=== PATIENT | male | born 1935 | race Caucasian/White ===

== ENCOUNTER → 2018-02-03 08:54 | Outpatient (CLI) | payer MEDICARE, SELFPAY ==
[2018-02-03 10:09] LABS: INR 2.6 (0.9-1.3)
== END ==
PROVIDERS: Family Provider Internal Medicine Interventional Cardiology; PCP Family Medicine; Visit Provider Family Medicine
DX: I48.91 Unspecified atrial fibrillation (principal)
CPT/HCPCS: 36415; 85610

== ENCOUNTER → 2018-02-24 08:41 | Outpatient (CLI) | payer MEDICARE, SELFPAY ==
[2018-02-24 09:57] LABS: Prothrombin Time 35.7 SECONDS (10.1-12.7)
== END ==
PROVIDERS: Family Provider Internal Medicine Interventional Cardiology; PCP Family Medicine; Visit Provider Family Medicine
DX: I48.91 Unspecified atrial fibrillation (principal)
CPT/HCPCS: 36415; 85610

== ENCOUNTER → 2018-05-18 10:17 | Outpatient (REF) | payer MEDICARE, SELFPAY ==
[2018-05-18 10:32] LABS: INR 2.6 (0.9-1.3); Prothrombin Time 30.1 SECONDS (10.1-12.7)
== END ==
LOC: LAB 10:17
PROVIDERS: Family Provider Internal Medicine Interventional Cardiology; PCP Family Medicine; Visit Provider Family Medicine
DX: Z79.01 Long term (current) use of anticoagulants (principal)
CPT/HCPCS: 85610

== ENCOUNTER → 2018-06-14 08:48 | Outpatient (REF) | payer MEDICARE, SELFPAY ==
[2018-06-14 09:02] LABS: INR 3.5 (0.9-1.3); Prothrombin Time 41.8 SECONDS (10.1-12.7)
== END ==
LOC: LAB 08:48
PROVIDERS: Family Provider Internal Medicine Interventional Cardiology; PCP Family Medicine; Visit Provider Family Medicine
DX: Z79.01 Long term (current) use of anticoagulants (principal)
CPT/HCPCS: 85610

== ENCOUNTER 2018-06-29 15:23 | Emergency (ER) | payer MEDICARE, SELFPAY ==
[2018-06-29 15:39] VITALS: BP 161/69; PULSE 64; RESP 16; TEMP 36.7; O2SAT 97
--- NOTE | 2018-06-29 17:31 | DI.CT.S_ITS ---
PROCEDURE: CT HEAD/BRAIN WO CON INDICATIONS: fall on coumadin TECHNIQUE: Noncontrast 4.5 mm thick angled axial sections acquired from the foramen magnum to the vertex, with coronal and sagittal reformats. For radiation dose reduction, the following was used: automated exposure control, adjustment of mA and/or kV according to patient size. COMPARISON: None. FINDINGS: Image quality: Study is slightly degraded due to patient motion.. CSF spaces: Basal cisterns are patent. No extra-axial fluid collections. The ventricles are symmetric in size and shape. Brain: No intracranial bleeds or masses. There is cerebral volume loss for age, with resultant ventricular and sulcal prominence. There are periventricular and deep white matter chronic small vessel ischemic changes. There is intracranial internal carotid artery atherosclerosis. Skull and face: Calvarium and visualized facial bones appear intact, without suspicious lesions. Sinuses: Visualized sinuses and mastoids are clear. IMPRESSION: No CT evidence of acute intracranial pathology. Age-appropriate atrophy and mild periventricular white matter microangiopathic changes. Dictated by: Jass Rai M.D. on 06/29/2018 at 17:58 Approved by: Jass Rai M.D. on 06/29/2018 at 17:59
--- NOTE | 2018-06-29 17:31 | DI.RAD.S_ITS ---
PROCEDURE: XR THORACIC SPINE 3V INDICATIONS: fall 3 days ago TECHNIQUE: 3 views of the thoracic spine were acquired. COMPARISON: None. FINDINGS: Bones: Mild to moderate kyphosis centered at T7-8 level is seen. No gross acute compression fracture or spondylolisthesis. Moderate degenerative disc disease throughout thoracic spine is noted. No suspicious bony lesions. 12 pairs of ribs are noted, and appear intact where visualized. Soft tissues: No paravertebral stripe thickening. Left chest wall cardiac device leads are seen in the region of right atrium and right ventricle. IMPRESSION: Degenerative disc disease throughout thoracic spine with mild to moderate kyphosis centered at T7-8 level. No gross acute compression fracture or spondylolisthesis. Dictated by: Jass Rai M.D. on 06/29/2018 at 18:22 Approved by: Jass Rai M.D. on 06/29/2018 at 18:23
--- NOTE | 2018-06-29 17:57 | ED_ITS ---
HPI - Back Pain/Injury <Laureen Hayes, [employer]OW[employer] PILOT-BC - Last Filed: 06/29/18 23:13> General Chief Complaint: Back Pain/Injury Stated Complaint: GLF several days ago at home, back pain Time Seen by Provider: 06/29/18 17:19 Source: patient and family Mode of arrival: ambulatory Limitations: no limitations History of Present Illness HPI Narrative: The patient is an 82-year-old male nonsmoker who presents with his for chief complaint thoracic back pain. He had a ground level fall while pushing back a chair several days ago and states he landed on his side and had resulting mid back pain. the patient and his do not agree on whether or not he hit his head or not. They agree that he did not lose consciousness. He denies any incontinence of bowel or bladder. He complains of pins and needles in his fingers but no other pins and needles or numbness. He states he has a history of degenerative back disease and takes oxycodone at home as needed for lower back pain. he has not taken anything for this pain other than [id number] medications. Related Data Home Medications Medication Instructions Recorded Confirmed losartan 50 mg PO BID #0 02/15/11 06/29/18 ibuprofen 400 mg PO PRN PRN #0 10/31/15 06/29/18 warfarin [Coumadin] 10 mg PO DAILY #0 10/31/15 06/29/18 multivitamin [Multiple Vitamins] 1 tab PO DAILY #0 08/19/16 06/29/18 Fiber Gummies 1 tab PO DAILY 06/29/18 06/29/18 atenolol 50 mg PO BID 06/29/18 06/29/18 atorvastatin [Lipitor] 20 mg PO BID 06/29/18 06/29/18 diltiazem HCl [Cartia XT] 180 mg PO DAILY 06/29/18 06/29/18 omega-3 fatty acids-fish oil [Fish 300 mg PO BID 06/29/18 06/29/18 Oil] sildenafil (antihypertensive) 20 - 100 mg PO PRN PRN 06/29/18 06/29/18 tamsulosin 0.4 mg PO DAILY 06/29/18 06/29/18 Previous Rx's Medication Instructions Recorded cyclobenzaprine 10 mg PO TID PRN #30 tab 06/29/18 diclofenac sodium [Voltaren] 2 gram TOP QID PRN #100 gram 06/29/18 hydrocodone-acetaminophen 1 tab PO Q4-6H PRN #10 tab 06/29/18 Allergies Allergy/AdvReac Type Severity Reaction Status Date / Time benzocaine [From CETACAINE] Allergy Mild ANAPHYLAXSI Verified 06/29/18 15:42 S butamben [From CETACAINE] Allergy Mild ANAPHYLAXSI Verified 06/29/18 15:42 S tetracaine [From CETACAINE] Allergy Mild ANAPHYLAXSI Verified 06/29/18 15:42 S clonidine [CLONIDINE] Allergy Unknown Verified 06/29/18 15:42 Beta-Adrenergic Agents AdvReac Unknown WEAK,TIRED, Verified 06/29/18 15:42 [BETA-ADRENERGIC AGENTS] HARD TO FUNCTION Review of Systems <LINDA Enriquez - Last Filed: 06/29/18 23:13> Review of Systems GENERAL: Denies chills, fatigue, malaise, fever, sweats. HEENT: Denies sinus pain, ear pain, sore throat, difficulty swallowing, dizziness. RESPIRATORY: Denies dyspnea, cough, wheezing, hemoptysis, sputum. CARDIOVASCULAR: Denies chest pain, palpitations, orthopnea, edema, GASTROINTESTINAL: Denies nausea, vomiting, abdominal pain, diarrhea, constipation, melena. : Denies dysuria, frequency, incontinence, hematuria, urinary retention. MUSCULOSKELETAL: See HPI SKIN: Denies rash, skin lesions, or other NEUROLOGIC: see HPI PSYCHIATRIC: No concerning psychosocial issues. 12 point review of systems is negative except for those stated above PFSH <LINDA Enriquez - Last Filed: 06/29/18 23:13> Medical History (Updated 06/29/18 @ 22:35 by LINDA Enriquez) Low back pain (Acute) Social History Smoking Status: Never smoker Social History Smoking Status: Never smoker Exam <LINDA Enriquez - Last Filed: 06/29/18 23:13> Narrative Exam Narrative: GENERAL: Elderly obese gentleman sitting on stretcher HEAD: Atraumatic. Normocephalic. No temporal or scalp tenderness. EYES: Pupils equal round and reactive. Extraocular motions intact. No scleral icterus. No injection or drainage. ENT: Nose without bleeding, purulent drainage or septal hematoma. Throat without erythema, tonsillar hypertrophy or exudate. Uvula midline. Airway patent. NECK: Trachea midline. No JVD or lymphadenopathy. Supple, nontender, no meningeal signs. CARDIOVASCULAR: Regular rate and rhythm RESPIRATORY: Clear to auscultation. Breath sounds equal bilaterally. No wheezes, rales, or rhonchi. No cough. No increased respiratory effort. GASTROINTESTINAL: Abdomen soft, non-tender, nondistended. No hepato- splenomegaly, or palpable masses. No guarding. EXTREMITIES: No clubbing, cyanosis, or edema. No joint tenderness, effusion, or edema noted. BACK: T-spine pain to palpation without deformity or crepitance. No flank tenderness. no pain to C-spine or L-spine palpation. pain to bilateral T-spine para spinal muscle NEURO: AOx3. Strength is equal upper and lower extremities bilaterally. No gross cranial nerve deficit. Stable gait. Clear speech. sensation is intact bilateral hands using sharp versus dull testing on all fingers several times and hands. SKIN: No rash or erythema. Initial Vital Signs Initial Vital Signs: Vital Signs Temperature 98.1 F 06/29/18 15:39 Pulse Rate 64 06/29/18 15:39 Respiratory Rate 16 06/29/18 15:39 Blood Pressure 161/69 H 06/29/18 15:39 Pulse Oximetry 97 06/29/18 15:39 <Noemi Dobbs DO - Last Filed: 06/30/18 03:41> Initial Vital Signs Initial Vital Signs: Vital Signs Temperature 98.1 F 06/29/18 15:39 Pulse Rate 64 06/29/18 15:39 Respiratory Rate 16 06/29/18 15:39 Blood Pressure 161/69 H 06/29/18 15:39 Pulse Oximetry 97 06/29/18 15:39 Course <OSMAR Enriquez-BC - Last Filed: 06/29/18 23:13> Orders Ordered: Discontinued Medications Hydrocodone Bitart/Acetaminophen ([place] 5/325) 1 tab PO NOW ONE Stop: 06/29/18 19:26 Last Admin: 06/29/18 19:35 Dose: 1 tab Cyclobenzaprine HCl (Flexeril) 10 mg PO NOW ONE Stop: 06/29/18 18:30 Last Admin: 06/29/18 18:39 Dose: 10 mg Ondansetron HCl (Zofran Odt) 4 mg SL NOW ONE Stop: 06/29/18 19:26 Last Admin: 06/29/18 19:31 Dose: 4 mg Vital Signs - 8 hr 06/29/18 20:33 Pulse Rate 60 Respiratory Rate 16 Blood Pressure 128/57 L Pulse Oximetry 98 <Noemi Dobbs DO - Last Filed: 06/30/18 03:41> Orders Ordered: Discontinued Medications Hydrocodone Bitart/Acetaminophen ([place] 5/325) 1 tab PO NOW ONE Stop: 06/29/18 19:26 Last Admin: 06/29/18 19:35 Dose: 1 tab Cyclobenzaprine HCl (Flexeril) 10 mg PO NOW ONE Stop: 06/29/18 18:30 Last Admin: 06/29/18 18:39 Dose: 10 mg Ondansetron HCl (Zofran Odt) 4 mg SL NOW ONE Stop: 06/29/18 19:26 Last Admin: 06/29/18 19:31 Dose: 4 mg Vital Signs - 8 hr 06/29/18 20:33 Pulse Rate 60 Respiratory Rate 16 Blood Pressure 128/57 L Pulse Oximetry 98 MDM - Back Pain/Injury <LINDA Enriquez - Last Filed: 06/29/18 23:13> Imaging Data T-spine x-ray: Radiologist's impression: [place] [address] XRay Report Signed Patient: Pan Crook [facility]#: [id number] : 6Acct:[id number] Age/Sex: 82 / MDate of Service: 06/29/18 Loc: ED Accession Number: [id number] Procedure: XR thoracic spine 3V Ordering Provider: Laureen Hayes PROCEDURE: XR THORACIC SPINE 3V INDICATIONS: fall 3 days ago TECHNIQUE: 3 views of the thoracic spine were acquired. COMPARISON: None. FINDINGS: Bones: Mild to moderate kyphosis centered at T7-8 level is seen. No gross acute compression fracture or spondylolisthesis. Moderate degenerative disc disease throughout thoracic spine is noted. No suspicious bony lesions. 12 pairs of ribs are noted, and appear intact where visualized. Soft tissues: No paravertebral stripe thickening. Left chest wall cardiac device leads are seen in the region of right atrium and right ventricle. IMPRESSION: Degenerative disc disease throughout thoracic spine with mild to moderate kyphosis centered at T7-8 level. No gross acute compression fracture or spondylolisthesis. Dictated by: Jass Rai M.D. on 06/29/2018 at 18:22 Approved by: Jass Rai M.D. on 06/29/2018 at 18:23 CT scan - head: Radiologist's impression: Pan Crook 82 M [address] [place] [address] CT Scan Report Signed Patient: Pan Crook [facility]#: [id number] : 1935cct:[id number] Age/Sex: 82 / MDate of Service: 06/29/18 Loc: ED Accession Number: [id number] Procedure: CT head/brain wo con Ordering Provider: Laureen Hayes PROCEDURE: CT HEAD/BRAIN WO CON INDICATIONS: fall on coumadin TECHNIQUE: Noncontrast 4.5 mm thick angled axial sections acquired from the foramen magnum to the vertex, with coronal and sagittal reformats. For radiation dose reduction, the following was used: automated exposure control, adjustment of mA and/or kV according to patient size. COMPARISON: None. FINDINGS: Image quality: Study is slightly degraded due to patient motion.. CSF spaces: Basal cisterns are patent. No extra-axial fluid collections. The ventricles are symmetric in size and shape. Brain: No intracranial bleeds or masses. There is cerebral volume loss for age, with resultant ventricular and sulcal prominence. There are periventricular and deep white matter chronic small vessel ischemic changes. There is intracranial internal carotid artery atherosclerosis. Skull and face: Calvarium and visualized facial bones appear intact, without suspicious lesions. Sinuses: Visualized sinuses and mastoids are clear. IMPRESSION: No CT evidence of acute intracranial pathology. Age-appropriate atrophy and mild periventricular white matter microangiopathic changes. Dictated by: Jass Rai M.D. on 06/29/2018 at 17:58 Approved by: Jass Rai M.D. on 06/29/2018 at 17:59 MDM Narrative Medical decision making narrative: Given the patient's fall on Coumadin, I obtained a head CT which was normal. Given this pain on palpation of the T- spine obtained x-rays which were normal and had no acute fracture or pathology. The patient's sensation is intact with sharp versus dull testing bilateral upper hands. I did given Flexeril for pain, which she immediately vomited up. He was better with Zofran and [place]. He did not want to workup his vomiting or do extra lab work. He overall had a benign exam other than his pain to palpation. he stated his pain was much relieved with [place]. Prescriptions and discussed return precautions of incontinence of bowel, incontinence of bladder, saddle anesthesia. Encouraged the patient follow up with primary care provider in the next few days. Patient and had no questions or concerns upon discharge. Discharge Plan Departure Patient Disposition: Home Clinical Impression: Fall from ground level Back pain Qualifiers: Back pain location: thoracic back pain Chronicity: acute Back pain laterality: bilateral Qualified Code(s): M54.6 - Pain in thoracic spine Discharge Date/Time: 06/29/18 20:33 Interventions: ED Discharge Assessment Last Done: 06/29/18 20:33 Instructions: DI for Back Spasm, DI for Thoracic Back Pain Activity Restrictions/Additional Instructions: Your x-rays and scans came back normal today. I have given you pain medication prescriptions. The aware that this can be sedating and constipating. Please follow up with her primary care provider. I suggest range of motion as able. Come back to the emergency department for any acute concerns as stress incontinence of bowel or bladder, or numbness where you would sit on a horse Prescriptions: New cyclobenzaprine 10 mg tablet 10 mg PO TID PRN (Reason: muscle spasm) Qty: 30 RF: 0 hydrocodone-acetaminophen 5-325 mg tablet 1 tab PO Q4-6H PRN (Reason: pain) Qty: 10 RF: 0 diclofenac sodium [Voltaren] 1 % gel 2 gram TOP QID PRN (Reason: pain) Qty: 100 RF: 0 No Action losartan 50 MG tablet 50 mg PO BID Qty: 0 RF: 0 ibuprofen 200 MG tablet 400 mg PO PRN PRN (Reason: pain) Qty: 0 RF: 0 warfarin [Coumadin] 5 MG tablet 10 mg PO DAILY Qty: 0 RF: 0 multivitamin [Multiple Vitamins] 1 EACH tablet 1 tab PO DAILY Qty: 0 RF: 0 atorvastatin [Lipitor] 10 mg Tablet 20 mg PO BID RF: 0 tamsulosin 0.4 mg Capsule 0.4 mg PO DAILY RF: 0 atenolol 50 mg Tablet 50 mg PO BID RF: 0 diltiazem HCl [Cartia XT] 180 mg Capsule,Extended Release 24hr 180 mg PO DAILY RF: 0 sildenafil (antihypertensive) 20 mg Tablet 20 - 100 mg PO PRN PRN (Reason: Sexual Activity) RF: 0 omega-3 fatty acids-fish oil [Fish Oil] 300-1,000 mg Capsule 300 mg PO BID RF: 0 Fiber Gummies 1 tab PO DAILY RF: 0 Referrals: Leonel Edmonds MD [Primary Care Provider] - <Noemi Dobbs DO - Last Filed: 06/30/18 03:41> Cosign ED Attending Cosnealature Attestation: I was immediately available in the department for consultation. Documentation has been reviewed. I agree with assessment and plan.
[2018-06-29 18:33] VITALS: BP 159/55; PULSE 75
--- NOTE | 2018-06-29 18:34 | PC.NURSE ---
pt reports mechanical fall 2 days ago, today with bilateral mid forearm to index and thumb numbness, with chills today.
[2018-06-29] MEDS: CYCLOBENZAPRINE 10 MG TABLET PO (18:39)
[2018-06-29] MEDS: ONDANSETRON 4 MG ODT SL (19:31)
[2018-06-29] MEDS: HYDROCODONE/ACET 5/325 TABLET 1 TAB PO (19:35)
[2018-06-29 20:33] VITALS: BP 128/57; PULSE 60; RESP 16; O2SAT 98
== END 2018-06-29 20:33 | disposition home or self-care (01) ==
PROVIDERS: Emergency Provider Nurse Practitioner Family; Family Provider Internal Medicine Interventional Cardiology; PCP Family Medicine
DX: M54.6 Pain in thoracic spine (principal); W18.30XA Fall on same level, unspecified, initial encounter; Z79.01 Long term (current) use of anticoagulants
CPT/HCPCS: 70450; 72072; 99283; 99284

== ENCOUNTER 2018-07-01 17:30 | Emergency (ER) | payer MEDICARE, SELFPAY ==
[2018-07-01 17:48] VITALS: BP 109/52; PULSE 59; RESP 18; TEMP 37.2; O2SAT 95; BMI 31.7
[2018-07-01 18:22] LABS: Bilirubin Urine UA NEGATIVE (NEGATIVE); Color Urine UA YELLOW; Glucose Urine UA NEGATIVE (Negative); Ketones Urine UA NEGATIVE (NEGATIVE); Leukocyte Esterase Urine UA 2+ (NEGATIVE); Nitrite Urine UA NEGATIVE (Negative); Occult Blood Urine UA 3+ (Negative); Protein Urine UA 2+ (Negative); Specific Gravity Urine UA >=1.030 (1.000-1.035); Urobilinogen Urine UA 0.2 E.U./dL (0.2)
[2018-07-01 18:52] LABS: Appearance Urine UA Turbid
--- NOTE | 2018-07-01 19:11 | ED_ITS ---
HPI - Back Pain/Injury General Chief Complaint: Back Pain/Injury Stated Complaint: bladder incont. x2 days from 06/29 appt Time Seen by Provider: 07/01/18 19:10 Source: patient Mode of arrival: ambulatory Limitations: no limitations History of Present Illness HPI Narrative: Patient is an 82-year-old male who was seen here in this emergency department several days ago after sustaining a fall. He had x-rays and CT scans and had no reported injuries found. He was discharged home. He returns today because he has had at least 1 day of urinary frequency, occasional incontinence, and burning when he urinates. He states that he felt like maybe he had some of these symptoms prior to his fall however they have worsened over the past couple days. No fevers or vomiting. No numbness or tingling into his legs. He has had a urinary tract infection in the past. He has had some prostate issues in the past. Related Data Home Medications Medication Instructions Recorded Confirmed losartan 50 mg PO BID #0 02/15/11 06/29/18 ibuprofen 400 mg PO PRN PRN #0 10/31/15 06/29/18 warfarin [Coumadin] 10 mg PO DAILY #0 10/31/15 06/29/18 multivitamin [Multiple Vitamins] 1 tab PO DAILY #0 08/19/16 06/29/18 Fiber Gummies 1 tab PO DAILY 06/29/18 06/29/18 atenolol 50 mg PO BID 06/29/18 06/29/18 atorvastatin [Lipitor] 20 mg PO BID 06/29/18 06/29/18 diltiazem HCl [Cartia XT] 180 mg PO DAILY 06/29/18 06/29/18 omega-3 fatty acids-fish oil [Fish 300 mg PO BID 06/29/18 06/29/18 Oil] sildenafil (antihypertensive) 20 - 100 mg PO PRN PRN 06/29/18 06/29/18 tamsulosin 0.4 mg PO DAILY 06/29/18 06/29/18 Previous Rx's Medication Instructions Recorded cyclobenzaprine 10 mg PO TID PRN #30 tab 06/29/18 diclofenac sodium [Voltaren] 2 gram TOP QID PRN #100 gram 06/29/18 hydrocodone-acetaminophen 1 tab PO Q4-6H PRN #10 tab 06/29/18 cephalexin [Keflex] 500 mg PO Q12H 5 Days #10 cap 07/01/18 Allergies Allergy/AdvReac Type Severity Reaction Status Date / Time benzocaine [From CETACAINE] Allergy Mild ANAPHYLAXSI Verified 07/01/18 17:48 S butamben [From CETACAINE] Allergy Mild ANAPHYLAXSI Verified 07/01/18 17:48 S tetracaine [From CETACAINE] Allergy Mild ANAPHYLAXSI Verified 07/01/18 17:48 S clonidine [CLONIDINE] Allergy Unknown Verified 07/01/18 17:48 Beta-Adrenergic Agents AdvReac Unknown WEAK,TIRED, Verified 06/29/18 15:42 [BETA-ADRENERGIC AGENTS] HARD TO FUNCTION Review of Systems Constitutional Denies fever(s) and Denies headache(s) ENT Ears, Nose, Mouth, and Throat: Denies headache(s) Cardiovascular Denies chest pain and Denies dyspnea Respiratory Denies dyspnea Gastrointestinal Gastrointestinal: Denies abdominal pain, Denies nausea and Denies vomiting Genitourinary Denies hematuria, Reports dysuria, Denies flank pain, Reports urinary frequency, Reports urinary incontinence and Reports urinary urgency Musculoskeletal Denies myalgias and Denies arthralgias Integumentary/Breasts Denies rash Neurologic Denies behavioral changes and Denies headache(s) Psychiatric Denies behavioral changes Hematologic/Lymphatic Comments: On Coumadin [facility] Medical History Hyperlipidemia (Acute) Hypertension (Acute) Low back pain (Acute) Social History Smoking Status: Never smoker Social History Smoking Status: Never smoker Exam Initial Vital Signs Initial Vital Signs: Vital Signs Temperature 99.0 F 07/01/18 17:48 Pulse Rate 59 L 07/01/18 17:48 Respiratory Rate 18 07/01/18 17:48 Blood Pressure 109/52 L 07/01/18 17:48 Pulse Oximetry 95 07/01/18 17:48 Const General: cooperative, comfortable, well developed, well groomed and No acute distress Orientation: alert, awake and oriented x3 HENMT Head: normal to inspection and normocephalic Resp Effort & Inspection: normal respiratory effort Cardio Rate: regular rate GI Inspection: non-distended Palpation: soft Back/Spine/Pelvis Back: No CVA tenderness Skin Lesions: no lesions Rashes: no rashes Neuro General: alert, awake and oriented x3 Cognition: normal cognition Speech: speech normal Gait: normal gait Motor: muscle tone normal throughout Extrem General: normal to inspection and capillary refill normal Psych Appearance: grossly normal and well kempt Course Orders Ordered: ED Orders 07/01/18 18:15 Urinalysis and Microscopic Stat Urine Culture Stat Discontinued Medications Cephalexin HCl (Keflex) 500 mg PO NOW ONE Stop: 07/01/18 20:04 Last Admin: 07/01/18 20:08 Dose: 500 mg Vital Signs - 8 hr 07/01/18 19:48 Pulse Rate 60 Respiratory Rate 15 Blood Pressure [Left Arm] 124/51 L Pulse Oximetry 96 MDM - Back Pain/Injury Lab Data Attestation: I reviewed the patient's lab results. Lab Results 07/01/18 Range/Units 18:15 Urine Color Yellow Urine Appearance Turbid Urine pH 5.0 (4.5-8.0) Ur Specific [place] >=1.030 H (1.000-1.035) Urine Protein 2+ H (Negative) Urine Glucose (UA) Negative (Negative) g/dL Urine Ketones Negative (NEGATIVE) Urine Occult Blood 3+ H (Negative) Urine Nitrate Negative (Negative) Urine Bilirubin Negative (NEGATIVE) Urine Urobilinogen 0.2 (0.2) E.U./dL Ur Leukocyte Esterase 2+ H (NEGATIVE) Urine RBC 10-30/hpf H (0-5/HPF) Urine WBC >100/hpf H (0-5/HPF) Ur Squamous Epith Cells 0-1 /hpf (0-5/HPF) Urine Bacteria Many (>30) H (None) Ur Culture Indicated? Specimen cultured [facility] Narrative Medical decision making narrative: Patient's urinalysis today is consistent with a urinary tract infection. It seems that his urinary symptoms occurred prior to his fall a couple days ago. I have low concern for cauda equina based on today's exam and laboratory findings. I did discuss this with the patient. I feel that the UTI is unrelated to his fall a couple days ago. He states that his back pain has been improving since then. Will send home with antibiotics. There is no signs of pyelonephritis. Patient was given strict return precautions. He expressed understanding and agreement with plan. Discharge Plan Departure Patient Disposition: Home Clinical Impression: Urinary tract infection Qualifiers: Urinary tract infection type: site unspecified Hematuria presence: without hematuria Qualified Code(s): N39.0 - Urinary tract infection, site not specified Discharge Date/Time: 07/01/18 20:19 Interventions: ED Discharge Assessment Last Done: 07/01/18 20:18 Instructions: DI for Urinary Tract Infection (UTI) Activity Restrictions/Additional Instructions: You were given your 1st dose of antibiotics here in the emergency department. Start taking them as directed tomorrow. Return to the emergency department for any new or worsening symptoms Prescriptions: New cephalexin [Keflex] 500 mg capsule 500 mg PO Q12H 5 Days Qty: 10 RF: 0 No Action losartan 50 MG tablet 50 mg PO BID Qty: 0 RF: 0 ibuprofen 200 MG tablet 400 mg PO PRN PRN (Reason: pain) Qty: 0 RF: 0 warfarin [Coumadin] 5 MG tablet 10 mg PO DAILY Qty: 0 RF: 0 multivitamin [Multiple Vitamins] 1 EACH tablet 1 tab PO DAILY Qty: 0 RF: 0 atorvastatin [Lipitor] 10 mg Tablet 20 mg PO BID RF: 0 tamsulosin 0.4 mg Capsule 0.4 mg PO DAILY RF: 0 atenolol 50 mg Tablet 50 mg PO BID RF: 0 diltiazem HCl [Cartia XT] 180 mg Capsule,Extended Release 24hr 180 mg PO DAILY RF: 0 sildenafil (antihypertensive) 20 mg Tablet 20 - 100 mg PO PRN PRN (Reason: Sexual Activity) RF: 0 omega-3 fatty acids-fish oil [Fish Oil] 300-1,000 mg Capsule 300 mg PO BID RF: 0 Fiber Gummies 1 tab PO DAILY RF: 0 cyclobenzaprine 10 mg tablet 10 mg PO TID PRN (Reason: muscle spasm) Qty: 30 RF: 0 hydrocodone-acetaminophen 5-325 mg tablet 1 tab PO Q4-6H PRN (Reason: pain) Qty: 10 RF: 0 diclofenac sodium [Voltaren] 1 % gel 2 gram TOP QID PRN (Reason: pain) Qty: 100 RF: 0 Referrals: Leonel Edmonds MD [Primary Care Provider] -
[2018-07-01 19:23] LABS: RBC Urine 10-30/HPF (0-5/HPF)
[2018-07-01 19:24] LABS: Bacteria Urine Many (>30); Culture Indicated Urine Specimen Cultured; Squamous Epithelial Cell Urine 0-1 /HPF (0-5/HPF); WBC Urine >100/HPF (0-5/HPF)
[2018-07-01 19:48] VITALS: BP 124/51; PULSE 60; RESP 15; O2SAT 96
[2018-07-01] MEDS: cephALEXin 250 MG CAPSULE 500 MG PO (20:08)
== END 2018-07-01 20:19 | disposition home or self-care (01) ==
PROVIDERS: Emergency Provider Emergency Medicine; Family Provider Internal Medicine Interventional Cardiology; PCP Family Medicine
DX: N39.0 Urinary tract infection, site not specified (principal); R32 Unspecified urinary incontinence; W18.30XD Fall on same level, unspecified, subsequent encounter; Z79.01 Long term (current) use of anticoagulants
CPT/HCPCS: 51798; 81001; 87077; 87086; 87186; 99283

== ENCOUNTER → 2018-07-12 11:32 | Outpatient (ROUT) | payer MEDICARE, SELFPAY ==
[2018-07-12 12:01] LABS: INR 2.6 (0.9-1.3); Prothrombin Time 30.1 SECONDS (10.1-12.7)
== END ==
PROVIDERS: Family Provider Internal Medicine Interventional Cardiology; PCP Family Medicine; Visit Provider Family Medicine
DX: Z79.01 Long term (current) use of anticoagulants (principal)
CPT/HCPCS: 85610

== ENCOUNTER → 2018-08-10 07:56 | Outpatient (CLI) | payer MEDICARE, SELFPAY ==
[2018-08-10 09:54] LABS: INR 3.6 (0.9-1.3); Prothrombin Time 41.9 SECONDS (10.1-12.7)
[2018-08-10 10:12] LABS: BUN Creatinine Ratio 17.1 (6-22); Blood Urea Nitrogen 24 mg/dL (9-20); Calcium 8.8 mg/dL (8.4-10.2); Carbon Dioxide 26 mmol/L (22-32); Chloride 107 mmol/L (98-107); Estimated Glomerular Filt Rate 48.5 mL/min (>60); Glucose 97 mg/dL (80-110); HEMOLYSIS < 15 (0-50); Potassium 5.2 mmol/L (3.4-5.1); Sodium 141 mmol/L (137-145)
== END ==
PROVIDERS: Family Provider Internal Medicine Interventional Cardiology; PCP Family Medicine; Visit Provider Family Medicine
DX: I48.91 Unspecified atrial fibrillation (principal); Z79.01 Long term (current) use of anticoagulants
CPT/HCPCS: 36415; 80048; 85610

== ENCOUNTER → 2018-08-11 13:05 | Outpatient (CLI) | payer MEDICARE, SELFPAY ==
--- NOTE | 2018-08-11 | DI.CT.S_ITS ---
PROCEDURE: CT ABDOMEN PELVIS WO/W CON INDICATIONS: RECURRENT UTIS/HEMATURIA TECHNIQUE: Optional 5 mm thick noncontrast images acquired from the diaphragm to the symphysis pubis. After the administration of intravenous contrast, 5 mm thick images acquired from the diaphragm to the symphysis pubis after a 10-minute delay. 2 mm thick coronal and sagittal reformats were then performed of the kidneys and ureters. For radiation dose reduction, the following was used: automated exposure control, adjustment of mA and/or kV according to patient size. COMPARISON: [facility], CT, ABDOMEN/PELVIS WITH CONTRAST, 01/08/2014, 8:48. FINDINGS: Image quality: Excellent. Lung bases: Lung bases are clear. Heart size is enlarged. There is calcification of the coronary vasculature. Transvenous cardiac leads are present. Urinary system: Both kidneys are normal in size, without hydronephrosis or nephrolithiasis on pre-contrast images. No perinephric fat stranding. There is no change in the 10 mm diameter cyst within the right interpolar kidney, and otherwise normal bilateral renal enhancement. Renal calyces appear normal in morphology when filled with contrast. Opacified portions of both ureters demonstrate normal caliber. Bladder wall thickness is normal. No calcified bladder stones. Other solid organs: Liver is normal in size and enhancement. Gallbladder is within normal limits. Biliary system is non dilated. Pancreas enhances normally. Spleen is normal in size and enhancement. A few scattered punctate splenic calcifications are present. No adrenal nodules. Peritoneum and bowel: Bowel loops demonstrate normal wall thickness and caliber. No free fluid or air. Diverticulosis of the descending and sigmoid colon. Appendix not seen. No evidence of appendicitis. Nodes and vessels: No retroperitoneal or mesenteric adenopathy by size criteria. Aorta and inferior vena cava are normal in size. Abdominal wall: No ventral hernias. Pelvis: No pathologic free pelvic fluid. No inguinal hernias or adenopathy. Bones: No suspicious bony lesions. No vertebral body compression fractures. IMPRESSION: 1. No evidence of urinary tract calcification, nor obstruction. 2. No evidence of renal neoplasm. 3. Remote splenic granulomatous disease. Dictated by: Felicitas Arciniega M.D. on 08/11/2018 at 13:23 Approved by: Felicitas Arciniega M.D. on 08/11/2018 at 13:27
== END ==
PROVIDERS: Family Provider Internal Medicine Interventional Cardiology; PCP Family Medicine; Referring Provider Specialist; Visit Provider Family Medicine
DX: R31.9 Hematuria, unspecified (principal); N28.1 Cyst of kidney, acquired; K57.30 Diverticulosis of large intestine without perforation or abscess without bleeding; Z87.440 Personal history of urinary (tract) infections
CPT/HCPCS: 74178; Q9967

== ENCOUNTER → 2018-09-05 11:30 | Outpatient (ROUT) | payer MEDICARE, SELFPAY ==
[2018-09-05 11:59] LABS: INR 3.8 (0.9-1.3); Prothrombin Time 44.6 SECONDS (10.1-12.7)
== END ==
PROVIDERS: Family Provider Internal Medicine Interventional Cardiology; PCP Family Medicine; Visit Provider Student in an Organized Health Care Education/Training Program
DX: I48.91 Unspecified atrial fibrillation (principal)
CPT/HCPCS: 85610

== ENCOUNTER → 2018-09-11 08:43 | Outpatient (CLI) | payer MEDICARE, SELFPAY ==
[2018-09-11 11:05] LABS: Prostate Specific Antigen 4.11 ng/mL (0.10-4.00)
== END ==
PROVIDERS: Visit Provider Specialist
DX: N40.1 Benign prostatic hyperplasia with lower urinary tract symptoms (principal)
CPT/HCPCS: 36415; 84153

== ENCOUNTER → 2018-09-14 10:25 | Outpatient (ROUT) | payer MEDICARE, SELFPAY ==
[2018-09-14 10:40] LABS: INR 1.2 (0.9-1.3); Prothrombin Time 13.3 SECONDS (10.1-12.7)
== END ==
PROVIDERS: Visit Provider Student in an Organized Health Care Education/Training Program
DX: Z79.01 Long term (current) use of anticoagulants (principal)
CPT/HCPCS: 85610

== ENCOUNTER → 2018-09-26 14:06 | Outpatient (CLI) | payer MEDICARE, SELFPAY ==
[2018-09-26 14:41] LABS: Appearance Urine UA CLOUDY; Bilirubin Urine UA NEGATIVE (NEGATIVE); Color Urine UA YELLOW; Glucose Urine UA NEGATIVE (Negative); Ketones Urine UA NEGATIVE (NEGATIVE); Leukocyte Esterase Urine UA 2+ (NEGATIVE); Nitrite Urine UA POSITIVE (Negative); Occult Blood Urine UA 3+ (Negative); Protein Urine UA 1+ (Negative); Urobilinogen Urine UA 0.2 E.U./dL (0.2); pH Urine UA 6.5 (4.5-8.0)
[2018-09-26 15:03] LABS: RBC Urine 10-30/HPF (0-5/HPF); Squamous Epithelial Cell Urine 0-1 /HPF (0-5/HPF); WBC Urine 30-100/HPF (0-5/HPF)
[2018-09-26 15:04] LABS: Bacteria Urine Many (>30); Culture Indicated Urine Specimen Cultured
== END ==
PROVIDERS: Family Provider Student in an Organized Health Care Education/Training Program; PCP Student in an Organized Health Care Education/Training Program; Visit Provider Specialist
DX: N39.0 Urinary tract infection, site not specified (principal)
CPT/HCPCS: 81001; 87077; 87086; 87186

== ENCOUNTER → 2018-09-28 09:10 | Outpatient (ROUT) | payer MEDICARE, SELFPAY ==
[2018-09-28 09:24] LABS: INR 2.2 (0.9-1.3); Prothrombin Time 25.1 SECONDS (10.1-12.7)
== END ==
PROVIDERS: Family Provider Student in an Organized Health Care Education/Training Program; PCP Student in an Organized Health Care Education/Training Program; Visit Provider Student in an Organized Health Care Education/Training Program
DX: Z79.01 Long term (current) use of anticoagulants (principal)
CPT/HCPCS: 85610

== ENCOUNTER → 2018-10-18 09:40 | Outpatient (ROUT) | payer MEDICARE, SELFPAY ==
[2018-10-18 10:02] LABS: INR 1.4 (0.9-1.3); Prothrombin Time 16.6 SECONDS (10.1-12.7)
== END ==
PROVIDERS: Family Provider Student in an Organized Health Care Education/Training Program; PCP Student in an Organized Health Care Education/Training Program; Visit Provider Student in an Organized Health Care Education/Training Program
DX: Z79.01 Long term (current) use of anticoagulants (principal)
CPT/HCPCS: 85610

== ENCOUNTER → 2019-01-17 08:57 | Outpatient (ROUT) | payer MEDICARE, SELFPAY ==
[2019-01-17 09:03] LABS: INR 1.6 (0.9-1.3); Prothrombin Time 18.9 SECONDS (10.1-12.7)
== END ==
PROVIDERS: Family Provider Student in an Organized Health Care Education/Training Program; PCP Student in an Organized Health Care Education/Training Program; Visit Provider Student in an Organized Health Care Education/Training Program
DX: Z79.01 Long term (current) use of anticoagulants (principal)
CPT/HCPCS: 85610

== ENCOUNTER → 2019-02-23 14:15 | Outpatient (ROUT) | payer MEDICARE, SELFPAY ==
[2019-02-23 14:42] LABS: INR 1.8 (0.9-1.3); Prothrombin Time 20.7 SECONDS (10.1-12.7)
== END ==
PROVIDERS: Family Provider Student in an Organized Health Care Education/Training Program; PCP Student in an Organized Health Care Education/Training Program; Visit Provider Student in an Organized Health Care Education/Training Program
DX: Z79.01 Long term (current) use of anticoagulants (principal)
CPT/HCPCS: 85610

== ENCOUNTER → 2019-03-21 11:19 | Outpatient (ROUT) | payer MEDICARE, SELFPAY ==
[2019-03-21 11:25] LABS: INR 3.3 (0.9-1.3); Prothrombin Time 39.5 SECONDS (10.1-12.7)
== END ==
PROVIDERS: Family Provider Student in an Organized Health Care Education/Training Program; PCP Student in an Organized Health Care Education/Training Program; Visit Provider Student in an Organized Health Care Education/Training Program
DX: Z79.01 Long term (current) use of anticoagulants (principal)
CPT/HCPCS: 85610

== ENCOUNTER → 2019-04-05 10:02 | Outpatient (ROUT) | payer MEDICARE, SELFPAY ==
[2019-04-05 10:17] LABS: INR 2.5 (0.9-1.3); Prothrombin Time 28.8 SECONDS (10.1-12.7)
== END ==
PROVIDERS: Family Provider Student in an Organized Health Care Education/Training Program; PCP Student in an Organized Health Care Education/Training Program; Visit Provider Student in an Organized Health Care Education/Training Program
DX: Z79.01 Long term (current) use of anticoagulants (principal)
CPT/HCPCS: 85610

== ENCOUNTER 2019-04-12 16:18 | Emergency (ER) | payer MEDICARE, SELFPAY ==
[2019-04-12 16:22] VITALS: BP 200/77; PULSE 60; RESP 18; TEMP 36.6; O2SAT 95; BMI 33.2
--- NOTE | 2019-04-12 16:37 | ED_ITS ---
HPI - Trauma General Chief Complaint: Trauma Stated Complaint: fall, difficulty breathing Time Seen by Provider: 04/12/19 16:27 Source: patient Mode of arrival: Ambulatory Limitations: no limitations History of Present Illness HPI narrative: 83-year-old male never smoker with history of AFib on Coumadin presents with a chief complaint of head injury and severe back pain after fall. He was walking up some stairs just prior to arrival when he fell backwards down the stairs and struck his head and injured his back. He now has such significant pain in his back that is hard for him to breathe. Though he struck his head he denies any ongoing head pain, loss of consciousness, vomiting or abnormal mental status. His pain is worse with motion and improves with rest. He states his INR was 1.5 a week ago. He denies any extremity injury. Patient activated as modified trauma MD complaint: fall Onset (ago): minute(s) Loss of Consciousness: no Location: head and back Context: fall Related Data Home Medications Medication Instructions Recorded Confirmed losartan 50 mg PO BID #0 02/15/11 06/29/18 ibuprofen 400 mg PO PRN PRN #0 10/31/15 06/29/18 warfarin [Coumadin] 10 mg PO DAILY #0 10/31/15 06/29/18 multivitamin [Multiple Vitamins] 1 tab PO DAILY #0 08/19/16 06/29/18 Fiber Gummies 1 tab PO DAILY 06/29/18 06/29/18 atenolol 50 mg PO BID 06/29/18 06/29/18 atorvastatin [Lipitor] 20 mg PO BID 06/29/18 06/29/18 diltiazem HCl [Cartia XT] 180 mg PO DAILY 06/29/18 06/29/18 omega-3 fatty acids-fish oil [Fish 300 mg PO BID 06/29/18 06/29/18 Oil] sildenafil (pulm.hypertension) 20 - 100 mg PO PRN PRN 06/29/18 06/29/18 tamsulosin 0.4 mg PO DAILY 06/29/18 06/29/18 Previous Rx's Medication Instructions Recorded cyclobenzaprine 10 mg PO TID PRN #30 tab 06/29/18 diclofenac sodium [Voltaren] 2 gram TOP QID PRN #100 gram 06/29/18 hydrocodone-acetaminophen 1 tab PO Q4-6H PRN #10 tab 06/29/18 lidocaine [Lidoderm] 1 patch TOP DAILY #15 each 04/12/19 Allergies Allergy/AdvReac Type Severity Reaction Status Date / Time benzocaine [From CETACAINE] Allergy Mild ANAPHYLAXSI Verified 04/12/19 16:22 S butamben [From CETACAINE] Allergy Mild ANAPHYLAXSI Verified 04/12/19 16:22 S tetracaine [From CETACAINE] Allergy Mild ANAPHYLAXSI Verified 04/12/19 16:22 S clonidine [CLONIDINE] Allergy Unknown Verified 04/12/19 16:22 Beta-Adrenergic Agents AdvReac Unknown WEAK,TIRED, Verified 04/12/19 16:22 [BETA-ADRENERGIC AGENTS] HARD TO FUNCTION Review of Systems Constitutional Constitutional: Denies chills, Denies fatigue, Denies fever(s), Denies frequent falls, Denies lethargy and Denies weakness Eyes Eyes: Denies change in vision, Denies eye discharge, Denies irritation and Denies loss of vision ENT Ears, Nose, Mouth, and Throat: Denies change in voice, Denies dizziness, Denies neck pain, Denies sore throat and Denies throat swelling Cardiovascular Cardiovascular: Denies chest pain, Denies irregular heart rhythm, Denies lightheadedness, Denies palpitations, Denies dyspnea, Denies dyspnea on exertion and Denies orthopnea Respiratory Respiratory: Denies cough, Denies dyspnea, Denies dyspnea on exertion and Denies wheezing Gastrointestinal Gastrointestinal: Denies abdominal pain, Denies change in bowel habits, Denies diarrhea, Denies nausea and Denies vomiting Genitourinary Genitourinary: Denies hematuria, Denies flank pain, Denies urinary incontinence and Denies urinary urgency Musculoskeletal Musculoskeletal: Reports back pain, Denies muscle weakness, Denies neck pain, Denies numbness and Denies tingling Integumentary/Breasts Skin/Breast: Denies pruritus, Denies erythema, Denies rash and Denies wounds Neurologic Neurologic: Denies behavioral changes, Denies confusion, Denies dizziness, Denies frequent falls, Denies loss of vision, Denies numbness, Denies tingling and Denies weakness Psychiatric Psychiatric: Denies anxiety, Denies behavioral changes, Denies confusion, Denies depression, Denies homicidal ideation and Denies suicidal ideation Endocrine Endocrine: Denies fatigue, Denies flushing and Denies palpitations Hematologic/Lymphatic Hematologic/Lymphatic: Denies easy bruising Allergic/Immunologic Allergic/Immunologic: Denies urticaria, Denies throat swelling and Denies wheezing Patient History Medical History Hyperlipidemia (Acute) Hypertension (Acute) Low back pain (Acute) Social History Smoking Status: Never smoker Smoking Status: Never smoker alcohol intake frequency: holidays/special occasions only Substance Use Type: does not use Exam Narrative Exam Narrative: GENERAL: [83] year old patient appears stated age. Well- nourished, well-developed patient, in mild distress. HEAD: Minor abrasion on occiput, minimally tender, no swelling no underlying depressed skull fracture EYES: Pupils equal round and reactive. Extraocular motions intact. No scleral icterus. No injection or drainage. ENT: Nose without bleeding, purulent drainage. Throat without erythema, tonsillar hypertrophy or exudate. Airway patent. NECK: Trachea midline. Non tender CARDIOVASCULAR: Regular rate and rhythm without murmurs, gallops, or rubs. RESPIRATORY: Clear to auscultation. Breath sounds equal bilaterally. No wheezes, rales, or rhonchi. GASTROINTESTINAL: Abdomen soft, non-tender, nondistended. EXTREMITIES: No edema or joint tenderness. BACK: Severe midline tenderness in his back at the lower thoracic and upper lumbar region, no step-offs or crepitance NEURO: AOx3. SKIN: No rash or erythema of visible areas Initial Vital Signs Initial Vital Signs: Vital Signs Temperature 97.9 F 04/12/19 16:22 Pulse Rate 60 04/12/19 16:22 Respiratory Rate 18 04/12/19 16:22 Blood Pressure 200/77 H 04/12/19 16:22 Pulse Oximetry 95 04/12/19 16:22 Course Orders Ordered: ED Orders 04/12/19 16:38 CT cervical spine wo con Stat CT chest abd pel w con Stat CT head/brain wo con Stat 04/12/19 17:03 Complete Blood Count AUTO DIFF Stat Comprehensive Metabolic Panel Stat Lipase Stat Partial Thromboplastin Time Stat Prothrombin Time INR Stat 04/12/19 17:33 Type and Screen Stat Discontinued Medications Hydrocodone Bitart/Acetaminophen ([place] 10/325) 1 tab PO NOW ONE Stop: 04/12/19 16:38 Last Admin: 04/12/19 18:30 Dose: 1 tab Documented by: ANAT Lidocaine (Lidoderm) 1 each TOP NOW ONE Stop: 04/12/19 18:07 Last Admin: 04/12/19 18:30 Dose: 1 each Documented by: ANAT Vital Signs Vital signs: Vital Signs - 8 hr 04/12/19 16:22 04/12/19 18:54 Temperature 97.9 F Pulse Rate 60 82 Respiratory Rate 18 24 Blood Pressure 200/77 H 211/91 H Pulse Oximetry 95 96 MDM - Trauma Lab Data Result diagrams: 04/12/19 17:03 04/12/19 17:03 Labs: Lab Results 04/12/19 04/12/19 04/12/19 Range/Units 17:03 17:03 17:03 WBC 7.1 (4.5-11.0) X10^3/uL RBC 4.30 L (4.5-5.9) X10^6/uL Hgb 12.9 L (13.5-17.5) g/dL Hct 38.6 L (41-53) % MCV 89.6 (80-100) fL MCH 30.1 (26-34) PG MCHC 33.6 (30-36) % RDW 14.3 (11.6-14.8) % Plt Count 212 (150-400) X10^3/uL Neut % (Auto) 71.7 (50-75) % Lymph % (Auto) 16.6 L (25-40) % [place] % (Auto) 8.3 (3-14) % Eos % (Auto) 3.2 (2-4) % Baso % (Auto) 0.2 (0-2) % Neut # (Auto) 5100 ([address]-2301) /uL Lymph # (Auto) 1200 (8991-0632) /uL [place] # (Auto) 600 (0-900) /uL Eos # (Auto) 200 (0-450) /uL Baso # (Auto) 0 (0-100) /uL PT 18.3 H D (10.1-12.7) SECONDS INR 1.6 H (0.9-1.3) APTT 35 (26.4-36.2) SECONDS Sodium 140 (137-145) mmol/L Potassium 5.2 H (3.4-5.1) mmol/L Chloride 106 (98-107) mmol/L Carbon Dioxide 25 (22-32) mmol/L BUN 30 H (9-20) mg/dL Creatinine 1.30 H (0.66-1.25) mg/dL Estimated GFR 52.7 L (>60) mL/min BUN/Creatinine Ratio 23.1 H (6-22) Glucose 105 (80-110) mg/dL Calcium 9.1 (8.4-10.2) mg/dL Total Bilirubin 0.3 (0.2-1.3) mg/dL AST 27 (17-59) IU/L ALT 24 (<50) IU/L Alkaline Phosphatase 74 (38-126) U/L Total Protein 7.5 (6.3-8.2) g/dL Albumin 4.2 (3.5-5.0) g/dL Globulin 3.3 (1.7-4.1) g/dL Albumin/Globulin Ratio 1.3 (1.0-2.8) Lipase 156 (23-300) U/L Blood Type Antibody Screen 04/12/19 Range/Units 17:33 WBC (4.5-11.0) X10^3/uL RBC (4.5-5.9) X10^6/uL Hgb (13.5-17.5) g/dL Hct (41-53) % MCV (80-100) fL MCH (26-34) PG MCHC (30-36) % RDW (11.6-14.8) % Plt Count (150-400) X10^3/uL Neut % (Auto) (50-75) % Lymph % (Auto) (25-40) % [place] % (Auto) (3-14) % Eos % (Auto) (2-4) % Baso % (Auto) (0-2) % Neut # (Auto) (8394-3274) /uL Lymph # (Auto) (7535-1068) /uL [place] # (Auto) (0-900) /uL Eos # (Auto) (0-450) /uL Baso # (Auto) (0-100) /uL PT (10.1-12.7) SECONDS INR (0.9-1.3) APTT (26.4-36.2) SECONDS Sodium (137-145) mmol/L Potassium (3.4-5.1) mmol/L Chloride (98-107) mmol/L Carbon Dioxide (22-32) mmol/L BUN (9-20) mg/dL Creatinine (0.66-1.25) mg/dL Estimated GFR (>60) mL/min BUN/Creatinine Ratio (6-22) Glucose (80-110) mg/dL Calcium (8.4-10.2) mg/dL Total Bilirubin (0.2-1.3) mg/dL AST (17-59) IU/L ALT (<50) IU/L Alkaline Phosphatase (38-126) U/L Total Protein (6.3-8.2) g/dL Albumin (3.5-5.0) g/dL Globulin (1.7-4.1) g/dL Albumin/Globulin Ratio (1.0-2.8) Lipase (23-300) U/L Blood Type A Positive Antibody Screen Negative Imaging Data CT scan - head: Radiologist's Impression: Pan Crook 83 M 1935 [place] [address] CT Scan Report Signed Patient: Pan Crook AMR#: [id number] : 1935cct:[id number] Age/Sex: 83 / MDate of Service: 04/12/19 Loc: ED Accession Number: [id number] Procedure: CT head/brain wo con Ordering Provider: Abraham Esparza D.O. PROCEDURE: CT HEAD/BRAIN WO CON INDICATIONS: Trauma TECHNIQUE: Noncontrast 4.5 mm thick angled axial sections acquired from the foramen magnum to the vertex, with coronal and sagittal reformats. For radiation dose reduction, the following was used: automated exposure control, adjustment of mA and/or kV according to patient size. COMPARISON: [facility], CT, CT CERVICAL SPINE WO CON, 04/12/2019, 16:52. [facility], CT, CT HEAD/BRAIN WO CON, 06/29/2018, 17:37. FINDINGS: Image quality: Excellent. CSF spaces: Basal cisterns are patent. No extra-axial fluid collections. The ventricles are symmetric in size and shape. Brain: No intracranial bleeds or masses. There is cerebral volume loss for age, with resultant ventricular and sulcal prominence. There are periventricular and deep white matter chronic small vessel ischemic changes. There is intracranial internal carotid artery atherosclerosis. Skull and face: Calvarium and visualized facial bones appear intact, without suspicious lesions. Sinuses: Visualized sinuses and mastoids are clear. IMPRESSION: No acute intracranial hemorrhage is seen. No acute intracranial process is seen. Dictated by: Joey Paula M.D. on 04/12/2019 at 16:28 Approved by: Joey Paula M.D. on 04/12/2019 at 16:29 CT - cervical spine: Radiologist's Impression: [facility] DATE TYPE STATUS AUTHOR Hx 04/12/19 16:38 Chai,Joey 04/12/19 16:38 Chai,Joey 04/12/19 16:38 Joey Paula 08/11/18 00:00 Felicitas Arciniega 06/29/18 17:31 Jass Rai 06/29/18 17:31 Jass Rai Pan Crook 83, M1935 [facility], Main ED R07 182.88cm 111.13kg BMI: 33.2kg/m? Trauma Search Chart No Data to Display ANAPHYLAXSIS ANAPHYLAXSIS ANAPHYLAXSIS WEAK,TIRED, HARD TO FUNCTION ONSET Today 16:22 Pan Crook 83 [address] [address] [address] Scan Report Signed Patient: Pan Crook AMR#: [id number] : 1935cct:[id number] Age/Sex: 83 / MDate of Service: 04/12/19 Loc: ED Accession Number: [id number] Procedure: CT cervical spine wo con Ordering Provider: Abraham Esparza D.O. PROCEDURE: CT CERVICAL SPINE WO CON INDICATIONS: fall with head injury, severe back pain, short of breath, coumadin TECHNIQUE: Noncontrast 3 mm thick sections acquired from the skull base to the T4 level. Sagittal and coronal reformats were then constructed. For radiation dose reduction, the following was used: automated exposure control, adjustment of mA and/or kV according to patient size. COMPARISON: [facility], CT, CT CHEST ABD PEL W CON, 04/12/2019, 16:52. [facility], CT, CT HEAD/BRAIN WO CON, 04/12/2019, 16:52. FINDINGS: Image quality: Excellent. Bones: No fractures or dislocations. Visualized superior ribs are intact. Multiple levels of relatively prominent cervical spine degenerative change are seen, including partial vertebral body fusion at C3-C4. Bridging anterior osteophytes are seen at C5-C6 and the C6-C7. Focal C1-C2 degenerative change can be seen anteriorly. Multiple sites of relatively prominent facet hypertrophy are seen. Soft tissues: Prevertebral soft tissues are normal in thickness. No paravertebral hematomas. No apical pneumothoraces. [place] calcification can be seen within the right thyroid, as on series 3 image 47. IMPRESSION: No acute fractures are seen. Relatively prominent cervical spine degenerative changes are seen. Right thyroid lobe calcification is seen, which is regarded to be benign. Dictated by: Joey Paula M.D. on 04/12/2019 at 16:30 Approved by: Joey Paula M.D. on 04/12/2019 at 16:32 CT scan - abdomen/pelvis: Radiologist's Impression: [place] [address] CT Scan Report Signed Patient: Pan Crook [facility]#: [id number] : 1936Acct:[id number] Age/Sex: 82 / MDate of Service: 08/11/18 Loc: CT Accession Number: [id number] Procedure: CT abdomen pelvis wo/w con Ordering Provider: Leonel Edmonds MD PROCEDURE: CT ABDOMEN PELVIS WO/W CON INDICATIONS: RECURRENT UTIS/HEMATURIA TECHNIQUE: Optional 5 mm thick noncontrast images acquired from the diaphragm to the symphysis pubis. After the administration of intravenous contrast, 5 mm thick images acquired from the diaphragm to the symphysis pubis after a 10-minute delay. 2 mm thick coronal and sagittal reformats were then performed of the kidneys and ureters. For radiation dose reduction, the following was used: automated exposure control, adjustment of mA and/or kV according to patient size. COMPARISON: [facility], CT, ABDOMEN/PELVIS WITH CONTRAST, 01/08/2014, 8:48. FINDINGS: Image quality: Excellent. Lung bases: Lung bases are clear. Heart size is enlarged. There is calcification of the coronary vasculature. Transvenous cardiac leads are present. Urinary system: Both kidneys are normal in size, without hydronephrosis or nephrolithiasis on pre-contrast images. No perinephric fat stranding. There is no change in the 10 mm diameter cyst within the right interpolar kidney, and other ballard normal bilateral renal enhancement. Renal calyces appear normal in morphology when filled with contrast. Opacified portions of both ureters demonstrate normal caliber. Bladder wall thickness is normal. No calcified bladder stones. Other solid organs: Liver is normal in size and enhancement. Gallbladder is within normal limits. Biliary system is non dilated. Pancreas enhances normally. Spleen is normal in size and enhancement. A few scattered punctate splenic calcifications are present. No adrenal nodules. Peritoneum and bowel: Bowel loops demonstrate normal wall thickness and caliber. No free fluid or air. Diverticulosis of the descending and sigmoid colon. Appendix not seen. No evidence of appendicitis. Nodes and vessels: No retroperitoneal or mesenteric adenopathy by size criteria. Aorta and inferior vena cava are normal in size. Abdominal wall: No ventral hernias. Pelvis: No pathologic free pelvic fluid. No inguinal hernias or adenopathy. Bones: No suspicious bony lesions. No vertebral body compression fractures. IMPRESSION: 1. No evidence of urinary tract calcification, nor obstruction. 2. No evidence of renal neoplasm. 3. Remote splenic granulomatous disease. Dictated by: Felicitas Arciniega M.D. on 08/11/2018 at 13:23 Approved by: Felicitas Arciniega M.D. on 08/11/2018 at 13:27 Discharge Plan Departure Patient Disposition: Home Clinical Impression: Contusion of back wall of thorax Qualifiers: Encounter type: initial encounter Laterality: unspecified laterality Qualified Code(s): S20.229A - Contusion of unspecified back wall of thorax, initial enco unter Discharge Date/Time: 04/12/19 18:56 Instructions: DI for Trauma Activity Restrictions/Additional Instructions: *You have been diagnosed with [acute midline thoracic contusion after fall ] *What to do: *Take medications as directed *Follow up with your primary care provider in 2-3 days, call for an appointment. Let them know you were seen in the Emergency Department and that we ask that you be seen in follow up *Return to ER if you should have any new, worsening or concerning symptoms Prescriptions: New lidocaine [Lidoderm] 5 % adhesive patch,medicated 1 patch TOP DAILY Qty: 15 RF: 0 No Action losartan 50 MG tablet 50 mg PO BID Qty: 0 RF: 0 ibuprofen 200 MG tablet 400 mg PO PRN PRN (Reason: pain) Qty: 0 RF: 0 warfarin [Coumadin] 5 MG tablet 10 mg PO DAILY Qty: 0 RF: 0 multivitamin [Multiple Vitamins] 1 EACH tablet 1 tab PO DAILY Qty: 0 RF: 0 atorvastatin [Lipitor] 10 mg Tablet 20 mg PO BID RF: 0 tamsulosin 0.4 mg Capsule 0.4 mg PO DAILY RF: 0 atenolol 50 mg Tablet 50 mg PO BID RF: 0 diltiazem HCl [Cartia XT] 180 mg Capsule,Extended Release 24hr 180 mg PO DAILY RF: 0 sildenafil (pulm.hypertension) 20 mg Tablet 20 - 100 mg PO PRN PRN (Reason: Sexual Activity) RF: 0 omega-3 fatty acids-fish oil [Fish Oil] 300-1,000 mg Capsule 300 mg PO BID RF: 0 Fiber Gummies 1 tab PO DAILY RF: 0 cyclobenzaprine 10 mg tablet 10 mg PO TID PRN (Reason: muscle spasm) Qty: 30 RF: 0 hydrocodone-acetaminophen 5-325 mg tablet 1 tab PO Q4-6H PRN (Reason: pain) Qty: 10 RF: 0 diclofenac sodium [Voltaren] 1 % gel 2 gram TOP QID PRN (Reason: pain) Qty: 100 RF: 0 Referrals: Annabella Warner MD [Primary Care Provider] -
--- NOTE | 2019-04-12 16:38 | DI.CT.S_ITS ---
PROCEDURE: CT CHEST ABD PEL W CON INDICATIONS: Trauma TECHNIQUE: After the administration of intravenous contrast, 5 mm thick sections acquired from the lung apices to the symphysis. 2.5 mm thick coronal and sagittal reformats were acquired. Additional 7 mm thick coronal maximum intensity projection (MIP) reformats acquired through the lungs. Optional 10-minute delayed imaging may be performed from the kidneys to the bladder. For radiation dose reduction, the following was used: automated exposure control, adjustment of mA and/or kV according to patient size. COMPARISON: None. FINDINGS: Image quality: Excellent. CHEST: Lungs: No pulmonary contusions or lacerations. No acute airspace opacities. No pneumothorax or hemothorax. Central and peripheral airways appear patent and normal in caliber. Mediastinum: No mediastinal hematomas. Heart size is normal. No pericardial effusion. Thoracic aorta and pulmonary arteries demonstrate normal size and enhancement. No mediastinal or hilar adenopathy. Esophagus is normal in caliber. There is a small hiatal hernia. Chest wall: No rib fractures. No subcutaneous emphysema. No axillary or supraclavicular adenopathy. Thyroid gland demonstrates chunky calcifications on the right side, as on series 2 image 9. A left-sided pacer device is seen. ABDOMEN: Solid organs: Liver is normal in size and enhancement, without lacerations. Gallbladder demonstrates a collapsed appearance. Biliary system is non-dilated. Pancreas enhances normally, without transection. Spleen is normal in size and enhancement, without lacerations. Calcified granulomas are seen. No adrenal hematomas. Both kidneys enhance normally, without hydronephrosis or lacerations. Peritoneum and bowel: No free fluid or air. Unenhanced bowel loops demonstrate normal wall thickness and caliber. Diverticulosis is seen, without findings of active diverticulitis. Nodes and vessels: No retroperitoneal or mesenteric adenopathy. Aorta and inferior vena cava are normal in size and enhancement. Miscellaneous: No ventral hernias. PELVIS: Genitourinary: Bladder wall thickness is normal. The prostate is prominent in size, measuring 4.9 cm transversely. Miscellaneous: No enlarged inguinal or pelvic lymph nodes are seen. There is a fat-containing left inguinal hernia seen. Bones: Pelvic ring and hip joints appear intact. No vertebral compression fractures. Age-appropriate bony degenerative changes are seen. IMPRESSION: No significant posttraumatic abnormality is seen. Incidental note is made of: [place] right thyroid lobe calcifications, which are regarded to be benign Pacer device Small hiatal hernia Prior granulomatous exposure. Diverticulosis is seen, without findings of active diverticulitis. Prominent prostate Mild fat containing left inguinal hernia Dictated by: Joey Paula M.D. on 04/12/2019 at 16:33 Approved by: Joey Paula M.D. on 04/12/2019 at 16:37
[2019-04-12 17:20] LABS: Add Manual Diff / Slide Review NO; Basophils Absolute Auto 0 /uL (0-100); Basophils Percent Auto 0.2 % (0-2); Eosinophils Absolute Auto 200 /uL (0-450); Eosinophils Percent Auto 3.2 % (2-4); Hematocrit 38.6 % (41-53); Hemoglobin 12.9 g/dL (13.5-17.5); Lymphocytes Absolute Auto 1200 /uL (1100-4500); Lymphocytes Percent Auto 16.6 % (25-40); Mean Corpuscular HGB Conc 33.6 % (30-36); Mean Corpuscular Hemoglobin 30.1 PG (26-34); Mean Corpuscular Volume 89.6 fL (80-100); Monocytes Absolute Auto 600 /uL (0-900); Monocytes Percent Auto 8.3 % (3-14); Neutrophils Absolute Auto 5100 /uL (1500-7000); Neutrophils Percent Auto 71.7 % (50-75); Platelet Count 212 X10^3/uL (150-400); Red Cell Distribution Width 14.3 % (11.6-14.8); White Blood Cell Count 7.1 X10^3/uL (4.5-11.0)
[2019-04-12 17:21] LABS: INR 1.6 (0.9-1.3); Prothrombin Time 18.3 SECONDS (10.1-12.7)
[2019-04-12 17:23] LABS: PTT Partial Thromboplastin Tim 35 SECONDS (26.4-36.2)
[2019-04-12 17:25] LABS: Alanine Aminotransferase 24 IU/L (<50); Albumin 4.2 g/dL (3.5-5.0); Albumin Globulin Ratio 1.3 (1.0-2.8); Alkaline Phosphatase 74 U/L (38-126); Aspartate Aminotransferase 27 IU/L (17-59); BUN Creatinine Ratio 23.1 (6-22); Bilirubin Total 0.3 mg/dL (0.2-1.3); Blood Urea Nitrogen 30 mg/dL (9-20); Calcium 9.1 mg/dL (8.4-10.2); Carbon Dioxide 25 mmol/L (22-32); Chloride 106 mmol/L (98-107); Estimated Glomerular Filt Rate 52.7 mL/min (>60); Globulin 3.3 g/dL (1.7-4.1); Glucose 105 mg/dL (80-110); HEMOLYSIS < 15 (0-50); Lipase 156 U/L (23-300); Potassium 5.2 mmol/L (3.4-5.1); Sodium 140 mmol/L (137-145); Total Protein 7.5 g/dL (6.3-8.2)
[2019-04-12] MEDS: HYDROCODONE/ACET 10/325 TABLET 1 TAB PO (18:30)
[2019-04-12] MEDS: LIDOCAINE PATCH 1 EACH ADH..PATCH TOP (18:30)
[2019-04-12 18:54] VITALS: BP 211/91; PULSE 82; RESP 24; O2SAT 96
== END 2019-04-12 18:56 | disposition home or self-care (01) ==
PROVIDERS: Emergency Provider Emergency Medicine; Family Provider Student in an Organized Health Care Education/Training Program; PCP Student in an Organized Health Care Education/Training Program
DX: S20.229A Contusion of unspecified back wall of thorax, initial encounter (principal); S09.90XA Unspecified injury of head, initial encounter; I48.91 Unspecified atrial fibrillation; Z79.01 Long term (current) use of anticoagulants; W10.9XXA Fall (on) (from) unspecified stairs and steps, initial encounter
CPT/HCPCS: 36415; 70450; 71260; 72125; 74177; 80053; 83690; 85025; 85610; 85730; 86850; 86900; 86901; 99284

== ENCOUNTER → 2019-05-02 09:56 | Outpatient (ROUT) | payer MEDICARE, SELFPAY ==
[2019-05-02 10:18] LABS: INR 2.1 (0.9-1.3); Prothrombin Time 24.5 SECONDS (10.1-12.7)
== END ==
PROVIDERS: Family Provider Student in an Organized Health Care Education/Training Program; PCP Student in an Organized Health Care Education/Training Program; Visit Provider Student in an Organized Health Care Education/Training Program
DX: Z79.01 Long term (current) use of anticoagulants (principal)
CPT/HCPCS: 85610

== ENCOUNTER → 2019-06-13 10:15 | Outpatient (ROUT) | payer MEDICARE, SELFPAY ==
[2019-06-13 10:30] LABS: INR 2.4 (0.9-1.3); Prothrombin Time 27.7 SECONDS (10.1-12.7)
== END ==
PROVIDERS: Family Provider Student in an Organized Health Care Education/Training Program; PCP Student in an Organized Health Care Education/Training Program; Visit Provider Student in an Organized Health Care Education/Training Program
DX: Z79.01 Long term (current) use of anticoagulants (principal)
CPT/HCPCS: 85610

== ENCOUNTER → 2019-07-31 08:49 | Outpatient (ROUT) | payer MEDICARE, SELFPAY ==
[2019-07-31 08:57] LABS: INR 2.2 (0.9-1.3); Prothrombin Time 24.6 SECONDS (10.1-12.7)
== END ==
PROVIDERS: Family Provider Student in an Organized Health Care Education/Training Program; PCP Student in an Organized Health Care Education/Training Program; Visit Provider Student in an Organized Health Care Education/Training Program
DX: Z79.01 Long term (current) use of anticoagulants (principal)
CPT/HCPCS: 85610

== ENCOUNTER → 2019-09-12 10:55 | Outpatient (ROUT) | payer MEDICARE, SELFPAY ==
[2019-09-12 11:14] LABS: INR 2.2 (0.9-1.3); Prothrombin Time 24.8 SECONDS (10.1-12.7)
== END ==
PROVIDERS: Family Provider Student in an Organized Health Care Education/Training Program; PCP Student in an Organized Health Care Education/Training Program; Visit Provider Student in an Organized Health Care Education/Training Program
DX: I48.91 Unspecified atrial fibrillation (principal); Z79.01 Long term (current) use of anticoagulants
CPT/HCPCS: 85610

== ENCOUNTER → 2019-10-15 12:27 | Outpatient (ROUT) | payer MEDICARE, SELFPAY ==
[2019-10-15 12:37] LABS: INR 2.7 (0.9-1.3)
== END ==
PROVIDERS: Family Provider Student in an Organized Health Care Education/Training Program; PCP Student in an Organized Health Care Education/Training Program; Visit Provider Student in an Organized Health Care Education/Training Program
DX: N40.0 Benign prostatic hyperplasia without lower urinary tract symptoms (principal); Z79.01 Long term (current) use of anticoagulants
CPT/HCPCS: 85610

== ENCOUNTER → 2019-11-13 08:34 | Outpatient (ROUT) | payer MEDICARE, SELFPAY ==
[2019-11-13 08:52] LABS: INR 2.7 (0.9-1.3); Prothrombin Time 31.4 SECONDS (10.1-12.7)
== END ==
PROVIDERS: Family Provider Student in an Organized Health Care Education/Training Program; PCP Student in an Organized Health Care Education/Training Program; Visit Provider Student in an Organized Health Care Education/Training Program
DX: Z79.01 Long term (current) use of anticoagulants (principal)
CPT/HCPCS: 85610

== ENCOUNTER → 2019-11-14 11:49 | Outpatient (CLI) | payer MEDICARE, SELFPAY ==
--- NOTE | 2019-11-14 12:37 | DI.CT.S_ITS ---
PROCEDURE: CT ABDOMEN PELVIS W CON INDICATIONS: Generalized hyperhidrosis TECHNIQUE: After the administration of oral and intravenous contrast, 5 mm thick sections acquired from the diaphragms to the symphysis. 5 mm thick coronal and sagittal reformats were performed. For radiation dose reduction, the following was used: automated exposure control, adjustment of mA and/or kV according to patient size. COMPARISON: [facility], CT, ABDOMEN/PELVIS WITH CONTRAST, 12/04/2015, 10:25. FINDINGS: Image quality: Excellent. ABDOMEN: Lung bases: Lung bases are clear. Heart size is mildly prominent. Pacemaker leads. Small hiatal hernia. Solid organs: Liver is normal in size and enhancement. No focal lesion. Gallbladder is within normal limits. Biliary system is non-dilated. Pancreas enhances normally. Spleen is normal in size and enhancement. Calcified splenic granuloma. No adrenal nodules. Kidneys are normal in size and enhancement, without hydronephrosis. Cortical hypodensity in the right kidney is too small to further characterize. Peritoneum and bowel: Stomach, small bowel, and colon loops are normal in caliber and wall thickness. The appendix is normal. A few colonic diverticuli. No free fluid or air. Nodes and vessels: No retroperitoneal or mesenteric adenopathy. Aorta and inferior vena cava are normal in caliber. Moderate atherosclerotic plaque. Miscellaneous: No ventral hernias. PELVIS: Genitourinary: Bladder wall thickness is normal. Miscellaneous: No inguinal hernias or adenopathy. Bones: No suspicious bony lesions. No vertebral body compression fractures. IMPRESSION: No mass or metastatic disease identified. Additional findings: Diverticulosis. Small hiatal hernia. Pacemaker leads. Dictated by: Vipul Musa M.D. on 11/14/2019 at 14:23 Approved by: Vipul Musa M.D. on 11/14/2019 at 14:37
== END ==
PROVIDERS: Family Provider Student in an Organized Health Care Education/Training Program; PCP Student in an Organized Health Care Education/Training Program; Referring Provider Student in an Organized Health Care Education/Training Program; Visit Provider Student in an Organized Health Care Education/Training Program
DX: R61 Generalized hyperhidrosis (principal); K62.89 Other specified diseases of anus and rectum; K44.9 Diaphragmatic hernia without obstruction or gangrene; K57.90 Diverticulosis of intestine, part unspecified, without perforation or abscess without bleeding; Z95.0 Presence of cardiac pacemaker
CPT/HCPCS: 74177; Q9967

== ENCOUNTER → 2019-12-19 10:50 | Outpatient (ROUT) | payer MEDICARE, SELFPAY ==
[2019-12-19 10:55] LABS: INR 2.1 (0.9-1.3); Prothrombin Time 23.7 SECONDS (10.1-12.7)
== END ==
PROVIDERS: Family Provider Student in an Organized Health Care Education/Training Program; PCP Student in an Organized Health Care Education/Training Program; Visit Provider Student in an Organized Health Care Education/Training Program
DX: Z79.01 Long term (current) use of anticoagulants (principal)
CPT/HCPCS: 85610

== ENCOUNTER → 2020-01-16 09:41 | Outpatient (ROUT) | payer MEDICARE, SELFPAY ==
[2020-01-16 09:55] LABS: Prothrombin Time 23.5 SECONDS (10.1-12.7)
== END ==
PROVIDERS: Family Provider Student in an Organized Health Care Education/Training Program; PCP Student in an Organized Health Care Education/Training Program; Visit Provider Student in an Organized Health Care Education/Training Program
DX: Z79.01 Long term (current) use of anticoagulants (principal)
CPT/HCPCS: 85610

== ENCOUNTER → 2020-02-19 10:41 | Outpatient (ROUT) | payer MEDICARE, SELFPAY ==
[2020-02-19 11:03] LABS: Prothrombin Time 22.4 SECONDS (10.1-12.7)
== END ==
PROVIDERS: Family Provider Student in an Organized Health Care Education/Training Program; PCP Student in an Organized Health Care Education/Training Program; Visit Provider Student in an Organized Health Care Education/Training Program
DX: Z79.01 Long term (current) use of anticoagulants (principal)
CPT/HCPCS: 85610

== ENCOUNTER → 2020-03-19 13:28 | Outpatient (ROUT) | payer MEDICARE, SELFPAY ==
[2020-03-19 14:08] LABS: INR 1.7 (0.9-1.3); Prothrombin Time 19.3 SECONDS (10.1-12.7)
== END ==
PROVIDERS: Family Provider Student in an Organized Health Care Education/Training Program; PCP Student in an Organized Health Care Education/Training Program; Visit Provider Obstetrics & Gynecology
DX: Z79.01 Long term (current) use of anticoagulants (principal)
CPT/HCPCS: 85610

== ENCOUNTER → 2020-04-16 10:20 | Outpatient (ROUT) | payer MEDICARE, SELFPAY ==
[2020-04-16 10:27] LABS: INR 1.4 (0.9-1.3); Prothrombin Time 16.3 SECONDS (10.1-12.7)
== END ==
PROVIDERS: Family Provider Student in an Organized Health Care Education/Training Program; PCP Student in an Organized Health Care Education/Training Program; Visit Provider Student in an Organized Health Care Education/Training Program
DX: Z79.01 Long term (current) use of anticoagulants (principal)
CPT/HCPCS: 85610

== ENCOUNTER → 2020-04-29 12:35 | Outpatient (CLI) | payer MEDICARE, SELFPAY ==
--- NOTE | 2020-04-29 12:38 | DI.RAD.S_ITS ---
PROCEDURE: XR CHEST 2V INDICATIONS: CHEST WALL PAIN TECHNIQUE: 2 views of the chest were acquired. COMPARISON: [facility], CR, XR CHEST 2 VIEWS, 05/19/2017, 6:50. [facility], CT, CT CHEST ABD PEL W CON, 04/12/2019, 16:52. FINDINGS: Surgical changes and devices: There is a cardiac pacemaker in appropriate position. Lungs and pleura: Mild left basilar infiltrate. No pleural effusions or pneumothorax. Mediastinum: Mediastinal contours are normal. Heart size is mildly increased. Bones and chest wall: No suspicious bony abnormalities. Soft tissues appear unremarkable. IMPRESSION: Mild left basilar infiltrate suspicious for pneumonia. Dictated by: Dea Springer M.D. on 04/29/2020 at 12:55 Approved by: Dea Springer M.D. on 04/29/2020 at 12:57
== END ==
PROVIDERS: Family Provider Student in an Organized Health Care Education/Training Program; PCP Student in an Organized Health Care Education/Training Program; Referring Provider Student in an Organized Health Care Education/Training Program; Visit Provider Student in an Organized Health Care Education/Training Program
DX: R07.89 Other chest pain (principal); R91.8 Other nonspecific abnormal finding of lung field; Z95.0 Presence of cardiac pacemaker
CPT/HCPCS: 71046

== ENCOUNTER → 2020-04-30 09:59 | Outpatient (ROUT) | payer MEDICARE, SELFPAY ==
[2020-04-30 10:08] LABS: INR 2.2 (0.9-1.3); Prothrombin Time 25.1 SECONDS (10.1-12.7)
== END ==
PROVIDERS: Family Provider Student in an Organized Health Care Education/Training Program; PCP Student in an Organized Health Care Education/Training Program; Visit Provider Student in an Organized Health Care Education/Training Program
DX: Z79.01 Long term (current) use of anticoagulants (principal)
CPT/HCPCS: 85610

== ENCOUNTER → 2020-05-05 07:45 | Outpatient (CLI) | payer MEDICARE, SELFPAY ==
[2020-05-05] MEDS: COVID-19 VACC, Ad26(JANSSEN)/PF 0.5 ML IM (07:50)
== END ==
PROVIDERS: Family Provider Student in an Organized Health Care Education/Training Program; PCP Student in an Organized Health Care Education/Training Program; Visit Provider Internal Medicine
DX: Z23 Encounter for immunization (principal)
CPT/HCPCS: 0031A; 91303

== ENCOUNTER 2020-05-06 11:31 | Emergency (ER) | payer MEDICARE, SELFPAY ==
[2020-05-06] VITALS (11 sets, daily range): BP systolic 145–184; BP diastolic 62–78; PULSE 59–60; RESP 14–40; TEMP 36.2; O2SAT 95–99; BMI 33.0
--- NOTE | 2020-05-06 11:48 | DI.RAD.S_ITS ---
PROCEDURE: XR CHEST 1V INDICATIONS: chest pain, treated for pne TECHNIQUE: One view of the chest was acquired. COMPARISON: [facility], CT, CT ABDOMEN PELVIS W CON, 11/14/2019, 12:51. [facility], CR, XR CHEST 2V, 04/29/2020, 12:45. FINDINGS: Surgical changes and devices: There is a cardiac pacemaker in appropriate position. Lungs and pleura: Left basilar opacity may be infiltrate or atelectasis. Compared with last exam, there is no significant change. No pleural effusions or pneumothorax. Mediastinum: Mediastinal contours appear normal. Heart size is mildly increased. Bones and chest wall: No suspicious bony lesions. Overlying soft tissues appear unremarkable. IMPRESSION: Persistent left basilar infiltrate or atelectasis. Dictated by: Dea Springer M.D. on 05/06/2020 at 12:41 Approved by: Dea Springer M.D. on 05/06/2020 at 12:42
[2020-05-06 11:58] LABS: INR 2.3 (0.9-1.3); Prothrombin Time 25.5 SECONDS (10.1-12.7)
[2020-05-06 12:01] LABS: PTT Partial Thromboplastin Tim 42 SECONDS (26.4-36.2)
[2020-05-06 12:03] LABS: Alanine Aminotransferase 26 IU/L (<50); Albumin 4.3 g/dL (3.5-5.0); Albumin Globulin Ratio 1.3 (1.0-2.8); Alkaline Phosphatase 56 U/L (38-126); Aspartate Aminotransferase 26 IU/L (17-59); BUN Creatinine Ratio 21.1 (6-22); Blood Urea Nitrogen 35 mg/dL (9-20); Carbon Dioxide 25 mmol/L (22-32); Chloride 105 mmol/L (98-107); Creatine Kinase 53 U/L (55-170); Estimated Glomerular Filt Rate 39.7 mL/min (>60); Globulin 3.3 g/dL (1.7-4.1); Glucose 84 mg/dL (80-110); HEMOLYSIS < 15 (0-50); Lipase 79 U/L (23-300); Magnesium 1.6 mg/dL (1.6-2.3); Potassium 4.8 mmol/L (3.4-5.1); Sodium 138 mmol/L (137-145); Total Protein 7.6 g/dL (6.3-8.2)
[2020-05-06 12:04] LABS: Add Manual Diff / Slide Review NO; Basophils Absolute Auto 0 /uL (0-100); Basophils Percent Auto 0.3 % (0-2); Eosinophils Absolute Auto 100 /uL (0-450); Eosinophils Percent Auto 1.6 % (2-4); Hemoglobin 12.3 g/dL (13.5-17.5); Lymphocytes Absolute Auto 1200 /uL (1100-4500); Lymphocytes Percent Auto 18.6 % (25-40); Mean Corpuscular HGB Conc 32.3 % (30-36); Mean Corpuscular Hemoglobin 29.7 PG (26-34); Monocytes Absolute Auto 600 /uL (0-900); Neutrophils Absolute Auto 4600 /uL (1500-7000); Neutrophils Percent Auto 70.5 % (50-75); Platelet Count 219 X10^3/uL (150-400); Red Blood Cell Count 4.13 X10^6/uL (4.5-5.9); Red Cell Distribution Width 14.1 % (11.6-14.8); White Blood Cell Count 6.5 X10^3/uL (4.5-11.0)
[2020-05-06 12:08] LABS: Bilirubin Total 0.4 mg/dL (0.2-1.3)
[2020-05-06 12:15] LABS: Troponin I < 0.012 ng/mL (0.01-0.034)
[2020-05-06 12:21] LABS: NT-proBNP (BNP-Adult 18+) 475 pg/mL (<450)
--- NOTE | 2020-05-06 12:30 | ED.CHESTPAIN ---
HPI - Chest Pain General Chief Complaint: Chest Pain Stated Complaint: pulse high 128 Time Seen by Provider: 05/06/20 12:14 Source: patient Mode of arrival: Ambulatory Limitations: no limitations History of Present Illness HPI narrative: The patient is an 84-year-old male with history of pacemaker hyperlipidemia hypertension presenting today with elevated heart rate. He actually got Pablo Pablo vaccine yesterday and noticed some palpitations. He noticed it again this morning lasting about 45 minutes. He denies any dizziness lightheadedness is or shortness of breath. His heart rate is now paced at 59 and is overall asymptomatic. He has been having some off and on chest discomfort from when he fell last Related Data Home Medications Medication Instructions Recorded Confirmed losartan 50 mg PO BID #0 02/15/11 10/25/19 ibuprofen 400 mg PO PRN PRN #0 10/31/15 06/29/18 warfarin [Coumadin] 10 mg PO DAILY #0 10/31/15 10/25/19 multivitamin [Multiple Vitamins] 1 tab PO DAILY #0 08/19/16 10/25/19 Fiber Gummies 1 tab PO DAILY 06/29/18 10/25/19 atorvastatin [Lipitor] 20 mg PO BID 06/29/18 10/25/19 tamsulosin 0.4 mg PO DAILY 06/29/18 10/25/19 diphenhydramine HCl 25 mg capsule 25 mg PO BEDTIME 10/25/19 10/25/19 finasteride 5 mg tablet 5 mg PO DAILY 10/25/19 10/25/19 hydrochlorothiazide 12.5 mg capsule 12.5 mg PO DAILY 10/25/19 10/25/19 magnesium 250 mg tablet 250 mg PO DAILY 10/25/19 10/25/19 metoprolol succinate 25 mg capsule 25 mg PO DAILY 10/25/19 10/25/19 sprinkle, ext. release 24 hr Previous Rx's Medication Instructions Recorded hydrocodone-acetaminophen 1 tab PO Q4-6H PRN #10 tab 06/29/18 sildenafil (pulm.hypertension) 20 20 - 100 mg PO PRN PRN #30 tab 09/12/19 mg tablet Allergies Allergy/AdvReac Type Severity Reaction Status Date / Time benzocaine [From CETACAINE] Allergy Mild ANAPHYLAXSI Verified 04/12/19 16:22 S butamben [From CETACAINE] Allergy Mild ANAPHYLAXSI Verified 04/12/19 16:22 S tetracaine [From CETACAINE] Allergy Mild ANAPHYLAXSI Verified 04/12/19 16:22 S clonidine [CLONIDINE] Allergy Unknown Verified 04/12/19 16:22 Beta-Adrenergic Agents AdvReac Unknown WEAK,TIRED, Verified 04/12/19 16:22 [BETA-ADRENERGIC AGENTS] HARD TO FUNCTION Review of Systems Review of Systems Narrative: GENERAL: Denies chills, fatigue, malaise, fever, sweats, travel HEENT: Denies sinus pain, ear pain, sore throat, difficulty swallowing, neck pain RESPIRATORY: Denies dyspnea, cough, wheezing, hemoptysis, sputum. CARDIOVASCULAR: See HPI GASTROINTESTINAL: Denies nausea, vomiting, abdominal pain, diarrhea, constipation, melena. : Denies dysuria, frequency, incontinence, hematuria, urinary retention, flank pain. MUSCULOSKELETAL: Denies weakness, joint pain, or bony pain SKIN: No rash, no erythema, no pruritus NEUROLOGIC: Denies weakness, dizziness, headache, numbness, change in speech, confusion PSYCHIATRIC: No concerning psychosocial issues. 12 point review of systems is negative except for those stated above and HPI Patient History Medical History BPH w urinary obs/LUTS History of elevated PSA Hyperlipidemia Hypertension Low back pain Social History Smoking Status: Never smoker Smoking Status: Never smoker alcohol intake frequency: holidays/special occasions only Substance Use Type: does not use Exam Initial Vital Signs Initial Vital Signs: Vital Signs Temperature 97.1 F L 05/06/20 11:35 Pulse Rate 60 05/06/20 11:35 Respiratory Rate 14 05/06/20 11:35 Blood Pressure 173/76 H 05/06/20 11:35 Pulse Oximetry 99 05/06/20 11:35 GENERAL: Alert well-appearing 84-year-old male no acute distress and in no acute distress. HEENT: Head atraumatic,EOMI, pupils reactive, face symmetric, moist mucous membranes CARDIOVASCULAR: Regular rate and rhythm without murmurs, rubs or gallops. RESPIRATORY: Breath sounds equal bilaterally, no wheezes rales or rhonchi. ABDOMEN: Soft, nontender. Normoactive bowel sounds all 4 quadrants. No guarding or rebound. EXTREMITIES: Normal range of motion, no clubbing or edema. Neurovascularly intact NEUROLOGICAL: Alert and oriented x4.Normal gait and speech. SKIN: Warm, dry, no laceration, no petechiae, no rashes or lesions. Course Orders Ordered: ED Orders 05/06/20 11:45 BNP [NT-proBNP (BNP-Adult 18+)] Stat Complete Blood Count AUTO DIFF Stat Comprehensive Metabolic Panel Stat Lipase Stat Magnesium Stat Partial Thromboplastin Time Stat Prothrombin Time INR Stat Troponin & CK Cardiac Panel Stat 05/06/20 11:48 XR chest 2V Stat EKG-12 Lead Stat 05/06/20 12:09 COVID19 -Nasal swab/Pre-Proc Stat Vital Signs Vital signs: Vital Signs - 8 hr 05/06/20 11:35 05/06/20 12:54 05/06/20 13:03 Temperature 97.1 F L Pulse Rate 60 59 L 60 Respiratory Rate 14 19 Blood Pressure 173/76 H Pulse Oximetry 99 97 96 05/06/20 13:15 05/06/20 13:16 05/06/20 13:30 Temperature Pulse Rate 59 L 60 59 L Respiratory Rate 16 40 H 19 Blood Pressure 184/78 H 161/62 H Pulse Oximetry 95 95 96 05/06/20 13:45 05/06/20 14:00 05/06/20 14:15 Temperature Pulse Rate 60 60 60 Respiratory Rate 20 17 17 Blood Pressure 167/72 H 157/65 H Pulse Oximetry 95 96 96 05/06/20 14:16 05/06/20 14:30 Temperature Pulse Rate 60 59 L Respiratory Rate 17 19 Blood Pressure 145/66 H 163/71 H Pulse Oximetry 96 97 MDM - Chest Pain Lab Data Attestation: I reviewed the patient's lab results. Result diagrams: 05/06/20 11:45 05/06/20 11:45 Labs: Lab Results 05/06/20 05/06/20 05/06/20 Range/Units 11:45 11:45 11:45 WBC 6.5 (4.5-11.0) X10^3/uL RBC 4.13 L (4.5-5.9) X10^6/uL Hgb 12.3 L (13.5-17.5) g/dL Hct 38.0 L (41-53) % MCV 92.0 (80-100) fL MCH 29.7 (26-34) PG MCHC 32.3 (30-36) % RDW 14.1 (11.6-14.8) % Plt Count 219 (150-400) X10^3/uL Neut % (Auto) 70.5 (50-75) % Lymph % (Auto) 18.6 L (25-40) % [place] % (Auto) 9.0 (3-14) % Eos % (Auto) 1.6 L (2-4) % Baso % (Auto) 0.3 (0-2) % Neut # (Auto) 4600 (4498-8248) /uL Lymph # (Auto) 1200 (1576-6881) /uL [place] # (Auto) 600 (0-900) /uL Eos # (Auto) 100 (0-450) /uL Baso # (Auto) 0 (0-100) /uL PT 25.5 H (10.1-12.7) SECONDS INR 2.3 H (0.9-1.3) APTT 42 H D (26.4-36.2) SECONDS Sodium 138 (137-145) mmol/L Potassium 4.8 (3.4-5.1) mmol/L Chloride 105 (98-107) mmol/L Carbon Dioxide 25 (22-32) mmol/L BUN 35 H (9-20) mg/dL Creatinine 1.66 H (0.66-1.25) mg/dL Estimated GFR 39.7 L (>60) mL/min BUN/Creatinine Ratio 21.1 (6-22) Glucose 84 (80-110) mg/dL Calcium 9.0 (8.4-10.2) mg/dL Magnesium 1.6 (1.6-2.3) mg/dL Total Bilirubin 0.4 (0.2-1.3) mg/dL AST 26 (17-59) IU/L ALT 26 (<50) IU/L Alkaline Phosphatase 56 (38-126) U/L Total Creatine Kinase 53 L (55-170) U/L CK-MB (CK-2) TNP CK-MB (CK-2) Rel Index TNP Troponin I < 0.012 (0.01-0.034) ng/mL NT-Pro-B Natriuret Pep (<450) pg/mL Total Protein 7.6 (6.3-8.2) g/dL Albumin 4.3 (3.5-5.0) g/dL Globulin 3.3 (1.7-4.1) g/dL Albumin/Globulin Ratio 1.3 (1.0-2.8) Lipase 79 (23-300) U/L SARS-CoV-2 (PCR) (Negative) 05/06/20 05/06/20 Range/Units 11:45 12:09 WBC (4.5-11.0) X10^3/uL RBC (4.5-5.9) X10^6/uL Hgb (13.5-17.5) g/dL Hct (41-53) % MCV (80-100) fL MCH (26-34) PG MCHC (30-36) % RDW (11.6-14.8) % Plt Count (150-400) X10^3/uL Neut % (Auto) (50-75) % Lymph % (Auto) (25-40) % [place] % (Auto) (3-14) % Eos % (Auto) (2-4) % Baso % (Auto) (0-2) % Neut # (Auto) (8686-4323) /uL Lymph # (Auto) (7883-1100) /uL [place] # (Auto) (0-900) /uL Eos # (Auto) (0-450) /uL Baso # (Auto) (0-100) /uL PT (10.1-12.7) SECONDS INR (0.9-1.3) APTT (26.4-36.2) SECONDS Sodium (137-145) mmol/L Potassium (3.4-5.1) mmol/L Chloride (98-107) mmol/L Carbon Dioxide (22-32) mmol/L BUN (9-20) mg/dL Creatinine (0.66-1.25) mg/dL Estimated GFR (>60) mL/min BUN/Creatinine Ratio (6-22) Glucose (80-110) mg/dL Calcium (8.4-10.2) mg/dL Magnesium (1.6-2.3) mg/dL Total Bilirubin (0.2-1.3) mg/dL AST (17-59) IU/L ALT (<50) IU/L Alkaline Phosphatase (38-126) U/L Total Creatine Kinase (55-170) U/L CK-MB (CK-2) CK-MB (CK-2) Rel Index Troponin I (0.01-0.034) ng/mL NT-Pro-B Natriuret Pep 475 H (<450) pg/mL Total Protein (6.3-8.2) g/dL Albumin (3.5-5.0) g/dL Globulin (1.7-4.1) g/dL Albumin/Globulin Ratio (1.0-2.8) Lipase (23-300) U/L SARS-CoV-2 (PCR) Negative (Negative) Imaging Data Chest x-ray: Radiologist's Impression: PROCEDURE: XR CHEST 1V INDICATIONS: chest pain, treated for pne TECHNIQUE: One view of the chest was acquired. COMPARISON: [facility], CT, CT ABDOMEN PELVIS W CON, 11/14/2019, 12:51. [facility], CR, XR CHEST 2V, 04/29/2020, 12:45. FINDINGS: Surgical changes and devices: There is a cardiac pacemaker in appropriate position. Lungs and pleura: Left basilar opacity may be infiltrate or atelectasis. Compared with last exam, there is no significant change. No pleural effusions or pneumothorax. Mediastinum: Mediastinal contours appear normal. Heart size is mildly increased. Bones and chest wall: No suspicious bony lesions. Overlying soft tissues appear unremarkable. IMPRESSION: Persistent left basilar infiltrate or atelectasis. Dictated by: Dea Springer M.D. on 05/06/2020 at 12:41 ECG Data Attestation: I personally reviewed and interpreted this ECG as follows: Prior ECG tracings: available for review Interpretation: Paced rhythm rate 60 previously no pacemaker present. MDM Narrative Medical decision making narrative: Pacemaker interrogated there are previous reports of atrial fibrillation and a new report of the pace maker mediated tachycardia although it does not say what date or when it was recorded. 1:[address] Haque cardiology contacted in regards to pacemaker report. At this time he recommended contacting his pacemaker rep adjustment may be indicated. I called and spoke with the rep who states he is unsure when that is. At this time is if his heart rate is in the 60s and case recommend monitoring it. No adjustments need to be made at this time. Patient is not had any syncopal episodes no further runs is or elevation in heart rate while in the emergency department. Discharge Plan Departure Patient Disposition: Home Clinical Impression: Heart palpitations, PMT (pacemaker-mediated tachycardia) Instructions: DI for Palpitations Activity Restrictions/Additional Instructions: *You have been diagnosed with there is a possible abnormality with your pacemaker. *What to do: It is recommended at this time that you monitor it. You may require a pacemaker adjustment. I recommend that he follow up with Dr. Dodge. Please call tomorrow to set up an appointment *Continue to take medications as directed *Follow up with your primary care provider in 2-3 days *Return to ER if you should have increasing palpitations dizziness lightheadedness or passing out or any new, worsening or concerning symptoms Prescriptions: No Action losartan 50 MG tablet 50 mg PO BID Qty: 0 RF: 0 ibuprofen 200 MG tablet 400 mg PO PRN PRN (Reason: pain) Qty: 0 RF: 0 warfarin [Coumadin] 5 MG tablet 10 mg PO DAILY Qty: 0 RF: 0 multivitamin [Multiple Vitamins] 1 EACH tablet 1 tab PO DAILY Qty: 0 RF: 0 sildenafil (pulm.hypertension) 20 mg tablet 20 - 100 mg PO PRN PRN (Reason: Sexual Activity) Qty: 30 RF: 1 atorvastatin [Lipitor] 10 mg Tablet 20 mg PO BID RF: 0 tamsulosin 0.4 mg Capsule 0.4 mg PO DAILY RF: 0 Fiber Gummies 1 tab PO DAILY RF: 0 hydrocodone-acetaminophen 5-325 mg tablet 1 tab PO Q4-6H PRN (Reason: pain) Qty: 10 RF: 0 diphenhydramine HCl [Benadryl] 25 mg capsule 25 mg PO BEDTIME RF: 0 finasteride 5 mg tablet 5 mg PO DAILY RF: 0 hydrochlorothiazide 12.5 mg capsule 12.5 mg PO DAILY RF: 0 magnesium 250 mg tablet 250 mg PO DAILY RF: 0 metoprolol succinate 25 mg capsule,sprinkle,ER 24hr 25 mg PO DAILY RF: 0 Referrals: Annabella Warner MD [Primary Care Provider] -
[2020-05-06 13:16] LABS: COVID19 -Nasal RAPID Negative (Negative)
== END 2020-05-06 14:35 | disposition home or self-care (01) ==
PROVIDERS: Emergency Provider Emergency Medicine; Family Provider Student in an Organized Health Care Education/Training Program; PCP Student in an Organized Health Care Education/Training Program
DX: R00.2 Palpitations (principal); R00.0 Tachycardia, unspecified; Z20.822 Contact with and (suspected) exposure to COVID-19; Z95.5 Presence of coronary angioplasty implant and graft
CPT/HCPCS: 36415; 71046; 80053; 82550; 83690; 83735; 83880; 84484; 85025; 85610; 85730; 87635; 93005; 93010; 99283; 99284; C9803

== ENCOUNTER → 2020-05-23 09:47 | Outpatient (ROUT) | payer MEDICARE, SELFPAY ==
[2020-05-23 09:59] LABS: D Dimer < 200 ng/mL (<230)
== END ==
PROVIDERS: Family Provider Student in an Organized Health Care Education/Training Program; PCP Student in an Organized Health Care Education/Training Program; Visit Provider Student in an Organized Health Care Education/Training Program
DX: R00.0 Tachycardia, unspecified (principal)
CPT/HCPCS: 85379

== ENCOUNTER → 2020-06-04 12:00 | Outpatient (ROUT) | payer MEDICARE, SELFPAY ==
[2020-06-04 12:11] LABS: INR 3.8 (0.9-1.3); Prothrombin Time 43.5 SECONDS (10.1-12.7)
== END ==
PROVIDERS: Family Provider Student in an Organized Health Care Education/Training Program; PCP Student in an Organized Health Care Education/Training Program; Visit Provider Student in an Organized Health Care Education/Training Program
DX: Z79.01 Long term (current) use of anticoagulants (principal)
CPT/HCPCS: 85610

== ENCOUNTER → 2020-06-18 09:51 | Outpatient (ROUT) | payer MEDICARE, SELFPAY ==
[2020-06-18 10:00] LABS: INR 2.4 (0.9-1.3); Prothrombin Time 27.4 SECONDS (10.1-12.7)
== END ==
PROVIDERS: Family Provider Student in an Organized Health Care Education/Training Program; PCP Student in an Organized Health Care Education/Training Program; Visit Provider Student in an Organized Health Care Education/Training Program
DX: Z79.01 Long term (current) use of anticoagulants (principal)
CPT/HCPCS: 85610

== ENCOUNTER → 2020-07-01 10:20 | Outpatient (ROUT) | payer MEDICARE, SELFPAY ==
[2020-07-01 10:46] LABS: INR 2.7 (0.9-1.3); Prothrombin Time 31.6 SECONDS (10.1-12.7)
== END ==
PROVIDERS: Family Provider Student in an Organized Health Care Education/Training Program; PCP Student in an Organized Health Care Education/Training Program; Visit Provider Student in an Organized Health Care Education/Training Program
DX: Z79.01 Long term (current) use of anticoagulants (principal)
CPT/HCPCS: 85610

== ENCOUNTER → 2020-07-30 12:24 | Outpatient (ROUT) | payer MEDICARE, SELFPAY ==
[2020-07-30 13:09] LABS: INR 1.9 (0.9-1.3); Prothrombin Time 21.6 SECONDS (10.1-12.7)
== END ==
PROVIDERS: Family Provider Student in an Organized Health Care Education/Training Program; PCP Student in an Organized Health Care Education/Training Program; Visit Provider Student in an Organized Health Care Education/Training Program
DX: Z79.01 Long term (current) use of anticoagulants (principal)
CPT/HCPCS: 85610

== ENCOUNTER → 2020-09-04 10:34 | Outpatient (ROUT) | payer MEDICARE, SELFPAY ==
[2020-09-04 11:00] LABS: Prothrombin Time 22.5 SECONDS (10.1-12.7)
== END ==
PROVIDERS: Family Provider Student in an Organized Health Care Education/Training Program; PCP Student in an Organized Health Care Education/Training Program; Visit Provider Student in an Organized Health Care Education/Training Program
DX: Z79.01 Long term (current) use of anticoagulants (principal)
CPT/HCPCS: 85610

== ENCOUNTER → 2020-10-07 12:04 | Outpatient (ROUT) | payer MEDICARE, SELFPAY ==
[2020-10-07 12:20] LABS: INR 2.1 (0.9-1.3); Prothrombin Time 24.2 SECONDS (10.1-12.7)
== END ==
PROVIDERS: Family Provider Student in an Organized Health Care Education/Training Program; PCP Student in an Organized Health Care Education/Training Program; Visit Provider Student in an Organized Health Care Education/Training Program
DX: I48.91 Unspecified atrial fibrillation (principal); Z79.01 Long term (current) use of anticoagulants
CPT/HCPCS: 85610

== ENCOUNTER → 2020-10-28 08:34 | Outpatient (ROUT) | payer MEDICARE, SELFPAY ==
[2020-10-28 08:56] LABS: INR 3.1 (0.9-1.3); Prothrombin Time 35.4 SECONDS (10.1-12.7)
== END ==
PROVIDERS: Family Provider Student in an Organized Health Care Education/Training Program; PCP Student in an Organized Health Care Education/Training Program; Visit Provider Student in an Organized Health Care Education/Training Program
DX: Z79.01 Long term (current) use of anticoagulants (principal)
CPT/HCPCS: 85610

== ENCOUNTER → 2020-11-19 12:14 | Outpatient (ROUT) | payer MEDICARE, SELFPAY ==
[2020-11-19 12:21] LABS: INR 1.9 (0.9-1.3); Prothrombin Time 22.3 SECONDS (10.1-12.7)
== END ==
PROVIDERS: Family Provider Student in an Organized Health Care Education/Training Program; PCP Student in an Organized Health Care Education/Training Program; Visit Provider Student in an Organized Health Care Education/Training Program
DX: Z79.01 Long term (current) use of anticoagulants (principal)
CPT/HCPCS: 85610

== ENCOUNTER → 2020-12-16 11:35 | Outpatient (ROUT) | payer MEDICARE, SELFPAY ==
[2020-12-16 11:53] LABS: INR 1.7 (0.9-1.3)
== END ==
PROVIDERS: Family Provider Student in an Organized Health Care Education/Training Program; PCP Student in an Organized Health Care Education/Training Program; Visit Provider Student in an Organized Health Care Education/Training Program
DX: Z79.01 Long term (current) use of anticoagulants (principal)
CPT/HCPCS: 85610

== ENCOUNTER → 2021-01-26 14:04 | Outpatient (ROUT) | payer MEDICARE, SELFPAY ==
[2021-01-26 14:18] LABS: INR 2.9 (0.9-1.3); Prothrombin Time 33.5 SECONDS (10.1-12.7)
== END ==
PROVIDERS: Family Provider Student in an Organized Health Care Education/Training Program; PCP Student in an Organized Health Care Education/Training Program; Visit Provider Student in an Organized Health Care Education/Training Program
DX: Z79.01 Long term (current) use of anticoagulants (principal)
CPT/HCPCS: 85610

== ENCOUNTER → 2021-02-24 12:36 | Outpatient (ROUT) | payer MEDICARE, SELFPAY ==
[2021-02-24 12:54] LABS: INR 2.7 (0.9-1.3); Prothrombin Time 31.6 SECONDS (10.1-12.7)
== END ==
PROVIDERS: Family Provider Student in an Organized Health Care Education/Training Program; PCP Student in an Organized Health Care Education/Training Program; Visit Provider Student in an Organized Health Care Education/Training Program
DX: Z79.01 Long term (current) use of anticoagulants (principal)
CPT/HCPCS: 85610

== ENCOUNTER → 2021-04-14 11:46 | Outpatient (ROUT) | payer MEDICARE, SELFPAY ==
[2021-04-14 11:56] LABS: INR 2.8 (0.9-1.3); Prothrombin Time 32.2 SECONDS (10.1-12.7)
== END ==
PROVIDERS: Family Provider Student in an Organized Health Care Education/Training Program; PCP Student in an Organized Health Care Education/Training Program; Visit Provider Student in an Organized Health Care Education/Training Program
DX: Z79.01 Long term (current) use of anticoagulants (principal)
CPT/HCPCS: 85610

== ENCOUNTER → 2021-05-14 12:06 | Outpatient (ROUT) | payer MEDICARE, SELFPAY ==
[2021-05-14 12:41] LABS: INR 2.4 (0.9-1.3); Prothrombin Time 26.8 SECONDS (10.1-12.7)
== END ==
PROVIDERS: Family Provider Student in an Organized Health Care Education/Training Program; PCP Student in an Organized Health Care Education/Training Program; Visit Provider Student in an Organized Health Care Education/Training Program
DX: Z79.01 Long term (current) use of anticoagulants (principal); I48.91 Unspecified atrial fibrillation
CPT/HCPCS: 85610

== ENCOUNTER → 2021-06-17 10:51 | Outpatient (ROUT) | payer MEDICARE, SELFPAY ==
[2021-06-17 11:21] LABS: INR 2.4 (0.9-1.3); Prothrombin Time 27.2 SECONDS (10.1-12.7)
== END ==
PROVIDERS: Family Provider Student in an Organized Health Care Education/Training Program; PCP Student in an Organized Health Care Education/Training Program; Visit Provider Student in an Organized Health Care Education/Training Program
DX: Z79.01 Long term (current) use of anticoagulants (principal)
CPT/HCPCS: 85610

== ENCOUNTER → 2021-07-14 08:55 | Outpatient (ROUT) | payer MEDICARE, SELFPAY ==
[2021-07-14 09:07] LABS: INR 2.2 (0.9-1.3); Prothrombin Time 25.9 SECONDS (10.1-12.7)
== END ==
PROVIDERS: Family Provider Student in an Organized Health Care Education/Training Program; PCP Student in an Organized Health Care Education/Training Program; Visit Provider Student in an Organized Health Care Education/Training Program
DX: Z79.01 Long term (current) use of anticoagulants (principal)
CPT/HCPCS: 85610

== ENCOUNTER → 2021-08-14 16:17 | Outpatient (CLI) | payer MEDICARE, SELFPAY ==
[2021-08-14 17:07] LABS: BUN Creatinine Ratio 18.3 (6-22); Blood Urea Nitrogen 31 mg/dL (9-20); Calcium 8.6 mg/dL (8.4-10.2); Carbon Dioxide 29 mmol/L (22-32); Chloride 99 mmol/L (98-107); Estimated Glomerular Filt Rate 39 mL/min (>60); Glucose 97 mg/dL (80-110); HEMOLYSIS < 15 (0-50); Sodium 136 mmol/L (137-145)
[2021-08-14 17:16] LABS: NT-proBNP (BNP-Adult 18+) 477 pg/mL (<450)
[2021-08-14 17:21] LABS: Potassium 5.7 mmol/L (3.4-5.1)
== END ==
PROVIDERS: Family Provider Student in an Organized Health Care Education/Training Program; PCP Family Medicine; Referring Provider Nurse Practitioner Family; Visit Provider Nurse Practitioner Family
DX: E11.9 Type 2 diabetes mellitus without complications (principal); R60.0 Localized edema
CPT/HCPCS: 36415; 80048; 83880

== ENCOUNTER 2021-08-15 09:56 | Emergency (ER) | payer MEDICARE, SELFPAY ==
[2021-08-15] VITALS (33 sets, daily range): BP systolic 178–240; BP diastolic 62–102; PULSE 59–64; RESP 18–42; TEMP 36.8; O2SAT 91–98; BMI 34.4
--- NOTE | 2021-08-15 10:02 | DI.RAD.S_ITS ---
PROCEDURE: XR CHEST 1V INDICATIONS: SOB TECHNIQUE: One view of the chest was acquired. COMPARISON: [facility], CR, XR CHEST 1V, 05/06/2020, 12:25. FINDINGS: Surgical changes and devices: None. Lungs and pleura: Lungs are clear. No pleural effusions or pneumothorax. Mediastinum: Mediastinal contours appear normal. Heart size is normal. Bones and chest wall: No suspicious bony lesions. Overlying soft tissues appear unremarkable. IMPRESSION: No acute cardiopulmonary process demonstrated radiographically. Dictated by: Peter Sanchez M.D. on 08/15/2021 at 10:28 Approved by: Peter Sanchez M.D. on 08/15/2021 at 10:28
--- NOTE | 2021-08-15 10:17 | ED.GENADULT ---
HPI - General Adult General Chief complaint: Shortness of Breath/Dyspnea Stated complaint: feet swell,dry mouth,dizzy,weakness Time Seen by Provider: 08/15/21 09:59 Source: patient Mode of arrival: Wheelchair History of Present Illness HPI narrative: 85-year-old male. Has a pacemaker in place for prior history of atrial fibrillation. Is also on anticoagulation. Denies any prior diagnosis of heart failure. Is here for evaluation of 2-3 days of worsening swelling in his lower extremities, lightheadedness and dizziness with standing, some dyspnea on exertion and his states slurring of his words for the past couple days. Patient denies headache. No chest pain. No palpitations. No abdominal pain. No nausea vomiting. Urinating without issues. No skin rashes. He has fallen in the past but nothing recently. He has been taking all of his medications as directed. Related Data Home Medications Medication Instructions Recorded Confirmed losartan 50 mg tablet 50 mg PO BID ##0 02/15/11 11/13/20 multivitamin (Multiple Vitamins 1 tab PO DAILY ##0 08/19/16 11/13/20 tablet) hydrochlorothiazide 12.5 mg capsule 12.5 mg PO DAILY 10/25/19 11/13/20 magnesium 250 mg tablet 250 mg PO DAILY 10/25/19 11/13/20 acetaminophen 500 mg capsule 500 mg PO Q6H PRN 11/13/20 11/13/20 diphenhydramine HCl 25 mg capsule 50 mg PO BEDTIME PRN 11/13/20 11/13/20 (Benadryl) docusate sodium 100 mg capsule 100 mg PO BID 11/13/20 11/13/20 ezetimibe 10 mg tablet 10 mg PO DAILY 11/13/20 11/13/20 metoprolol tartrate 25 mg tablet 25 mg PO BID 11/13/20 11/13/20 omega-3 fatty acids 1,000 mg 2,000 mg PO DAILY 11/13/20 11/13/20 capsule omeprazole 20 mg capsule,delayed 20 mg PO BID 11/13/20 11/13/20 release polyethylene glycol 3350 17 17 g PO DAILY 11/13/20 11/13/20 gram/dose oral powder warfarin 5 mg tablet (Coumadin) 5 mg PO DAILY #0 tabs 11/13/20 11/13/20 Previous Rx's Medication Instructions Recorded tamsulosin 0.4 mg capsule 0.4 mg PO BEDTIME #90 caps 09/19/20 finasteride 5 mg tablet 5 mg PO DAILY #90 tabs 12/05/20 Allergies Allergy/AdvReac Type Severity Reaction Status Date / Time benzocaine [From CETACAINE] Allergy Mild ANAPHYLAXSI Verified 11/13/20 08:20 S butamben [From CETACAINE] Allergy Mild ANAPHYLAXSI Verified 11/13/20 08:20 S tetracaine [From CETACAINE] Allergy Mild ANAPHYLAXSI Verified 11/13/20 08:20 S clonidine [CLONIDINE] Allergy Unknown Verified 11/13/20 08:20 Beta-Adrenergic Agents AdvReac Unknown WEAK,TIRED, Verified 11/13/20 08:20 [BETA-ADRENERGIC AGENTS] HARD TO FUNCTION Review of Systems Review of Systems ROS Unobtainable: All systems reviewed & are unremarkable except as noted in HPI and below Patient History Medical History BPH w urinary obs/LUTS History of elevated PSA Hyperlipidemia Hypertension Low back pain Social History Smoking Status: Never smoker Smoking Status: Never smoker alcohol intake frequency: holidays/special occasions only Substance Use Type: does not use Exam Initial Vital Signs Initial Vital Signs: Vital Signs Pulse Oximetry 97 08/15/21 10:03 Const General: cooperative and comfortable HENMT Head: normal to inspection and normocephalic Resp Effort & Inspection: normal respiratory effort, no respiratory distress, no retractions and tachypneic Auscultation: clear to auscultation bilaterally Cardio Rate: regular rate Rhythm: regular rhythm GI Inspection: normal to inspection Skin General: no rashes or lesions noted Neuro General: patient alert, patient awake and moves all extremities Extrem General: edema Psych Appearance: grossly normal and well kempt Course Orders Ordered: ED Orders 08/15/21 10:02 XR chest 1V Stat EKG-12 Lead Stat 08/15/21 10:15 Complete Blood Count AUTO DIFF Stat Comprehensive Metabolic Panel Stat Lipase Stat Magnesium Stat NT-proBNP (BNP-Adult 18+) Stat Partial Thromboplastin Time Stat Prothrombin Time INR Stat Troponin & CK Cardiac Panel Stat 08/15/21 11:15 Urinalysis and Microscopic Stat Discontinued Medications Furosemide (Furosemide 100 Mg/10 Ml Vial) 60 mg IV NOW ONE Stop: 08/15/21 11:27 Last Admin: 08/15/21 11:43 Dose: 60 mg Documented By: JADYN Nitroglycerin (Nitroglycerin Oint 1 Inch/Gm Oint...G.) 1 inch TOP NOW ONE Stop: 08/15/21 11:27 Last Admin: 08/15/21 11:35 Dose: 1 inch Documented By: JADYN Vital Signs Vital signs: Vital Signs - 8 hr 08/15/21 10:08 08/15/21 10:03 08/15/21 10:04 Temperature 98.3 F Pulse Rate 64 63 Respiratory Rate 18 Blood Pressure 240/102 H Pulse Oximetry 95 97 96 Oxygen Delivery Method Room Air Oxygen Flow Rate 08/15/21 10:04 08/15/21 10:13 08/15/21 10:13 Temperature Pulse Rate 60 Respiratory Rate 20 Blood Pressure 240/102 H 219/92 H Pulse Oximetry 94 Oxygen Delivery Method Oxygen Flow Rate 08/15/21 10:15 08/15/21 10:15 08/15/21 10:30 Temperature Pulse Rate 60 Respiratory Rate 28 H Blood Pressure 212/91 H 209/91 H Pulse Oximetry 93 Oxygen Delivery Method Oxygen Flow Rate 08/15/21 10:30 08/15/21 10:45 08/15/21 10:45 Temperature Pulse Rate 60 60 Respiratory Rate 22 Blood Pressure 211/88 H Pulse Oximetry 93 93 Oxygen Delivery Method Oxygen Flow Rate 08/15/21 11:00 08/15/21 11:00 08/15/21 11:03 Temperature Pulse Rate 59 L Respiratory Rate 28 H Blood Pressure 229/89 H 203/88 H Pulse Oximetry 92 Oxygen Delivery Method Oxygen Flow Rate 08/15/21 11:03 08/15/21 11:10 08/15/21 11:10 Temperature Pulse Rate 60 60 Respiratory Rate 30 H 31 H Blood Pressure 201/88 H Pulse Oximetry 93 94 Oxygen Delivery Method Oxygen Flow Rate 08/15/21 11:17 08/15/21 11:17 08/15/21 11:20 Temperature Pulse Rate 64 60 Respiratory Rate 42 H 28 H Blood Pressure 230/96 H Pulse Oximetry 91 95 Oxygen Delivery Method Nasal Cannula Oxygen Flow Rate 2 08/15/21 11:20 08/15/21 11:35 08/15/21 11:30 Temperature Pulse Rate 59 L 60 Respiratory Rate 21 Blood Pressure 209/88 H 212/88 H Pulse Oximetry 97 Oxygen Delivery Method Oxygen Flow Rate 08/15/21 11:31 08/15/21 11:31 08/15/21 11:41 Temperature Pulse Rate 60 59 L Respiratory Rate 20 22 Blood Pressure 221/90 H Pulse Oximetry 98 97 Oxygen Delivery Method Oxygen Flow Rate 08/15/21 11:41 08/15/21 11:50 08/15/21 11:50 Temperature Pulse Rate 59 L Respiratory Rate 19 Blood Pressure 212/88 H 203/85 H Pulse Oximetry 96 Oxygen Delivery Method Oxygen Flow Rate 08/15/21 12:00 08/15/21 12:01 08/15/21 12:01 Temperature Pulse Rate 60 60 Respiratory Rate 21 20 Blood Pressure 226/94 H Pulse Oximetry 97 97 Oxygen Delivery Method Oxygen Flow Rate 08/15/21 12:06 08/15/21 12:06 08/15/21 12:14 Temperature Pulse Rate 60 Respiratory Rate 21 Blood Pressure 222/94 H 221/92 H Pulse Oximetry 97 Oxygen Delivery Method Oxygen Flow Rate 08/15/21 12:14 08/15/21 12:21 08/15/21 12:21 Temperature Pulse Rate 59 L 60 Respiratory Rate Blood Pressure 195/82 H Pulse Oximetry 96 97 Oxygen Delivery Method Oxygen Flow Rate 08/15/21 12:30 08/15/21 12:30 08/15/21 12:40 Temperature Pulse Rate 60 61 Respiratory Rate 21 18 Blood Pressure 191/84 H Pulse Oximetry 97 97 Oxygen Delivery Method Oxygen Flow Rate 08/15/21 12:40 08/15/21 12:50 08/15/21 12:50 Temperature Pulse Rate 59 L Respiratory Rate 20 Blood Pressure 190/85 H 188/84 H Pulse Oximetry 96 Oxygen Delivery Method Oxygen Flow Rate 08/15/21 13:00 08/15/21 13:00 08/15/21 13:12 Temperature Pulse Rate 60 62 Respiratory Rate 19 20 Blood Pressure 189/81 H Pulse Oximetry 97 93 Oxygen Delivery Method Oxygen Flow Rate 08/15/21 13:12 08/15/21 13:20 08/15/21 13:20 Temperature Pulse Rate 60 Respiratory Rate 20 Blood Pressure 202/86 H 183/68 H Pulse Oximetry 93 Oxygen Delivery Method Oxygen Flow Rate 08/15/21 13:30 08/15/21 13:30 08/15/21 13:40 Temperature Pulse Rate 60 63 Respiratory Rate 21 19 Blood Pressure 190/86 H Pulse Oximetry 92 92 Oxygen Delivery Method Oxygen Flow Rate 08/15/21 13:40 08/15/21 13:51 08/15/21 13:51 Temperature Pulse Rate 63 Respiratory Rate 20 Blood Pressure 186/93 H 221/88 H Pulse Oximetry Oxygen Delivery Method Oxygen Flow Rate 08/15/21 13:53 08/15/21 13:53 08/15/21 14:00 Temperature Pulse Rate 61 Respiratory Rate 21 Blood Pressure 210/93 H 178/62 H Pulse Oximetry 95 Oxygen Delivery Method Oxygen Flow Rate 08/15/21 14:00 Temperature Pulse Rate 60 Respiratory Rate 20 Blood Pressure Pulse Oximetry 93 Oxygen Delivery Method Oxygen Flow Rate Medical Decision Making Medical Records Medical records reviewed: Yes I reviewed the patient's medical records. Lab Data Lab results reviewed: Yes I reviewed the patient's lab results. Result diagrams: 08/15/21 10:15 08/15/21 10:15 Labs: Lab Results 08/15/21 08/15/21 08/15/21 Range/Units 10:15 10:15 10:15 WBC 7.6 (4.5-11.0) X10^3/uL RBC 3.75 L (4.5-5.9) X10^6/uL Hgb 10.9 L (13.5-17.5) g/dL Hct 33.3 L (41-53) % MCV 88.9 (80-100) fL MCH 29.0 (26-34) PG MCHC 32.6 (30-36) % RDW 15.0 H (11.6-14.8) % Plt Count 211 (150-400) X10^3/uL Neut % (Auto) 79.2 H (50-75) % Lymph % (Auto) 9.3 L (25-40) % [place] % (Auto) 7.3 (3-14) % Eos % (Auto) 3.6 (2-4) % Baso % (Auto) 0.6 (0-2) % Neut # (Auto) 6000 (7898-5377) /uL Lymph # (Auto) 700 L (9360-1967) /uL [place] # (Auto) 600 (0-900) /uL Eos # (Auto) 300 (0-450) /uL Baso # (Auto) 0 (0-100) /uL PT 30.7 H (10.1-12.7) SECONDS INR 2.7 H (0.9-1.3) APTT 47 H (26.4-36.2) SECONDS Sodium 136 L (137-145) mmol/L Potassium 5.8 H (3.4-5.1) mmol/L Chloride 99 (98-107) mmol/L Carbon Dioxide 33 H (22-32) mmol/L BUN 30 H (9-20) mg/dL Creatinine 1.66 H (0.66-1.25) mg/dL Estimated GFR 40 L (>60) mL/min BUN/Creatinine Ratio 18.1 (6-22) Glucose 108 (80-110) mg/dL Calcium 8.6 (8.4-10.2) mg/dL Magnesium (1.6-2.3) mg/dL Total Bilirubin 0.5 (0.2-1.3) mg/dL AST 23 (17-59) IU/L ALT 28 (<50) IU/L Alkaline Phosphatase 50 (38-126) U/L Total Creatine Kinase (55-170) U/L CK-MB (CK-2) CK-MB (CK-2) Rel Index Troponin I (0.01-0.034) ng/mL NT-Pro-B Natriuret Pep (<450) pg/mL Total Protein 7.1 (6.3-8.2) g/dL Albumin 4.1 (3.5-5.0) g/dL Globulin 3.0 (1.7-4.1) g/dL Albumin/Globulin Ratio 1.4 (1.0-2.8) Lipase (23-300) U/L Urine Color Urine Appearance Urine pH (4.5-8.0) Ur Specific [place] (1.000-1.035) Urine Protein (Negative) Urine Glucose (UA) (Negative) g/dL Urine Ketones (NEGATIVE) Urine Occult Blood (Negative) Urine Nitrate (Negative) Urine Bilirubin (NEGATIVE) Urine Urobilinogen (0.2) E.U./dL Ur Leukocyte Esterase (NEGATIVE) Urine RBC (0-5/HPF) Urine WBC (0-5/HPF) Ur Squamous Epith Cells (0-5/HPF) Urine Bacteria (None) Ur Culture Indicated? 06/25/22 06/25/22 Range/Units 10:15 11:15 WBC (4.5-11.0) X10^3/uL RBC (4.5-5.9) X10^6/uL Hgb (13.5-17.5) g/dL Hct (41-53) % MCV (80-100) fL MCH (26-34) PG MCHC (30-36) % RDW (11.6-14.8) % Plt Count (150-400) X10^3/uL Neut % (Auto) (50-75) % Lymph % (Auto) (25-40) % [place] % (Auto) (3-14) % Eos % (Auto) (2-4) % Baso % (Auto) (0-2) % Neut # (Auto) (9683-8611) /uL Lymph # (Auto) (8359-7132) /uL [place] # (Auto) (0-900) /uL Eos # (Auto) (0-450) /uL Baso # (Auto) (0-100) /uL PT (10.1-12.7) SECONDS INR (0.9-1.3) APTT (26.4-36.2) SECONDS Sodium (137-145) mmol/L Potassium (3.4-5.1) mmol/L Chloride (98-107) mmol/L Carbon Dioxide (22-32) mmol/L BUN (9-20) mg/dL Creatinine (0.66-1.25) mg/dL Estimated GFR (>60) mL/min BUN/Creatinine Ratio (6-22) Glucose (80-110) mg/dL Calcium (8.4-10.2) mg/dL Magnesium 1.7 (1.6-2.3) mg/dL Total Bilirubin (0.2-1.3) mg/dL AST (17-59) IU/L ALT (<50) IU/L Alkaline Phosphatase (38-126) U/L Total Creatine Kinase 36 L (55-170) U/L CK-MB (CK-2) TNP CK-MB (CK-2) Rel Index TNP Troponin I 0.013 (0.01-0.034) ng/mL NT-Pro-B Natriuret Pep 447 (<450) pg/mL Total Protein (6.3-8.2) g/dL Albumin (3.5-5.0) g/dL Globulin (1.7-4.1) g/dL Albumin/Globulin Ratio (1.0-2.8) Lipase 61 (23-300) U/L Urine Color Yellow Urine Appearance Clear Urine pH 7.0 (4.5-8.0) Ur Specific [place] 1.010 (1.000-1.035) Urine Protein Negative (Negative) Urine Glucose (UA) Negative (Negative) g/dL Urine Ketones Negative (NEGATIVE) Urine Occult Blood Negative (Negative) Urine Nitrate Negative (Negative) Urine Bilirubin Negative (NEGATIVE) Urine Urobilinogen 0.2 (0.2) E.U./dL Ur Leukocyte Esterase Negative (NEGATIVE) Urine RBC None seen (0-5/HPF) Urine WBC None seen (0-5/HPF) Ur Squamous Epith Cells None seen (0-5/HPF) Urine Bacteria None seen (None) Ur Culture Indicated? Cult not indicated Imaging Data Chest x-ray: Radiologist's Impression: [place] [address] XRay Report Signed Patient: Pan Crook MR#: [id number] : 1935 Acct:[id number] Age/Sex: 85 / M Date of Service: 08/15/21 Loc: ED Accession Number: [id number] ?? Procedure: XR chest 1V Ordering Provider: Kendall Ferrell D.O. PROCEDURE:? XR CHEST 1V ? INDICATIONS:? SOB ? TECHNIQUE:? One view of the chest was acquired.? ? COMPARISON:? [facility], , XR CHEST 1V, 05/06/2020, 12:25. ? FINDINGS:? ? Surgical changes and devices:? None.? ? Lungs and pleura:? Lungs are clear.? No pleural effusions or pneumothorax.? ? Mediastinum:? Mediastinal contours appear normal.? Heart size is normal.? ? Bones and chest wall:? No suspicious bony lesions.? Overlying soft tissues appear unremarkable.? ? IMPRESSION:? No acute cardiopulmonary process demonstrated radiographically. ? ? Dictated by: Peter Sanchez M.D. on 08/15/2021 at 10:28 ? ? Approved by: Peetr Sanchez M.D. on 08/15/2021 at 10:28? ECG Data Attestation: I personally reviewed and interpreted this ECG as follows: Interpretation: Atrially paced Ventricular rate is 60 Normal axis Normal QRS No ST T wave changes MDM Narrative Medical decision making narrative: Patient was given Lasix and nitroglycerin. Afterwards he stated that he felt much better. His blood pressure did improve. Patient was not altered. His breathing was much improved. He was atrially paced at a rate is 60 on his EKG. Chest x-ray does not show fluid overload. His BNP was not elevated. He does have lower extremity edema which appears to be worsening from his baseline. He is already on Lasix. He also has been taking Benadryl on a regular basis. He states this is the only antihistamine that helps his sinus issues. He has tried other things such as Claritin and Zyrtec and Flonase and Nasonex. We discussed that potentially his Benadryl could be making him drowsy. Considered admission to the hospital however patient does have follow-up with his motion picture commentator an approximately 36 hours. Plan will be is to increase his Lasix. This will probably help his edema and breathing and also his blood pressure. He was given strict return precautions. He expressed understanding and agreement. Discharge Plan Departure Patient Disposition: Home Clinical Impression: Edema, HTN (hypertension) Instructions: Edema Activity Restrictions/Additional Instructions: I recommend that you increase your Lasix from 40 mg a day to 80 mg a day. Continue the rest of your medications as directed. Keep your appointment with your motion picture commentator on Tuesday that is already scheduled. Return to the emergency department for any new or worsening symptoms. Prescriptions: No Action losartan 50 MG tablet 50 mg PO BID Qty: 0 multivitamin [Multiple Vitamins] 1 EACH tablet 1 tab PO DAILY Qty: 0 tamsulosin 0.4 mg capsule 0.4 mg PO BEDTIME Qty: 90 3RF warfarin [Coumadin] 5 mg tablet 5 mg PO DAILY Qty: 0 Rx Instructions: OR DIRECTED BY PHYSICIAN. finasteride 5 mg tablet 5 mg PO DAILY Qty: 90 3RF acetaminophen 500 mg capsule 500 mg PO Q6H PRN ezetimibe 10 mg tablet 10 mg PO DAILY omega-3 fatty acids 1,000 mg capsule 2,000 mg PO DAILY omeprazole 20 mg capsule,delayed release(DR/EC) 20 mg PO BID polyethylene glycol 3350 17 gram/dose powder 17 g PO DAILY metoprolol tartrate 25 mg tablet 25 mg PO BID docusate sodium 100 mg capsule 100 mg PO BID hydrochlorothiazide 12.5 mg capsule 12.5 mg PO DAILY magnesium 250 mg tablet 250 mg PO DAILY diphenhydramine HCl [Benadryl] 25 mg capsule 50 mg PO BEDTIME PRN Referrals: Shaun Marshall MD [Primary Care Provider] - Visit Report Forms: Patient Portal/API
[2021-08-15 10:28] LABS: Add Manual Diff / Slide Review NO; Basophils Absolute Auto 0 /uL (0-100); Basophils Percent Auto 0.6 % (0-2); Eosinophils Absolute Auto 300 /uL (0-450); Eosinophils Percent Auto 3.6 % (2-4); Hematocrit 33.3 % (41-53); Hemoglobin 10.9 g/dL (13.5-17.5); Lymphocytes Absolute Auto 700 /uL (1100-4500); Lymphocytes Percent Auto 9.3 % (25-40); Mean Corpuscular HGB Conc 32.6 % (30-36); Mean Corpuscular Volume 88.9 fL (80-100); Monocytes Absolute Auto 600 /uL (0-900); Monocytes Percent Auto 7.3 % (3-14); Neutrophils Absolute Auto 6000 /uL (1500-7000); Neutrophils Percent Auto 79.2 % (50-75); Platelet Count 211 X10^3/uL (150-400); Red Blood Cell Count 3.75 X10^6/uL (4.5-5.9); White Blood Cell Count 7.6 X10^3/uL (4.5-11.0)
[2021-08-15 10:36] LABS: INR 2.7 (0.9-1.3); Prothrombin Time 30.7 SECONDS (10.1-12.7)
[2021-08-15 10:39] LABS: PTT Partial Thromboplastin Tim 47 SECONDS (26.4-36.2)
[2021-08-15 10:50] LABS: Creatine Kinase 36 U/L (55-170); Lipase 61 U/L (23-300); Magnesium 1.7 mg/dL (1.6-2.3)
[2021-08-15 10:52] LABS: Alanine Aminotransferase 28 IU/L (<50); Albumin 4.1 g/dL (3.5-5.0); Albumin Globulin Ratio 1.4 (1.0-2.8); Alkaline Phosphatase 50 U/L (38-126); Aspartate Aminotransferase 23 IU/L (17-59); BUN Creatinine Ratio 18.1 (6-22); Bilirubin Total 0.5 mg/dL (0.2-1.3); Blood Urea Nitrogen 30 mg/dL (9-20); Calcium 8.6 mg/dL (8.4-10.2); Carbon Dioxide 33 mmol/L (22-32); Chloride 99 mmol/L (98-107); Estimated Glomerular Filt Rate 40 mL/min (>60); Glucose 108 mg/dL (80-110); HEMOLYSIS 21 (0-50); Sodium 136 mmol/L (137-145); Total Protein 7.1 g/dL (6.3-8.2)
[2021-08-15 10:53] LABS: Potassium 5.8 mmol/L (3.4-5.1)
[2021-08-15 11:03] LABS: NT-proBNP (BNP-Adult 18+) 447 pg/mL (<450); Troponin I 0.013 ng/mL (0.01-0.034)
[2021-08-15 11:24] LABS: Appearance Urine UA CLEAR; Bilirubin Urine UA NEGATIVE (NEGATIVE); Color Urine UA YELLOW; Glucose Urine UA NEGATIVE (Negative); Ketones Urine UA NEGATIVE (NEGATIVE); Leukocyte Esterase Urine UA NEGATIVE (NEGATIVE); Nitrite Urine UA NEGATIVE (Negative); Occult Blood Urine UA NEGATIVE (Negative); Protein Urine UA NEGATIVE (Negative); Urobilinogen Urine UA 0.2 E.U./dL (0.2)
--- NOTE | 2021-08-15 11:24 | PC.NURSE ---
Patient used call light to ask to use the restroom. This aide responded and discussed with patient and he expressed desire to use the urinal in the room. I placed non slip socks on the patient and assisted to standing position. Upon completing his urination and laying back in the bed patient expressed being short of breath. I replaced the pulse ox on the patient which read 86 after stabilized. I placed the patient on a nasal cannula with 2L of oxygen. I informed nurse JADYN and provider notified.
[2021-08-15] MEDS: NITROGLYCERIN OINT 1 INCH/GM OINT...G. TOP (11:35)
[2021-08-15] MEDS: FUROSEMIDE 100 MG/10 ML VIAL 60 MG IV (11:43)
[2021-08-15 11:59] LABS: Bacteria Urine None Seen; Culture Indicated Urine Cult Not Indicated; RBC Urine None Seen (0-5/HPF); Squamous Epithelial Cell Urine None Seen (0-5/HPF); WBC Urine None Seen (0-5/HPF)
== END 2021-08-15 14:25 | disposition home or self-care (01) ==
PROVIDERS: Emergency Provider Emergency Medicine; Family Provider Student in an Organized Health Care Education/Training Program; PCP Family Medicine
DX: R60.9 Edema, unspecified (principal); I10 Essential (primary) hypertension; Z95.0 Presence of cardiac pacemaker
CPT/HCPCS: 36415; 71045; 80053; 81001; 82550; 83690; 83735; 83880; 84484; 85025; 85610; 85730; 93005; 96374; 99284; J1940

== ENCOUNTER → 2021-09-02 11:42 | Outpatient (ROUT) | payer MEDICARE, SELFPAY ==
[2021-09-02 12:02] LABS: INR 2.8 (0.9-1.3); Prothrombin Time 32.4 SECONDS (10.1-12.7)
== END ==
PROVIDERS: Family Provider Student in an Organized Health Care Education/Training Program; PCP Family Medicine; Visit Provider Family Medicine
DX: Z79.01 Long term (current) use of anticoagulants (principal)
CPT/HCPCS: 85610

== ENCOUNTER 2021-09-20 23:42 | Emergency (ER) | payer MEDICARE, SELFPAY ==
[2021-09-21] VITALS (23 sets, daily range): BP systolic 147–206; BP diastolic 66–100; PULSE 6–68; RESP 13–28; TEMP 35.7; O2SAT 91–99; BMI 33.9
--- NOTE | 2021-09-21 00:34 | DI.CT.S_ITS ---
PROCEDURE: CT ABDOMEN PELVIS WO CON INDICATIONS: abdominal pain TECHNIQUE: Noncontrast 5 mm thick sections acquired from the diaphragms to the symphysis. 5 mm coronal and sagittal reformats were then performed. For radiation dose reduction, the following was used: automated exposure control, adjustment of mA and/or kV according to patient size. COMPARISON: [facility], CT, CT ABDOMEN PELVIS W CON, 11/14/2019, 12:51. FINDINGS: Image quality: Excellent. Lung bases: There is mild dependent atelectasis and scarring. Heart: Heart is normal in size. There are pacemaker leads extending into the right atrium and right ventricle. A small hiatal hernia is present. ABDOMEN: Liver: Noncontrast evaluation of the liver demonstrates no discrete hepatic mass. A few punctate calcifications within the liver are consistent with sequelae of old granulomatous disease. Gallbladder: Within normal limits without calcified gallstones. Biliary ducts: No biliary ductal dilatation. Pancreas: Unremarkable. Spleen: Normal in size. There are small punctate calcifications within the spleen consistent with sequelae of old granulomatous disease. Adrenal Glands: No adrenal nodules. Kidneys and Ureters: No hydronephrosis. A small hypodense focus is redemonstrated within the right kidney and likely represents a cyst. Stomach and Bowel: Stomach, small bowel loops, and colon are normal in caliber and wall thickness. The appendix is normal in appearance. There is colonic diverticulosis without acute diverticulitis. Peritoneum: No abnormal intraperitoneal fluid. No free air. Ventral Wall: No hernia. Abdominal Nodes: No retroperitoneal or mesenteric adenopathy by size criteria. Vessels: Aorta and inferior vena cava are normal in size. PELVIS: Pelvic Organs: The prostate is mildly enlarged. Bladder: Unremarkable. Pelvic Nodes: No enlarged lymph nodes. Miscellaneous: No inguinal hernias are seen. Bones: Visualized osseous structures demonstrate no suspicious focal lesions. IMPRESSION: 1. No definite acute intra-abdominal abnormality. Specifically, no evidence of appendicitis. 2. Colonic diverticulosis without acute diverticulitis. Dictated by: Liu Sultana M.D. on 09/21/2021 at 1:17 Approved by: Liu Sultana M.D. on 09/21/2021 at 1:20
--- NOTE | 2021-09-21 00:35 | ED.ABDPAIN ---
HPI - Abdominal Pain General Chief Complaint: Abdominal Pain Stated Complaint: ABD PAIN, FEVER Time Seen by Provider: 09/21/21 00:08 Mode of arrival: Wheelchair History of Present Illness HPI narrative: Patient here with . Complains sudden onset of upper abdominal epigastric pain 3 hours ago. No vomiting or diarrhea. [place] very hot and flushed. No fever. No urinary complaints. No syncope. No numbness tingling or weakness. No chest pain. No dyspnea. No recent illness. No history of heart attack strokes or diabetes. Does have history of high blood pressure. More painful with movement. No recent abdominal pain complaints or pain related to eating. Pain does not radiate to the back. No history of aneurysm or dissection. Related Data Home Medications Medication Instructions Recorded Confirmed losartan 50 mg tablet 25 mg PO BID ##0 02/15/11 09/21/21 multivitamin (Multiple Vitamins 1 tab PO DAILY ##0 08/19/16 09/21/21 tablet) hydrochlorothiazide 12.5 mg capsule 12.5 mg PO DAILY 10/25/19 09/21/21 magnesium 250 mg tablet 250 mg PO DAILY 10/25/19 09/21/21 acetaminophen 500 mg capsule 500 mg PO Q6H PRN Pain, Moderate 11/13/20 09/21/21 diphenhydramine HCl 25 mg capsule 50 mg PO BEDTIME PRN Insomnia 11/13/20 09/21/21 (Benadryl) ezetimibe 10 mg tablet 10 mg PO DAILY 11/13/20 09/21/21 omega-3 fatty acids 1,000 mg 2,000 mg PO DAILY 11/13/20 09/21/21 capsule omeprazole 20 mg capsule,delayed 20 mg PO BID 11/13/20 09/21/21 release polyethylene glycol 3350 17 17 g PO DAILY PRN Constipation 11/13/20 09/21/21 gram/dose oral powder famotidine 20 mg tablet 20 mg PO BID 09/21/21 09/21/21 hydralazine 25 mg tablet 25 mg PO TID 09/21/21 09/21/21 hydrochlorothiazide 25 mg tablet 12.5 mg PO DAILY 09/21/21 09/21/21 metoprolol tartrate 25 mg tablet 25 mg PO DAILY 09/21/21 09/21/21 tamsulosin 0.4 mg capsule 0.4 mg PO BID 09/21/21 09/21/21 torsemide 20 mg tablet 40 mg PO DAILY 09/21/21 09/21/21 trazodone 50 mg tablet 50 mg PO QPM PRN Insomnia 09/21/21 09/21/21 warfarin 5 mg tablet 5 mg PO DAILY 09/21/21 09/21/21 Allergies Allergy/AdvReac Type Severity Reaction Status Date / Time benzocaine [From CETACAINE] Allergy Mild ANAPHYLAXSI Verified 09/21/21 00:54 S butamben [From CETACAINE] Allergy Mild ANAPHYLAXSI Verified 09/21/21 00:54 S tetracaine [From CETACAINE] Allergy Mild ANAPHYLAXSI Verified 09/21/21 00:54 S clonidine [CLONIDINE] Allergy Unknown Verified 09/21/21 00:54 Beta-Adrenergic Agents AdvReac Unknown WEAK,TIRED, Verified 09/21/21 00:54 [BETA-ADRENERGIC AGENTS] HARD TO FUNCTION Review of Systems Review of Systems Narrative: GENERAL: Denies chills, fatigue, malaise, fever, sweats. HEENT: Denies sinus pain, ear pain, sore throat RESPIRATORY: Denies dyspnea, cough CARDIOVASCULAR: Denies chest pain, palpitations GASTROINTESTINAL: Denies nausea, vomiting, positive for abdominal pain : Denies dysuria, frequency, hematuria MUSCULOSKELETAL: denies muscle or bony pain SKIN: Denies rash, skin lesions NEUROLOGIC: Denies weakness, numbness ROS Unobtainable: All systems reviewed & are unremarkable except as noted in HPI and below Patient History Medical History BPH w urinary obs/LUTS History of elevated PSA Hyperlipidemia Hypertension Low back pain Social History Smoking Status: Never smoker Smoking Status: Never smoker alcohol intake frequency: holidays/special occasions only Substance Use Type: does not use Exam Narrative Exam Narrative: GENERAL: in no distress, not toxic not dyspneic HEAD: Normocephalic. EYES: Pupils equal round No scleral icterus. ENT: Mucous membranes moist. NECK: Trachea midline. CARDIOVASCULAR: Regular rate and rhythm without murmurs RESPIRATORY: Clear to auscultation. Breath sounds equal bilaterally. No wheezes, rales, or rhonchi. GASTROINTESTINAL: Abdomen soft, reproducible upper half at abdominal tenderness. No peritoneal signs. No pain out of proportion to exam. Bowel sounds are present. EXTREMITIES: No gross deformities. BACK: No flank tenderness. NEURO: AOx4. SKIN: Warm and dry PSYCH: Not anxious, is cooperative Initial Vital Signs Initial Vital Signs: Vital Signs Temperature 96.3 F L 09/21/21 00:00 Pulse Rate 6 L 09/21/21 00:00 Respiratory Rate 18 09/21/21 00:00 Blood Pressure 206/86 H 09/21/21 00:00 Pulse Oximetry 92 09/21/21 00:00 Oxygen Delivery Method 09/21/21 00:00 Course Course Course Narrative: No new issues during course of stay Orders Ordered: ED Orders 09/21/21 00:08 EKG-12 Lead Stat 09/21/21 00:10 COVID19 -Nasal RAPID/Pre-Proc Stat 09/21/21 00:20 Complete Blood Count AUTO DIFF Stat Comprehensive Metabolic Panel Stat Lipase Stat Troponin & CK Cardiac Panel Stat 09/21/21 00:34 CT abdomen pelvis wo con Stat 09/21/21 02:15 Urinalysis and Microscopic Stat 09/21/21 04:50 CMP [Comprehensive Metabolic Panel] Stat PT [Prothrombin Time INR] Stat PTT [Partial Thromboplastin Time] Stat Troponin & CK Cardiac Panel Stat Discontinued Medications Hydromorphone HCl (Hydromorphone 1 Mg Inj) 1 mg IV NOW ONE Stop: 09/21/21 00:35 Last Admin: 09/21/21 00:38 Dose: 1 mg Documented By: ELIZA Hydromorphone HCl (Hydromorphone 1 Mg Inj) 1 mg IV NOW ONE Stop: 09/21/21 02:26 Last Admin: 09/21/21 02:42 Dose: 1 mg Documented By: ELIZA Sodium Chloride (Normal Saline 0.9%) 1,000 mls @ 1,000 mls/hr IV BOLUS ONE Stop: 09/21/21 01:33 Last Infusion: 09/21/21 02:13 Dose: 0 mls/hr Documented By: Admin: 09/21/21 00:38 Dose: 1,000 mls/hr Documented By: ELIZA Sodium Chloride (Normal Saline 0.9%) 1,000 mls @ 1,000 mls/hr IV BOLUS ONE Stop: 09/21/21 03:42 Last Infusion: 09/21/21 04:16 Dose: 0 mls/hr Documented By: Admin: 09/21/21 02:47 Dose: 1,000 mls/hr Documented By: ELIZA Ondansetron HCl (Ondansetron 4 Mg/2 Ml Inj) 4 mg IV NOW ONE Stop: 09/21/21 00:35 Last Admin: 09/21/21 00:38 Dose: 4 mg Documented By: ELIZA Pantoprazole Sodium (Pantoprazole 40 Mg Vial) 40 mg IV NOW ONE Stop: 09/21/21 01:28 Last Admin: 09/21/21 02:13 Dose: 40 mg Documented By: ELIZA Reevaluation(s) Reevaluation #1: Blood pressure 147/66. Patient states feeling much better now after IV fluids and pain control. Reviewed repeat laboratory studies with patient and . Patient states his pain is significantly better and desires discharge home. Reviewed with them to go over medications particularly proton pump inhibitor if he can take Protonix, he was on Prilosec for years at least 10 years and it helped him up to a year ago when they had to take it away because it was causing leg swelling. He does understand needs to follow up with General surgery or GI for endoscopy of the stomach or possible colonoscopy. I will give him referral to Dr. Yañez, General surgery here. Time: 06:12 Vital Signs Vital signs: Vital Signs - 8 hr 09/21/21 00:00 09/21/21 00:26 09/21/21 00:30 Temperature 96.3 F L Pulse Rate 6 L 60 60 Respiratory Rate 18 13 24 Blood Pressure 206/86 H Pulse Oximetry 92 99 98 Oxygen Delivery Method Room Air 09/21/21 00:32 09/21/21 00:32 09/21/21 01:07 Temperature Pulse Rate 60 Respiratory Rate 28 H Blood Pressure 166/72 H 159/68 H Pulse Oximetry 98 Oxygen Delivery Method 09/21/21 01:07 09/21/21 01:30 09/21/21 01:31 Temperature Pulse Rate 60 60 Respiratory Rate 19 18 Blood Pressure 166/72 H Pulse Oximetry 98 96 Oxygen Delivery Method 09/21/21 01:31 09/21/21 02:00 09/21/21 02:01 Temperature Pulse Rate 60 62 Respiratory Rate 21 23 Blood Pressure 161/72 H Pulse Oximetry 96 96 Oxygen Delivery Method 09/21/21 02:01 09/21/21 02:30 09/21/21 02:30 Temperature Pulse Rate 61 60 Respiratory Rate 20 15 Blood Pressure 162/70 H Pulse Oximetry 95 97 Oxygen Delivery Method 09/21/21 03:00 09/21/21 03:01 09/21/21 03:30 Temperature Pulse Rate 67 Respiratory Rate 21 Blood Pressure 162/71 H 168/100 H Pulse Oximetry 97 Oxygen Delivery Method 09/21/21 03:30 09/21/21 04:00 09/21/21 04:01 Temperature Pulse Rate 61 64 Respiratory Rate 20 18 Blood Pressure 170/74 H Pulse Oximetry 98 96 Oxygen Delivery Method 09/21/21 04:01 09/21/21 04:30 09/21/21 04:31 Temperature Pulse Rate 67 67 Respiratory Rate 15 17 Blood Pressure 173/71 H Pulse Oximetry 97 95 Oxygen Delivery Method 09/21/21 04:31 09/21/21 05:00 09/21/21 05:01 Temperature Pulse Rate 64 67 68 Respiratory Rate 15 23 21 Blood Pressure Pulse Oximetry 96 96 99 Oxygen Delivery Method 09/21/21 05:30 09/21/21 05:31 09/21/21 05:31 Temperature Pulse Rate 63 66 Respiratory Rate 20 22 Blood Pressure 172/74 H Pulse Oximetry 92 91 Oxygen Delivery Method 09/21/21 06:00 09/21/21 06:01 09/21/21 06:01 Temperature Pulse Rate 62 62 Respiratory Rate 15 15 Blood Pressure 147/66 H Pulse Oximetry 96 97 Oxygen Delivery Method MDM - Abdominal Pain Differential Diagnosis Differential diagnosis: Likely abdominal pain, acute appendicitis, constipation, diverticulitis, gastroenteritis, pancreatitis and small bowel obstruction Lab Data Result diagrams: 09/21/21 00:20 09/21/21 04:50 Labs: Lab Results 09/21/21 09/21/21 09/21/21 Range/Units 00:10 00:20 00:20 WBC 8.9 (4.5-11.0) X10^3/uL RBC 3.53 L (4.5-5.9) X10^6/uL Hgb 10.5 L (13.5-17.5) g/dL Hct 30.8 L (41-53) % MCV 87.3 (80-100) fL MCH 29.9 (26-34) PG MCHC 34.2 (30-36) % RDW 14.7 (11.6-14.8) % Plt Count 253 (150-400) X10^3/uL Neut % (Auto) 76.8 H (50-75) % Lymph % (Auto) 12.8 L (25-40) % [place] % (Auto) 6.8 (3-14) % Eos % (Auto) 3.4 (2-4) % Baso % (Auto) 0.2 (0-2) % Neut # (Auto) 6900 (9192-3747) /uL Lymph # (Auto) 1100 (6106-9642) /uL [place] # (Auto) 600 (0-900) /uL Eos # (Auto) 300 (0-450) /uL Baso # (Auto) 0 (0-100) /uL PT (10.1-12.7) SECONDS INR (0.9-1.3) APTT (26.4-36.2) SECONDS Sodium 134 L (137-145) mmol/L Potassium 4.2 (3.4-5.1) mmol/L Chloride 95 L (98-107) mmol/L Carbon Dioxide 32 (22-32) mmol/L BUN 52 H (9-20) mg/dL Creatinine 2.71 H (0.66-1.25) mg/dL Estimated GFR 22 L (>60) mL/min BUN/Creatinine Ratio 19.2 (6-22) Glucose 167 H (80-110) mg/dL Calcium 8.3 L (8.4-10.2) mg/dL Total Bilirubin 0.2 (0.2-1.3) mg/dL AST 22 (17-59) IU/L ALT 18 (<50) IU/L Alkaline Phosphatase 64 (38-126) U/L Total Creatine Kinase (55-170) U/L CK-MB (CK-2) CK-MB (CK-2) Rel Index Troponin I (0.01-0.034) ng/mL Total Protein 7.2 (6.3-8.2) g/dL Albumin 4.3 (3.5-5.0) g/dL Globulin 2.9 (1.7-4.1) g/dL Albumin/Globulin Ratio 1.5 (1.0-2.8) Lipase 253 (23-300) U/L Urine Color Urine Appearance Urine pH (4.5-8.0) Ur Specific [place] (1.000-1.035) Urine Protein (Negative) Urine Glucose (UA) (Negative) g/dL Urine Ketones (NEGATIVE) Urine Occult Blood (Negative) Urine Nitrate (Negative) Urine Bilirubin (NEGATIVE) Urine Urobilinogen (0.2) E.U./dL Ur Leukocyte Esterase (NEGATIVE) Urine RBC (0-5/HPF) Urine WBC (0-5/HPF) Urine Bacteria (None) Ur Culture Indicated? SARS-CoV-2 (PCR) Negative (Negative) 09/21/21 09/21/21 09/21/21 Range/Units 00:20 02:15 04:50 WBC (4.5-11.0) X10^3/uL RBC (4.5-5.9) X10^6/uL Hgb (13.5-17.5) g/dL Hct (41-53) % MCV (80-100) fL MCH (26-34) PG MCHC (30-36) % RDW (11.6-14.8) % Plt Count (150-400) X10^3/uL Neut % (Auto) (50-75) % Lymph % (Auto) (25-40) % [place] % (Auto) (3-14) % Eos % (Auto) (2-4) % Baso % (Auto) (0-2) % Neut # (Auto) (6931-5550) /uL Lymph # (Auto) (0358-3116) /uL [place] # (Auto) (0-900) /uL Eos # (Auto) (0-450) /uL Baso # (Auto) (0-100) /uL PT 25.2 H (10.1-12.7) SECONDS INR 2.2 H (0.9-1.3) APTT 45 H (26.4-36.2) SECONDS Sodium (137-145) mmol/L Potassium (3.4-5.1) mmol/L Chloride (98-107) mmol/L Carbon Dioxide (22-32) mmol/L BUN (9-20) mg/dL Creatinine (0.66-1.25) mg/dL Estimated GFR (>60) mL/min BUN/Creatinine Ratio (6-22) Glucose (80-110) mg/dL Calcium (8.4-10.2) mg/dL Total Bilirubin (0.2-1.3) mg/dL AST (17-59) IU/L ALT (<50) IU/L Alkaline Phosphatase (38-126) U/L Total Creatine Kinase 63 (55-170) U/L CK-MB (CK-2) TNP CK-MB (CK-2) Rel Index TNP Troponin I 0.013 (0.01-0.034) ng/mL Total Protein (6.3-8.2) g/dL Albumin (3.5-5.0) g/dL Globulin (1.7-4.1) g/dL Albumin/Globulin Ratio (1.0-2.8) Lipase (23-300) U/L Urine Color Yellow Urine Appearance Clear Urine pH 6.5 (4.5-8.0) Ur Specific [place] 1.015 (1.000-1.035) Urine Protein Negative (Negative) Urine Glucose (UA) Negative (Negative) g/dL Urine Ketones Negative (NEGATIVE) Urine Occult Blood Negative (Negative) Urine Nitrate Negative (Negative) Urine Bilirubin Negative (NEGATIVE) Urine Urobilinogen 0.2 (0.2) E.U./dL Ur Leukocyte Esterase Negative (NEGATIVE) Urine RBC None seen (0-5/HPF) Urine WBC None seen (0-5/HPF) Urine Bacteria None seen (None) Ur Culture Indicated? Cult not indicated SARS-CoV-2 (PCR) (Negative) 09/21/21 09/21/21 Range/Units 04:50 04:50 WBC (4.5-11.0) X10^3/uL RBC (4.5-5.9) X10^6/uL Hgb (13.5-17.5) g/dL Hct (41-53) % MCV (80-100) fL MCH (26-34) PG MCHC (30-36) % RDW (11.6-14.8) % Plt Count (150-400) X10^3/uL Neut % (Auto) (50-75) % Lymph % (Auto) (25-40) % [place] % (Auto) (3-14) % Eos % (Auto) (2-4) % Baso % (Auto) (0-2) % Neut # (Auto) (6455-3737) /uL Lymph # (Auto) (1947-8682) /uL [place] # (Auto) (0-900) /uL Eos # (Auto) (0-450) /uL Baso # (Auto) (0-100) /uL PT (10.1-12.7) SECONDS INR (0.9-1.3) APTT (26.4-36.2) SECONDS Sodium 135 L (137-145) mmol/L Potassium 4.7 (3.4-5.1) mmol/L Chloride 99 (98-107) mmol/L Carbon Dioxide 27 (22-32) mmol/L BUN 46 H (9-20) mg/dL Creatinine 2.33 H (0.66-1.25) mg/dL Estimated GFR 27 L (>60) mL/min BUN/Creatinine Ratio 19.7 (6-22) Glucose 138 H (80-110) mg/dL Calcium 8.0 L (8.4-10.2) mg/dL Total Bilirubin 0.2 (0.2-1.3) mg/dL AST 23 (17-59) IU/L ALT 18 (<50) IU/L Alkaline Phosphatase 62 (38-126) U/L Total Creatine Kinase 63 (55-170) U/L CK-MB (CK-2) TNP CK-MB (CK-2) Rel Index TNP Troponin I 0.012 (0.01-0.034) ng/mL Total Protein 7.2 (6.3-8.2) g/dL Albumin 4.3 (3.5-5.0) g/dL Globulin 2.9 (1.7-4.1) g/dL Albumin/Globulin Ratio 1.5 (1.0-2.8) Lipase (23-300) U/L Urine Color Urine Appearance Urine pH (4.5-8.0) Ur Specific [place] (1.000-1.035) Urine Protein (Negative) Urine Glucose (UA) (Negative) g/dL Urine Ketones (NEGATIVE) Urine Occult Blood (Negative) Urine Nitrate (Negative) Urine Bilirubin (NEGATIVE) Urine Urobilinogen (0.2) E.U./dL Ur Leukocyte Esterase (NEGATIVE) Urine RBC (0-5/HPF) Urine WBC (0-5/HPF) Urine Bacteria (None) Ur Culture Indicated? SARS-CoV-2 (PCR) (Negative) Imaging Data CT scan - abdomen/pelvis: Radiologist's Impression: [address] [address] [address] Scan Report Signed Patient: Pan Crook MR#: [id number] : 1935 Acct:[id number] Age/Sex: 85 / M Date of Service: 09/21/21 Loc: ED Accession Number: [id number] ?? Procedure: CT abdomen pelvis wo con Ordering Provider: Brandan Junior MD PROCEDURE:? CT ABDOMEN PELVIS WO CON ? INDICATIONS:? abdominal pain ? TECHNIQUE:? Noncontrast 5 mm thick sections acquired from the diaphragms to the symphysis.? 5 mm coronal and sagittal reformats were then performed.? For radiation dose reduction, the following was used:? automated exposure control, adjustment of mA and/or kV according to patient size.? ? COMPARISON:? [facility], CT, CT ABDOMEN PELVIS W CON, 11/14/2019, 12:51. ? FINDINGS:? Image quality:? Excellent.? ? Lung bases:? There is mild dependent atelectasis and scarring.? ? Heart:? Heart is normal in size.? There are pacemaker leads extending into the right atrium and right ventricle.? A small hiatal hernia is present. ? ? ABDOMEN: Liver:? Noncontrast evaluation of the liver demonstrates no discrete hepatic mass.? A few punctate calcifications within the liver are consistent with sequelae of old granulomatous disease. Gallbladder:? Within normal limits without calcified gallstones.? ? Biliary ducts:? No biliary ductal dilatation.? ? Pancreas:? Unremarkable.? ? Spleen:? Normal in size.? There are small punctate calcifications within the spleen consistent with sequelae of old granulomatous disease.? ? Adrenal Glands:? No adrenal nodules.? ? Kidneys and Ureters:? No hydronephrosis.? A small hypodense focus is redemonstrated within the right kidney and likely represents a cyst.? ? ? Stomach and Bowel:? Stomach, small bowel loops, and colon are normal in caliber and wall thickness.? The appendix is normal in appearance.? There is colonic diverticulosis without acute diverticulitis.? Peritoneum:? No abnormal intraperitoneal fluid.? No free air.? ? Ventral Wall: ? No hernia.? Abdominal Nodes:? No retroperitoneal or mesenteric adenopathy by size criteria.? Vessels:? Aorta and inferior vena cava are normal in size.? ? PELVIS: Pelvic Organs:? The prostate is mildly enlarged.? ? Bladder:? Unremarkable.? ? Pelvic Nodes: No enlarged lymph nodes.? Miscellaneous: No inguinal hernias are seen. ? ? ? Bones:? Visualized osseous structures demonstrate no suspicious focal lesions. ? IMPRESSION:? ? 1. No definite acute intra-abdominal abnormality.? Specifically, no evidence of appendicitis. ? 2. Colonic diverticulosis without acute diverticulitis. ? ? Dictated by: Liu Sultana M.D. on 09/21/2021 at 1:17 ? ? Approved by: Liu Sultana M.D. on 09/21/2021 at 1:20 ? ECG Data Interpretation: Atrial paced rhythm prolonged AV MDM Narrative Medical decision making narrative: Appropriate for discharge home. Pain controlled at time of discharge. Laboratory studies and imaging are reassuring. At this time did have reproducible epigastric abdominal tenderness, likely not cardiac source of his discomfort. Patient will need endoscopy of the stomach, suspicion for gastritis causing patient's discomfort. Unfortunately cannot take GI cocktail due to lidocaine and allergy. Return precautions reviewed with patient and . Discharge Plan Departure Patient Disposition: Home Clinical Impression: Abdominal pain Instructions: DI for Abdominal Pain-Adult Activity Restrictions/Additional Instructions: No driving or operating machinery today. Keep well hydrated. You need to see your family doctor for review of medications and to see if he can take Protonix for your stomach. It is related to Prilosec. You need to see family doctor for re-evaluation of your kidney function with blood work. Call today to make appointment. Return if worse if any questions or concerns. No fried fatty greasy foods or spicy foods. Call provided surgical office with Dr. Yañez to make appointment for endoscopy of her stomach and colonoscopy. Prescriptions: No Action losartan 50 MG tablet 25 mg PO BID Qty: 0 multivitamin [Multiple Vitamins] 1 EACH tablet 1 tab PO DAILY Qty: 0 tamsulosin 0.4 mg capsule 0.4 mg PO BID torsemide 20 mg tablet 40 mg PO DAILY Label Comments: Take 1 tablet by mouth once a day trazodone 50 mg tablet 50 mg PO QPM PRN (Reason: Insomnia) Label Comments: Take 1 tablet by mouth at bedtime hydralazine 25 mg tablet 25 mg PO TID Label Comments: Take 1 tablet by mouth three times a day famotidine 20 mg Tablet 20 mg PO BID hydrochlorothiazide 25 mg tablet 12.5 mg PO DAILY Label Comments: Take 1 tablet by mouth once a day metoprolol tartrate 25 mg tablet 25 mg PO DAILY Label Comments: Take 1 tablet by mouth once a day warfarin 5 mg tablet 5 mg PO DAILY Label Comments: Take 1 tablet by mouth once a day acetaminophen 500 mg capsule 500 mg PO Q6H PRN (Reason: Pain, Moderate) ezetimibe 10 mg tablet 10 mg PO DAILY omega-3 fatty acids 1,000 mg capsule 2,000 mg PO DAILY omeprazole 20 mg capsule,delayed release(DR/EC) 20 mg PO BID polyethylene glycol 3350 17 gram/dose powder 17 g PO DAILY PRN (Reason: Constipation) hydrochlorothiazide 12.5 mg capsule 12.5 mg PO DAILY magnesium 250 mg tablet 250 mg PO DAILY diphenhydramine HCl [Benadryl] 25 mg capsule 50 mg PO BEDTIME PRN (Reason: Insomnia) Referrals: Sanket Yañez MD [Physician] - Shaun Marshall MD [Primary Care Provider] - Visit Report Forms: Patient Portal/API
[2021-09-21 00:38] LABS: Add Manual Diff / Slide Review NO; Basophils Absolute Auto 0 /uL (0-100); Basophils Percent Auto 0.2 % (0-2); Eosinophils Absolute Auto 300 /uL (0-450); Eosinophils Percent Auto 3.4 % (2-4); Hematocrit 30.8 % (41-53); Hemoglobin 10.5 g/dL (13.5-17.5); Lymphocytes Absolute Auto 1100 /uL (1100-4500); Lymphocytes Percent Auto 12.8 % (25-40); Mean Corpuscular HGB Conc 34.2 % (30-36); Mean Corpuscular Hemoglobin 29.9 PG (26-34); Mean Corpuscular Volume 87.3 fL (80-100); Monocytes Absolute Auto 600 /uL (0-900); Monocytes Percent Auto 6.8 % (3-14); Neutrophils Absolute Auto 6900 /uL (1500-7000); Neutrophils Percent Auto 76.8 % (50-75); Platelet Count 253 X10^3/uL (150-400); Red Blood Cell Count 3.53 X10^6/uL (4.5-5.9); Red Cell Distribution Width 14.7 % (11.6-14.8); White Blood Cell Count 8.9 X10^3/uL (4.5-11.0)
[2021-09-21] MEDS: ONDANSETRON 4 MG/2 ML INJ IV (00:38)
[2021-09-21] MEDS: SODIUM CHLORIDE 0.9% 1,000 ML 1000 ML IV ×2 (00:38→02:47)
[2021-09-21] MEDS: HYDROMORPHONE 1 MG INJ IV ×2 (00:38→02:42)
[2021-09-21 00:46] LABS: Alanine Aminotransferase 18 IU/L (<50); Albumin 4.3 g/dL (3.5-5.0); Albumin Globulin Ratio 1.5 (1.0-2.8); Alkaline Phosphatase 64 U/L (38-126); Aspartate Aminotransferase 22 IU/L (17-59); BUN Creatinine Ratio 19.2 (6-22); Bilirubin Total 0.2 mg/dL (0.2-1.3); Blood Urea Nitrogen 52 mg/dL (9-20); Calcium 8.3 mg/dL (8.4-10.2); Carbon Dioxide 32 mmol/L (22-32); Chloride 95 mmol/L (98-107); Creatine Kinase 63 U/L (55-170); Estimated Glomerular Filt Rate 22 mL/min (>60); Globulin 2.9 g/dL (1.7-4.1); Glucose 167 mg/dL (80-110); HEMOLYSIS 16 (0-50); Lipase 253 U/L (23-300); Potassium 4.2 mmol/L (3.4-5.1); Sodium 134 mmol/L (137-145); Total Protein 7.2 g/dL (6.3-8.2)
[2021-09-21 00:58] LABS: Troponin I 0.013 ng/mL (0.01-0.034)
[2021-09-21 01:00] LABS: COVID19 -Nasal RAPID Negative (Negative)
[2021-09-21] MEDS: PANTOPRAZOLE 40 MG VIAL IV (02:13)
[2021-09-21 02:33] LABS: Appearance Urine UA Clear; Color Urine UA Yellow; Protein Urine UA NEGATIVE (Negative); Specific Gravity Urine UA 1.015 (1.000-1.035); pH Urine UA 6.5 (4.5-8.0)
[2021-09-21 02:34] LABS: Bilirubin Urine UA NEGATIVE (NEGATIVE); Glucose Urine UA NEGATIVE (Negative); Ketones Urine UA NEGATIVE (NEGATIVE); Leukocyte Esterase Urine UA NEGATIVE (NEGATIVE); Nitrite Urine UA NEGATIVE (Negative); Occult Blood Urine UA NEGATIVE (Negative); Urobilinogen Urine UA 0.2 E.U./dL (0.2)
[2021-09-21 02:38] LABS: Bacteria Urine None Seen; Culture Indicated Urine Cult Not Indicated; RBC Urine None Seen (0-5/HPF); WBC Urine None Seen (0-5/HPF)
[2021-09-21 05:12] LABS: INR 2.2 (0.9-1.3); Prothrombin Time 25.2 SECONDS (10.1-12.7)
[2021-09-21 05:15] LABS: PTT Partial Thromboplastin Tim 45 SECONDS (26.4-36.2)
[2021-09-21 05:17] LABS: Alanine Aminotransferase 18 IU/L (<50); Albumin 4.3 g/dL (3.5-5.0); Albumin Globulin Ratio 1.5 (1.0-2.8); Alkaline Phosphatase 62 U/L (38-126); Aspartate Aminotransferase 23 IU/L (17-59); BUN Creatinine Ratio 19.7 (6-22); Bilirubin Total 0.2 mg/dL (0.2-1.3); Blood Urea Nitrogen 46 mg/dL (9-20); Carbon Dioxide 27 mmol/L (22-32); Chloride 99 mmol/L (98-107); Estimated Glomerular Filt Rate 27 mL/min (>60); Globulin 2.9 g/dL (1.7-4.1); Glucose 138 mg/dL (80-110); HEMOLYSIS < 15 (0-50); Potassium 4.7 mmol/L (3.4-5.1); Sodium 135 mmol/L (137-145); Total Protein 7.2 g/dL (6.3-8.2)
[2021-09-21 05:28] LABS: Creatine Kinase 63 U/L (55-170)
[2021-09-21 05:41] LABS: Troponin I 0.012 ng/mL (0.01-0.034)
== END 2021-09-21 06:20 | disposition home or self-care (01) ==
PROVIDERS: Emergency Provider Emergency Medicine; Family Provider Student in an Organized Health Care Education/Training Program; PCP Family Medicine
DX: R10.13 Epigastric pain (principal); Z20.822 Contact with and (suspected) exposure to COVID-19
CPT/HCPCS: 36415; 74176; 80053; 81001; 82550; 83690; 84484; 85025; 85610; 85730; 87635; 93005; 96361; 96374; 96375; 96376; 99284; C9803; C9113; J1170; J2405

== ENCOUNTER → 2021-09-30 11:15 | Outpatient (ROUT) | payer MEDICARE, SELFPAY ==
[2021-09-30 11:51] LABS: INR 2.5 (0.9-1.3); Prothrombin Time 28.4 SECONDS (10.1-12.7)
== END ==
PROVIDERS: Family Provider Student in an Organized Health Care Education/Training Program; PCP Family Medicine; Visit Provider Internal Medicine
DX: Z79.01 Long term (current) use of anticoagulants (principal)
CPT/HCPCS: 85610

== ENCOUNTER → 2021-10-28 11:43 | Outpatient (ROUT) | payer MEDICARE, SELFPAY ==
[2021-10-28 12:16] LABS: INR 2.8 (0.9-1.3); Prothrombin Time 32.4 SECONDS (10.1-12.7)
== END ==
PROVIDERS: Family Provider Student in an Organized Health Care Education/Training Program; PCP Family Medicine; Visit Provider Family Medicine
DX: I48.91 Unspecified atrial fibrillation (principal); Z79.01 Long term (current) use of anticoagulants
CPT/HCPCS: 85610

== ENCOUNTER → 2021-11-25 11:37 | Outpatient (ROUT) | payer MEDICARE, SELFPAY ==
[2021-11-25 11:49] LABS: INR 2.3 (0.9-1.3); Prothrombin Time 26.2 SECONDS (10.1-12.7)
== END ==
PROVIDERS: Family Provider Student in an Organized Health Care Education/Training Program; PCP Family Medicine; Visit Provider Family Medicine
DX: Z79.01 Long term (current) use of anticoagulants (principal)
CPT/HCPCS: 85610

== ENCOUNTER → 2021-12-09 11:47 | Outpatient (ROUT) | payer MEDICARE, SELFPAY ==
[2021-12-09 12:33] LABS: INR 2.1 (0.9-1.3); Prothrombin Time 24.2 SECONDS (10.1-12.7)
== END ==
PROVIDERS: Family Provider Student in an Organized Health Care Education/Training Program; PCP Family Medicine; Visit Provider Family Medicine
DX: Z79.01 Long term (current) use of anticoagulants (principal)
CPT/HCPCS: 85610

== ENCOUNTER → 2022-01-19 13:02 | Outpatient (ROUT) | payer MEDICARE, SELFPAY ==
[2022-01-19 13:21] LABS: Prothrombin Time 35.4 SECONDS (10.1-12.7)
== END ==
PROVIDERS: Family Provider Student in an Organized Health Care Education/Training Program; PCP Family Medicine; Visit Provider Family Medicine
DX: I48.91 Unspecified atrial fibrillation (principal); Z79.01 Long term (current) use of anticoagulants
CPT/HCPCS: 85610

== ENCOUNTER → 2022-02-04 15:14 | Outpatient (CLI) | payer MEDICARE, SELFPAY ==
[2022-02-04 16:18] LABS: Add Manual Diff / Slide Review NO; Basophils Absolute Auto 0 /uL (0-100); Basophils Percent Auto 0.3 % (0-2); Eosinophils Absolute Auto 200 /uL (0-450); Eosinophils Percent Auto 2.8 % (2-4); Hematocrit 32.9 % (41-53); Hemoglobin 10.7 g/dL (13.5-17.5); Lymphocytes Absolute Auto 1100 /uL (1100-4500); Lymphocytes Percent Auto 18.5 % (25-40); Mean Corpuscular HGB Conc 32.6 % (30-36); Mean Corpuscular Hemoglobin 27.4 PG (26-34); Monocytes Absolute Auto 400 /uL (0-900); Monocytes Percent Auto 6.8 % (3-14); Neutrophils Absolute Auto 4100 /uL (1500-7000); Neutrophils Percent Auto 71.6 % (50-75); Platelet Count 252 X10^3/uL (150-400); Red Blood Cell Count 3.92 X10^6/uL (4.5-5.9); Red Cell Distribution Width 15.2 % (11.6-14.8); White Blood Cell Count 5.8 X10^3/uL (4.5-11.0)
[2022-02-04 16:43] LABS: Erythrocyte Sedimentation Rate 36 MM/HR (0-15)
[2022-02-04 16:44] LABS: BUN Creatinine Ratio 15.9 (6-22); Blood Urea Nitrogen 33 mg/dL (9-20); C-Reactive Protein Quant 0.7 mg/dL (<1.0); Calcium 8.3 mg/dL (8.4-10.2); Carbon Dioxide 27 mmol/L (22-32); Chloride 100 mmol/L (98-107); Estimated Glomerular Filt Rate 31 mL/min (>60); Glucose 113 mg/dL (80-110); HEMOLYSIS < 15 (0-50); Potassium 4.7 mmol/L (3.4-5.1); Sodium 139 mmol/L (137-145); Uric Acid 9.1 mg/dL (3.5-8.5)
== END ==
PROVIDERS: Family Provider Student in an Organized Health Care Education/Training Program; PCP Family Medicine; Referring Provider Family Medicine; Visit Provider Family Medicine
DX: R60.9 Edema, unspecified (principal); M79.676 Pain in unspecified toe(s); M79.673 Pain in unspecified foot; R06.02 Shortness of breath
CPT/HCPCS: 36415; 80048; 84550; 85025; 85651; 86140

== ENCOUNTER → 2022-02-08 14:40 | Outpatient (ROUT) | payer MEDICARE, SELFPAY ==
[2022-02-08 14:53] LABS: INR 2.4 (0.9-1.3); Prothrombin Time 27.6 SECONDS (10.1-12.7)
== END ==
PROVIDERS: Family Provider Student in an Organized Health Care Education/Training Program; PCP Family Medicine; Visit Provider Family Medicine
DX: Z79.01 Long term (current) use of anticoagulants (principal)
CPT/HCPCS: 85610

== ENCOUNTER → 2022-02-17 11:53 | Outpatient (ROUT) | payer MEDICARE, SELFPAY ==
[2022-02-17 12:17] LABS: INR 2.2 (0.9-1.3); Prothrombin Time 25.4 SECONDS (10.1-12.7)
== END ==
PROVIDERS: Family Provider Student in an Organized Health Care Education/Training Program; PCP Family Medicine; Visit Provider Family Medicine
DX: Z79.01 Long term (current) use of anticoagulants (principal)
CPT/HCPCS: 85610

== ENCOUNTER → 2022-03-15 17:13 | Outpatient (ROUT) | payer MEDICARE, SELFPAY ==
[2022-03-15 17:33] LABS: INR 2.1 (0.9-1.3); Prothrombin Time 24.6 SECONDS (10.1-12.7)
== END ==
PROVIDERS: Family Provider Student in an Organized Health Care Education/Training Program; PCP Family Medicine; Visit Provider Family Medicine
DX: I48.91 Unspecified atrial fibrillation (principal); Z79.01 Long term (current) use of anticoagulants
CPT/HCPCS: 85610

== ENCOUNTER → 2022-04-13 12:00 | Outpatient (ROUT) | payer MEDICARE, SELFPAY ==
[2022-04-13 12:14] LABS: INR 2.2 (0.9-1.3)
== END ==
PROVIDERS: Family Provider Student in an Organized Health Care Education/Training Program; PCP Family Medicine; Visit Provider Family Medicine
DX: Z79.01 Long term (current) use of anticoagulants (principal)
CPT/HCPCS: 85610

== ENCOUNTER → 2022-05-12 09:56 | Outpatient (ROUT) | payer MEDICARE, SELFPAY ==
[2022-05-12 10:03] LABS: INR 2.4 (0.9-1.3); Prothrombin Time 27.6 SECONDS (10.1-12.7)
== END ==
PROVIDERS: Family Provider Student in an Organized Health Care Education/Training Program; PCP Family Medicine; Visit Provider Family Medicine
DX: Z79.01 Long term (current) use of anticoagulants (principal)
CPT/HCPCS: 85610

== ENCOUNTER → 2022-05-18 10:26 | Outpatient (ROUT) | payer MEDICARE, SELFPAY ==
[2022-05-18 10:41] LABS: INR 1.8 (0.9-1.3); Prothrombin Time 20.5 SECONDS (10.1-12.7)
== END ==
PROVIDERS: Family Provider Student in an Organized Health Care Education/Training Program; PCP Family Medicine; Visit Provider Family Medicine
DX: R00.1 Bradycardia, unspecified (principal)
CPT/HCPCS: 85610

== ENCOUNTER → 2022-05-27 12:32 | Outpatient (ROUT) | payer MEDICARE, SELFPAY ==
[2022-05-27 12:40] LABS: Prothrombin Time 22.7 SECONDS (10.1-12.7)
== END ==
PROVIDERS: Family Provider Student in an Organized Health Care Education/Training Program; PCP Family Medicine; Visit Provider Family Medicine
DX: Z79.01 Long term (current) use of anticoagulants (principal)
CPT/HCPCS: 85610

== ENCOUNTER → 2022-06-10 12:52 | Outpatient (ROUT) | payer MEDICARE, SELFPAY ==
[2022-06-10 12:59] LABS: INR 2.3 (0.9-1.3); Prothrombin Time 26.2 SECONDS (10.1-12.7)
== END ==
PROVIDERS: Family Provider Student in an Organized Health Care Education/Training Program; PCP Family Medicine; Visit Provider Family Medicine
DX: Z79.01 Long term (current) use of anticoagulants (principal)
CPT/HCPCS: 85610

== ENCOUNTER → 2022-07-01 11:35 | Outpatient (ROUT) | payer MEDICARE, SELFPAY ==
[2022-07-01 11:50] LABS: INR 2.6 (0.9-1.3); Prothrombin Time 29.8 SECONDS (10.1-12.7)
== END ==
PROVIDERS: Family Provider Student in an Organized Health Care Education/Training Program; PCP Family Medicine; Visit Provider Family Medicine
DX: Z79.01 Long term (current) use of anticoagulants (principal)
CPT/HCPCS: 85610

== ENCOUNTER 2022-07-04 15:35 | Inpatient (IN) | payer MEDICARE, SELFPAY ==
[2022-07-04] VITALS (39 sets, daily range): BP systolic 137–213; BP diastolic 81–94; PULSE 103–130; RESP 26–37; TEMP 37.4–37.9; O2SAT 87–96; BMI 32.5; BMI 33.2
--- NOTE | 2022-07-04 15:55 | DI.RAD.S_ITS ---
PROCEDURE: XR CHEST 1V INDICATIONS: Short of breath TECHNIQUE: One view of the chest was acquired. COMPARISON: [facility], CR, XR CHEST 2V, 04/29/2020, 12:45. [facility], CR, XR CHEST 1V, 05/06/2020, 12:25. [facility], CR, XR CHEST 1V, 08/15/2021, 10:12. FINDINGS: Surgical changes and devices: A pacer device is seen. The leads are seen in stable positions. Lungs and pleura: No significant pulmonary abnormality is seen. No pneumothorax or large pleural effusion can be seen. Mediastinum: Mediastinal contours appear normal. Heart size is moderately enlarged. Atherosclerotic calcification of the aortic arch is noted. Bones and chest wall: No suspicious bony lesions. Age-appropriate bony degenerative changes are seen. Overlying soft tissues appear unremarkable. IMPRESSION: Cardiomegaly. Clear lungs. Postoperative and degenerative changes are seen. Dictated by: Joey Paula M.D. on 07/04/2022 at 15:38 Approved by: Joey Paula M.D. on 07/04/2022 at 15:40
--- NOTE | 2022-07-04 16:14 | ED_ITS ---
HPI - General Adult General Chief complaint: Shortness of Breath/Dyspnea Stated complaint: FLU, Vomiting, weak, diarrhea Time Seen by Provider: 07/04/22 15:40 Source: patient Mode of arrival: Wheelchair Limitations: no limitations History of Present Illness HPI narrative: Patient is an 86-year-old male who for the past 4 days has had nausea and vomiting, diarrhea, generally not feeling very well, productive cough. No chest pain. He did take some Imodium and Pepto-Bismol prior to arrival so his nausea is somewhat improved. He does have lower extremity swelling but this is not new. No abdominal pain. No recent travel. His is here in the emergency department with somewhat similar symptoms although not as severe. Denies any fevers. He does have history of atrial fibrillation but he states it was many years ago. 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 Is on anticoagulation. Related Data Home Medications Medication Instructions Recorded Confirmed losartan 50 mg tablet 25 mg PO BID ##0 02/15/11 09/21/21 multivitamin (Multiple Vitamins 1 tab PO DAILY ##0 08/19/16 09/21/21 tablet) hydrochlorothiazide 12.5 mg capsule 12.5 mg PO DAILY 10/25/19 09/21/21 magnesium 250 mg tablet 250 mg PO DAILY 10/25/19 09/21/21 acetaminophen 500 mg capsule 500 mg PO Q6H PRN Pain, Moderate 11/13/20 09/21/21 diphenhydramine HCl 25 mg capsule 50 mg PO BEDTIME PRN Insomnia 11/13/20 09/21/21 (Benadryl) ezetimibe 10 mg tablet 10 mg PO DAILY 11/13/20 09/21/21 omega-3 fatty acids 1,000 mg 2,000 mg PO DAILY 11/13/20 09/21/21 capsule omeprazole 20 mg capsule,delayed 20 mg PO BID 11/13/20 09/21/21 release polyethylene glycol 3350 17 17 g PO DAILY PRN Constipation 11/13/20 09/21/21 gram/dose oral powder famotidine 20 mg tablet 20 mg PO BID 09/21/21 09/21/21 hydralazine 25 mg tablet 25 mg PO TID 09/21/21 09/21/21 hydrochlorothiazide 25 mg tablet 12.5 mg PO DAILY 09/21/21 09/21/21 metoprolol tartrate 25 mg tablet 25 mg PO DAILY 09/21/21 09/21/21 tamsulosin 0.4 mg capsule 0.4 mg PO BID 09/21/21 09/21/21 torsemide 20 mg tablet 40 mg PO DAILY 09/21/21 09/21/21 trazodone 50 mg tablet 50 mg PO QPM PRN Insomnia 09/21/21 09/21/21 warfarin 5 mg tablet 5 mg PO DAILY 09/21/21 09/21/21 Allergies Allergy/AdvReac Type Severity Reaction Status Date / Time benzocaine [From CETACAINE] Allergy Mild ANAPHYLAXSI Verified 09/21/21 00:54 S butamben [From CETACAINE] Allergy Mild ANAPHYLAXSI Verified 09/21/21 00:54 S tetracaine [From CETACAINE] Allergy Mild ANAPHYLAXSI Verified 09/21/21 00:54 S clonidine [CLONIDINE] Allergy Unknown Verified 09/21/21 00:54 Beta-Adrenergic Agents AdvReac Unknown WEAK,TIRED, Verified 09/21/21 00:54 [BETA-ADRENERGIC AGENTS] HARD TO FUNCTION Review of Systems Review of Systems ROS Unobtainable: All systems reviewed & are unremarkable except as noted in HPI and below Constitutional Constitutional: Reports system reviewed and no additional complaints, except as documented Patient History Medical History BPH w urinary obs/LUTS History of elevated PSA Hyperlipidemia Hypertension Low back pain Social History Smoking Status: Never smoker Smoking Status: Never smoker alcohol intake frequency: holidays/special occasions only Substance Use Type: does not use Exam Initial Vital Signs Initial Vital Signs: Vital Signs Temperature 99.4 F 07/04/22 15:47 Pulse Rate 125 H 07/04/22 15:47 Respiratory Rate 28 H 07/04/22 15:47 Blood Pressure 193/82 H 07/04/22 15:47 Pulse Oximetry 87 L 07/04/22 15:47 Oxygen Delivery Method Room Air 07/04/22 15:47 Const General: cooperative and No ill appearing HENMT Head: normal to inspection and normocephalic Resp Effort & Inspection: normal respiratory effort, no respiratory distress and tachypneic Auscultation: clear to auscultation bilaterally Cardio Rate: tachycardic Rhythm: abnormal rhythm Skin General: no rashes or lesions noted Neuro General: patient alert, patient awake, patient oriented x3 and moves all extremities Extrem General: edema Course Orders Ordered: ED Orders 07/04/22 15:55 XR chest 1V Stat 07/04/22 16:00 Complete Blood Count AUTO DIFF Stat Comprehensive Metabolic Panel Stat Lactate (Lactic Acid) Stat Lipase Stat Magnesium Stat NT-proBNP (BNP-Adult 18+) Stat PTT Partial Thromboplastin Ruddy Stat Procalcitonin Stat Prothrombin Time INR Stat Troponin & CK Cardiac Panel Stat 07/04/22 16:05 EKG-12 Lead Stat 07/04/22 16:08 Respiratory Panel (Film Array) Stat 07/04/22 16:15 Blood Culture Stat Remdesivir 200 mg/ Sodium (Chloride) 250 mls @ 250 mls/hr IV NOW ONE Stop: 07/04/22 18:43 Discontinued Medications Sodium Chloride (Normal Saline 0.9%) 1,000 mls @ 1,000 mls/hr IV BOLUS ONE Stop: 07/04/22 16:53 Last Infusion: 07/04/22 17:17 Dose: 0 mls/hr Documented By: Admin: 07/04/22 16:15 Dose: 1,000 mls/hr Documented By: SB Ceftriaxone Sodium 1,000 mg/ (Sodium Chloride) 100 mls @ 200 mls/hr IV NOW ONE Stop: 07/04/22 16:34 Last Infusion: 07/04/22 17:17 Dose: 0 mls/hr Documented By: Admin: 07/04/22 16:40 Dose: 200 mls/hr Documented By: KB Vital Signs Vital signs: Vital Signs - 8 hr 07/04/22 15:47 07/04/22 15:52 07/04/22 15:53 Temperature 99.4 F Pulse Rate 125 H 104 H Respiratory Rate 28 H 37 H Blood Pressure 193/82 H Pulse Oximetry 87 L 93 96 Oxygen Delivery Method Room Air Nasal Cannula Nasal Cannula Oxygen Flow Rate 2 4 07/04/22 16:00 07/04/22 16:14 07/04/22 16:14 Temperature Pulse Rate 103 H 107 H Respiratory Rate 35 H 35 H Blood Pressure 206/93 H Pulse Oximetry 94 93 Oxygen Delivery Method Nasal Cannula Nasal Cannula Oxygen Flow Rate 4 2 07/04/22 16:15 07/04/22 16:20 07/04/22 16:25 Temperature Pulse Rate 105 H 106 H 103 H Respiratory Rate 35 H 32 H 33 H Blood Pressure Pulse Oximetry 92 94 95 Oxygen Delivery Method Nasal Cannula Nasal Cannula Nasal Cannula Oxygen Flow Rate 2 2 2 07/04/22 16:30 07/04/22 16:31 07/04/22 16:31 Temperature Pulse Rate 108 H 110 H Respiratory Rate 37 H Blood Pressure 210/94 H Pulse Oximetry 96 95 Oxygen Delivery Method Nasal Cannula Nasal Cannula Oxygen Flow Rate 2 2 07/04/22 16:35 07/04/22 16:40 07/04/22 16:40 Temperature Pulse Rate 106 H 108 H Respiratory Rate 34 H 34 H Blood Pressure 210/88 H Pulse Oximetry 94 95 Oxygen Delivery Method Nasal Cannula Nasal Cannula Oxygen Flow Rate 2 2 07/04/22 16:45 07/04/22 16:50 07/04/22 16:50 Temperature Pulse Rate 107 H 111 H Respiratory Rate 33 H 28 H Blood Pressure 200/85 H Pulse Oximetry 94 95 Oxygen Delivery Method Nasal Cannula Nasal Cannula Oxygen Flow Rate 2 2 07/04/22 16:55 07/04/22 17:00 07/04/22 17:01 Temperature Pulse Rate 109 H 109 H Respiratory Rate 32 H 33 H Blood Pressure 196/88 H Pulse Oximetry 94 94 Oxygen Delivery Method Nasal Cannula Nasal Cannula Oxygen Flow Rate 2 2 07/04/22 17:01 07/04/22 17:05 07/04/22 17:10 Temperature Pulse Rate 114 H 111 H Respiratory Rate 34 H 32 H Blood Pressure 190/84 H Pulse Oximetry 94 94 Oxygen Delivery Method Nasal Cannula Nasal Cannula Oxygen Flow Rate 2 2 07/04/22 17:10 07/04/22 17:15 07/04/22 17:20 Temperature Pulse Rate 110 H 114 H Respiratory Rate 33 H 36 H Blood Pressure 196/84 H Pulse Oximetry 94 95 Oxygen Delivery Method Nasal Cannula Nasal Cannula Oxygen Flow Rate 2 2 07/04/22 17:20 Temperature Pulse Rate 113 H Respiratory Rate 33 H Blood Pressure Pulse Oximetry 94 Oxygen Delivery Method Nasal Cannula Oxygen Flow Rate 2 Medical Decision Making Lab Data 07/04/22 16:00 07/04/22 16:00 Labs: Lab Results 07/04/22 07/04/22 07/04/22 Range/Units 16:00 16:00 16:00 WBC 15.9 H (4.5-11.0) X10^3/uL RBC 4.39 L (4.5-5.9) X10^6/uL Hgb 12.2 L (13.5-17.5) g/dL Hct 36.8 L (41-53) % MCV 83.8 (80-100) fL MCH 27.7 (26-34) PG MCHC 33.1 (30-36) % RDW 16.1 H (11.6-14.8) % Plt Count 193 (150-400) X10^3/uL Neut % (Auto) 94.2 H (50-75) % Lymph % (Auto) 2.9 L (25-40) % [place] % (Auto) 2.8 L (3-14) % Eos % (Auto) 0.0 L (2-4) % Baso % (Auto) 0.1 (0-2) % Neut # (Auto) 91247 H (1674-4689) /uL Lymph # (Auto) 500 L (0880-6218) /uL [place] # (Auto) 400 (0-900) /uL Eos # (Auto) 0 (0-450) /uL Baso # (Auto) 0 (0-100) /uL PT 28.2 H (10.1-12.7) SECONDS INR 2.4 H (0.9-1.3) APTT 43 H (26-36) SECONDS Sodium 133 L (137-145) mmol/L Potassium 4.4 (3.4-5.1) mmol/L Chloride 97 L (98-107) mmol/L Carbon Dioxide 25 (22-32) mmol/L BUN 34 H (9-20) mg/dL Creatinine 2.15 H (0.66-1.25) mg/dL Estimated GFR 29 L (>60) mL/min BUN/Creatinine Ratio 15.8 (6-22) Glucose 118 H (80-110) mg/dL Lactate (0.7-2.1) mmol/L Calcium 8.9 (8.4-10.2) mg/dL Magnesium 1.6 (1.6-2.3) mg/dL Total Bilirubin 0.4 (0.2-1.3) mg/dL AST 47 (17-59) IU/L ALT 44 (<50) IU/L Alkaline Phosphatase 67 (38-126) U/L Total Creatine Kinase 288 H (55-170) U/L CK-MB (CK-2) 3.25 H (<2.37) ng/mL CK-MB (CK-2) Rel Index 1.1 L (1.5-5.0) % Troponin I 0.037 H (0.01-0.034) ng/mL NT-Pro-B Natriuret Pep 2790 H (<450) pg/mL Total Protein 7.4 (6.3-8.2) g/dL Albumin 4.2 (3.5-5.0) g/dL Globulin 3.2 (1.7-4.1) g/dL Albumin/Globulin Ratio 1.3 (1.0-2.8) Lipase 45 (23-300) U/L Procalcitonin 28.0 H (<0.5) ng/mL Chlamy pneumoniae PCR (Not Detect) Adenovirus (PCR) (Not Detect) B. pertussis DNA (PCR) (Not Detecte) B.parapertussis DNA PCR (Not Detecte) Coronavirus OC43 (PCR) (Not Detect) Coronavirus HKU1 (PCR) (Not Detect) Coronavirus 229E (PCR) (Not Detect) SARS-CoV-2 (PCR) (Not Detecte) Coronavirus NL63 (PCR) (Not Detect) Human Metapneumovir PCR (Not Detect) Influenza Type A (PCR) (Not Detect) Influenza Type B (PCR) (Not Detect) M. pneumoniae (PCR) (Not Detect) Parainfluenza 1 (PCR) (Not Detect) Parainfluenza 2 (PCR) (Not Detect) Parainfluenza 3 (PCR) (Not Detect) Parainfluenza 4 (PCR) (Not Detect) RSV (PCR) (Not Detect) Entero/Rhino (PCR) (Not Detect) 07/04/22 07/04/22 Range/Units 16:00 16:08 WBC (4.5-11.0) X10^3/uL RBC (4.5-5.9) X10^6/uL Hgb (13.5-17.5) g/dL Hct (41-53) % MCV (80-100) fL MCH (26-34) PG MCHC (30-36) % RDW (11.6-14.8) % Plt Count (150-400) X10^3/uL Neut % (Auto) (50-75) % Lymph % (Auto) (25-40) % [place] % (Auto) (3-14) % Eos % (Auto) (2-4) % Baso % (Auto) (0-2) % Neut # (Auto) (4228-8752) /uL Lymph # (Auto) (4412-2605) /uL [place] # (Auto) (0-900) /uL Eos # (Auto) (0-450) /uL Baso # (Auto) (0-100) /uL PT (10.1-12.7) SECONDS INR (0.9-1.3) APTT (26-36) SECONDS Sodium (137-145) mmol/L Potassium (3.4-5.1) mmol/L Chloride (98-107) mmol/L Carbon Dioxide (22-32) mmol/L BUN (9-20) mg/dL Creatinine (0.66-1.25) mg/dL Estimated GFR (>60) mL/min BUN/Creatinine Ratio (6-22) Glucose (80-110) mg/dL Lactate 2.0 (0.7-2.1) mmol/L Calcium (8.4-10.2) mg/dL Magnesium (1.6-2.3) mg/dL Total Bilirubin (0.2-1.3) mg/dL AST (17-59) IU/L ALT (<50) IU/L Alkaline Phosphatase (38-126) U/L Total Creatine Kinase (55-170) U/L CK-MB (CK-2) (<2.37) ng/mL CK-MB (CK-2) Rel Index (1.5-5.0) % Troponin I (0.01-0.034) ng/mL NT-Pro-B Natriuret Pep (<450) pg/mL Total Protein (6.3-8.2) g/dL Albumin (3.5-5.0) g/dL Globulin (1.7-4.1) g/dL Albumin/Globulin Ratio (1.0-2.8) Lipase (23-300) U/L Procalcitonin (<0.5) ng/mL Chlamy pneumoniae PCR Not detected (Not Detect) Adenovirus (PCR) Not detected (Not Detect) B. pertussis DNA (PCR) Not detected (Not Detecte) B.parapertussis DNA PCR Not detected (Not Detecte) Coronavirus OC43 (PCR) Not detected (Not Detect) Coronavirus HKU1 (PCR) Not detected (Not Detect) Coronavirus 229E (PCR) Not detected (Not Detect) SARS-CoV-2 (PCR) Detected H (Not Detecte) Coronavirus NL63 (PCR) Not detected (Not Detect) Human Metapneumovir PCR Not detected (Not Detect) Influenza Type A (PCR) Not detected (Not Detect) Influenza Type B (PCR) Not detected (Not Detect) M. pneumoniae (PCR) Not detected (Not Detect) Parainfluenza 1 (PCR) Not detected (Not Detect) Parainfluenza 2 (PCR) Not detected (Not Detect) Parainfluenza 3 (PCR) Not detected (Not Detect) Parainfluenza 4 (PCR) Not detected (Not Detect) RSV (PCR) Not detected (Not Detect) Entero/Rhino (PCR) Not detected (Not Detect) Imaging Data Chest x-ray: Radiologist's Impression: PROCEDURE:? XR CHEST 1V ? INDICATIONS:? Short of breath ? TECHNIQUE:? One view of the chest was acquired.? ? COMPARISON:? [facility], , XR CHEST 2V, 04/29/2020, 12:45.? [facility], , XR CHEST 1V, 05/06/2020, 12:25.? [facility], , XR CHEST 1V, 08/15/2021, 10:12. ? FINDINGS:? ? Surgical changes and devices:? A pacer device is seen.? The leads are seen in stable positions.? ? Lungs and pleura:? No significant pulmonary abnormality is seen.? No pneumothorax or large pleural effusion can be seen. ? Mediastinum:? Mediastinal contours appear normal.? Heart size is moderately enlarged. Atherosclerotic calcification of the aortic arch is noted.? ? ? Bones and chest wall:? No suspicious bony lesions.? Age-appropriate bony degenerative changes are seen.? Overlying soft tissues appear unremarkable. ? ? ? IMPRESSION:? Cardiomegaly.? ? Clear lungs. ? Postoperative and degenerative changes are seen.? ? ECG Data Attestation: I personally reviewed and interpreted this ECG as follows: Interpretation: Atrial fibrillation Ventricular rate 101 Normal axis Normal QRS Normal QTC Nonspecific ST T wave changes MDM Narrative Medical decision making narrative: Chest x-ray is unremarkable. He is in AFib on his EKG but I suspect that this is secondary to his COVID infection. Blood cultures were obtained. Initially patient was given Rocephin given his vital signs and also his leukocytosis however now that all of his labs are back I suspect that his abnormalities related to the COVID-19. Patient not hypotensive. Normal lactate. Does have an elevated procalcitonin. His troponin is slightly elevated but I suspect that this is COVID-19. He has no chest pain. Has no ischemic changes on his EKG. BNP is also slightly elevated. Patient hypoxic walking from lobby into exam room. He feels better on oxygen. Given his presentation patient does require admission to the hospital for further evaluation and treatment. He was given remdesivir. Discussed the case with Dr. Benitez who was on-call for the patient' s primary doctor who will admit for further evaluation and treatment. Discussed the need for admission with the patient. He expressed understanding as well. Discharge Plan Departure Patient Disposition: Admitted As Inpatient Clinical Impression: COVID-19, Hypoxia, Atrial fibrillation
[2022-07-04] MEDS: SODIUM CHLORIDE 0.9% 1,000 ML 1000 ML IV (16:15)
[2022-07-04 16:19] LABS: Add Manual Diff / Slide Review NO; Basophils Absolute Auto 0 /uL (0-100); Basophils Percent Auto 0.1 % (0-2); Eosinophils Absolute Auto 0 /uL (0-450); Hematocrit 36.8 % (41-53); Hemoglobin 12.2 g/dL (13.5-17.5); Lymphocytes Absolute Auto 500 /uL (1100-4500); Lymphocytes Percent Auto 2.9 % (25-40); Mean Corpuscular HGB Conc 33.1 % (30-36); Mean Corpuscular Hemoglobin 27.7 PG (26-34); Mean Corpuscular Volume 83.8 fL (80-100); Monocytes Absolute Auto 400 /uL (0-900); Monocytes Percent Auto 2.8 % (3-14); Neutrophils Absolute Auto 15000 /uL (1500-7000); Neutrophils Percent Auto 94.2 % (50-75); Platelet Count 193 X10^3/uL (150-400); Red Blood Cell Count 4.39 X10^6/uL (4.5-5.9); Red Cell Distribution Width 16.1 % (11.6-14.8); White Blood Cell Count 15.9 X10^3/uL (4.5-11.0)
[2022-07-04 16:27] LABS: INR 2.4 (0.9-1.3); Prothrombin Time 28.2 SECONDS (10.1-12.7)
[2022-07-04 16:30] LABS: PTT Partial Thromboplastin Tim 43 SECONDS (26-36)
[2022-07-04 16:35] LABS: Alanine Aminotransferase 44 IU/L (<50); Albumin 4.2 g/dL (3.5-5.0); Albumin Globulin Ratio 1.3 (1.0-2.8); Alkaline Phosphatase 67 U/L (38-126); Aspartate Aminotransferase 47 IU/L (17-59); BUN Creatinine Ratio 15.8 (6-22); Bilirubin Total 0.4 mg/dL (0.2-1.3); Blood Urea Nitrogen 34 mg/dL (9-20); Calcium 8.9 mg/dL (8.4-10.2); Carbon Dioxide 25 mmol/L (22-32); Chloride 97 mmol/L (98-107); Creatine Kinase 288 U/L (55-170); Estimated Glomerular Filt Rate 29 mL/min (>60); Globulin 3.2 g/dL (1.7-4.1); Glucose 118 mg/dL (80-110); HEMOLYSIS < 15 (0-50); Lipase 45 U/L (23-300); Magnesium 1.6 mg/dL (1.6-2.3); Potassium 4.4 mmol/L (3.4-5.1); Sodium 133 mmol/L (137-145); Total Protein 7.4 g/dL (6.3-8.2)
[2022-07-04] MEDS: cefTRIAXone 1,000 MG in SODIUM CHLORIDE 0.9% 100 ML 200 MG IV (16:40)
[2022-07-04 16:46] LABS: NT-proBNP (BNP-Adult 18+) 2790 pg/mL (<450); Troponin I 0.037 ng/mL (0.01-0.034)
[2022-07-04 16:49] LABS: CKMB % Relative Index 1.1 % (1.5-5.0); Creatine Kinase MB 3.25 ng/mL (<2.37)
[2022-07-04 17:12] LABS: Adenovirus Not Detected (Not Detect); Coronavirus 229E Not Detected (Not Detect); Coronavirus HKU1 Not Detected (Not Detect); Coronavirus NL 63 Not Detected (Not Detect); Coronavirus OC43 Not Detected (Not Detect)
[2022-07-04 17:13] LABS: B. parapertussis Not Detected (Not Detecte); Bordetella pertussis Not Detected (Not Detecte); Chlamydophila pneumoniae Not Detected (Not Detect); Human Metapneumovirus Not Detected (Not Detect); Human Rhinovirus/Enterovirus Not Detected (Not Detect); Influenza A Not Detected (Not Detect); Influenza B Not Detected (Not Detect); Mycoplasma pneumoniae Not Detected (Not Detect); Parainfluenza Virus 1 Not Detected (Not Detect); Parainfluenza Virus 2 Not Detected (Not Detect); Parainfluenza Virus 3 Not Detected (Not Detect); Parainfluenza Virus 4 Not Detected (Not Detect); Respiratory Syncytial Virus Not Detected (Not Detect)
[2022-07-04 17:14] LABS: SARS- CoV-2 Detected (Not Detecte)
[2022-07-04 18:20] LABS: Amorphous Sediment Urine 1+; Bacteria Urine Few (2-10); Mucus Urine 1+ (Negative); RBC Urine 0-1/HPF (0-5/HPF); Squamous Epithelial Cell Urine 0-1 /HPF (0-5/HPF); WBC Urine 0-1/HPF (0-5/HPF)
[2022-07-04 18:21] LABS: Culture Indicated Urine Cult Not Indicated
[2022-07-04] MEDS: REMDESIVIR 200 MG in SODIUM CHLORIDE 0.9% 210 ML 250 MG IV (18:23)
--- NOTE | 2022-07-04 19:01 | PM.HP.1 ---
History of Present Illness History of Present Illness Date Patient Seen: 07/04/22 Time Patient Seen: 19:01 Date of Onset of Symptoms: 07/01/22 Chief complaint: FLU, Vomiting, weak, diarrhea Narrative: Patient is an 86-year-old male patient of Dr. Frausto is who I am seeing in [facility] who presents with significant shortness of breath. Patient apparently started feeling bad on . Along with his . Has had some muscle pain but primarily has been short of breath. Patient has had decreased p.o. intake only being able to take fluids. Has had some nausea and vomiting. Some diarrhea. No blood. Otherwise as this not been feeling well. apparently has got similar illness. Feels like it came from his daughters. Otherwise no change. Patient has a history of atrial fibrillation has been anticoagulation for some time. But has been not in a fib for some time. Does have a pacer. He is not had any chest pain. More GI stuff. Otherwise feeling well. [facility] Medical History BPH w urinary obs/LUTS History of elevated PSA Hyperlipidemia Hypertension Low back pain Social History Smoking Status: Never smoker Meds Home Medications and Allergies Home Medications Medication Instructions Recorded Confirmed Type losartan 50 mg tablet 25 mg PO BID ##0 02/15/11 09/21/21 History multivitamin (Multiple Vitamins 1 tab PO DAILY ##0 08/19/16 09/21/21 History tablet) hydrochlorothiazide 12.5 mg capsule 12.5 mg PO DAILY 10/25/19 09/21/21 History magnesium 250 mg tablet 250 mg PO DAILY 10/25/19 09/21/21 History acetaminophen 500 mg capsule 500 mg PO Q6H PRN Pain, Moderate 11/13/20 09/21/21 History diphenhydramine HCl 25 mg capsule 50 mg PO BEDTIME PRN Insomnia 11/13/20 09/21/21 History (Benadryl) ezetimibe 10 mg tablet 10 mg PO DAILY 11/13/20 09/21/21 History omega-3 fatty acids 1,000 mg 2,000 mg PO DAILY 11/13/20 09/21/21 History capsule omeprazole 20 mg capsule,delayed 20 mg PO BID 11/13/20 09/21/21 History release polyethylene glycol 3350 17 17 g PO DAILY PRN Constipation 11/13/20 09/21/21 History gram/dose oral powder famotidine 20 mg tablet 20 mg PO BID 09/21/21 09/21/21 History hydralazine 25 mg tablet 25 mg PO TID 09/21/21 09/21/21 History hydrochlorothiazide 25 mg tablet 12.5 mg PO DAILY 09/21/21 09/21/21 History metoprolol tartrate 25 mg tablet 25 mg PO DAILY 09/21/21 09/21/21 History tamsulosin 0.4 mg capsule 0.4 mg PO BID 09/21/21 09/21/21 History torsemide 20 mg tablet 40 mg PO DAILY 09/21/21 09/21/21 History trazodone 50 mg tablet 50 mg PO QPM PRN Insomnia 09/21/21 09/21/21 History warfarin 5 mg tablet 5 mg PO DAILY 09/21/21 09/21/21 History Allergies Allergy/AdvReac Type Severity Reaction Status Date / Time benzocaine [From CETACAINE] Allergy Mild ANAPHYLAXSI Verified 09/21/21 00:54 S butamben [From CETACAINE] Allergy Mild ANAPHYLAXSI Verified 09/21/21 00:54 S tetracaine [From CETACAINE] Allergy Mild ANAPHYLAXSI Verified 09/21/21 00:54 S clonidine [CLONIDINE] Allergy Unknown Verified 09/21/21 00:54 Beta-Adrenergic Agents AdvReac Unknown WEAK,TIRED, Verified 09/21/21 00:54 [BETA-ADRENERGIC AGENTS] HARD TO FUNCTION Review of Systems Review of Systems Narrative: Review of systems otherwise negative as above Exam Vital Signs (past 8 hours): - 07/04/22 15:47 07/04/22 15:52 07/04/22 15:53 Temperature 99.4 F Pulse Rate 125 H 104 H Respiratory Rate 28 H 37 H Blood Pressure 193/82 H Pulse Oximetry 87 L 93 96 Oxygen Delivery Method Room Air Nasal Cannula Nasal Cannula Oxygen Flow Rate 2 4 07/04/22 16:00 07/04/22 16:14 07/04/22 16:14 Temperature Pulse Rate 103 H 107 H Respiratory Rate 35 H 35 H Blood Pressure 206/93 H Pulse Oximetry 94 93 Oxygen Delivery Method Nasal Cannula Nasal Cannula Oxygen Flow Rate 4 2 07/04/22 16:15 07/04/22 16:20 07/04/22 16:25 Temperature Pulse Rate 105 H 106 H 103 H Respiratory Rate 35 H 32 H 33 H Blood Pressure Pulse Oximetry 92 94 95 Oxygen Delivery Method Nasal Cannula Nasal Cannula Nasal Cannula Oxygen Flow Rate 2 2 2 07/04/22 16:30 07/04/22 16:31 07/04/22 16:31 Temperature Pulse Rate 108 H 110 H Respiratory Rate 37 H Blood Pressure 210/94 H Pulse Oximetry 96 95 Oxygen Delivery Method Nasal Cannula Nasal Cannula Oxygen Flow Rate 2 2 07/04/22 16:35 07/04/22 16:40 07/04/22 16:40 Temperature Pulse Rate 106 H 108 H Respiratory Rate 34 H 34 H Blood Pressure 210/88 H Pulse Oximetry 94 95 Oxygen Delivery Method Nasal Cannula Nasal Cannula Oxygen Flow Rate 2 2 07/04/22 16:45 07/04/22 16:50 07/04/22 16:50 Temperature Pulse Rate 107 H 111 H Respiratory Rate 33 H 28 H Blood Pressure 200/85 H Pulse Oximetry 94 95 Oxygen Delivery Method Nasal Cannula Nasal Cannula Oxygen Flow Rate 2 2 07/04/22 16:55 07/04/22 17:00 07/04/22 17:01 Temperature Pulse Rate 109 H 109 H Respiratory Rate 32 H 33 H Blood Pressure 196/88 H Pulse Oximetry 94 94 Oxygen Delivery Method Nasal Cannula Nasal Cannula Oxygen Flow Rate 2 2 07/04/22 17:01 07/04/22 17:05 07/04/22 17:10 Temperature Pulse Rate 114 H 111 H Respiratory Rate 34 H 32 H Blood Pressure 190/84 H Pulse Oximetry 94 94 Oxygen Delivery Method Nasal Cannula Nasal Cannula Oxygen Flow Rate 2 2 07/04/22 17:10 07/04/22 17:15 07/04/22 17:20 Temperature Pulse Rate 110 H 114 H Respiratory Rate 33 H 36 H Blood Pressure 196/84 H Pulse Oximetry 94 95 Oxygen Delivery Method Nasal Cannula Nasal Cannula Oxygen Flow Rate 2 2 07/04/22 17:20 07/04/22 17:25 07/04/22 17:30 Temperature Pulse Rate 113 H 111 H Respiratory Rate 33 H 33 H Blood Pressure 204/89 H Pulse Oximetry 94 95 Oxygen Delivery Method Nasal Cannula Nasal Cannula Oxygen Flow Rate 2 2 07/04/22 17:30 07/04/22 17:35 07/04/22 17:40 Temperature Pulse Rate 114 H 113 H 130 H Respiratory Rate 33 H 35 H Blood Pressure Pulse Oximetry 95 95 Oxygen Delivery Method Nasal Cannula Nasal Cannula Oxygen Flow Rate 2 2 07/04/22 17:45 07/04/22 17:50 07/04/22 17:55 Temperature Pulse Rate 122 H 125 H Respiratory Rate Blood Pressure 213/87 H Pulse Oximetry Oxygen Delivery Method Oxygen Flow Rate 07/04/22 17:55 07/04/22 18:00 07/04/22 18:00 Temperature Pulse Rate 121 H 116 H Respiratory Rate 37 H 32 H Blood Pressure 193/83 H Pulse Oximetry 93 93 Oxygen Delivery Method Nasal Cannula Nasal Cannula Oxygen Flow Rate 2 2 07/04/22 18:05 07/04/22 18:10 07/04/22 18:10 Temperature Pulse Rate 112 H 116 H Respiratory Rate 33 H 32 H Blood Pressure 187/81 H Pulse Oximetry 93 93 Oxygen Delivery Method Nasal Cannula Nasal Cannula Oxygen Flow Rate 2 2 07/04/22 18:15 07/04/22 18:20 07/04/22 18:20 Temperature Pulse Rate 116 H 113 H Respiratory Rate 31 H 31 H Blood Pressure 192/84 H Pulse Oximetry 92 92 Oxygen Delivery Method Nasal Cannula Nasal Cannula Oxygen Flow Rate 2 2 07/04/22 18:25 07/04/22 18:30 07/04/22 18:30 Temperature Pulse Rate 115 H 115 H Respiratory Rate 36 H 33 H Blood Pressure 206/87 H Pulse Oximetry 92 91 Oxygen Delivery Method Nasal Cannula Nasal Cannula Oxygen Flow Rate 2 2 Oxygen Delivery Method Nasal Cannula Oxygen Flow Rate 2 Narrative Exam Narrative: Alert elderly male in mild respiratory distress HEENT exam mucous membranes moist neck supple without adenopathy JVD or bruits lungs with diffuse crackles. Heart is irregular and slightly increased rate abdomen soft positive bowel sounds nontender extremities without edema. Neurologic exam is nonfocal Objective Labs 07/04/22 16:00 07/04/22 16:00 Labs: Laboratory Results - last 24 hr 07/04/22 07/04/22 07/04/22 16:00 16:00 16:00 WBC 15.9 H RBC 4.39 L Hgb 12.2 L Hct 36.8 L MCV 83.8 MCH 27.7 MCHC 33.1 RDW 16.1 H Plt Count 193 Neut % (Auto) 94.2 H Lymph % (Auto) 2.9 L [place] % (Auto) 2.8 L Eos % (Auto) 0.0 L Baso % (Auto) 0.1 Neut # (Auto) 64719 H Lymph # (Auto) 500 L [place] # (Auto) 400 Eos # (Auto) 0 Baso # (Auto) 0 PT 28.2 H INR 2.4 H APTT 43 H Sodium 133 L Potassium 4.4 Chloride 97 L Carbon Dioxide 25 BUN 34 H Creatinine 2.15 H Estimated GFR 29 L BUN/Creatinine Ratio 15.8 Glucose 118 H Lactate Calcium 8.9 Magnesium 1.6 Total Bilirubin 0.4 AST 47 ALT 44 Alkaline Phosphatase 67 Total Creatine Kinase 288 H CK-MB (CK-2) 3.25 H CK-MB (CK-2) Rel Index 1.1 L Troponin I 0.037 H NT-Pro-B Natriuret Pep 2790 H Total Protein 7.4 Albumin 4.2 Globulin 3.2 Albumin/Globulin Ratio 1.3 Lipase 45 Procalcitonin 28.0 H Urine RBC Urine WBC Ur Squamous Epith Cells Amorphous Sediment Urine Bacteria Urine Mucus Ur Culture Indicated? Chlamy pneumoniae PCR Adenovirus (PCR) B. pertussis DNA (PCR) B.parapertussis DNA PCR Coronavirus OC43 (PCR) Coronavirus HKU1 (PCR) Coronavirus 229E (PCR) SARS-CoV-2 (PCR) Coronavirus NL63 (PCR) Human Metapneumovir PCR Influenza Type A (PCR) Influenza Type B (PCR) M. pneumoniae (PCR) Parainfluenza 1 (PCR) Parainfluenza 2 (PCR) Parainfluenza 3 (PCR) Parainfluenza 4 (PCR) RSV (PCR) Entero/Rhino (PCR) 07/04/22 07/04/22 07/04/22 16:00 16:08 17:57 WBC RBC Hgb Hct MCV MCH MCHC RDW Plt Count Neut % (Auto) Lymph % (Auto) [place] % (Auto) Eos % (Auto) Baso % (Auto) Neut # (Auto) Lymph # (Auto) [place] # (Auto) Eos # (Auto) Baso # (Auto) PT INR APTT Sodium Potassium Chloride Carbon Dioxide BUN Creatinine Estimated GFR BUN/Creatinine Ratio Glucose Lactate 2.0 Calcium Magnesium Total Bilirubin AST ALT Alkaline Phosphatase Total Creatine Kinase CK-MB (CK-2) CK-MB (CK-2) Rel Index Troponin I NT-Pro-B Natriuret Pep Total Protein Albumin Globulin Albumin/Globulin Ratio Lipase Procalcitonin Urine RBC 0-1/hpf Urine WBC 0-1/hpf Ur Squamous Epith Cells 0-1 /hpf Amorphous Sediment 1+ Urine Bacteria Few (2-10) H Urine Mucus 1+ H Ur Culture Indicated? Cult not indicated Chlamy pneumoniae PCR Not detected Adenovirus (PCR) Not detected B. pertussis DNA (PCR) Not detected B.parapertussis DNA PCR Not detected Coronavirus OC43 (PCR) Not detected Coronavirus HKU1 (PCR) Not detected Coronavirus 229E (PCR) Not detected SARS-CoV-2 (PCR) Detected H Coronavirus NL63 (PCR) Not detected Human Metapneumovir PCR Not detected Influenza Type A (PCR) Not detected Influenza Type B (PCR) Not detected M. pneumoniae (PCR) Not detected Parainfluenza 1 (PCR) Not detected Parainfluenza 2 (PCR) Not detected Parainfluenza 3 (PCR) Not detected Parainfluenza 4 (PCR) Not detected RSV (PCR) Not detected Entero/Rhino (PCR) Not detected Assessment & Plan Assessment & Plan narrative: Acute respiratory failure. Probably combination of congestive heart failure secondary to rapid atrial fibrillation and COVID pneumonia. Probably most likely started with COVID pneumonia. No other changes. PET this point will continue with oxygen. Hopefully we will need much more and follow from there. Severe COVID pneumonia. Will start dexamethasone and remdesivir. I do not think we have to do anything further. Will support and follow from there. We did discuss intubation he is not really thinking he is interested. Certainly do not think we will need to do that at this time. But will need to follow. Pretty significantly ill at this time. Hopefully things do not get worse Atrial fibrillation with RVR. Will continue his usual atenolol. He seems to be better now that he is oxygenating better. Will see how things go. Will consider echo but I do not think we need to do it right this time. 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 But probably will need in the near future. Will see how he does with further treatment. INR is on target. Will recheck in a.m. to make sure stable. Hypertension. Mildly elevated now. Will continue usual meds and hopefully it will settle. Elevated white count. Chest x-ray shows no evidence of any real abnormality but given the fact that there is a possibility of infection will cover with Rocephin. Possible pneumonia. Given his illness I think it would be best to cover. Nausea and vomiting will give anti nausea in case he needs it. Just stay on full liquids for now BPH. Stable continue his usual meds Reflux continue usual meds. Code status full. Disposition. Patient will be here for some days. Suspect it will take most of the week to settle down. He understands. We discussed all of this. 50 minutes spent with patient emergency room doctor orders reviewing information and dictation
--- NOTE | 2022-07-04 19:20 | PC.NURSE ---
Admission note: pt arrived via stretcher from the ED. Iv infusing, blood pressure elevated, HR elevated, tachypneic, afebrile. Bed alarm active, pt oriented to call light and room. O2 attached on the wall 2 L NC. Care ongoing.
[2022-07-04 20:09] LABS: Creatine Kinase 317 U/L (55-170)
[2022-07-04 20:22] LABS: Troponin I 0.037 ng/mL (0.01-0.034)
[2022-07-04 20:25] LABS: Creatine Kinase MB 3.06 ng/mL (<2.37)
[2022-07-04] MEDS: ACETAMINOPHEN 325 MG TABLET 650 MG PO (20:27)
[2022-07-04] MEDS: FAMOTIDINE 20 MG TABLET PO (20:28)
[2022-07-04] MEDS: HYDRALAZINE 25 MG TABLET PO (20:28)
[2022-07-04] MEDS: TAMSULOSIN 0.4 MG CAPSULE PO (20:29)
[2022-07-04] MEDS: TRAZODONE 50 MG TABLET PO (20:29)
[2022-07-04] MEDS: diphenhydrAMINE 25 MG TABLET 50 MG PO (20:29)
[2022-07-04] MEDS: ONDANSETRON 4 MG/2 ML INJ IV (20:30)
[2022-07-04] MEDS: SODIUM CHLORIDE 0.9% FLUSH 10 ML IV (21:00)
[2022-07-05] VITALS (22 sets, daily range): BP systolic 112–155; BP diastolic 55–82; PULSE 86–131; RESP 17–27; TEMP 36.4–37.2; O2SAT 91–96; BMI 33.2
[2022-07-05 04:50] LABS: Add Manual Diff / Slide Review NO; Basophils Absolute Auto 0 /uL (0-100); Basophils Percent Auto 0.2 % (0-2); Eosinophils Absolute Auto 0 /uL (0-450); Lymphocytes Absolute Auto 800 /uL (1100-4500); Lymphocytes Percent Auto 5.7 % (25-40); Mean Corpuscular HGB Conc 32.5 % (30-36); Mean Corpuscular Hemoglobin 27.5 PG (26-34); Mean Corpuscular Volume 84.7 fL (80-100); Monocytes Absolute Auto 400 /uL (0-900); Monocytes Percent Auto 3.1 % (3-14); Neutrophils Absolute Auto 12400 /uL (1500-7000); Platelet Count 151 X10^3/uL (150-400); Red Blood Cell Count 4.37 X10^6/uL (4.5-5.9); Red Cell Distribution Width 16.7 % (11.6-14.8); White Blood Cell Count 13.7 X10^3/uL (4.5-11.0)
[2022-07-05 04:55] LABS: INR 2.2 (0.9-1.3); Prothrombin Time 25.2 SECONDS (10.1-12.7)
[2022-07-05 05:01] LABS: Alanine Aminotransferase 41 IU/L (<50); Albumin 4.1 g/dL (3.5-5.0); Albumin Globulin Ratio 1.3 (1.0-2.8); Alkaline Phosphatase 62 U/L (38-126); Aspartate Aminotransferase 42 IU/L (17-59); BUN Creatinine Ratio 16.6 (6-22); Bilirubin Total 0.3 mg/dL (0.2-1.3); Blood Urea Nitrogen 32 mg/dL (9-20); Calcium 8.6 mg/dL (8.4-10.2); Carbon Dioxide 25 mmol/L (22-32); Chloride 98 mmol/L (98-107); Estimated Glomerular Filt Rate 33 mL/min (>60); Globulin 3.2 g/dL (1.7-4.1); Glucose 87 mg/dL (80-110); HEMOLYSIS < 15 (0-50); Potassium 4.8 mmol/L (3.4-5.1); Sodium 134 mmol/L (137-145); Total Protein 7.3 g/dL (6.3-8.2)
[2022-07-05] MEDS: ACETAMINOPHEN 325 MG TABLET 650 MG PO ×3 (05:09→21:26)
[2022-07-05 05:10] LABS: NT-proBNP (BNP-Adult 18+) 2030 pg/mL (<450)
[2022-07-05] MEDS: SODIUM CHLORIDE 0.9% FLUSH 10 ML IV ×3 (05:10→21:25)
[2022-07-05] MEDS: FUROSEMIDE 40 MG/4 ML VIAL IV ×2 (05:10→12:06)
[2022-07-05 05:57] LABS: MRSA (Nasal) PCR Not Detected (Not Detect)
--- NOTE | 2022-07-05 06:39 | PC.NURSE ---
Personal Care Attendant Note-Patient is oriented x3, fatigued, able to answer questions but unclear to all medications he takes. HR A-fib RVR 115-130s, does increase to 150s while using urinal in bed. RR 30s, SpO2 >90% with 3L NC while awake, Oximask required while asleep to keep sats >90% d/t heavy mouth breathing, does down to 82% on RA when asleep. T-max 100.2 at 1999, Tylenol given as scheduled, IV Lasix given.
[2022-07-05 08:25] LABS: Acinetobacter calcoa-baumannii Not Detected (Not Detect); Bacteroides fragilis Not Detected (Not Detect); Candida albicans Not Detected (Not Detect); Enterobacter cloacae complex Not Detected (Not Detect); Enterobacterales Not Detected (Not Detect); Enterococcus faecalis Not Detected (Not Detect); Enterococcus faecium Not Detected (Not Detect); Haemophilus influenzae Not Detected (Not Detect); Klebsiella aerogenes Not Detected (Not Detect); Listeria monocytogenes Not Detected (Not Detect); Neisseria meningitidis Not Detected (Not Detect); Proteus species Not Detected (Not Detect); Pseudomonas aeruginosa Not Detected (Not Detect); Salmonella species Not Detected (Not Detect); Serratia marcescens Not Detected (Not Detect); Staphylococcus epidermidis Not Detected (Not Detect); Staphylococcus lugdunensis Not Detected (Not Detect); Staphylococcus species Not Detected (Not Detect); Stenotrophomonas maltophilia Not Detected (Not Detect); Streptococcus agalactiae (Gr B Not Detected (Not Detect); Streptococcus pneumonia Not Detected (Not Detect); Streptococcus pyogenes (Gr A) Not Detected (Not Detect); Streptococcus species DETECTED (Not Detect)
[2022-07-05 08:26] LABS: Candida auris Not Detected (Not Detect); Candida glabrata Not Detected (Not Detect); Candida krusei Not Detected (Not Detect); Candida parapsilosis Not Detected (Not Detect); Candida tropicalis Not Detected (Not Detect); Cryptococcus neoformans/gatti Not Detected (Not Detect)
[2022-07-05] MEDS: FAMOTIDINE 20 MG TABLET PO (08:31)
[2022-07-05] MEDS: LOSARTAN 50 MG TABLET 25 MG PO ×2 (08:31→21:26)
[2022-07-05] MEDS: METOPROLOL IR 25 MG TABLET PO (08:31)
[2022-07-05] MEDS: hydroCHLOROthiazide 25 MG TABLET 12.5 MG PO (08:32)
[2022-07-05] MEDS: TAMSULOSIN 0.4 MG CAPSULE PO ×2 (08:32→21:26)
[2022-07-05] MEDS: DEXAMETHASONE 10 MG/ML VIAL 6 MG IV (08:33)
[2022-07-05] MEDS: EZETIMIBE 10 MG TABLET PO (08:34)
--- NOTE | 2022-07-05 11:10 | CM.DANOTE ---
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 ELECTROMEDICAL EQUIPMENT REPAIRER spoke with nurse and nurse reports patient is sleeping at this time. ELECTROMEDICAL EQUIPMENT REPAIRER completed brief assessment from chart information. ELECTROMEDICAL EQUIPMENT REPAIRER was unable to determine baseline mobility. Due to current state and age, home health might be a good option. Will need to determine once able to communicate with patient. Insurance: 1) Medicare 2)[employer] PCP: Desi Frausto Plan: CM team will continue to monitor closely. CM team will attempt to assess for discharge needs when able to communicate with patient. ZE Garcia Discharge Planning/Care Management CM Discharge Assessment Start: 07/05/22 11:01 Freq: Status: Active Protocol: Document 07/05/22 11:02 (Rec: 07/05/22 11:10 [id number]) Discharge Planning Assessment Assigned Drop Count Associate ZE Garcia DPOA/Assigned Designee Name Ananya Crook () Contact Information Advance Directives? Yes: POLST Advance Directives on File Yes History Provided By Medical Record Prior Living Arrangements Mobile home Household Members spouse Comment Unable to speak with patient due to patient being on oxygen , COVID pos, and sleeping. Independent with ADL's Yes Whiteboard Updated in Patient Room with No name and ext. # of Drop Count Associate Comment Unable to speak with patient at this time due to COVID pos, on oxygen, and patient sleeping. Review Status In Process Next Review Type Continued Stay Review
[2022-07-05] MEDS: cefTRIAXone 2,000 MG in SODIUM CHLORIDE 0.9% 100 ML 200 MG IV (13:09)
--- NOTE | 2022-07-05 13:41 | PM.PN.1 ---
Subjective Subjective Date Patient Seen: 07/05/22 Time Patient Seen: 13:41 Interval history: Reviewed chart workup in the ER as well as documentation workup by Dr. Benitez. Patient states that he is feeling much better today. He does feel weak. Today was the 1st day he was able to eat at all. He states he is urinating well but has not had a bowel movement but he attributes that to not eating. Feels his breathing is better. He denies any abdominal pain. Denies any blood in his stool or diarrhea. Denies any chest pain, PND orthopnea 12 point review of systems is negative other than above Exam Vital Signs (past 8 hours): - 07/05/22 08:31 07/05/22 08:00 07/05/22 08:00 Temperature 98.9 F Pulse Rate 120 H 120 H Respiratory Rate 25 H Blood Pressure 155/67 H 155/67 H Pulse Oximetry 96 Oxygen Delivery Method Nasal Cannula Oxygen Flow Rate 4 07/05/22 11:00 07/05/22 11:05 07/05/22 11:10 Temperature Pulse Rate 93 H 96 H 96 H Respiratory Rate 25 H 24 26 H Blood Pressure Pulse Oximetry 96 96 96 Oxygen Delivery Method Oxygen Flow Rate 07/05/22 11:15 07/05/22 11:20 07/05/22 11:25 Temperature Pulse Rate 97 H 96 H 93 H Respiratory Rate 25 H 25 H 23 Blood Pressure Pulse Oximetry 96 95 96 Oxygen Delivery Method Oxygen Flow Rate 07/05/22 11:30 07/05/22 11:35 07/05/22 11:40 Temperature Pulse Rate 97 H 93 H 93 H Respiratory Rate 24 25 H 24 Blood Pressure Pulse Oximetry 96 96 96 Oxygen Delivery Method Oxygen Flow Rate 07/05/22 11:45 07/05/22 11:50 07/05/22 11:55 Temperature Pulse Rate 95 H 95 H 92 H Respiratory Rate 26 H 23 26 H Blood Pressure Pulse Oximetry 96 95 95 Oxygen Delivery Method Oxygen Flow Rate 07/05/22 12:00 07/05/22 12:00 Temperature 97.6 F Pulse Rate 96 H 86 Respiratory Rate 27 H 24 Blood Pressure 115/82 Pulse Oximetry 95 95 Oxygen Delivery Method Oxygen Flow Rate 3 Oxygen Delivery Method Nasal Cannula Oxygen Flow Rate 3 Narrative Exam Narrative: Patient is alert and oriented no apparent distress. He appears his stated age. He is pale in lying in the hospital bed HEENT shows mucous membranes are moist and pink Neck is supple without adenopathy or thyromegaly and no bruits Chest: Shows diminished breath sounds by basilar with fine expiratory wheezes diffusely but no rhonchi Cor: Irregular regular rhythm with a well-controlled rate in the 90s Abdomen: Positive bowel sounds, soft, nontender, nondistended, obese Extremities: 1+ pitting edema bilateral lower extremities Neurologic exam is nonfocal Objective Labs 07/05/22 04:15 07/05/22 04:15 Labs: Laboratory Results - last 24 hr 07/04/22 07/04/22 07/04/22 16:00 16:00 16:00 WBC 15.9 H RBC 4.39 L Hgb 12.2 L Hct 36.8 L MCV 83.8 MCH 27.7 MCHC 33.1 RDW 16.1 H Plt Count 193 Neut % (Auto) 94.2 H Lymph % (Auto) 2.9 L [place] % (Auto) 2.8 L Eos % (Auto) 0.0 L Baso % (Auto) 0.1 Neut # (Auto) 58035 H Lymph # (Auto) 500 L [place] # (Auto) 400 Eos # (Auto) 0 Baso # (Auto) 0 PT 28.2 H INR 2.4 H APTT 43 H Sodium 133 L Potassium 4.4 Chloride 97 L Carbon Dioxide 25 BUN 34 H Creatinine 2.15 H Estimated GFR 29 L BUN/Creatinine Ratio 15.8 Glucose 118 H Lactate Calcium 8.9 Magnesium 1.6 Total Bilirubin 0.4 AST 47 ALT 44 Alkaline Phosphatase 67 Total Creatine Kinase 288 H CK-MB (CK-2) 3.25 H CK-MB (CK-2) Rel Index 1.1 L Troponin I 0.037 H NT-Pro-B Natriuret Pep 2790 H Total Protein 7.4 Albumin 4.2 Globulin 3.2 Albumin/Globulin Ratio 1.3 Lipase 45 Procalcitonin 28.0 H Urine RBC Urine WBC Ur Squamous Epith Cells Amorphous Sediment Urine Bacteria Urine Mucus Ur Culture Indicated? Nasal Screen MRSA (PCR) A.calcoaceticus-baumannii cmplx PCR Chlamy pneumoniae PCR Adenovirus (PCR) Bacteroides fragilis B. pertussis DNA (PCR) B.parapertussis DNA PCR Katherine albicans (PCR) Katherine auris (PCR) C. glabrata (PCR) C. krusei (PCR) C. parapsilosis (PCR) C. tropicalis (PCR) Coronavirus OC43 (PCR) Coronavirus HKU1 (PCR) Coronavirus 229E (PCR) SARS-CoV-2 (PCR) Coronavirus NL63 (PCR) C. neoform/gattii (PCR) Enterobacterales (PCR) E. cloacae complex PCR Enterococc faecalis PCR Enterococc faecium PCR E. coli (PCR) H. influenzae (PCR) Human Metapneumovir PCR Influenza Type A (PCR) Influenza Type B (PCR) Klebsiella aerogenes (PCR) Klebsiella oxytoca PCR Klebsiella pneumoniae List. monocytogenes PCR M. pneumoniae (PCR) N. meningitidis (PCR) Parainfluenza 1 (PCR) Parainfluenza 2 (PCR) Parainfluenza 3 (PCR) Parainfluenza 4 (PCR) Proteus species (PCR) RSV (PCR) Entero/Rhino (PCR) Salmonella spp. (PCR) Serratia marcescens PCR Staphylococcus sp PCR Staph aureus (PCR) Staph epidermidis (PCR) Staph lugdunensis PCR S. maltophilia (PCR) Streptococcus sp PCR Group A Strep (PCR) Strep agalactiae (PCR) Strep pneumoniae (PCR) P. aeruginosa (PCR) 07/04/22 07/04/22 07/04/22 16:00 16:00 16:08 WBC RBC Hgb Hct MCV MCH MCHC RDW Plt Count Neut % (Auto) Lymph % (Auto) [place] % (Auto) Eos % (Auto) Baso % (Auto) Neut # (Auto) Lymph # (Auto) [place] # (Auto) Eos # (Auto) Baso # (Auto) PT INR APTT Sodium Potassium Chloride Carbon Dioxide BUN Creatinine Estimated GFR BUN/Creatinine Ratio Glucose Lactate 2.0 Calcium Magnesium Total Bilirubin AST ALT Alkaline Phosphatase Total Creatine Kinase CK-MB (CK-2) CK-MB (CK-2) Rel Index Troponin I NT-Pro-B Natriuret Pep Total Protein Albumin Globulin Albumin/Globulin Ratio Lipase Procalcitonin Urine RBC Urine WBC Ur Squamous Epith Cells Amorphous Sediment Urine Bacteria Urine Mucus Ur Culture Indicated? Nasal Screen MRSA (PCR) A.calcoaceticus-baumannii cmplx PCR Not detected Chlamy pneumoniae PCR Not detected Adenovirus (PCR) Not detected Bacteroides fragilis Not detected B. pertussis DNA (PCR) Not detected B.parapertussis DNA PCR Not detected Katherine albicans (PCR) Not detected Katherine auris (PCR) Not detected C. glabrata (PCR) Not detected C. krusei (PCR) Not detected C. parapsilosis (PCR) Not detected C. tropicalis (PCR) Not detected Coronavirus OC43 (PCR) Not detected Coronavirus HKU1 (PCR) Not detected Coronavirus 229E (PCR) Not detected SARS-CoV-2 (PCR) Detected H Coronavirus NL63 (PCR) Not detected C. neoform/gattii (PCR) Not detected Enterobacterales (PCR) Not detected E. cloacae complex PCR Not detected Enterococc faecalis PCR Not detected Enterococc faecium PCR Not detected E. coli (PCR) Not detected H. influenzae (PCR) Not detected Human Metapneumovir PCR Not detected Influenza Type A (PCR) Not detected Influenza Type B (PCR) Not detected Klebsiella aerogenes (PCR) Not detected Klebsiella oxytoca PCR Not detected Klebsiella pneumoniae Not detected List. monocytogenes PCR Not detected M. pneumoniae (PCR) Not detected N. meningitidis (PCR) Not detected Parainfluenza 1 (PCR) Not detected Parainfluenza 2 (PCR) Not detected Parainfluenza 3 (PCR) Not detected Parainfluenza 4 (PCR) Not detected Proteus species (PCR) Not detected RSV (PCR) Not detected Entero/Rhino (PCR) Not detected Salmonella spp. (PCR) Not detected Serratia marcescens PCR Not detected Staphylococcus sp PCR Not detected Staph aureus (PCR) Not detected Staph epidermidis (PCR) Not detected Staph lugdunensis PCR Not detected S. maltophilia (PCR) Not detected Streptococcus sp PCR Detected H Group A Strep (PCR) Not detected Strep agalactiae (PCR) Not detected Strep pneumoniae (PCR) Not detected P. aeruginosa (PCR) Not detected 07/04/22 07/04/22 07/05/22 17:57 19:45 04:15 WBC 13.7 H RBC 4.37 L Hgb 12.0 L Hct 37.0 L MCV 84.7 MCH 27.5 MCHC 32.5 RDW 16.7 H Plt Count 151 Neut % (Auto) 91.0 H Lymph % (Auto) 5.7 L [place] % (Auto) 3.1 Eos % (Auto) 0.0 L Baso % (Auto) 0.2 Neut # (Auto) 08008 H Lymph # (Auto) 800 L [place] # (Auto) 400 Eos # (Auto) 0 Baso # (Auto) 0 PT INR APTT Sodium Potassium Chloride Carbon Dioxide BUN Creatinine Estimated GFR BUN/Creatinine Ratio Glucose Lactate Calcium Magnesium Total Bilirubin AST ALT Alkaline Phosphatase Total Creatine Kinase 317 H CK-MB (CK-2) 3.06 H CK-MB (CK-2) Rel Index 1.0 L Troponin I 0.037 H NT-Pro-B Natriuret Pep Total Protein Albumin Globulin Albumin/Globulin Ratio Lipase Procalcitonin Urine RBC 0-1/hpf Urine WBC 0-1/hpf Ur Squamous Epith Cells 0-1 /hpf Amorphous Sediment 1+ Urine Bacteria Few (2-10) H Urine Mucus 1+ H Ur Culture Indicated? Cult not indicated Nasal Screen MRSA (PCR) A.calcoaceticus-baumannii cmplx PCR Chlamy pneumoniae PCR Adenovirus (PCR) Bacteroides fragilis B. pertussis DNA (PCR) B.parapertussis DNA PCR Katherine albicans (PCR) Katherine auris (PCR) C. glabrata (PCR) C. krusei (PCR) C. parapsilosis (PCR) C. tropicalis (PCR) Coronavirus OC43 (PCR) Coronavirus HKU1 (PCR) Coronavirus 229E (PCR) SARS-CoV-2 (PCR) Coronavirus NL63 (PCR) C. neoform/gattii (PCR) Enterobacterales (PCR) E. cloacae complex PCR Enterococc faecalis PCR Enterococc faecium PCR E. coli (PCR) H. influenzae (PCR) Human Metapneumovir PCR Influenza Type A (PCR) Influenza Type B (PCR) Klebsiella aerogenes (PCR) Klebsiella oxytoca PCR Klebsiella pneumoniae List. monocytogenes PCR M. pneumoniae (PCR) N. meningitidis (PCR) Parainfluenza 1 (PCR) Parainfluenza 2 (PCR) Parainfluenza 3 (PCR) Parainfluenza 4 (PCR) Proteus species (PCR) RSV (PCR) Entero/Rhino (PCR) Salmonella spp. (PCR) Serratia marcescens PCR Staphylococcus sp PCR Staph aureus (PCR) Staph epidermidis (PCR) Staph lugdunensis PCR S. maltophilia (PCR) Streptococcus sp PCR Group A Strep (PCR) Strep agalactiae (PCR) Strep pneumoniae (PCR) P. aeruginosa (PCR) 07/05/22 07/05/22 07/05/22 04:15 04:15 04:15 WBC RBC Hgb Hct MCV MCH MCHC RDW Plt Count Neut % (Auto) Lymph % (Auto) [place] % (Auto) Eos % (Auto) Baso % (Auto) Neut # (Auto) Lymph # (Auto) [place] # (Auto) Eos # (Auto) Baso # (Auto) PT 25.2 H INR 2.2 H APTT Sodium 134 L Potassium 4.8 Chloride 98 Carbon Dioxide 25 BUN 32 H Creatinine 1.93 H Estimated GFR 33 L BUN/Creatinine Ratio 16.6 Glucose 87 Lactate Calcium 8.6 Magnesium Total Bilirubin 0.3 AST 42 ALT 41 Alkaline Phosphatase 62 Total Creatine Kinase CK-MB (CK-2) CK-MB (CK-2) Rel Index Troponin I NT-Pro-B Natriuret Pep 2030 H Total Protein 7.3 Albumin 4.1 Globulin 3.2 Albumin/Globulin Ratio 1.3 Lipase Procalcitonin Urine RBC Urine WBC Ur Squamous Epith Cells Amorphous Sediment Urine Bacteria Urine Mucus Ur Culture Indicated? Nasal Screen MRSA (PCR) Not detected A.calcoaceticus-baumannii cmplx PCR Chlamy pneumoniae PCR Adenovirus (PCR) Bacteroides fragilis B. pertussis DNA (PCR) B.parapertussis DNA PCR Katherine albicans (PCR) Katherine auris (PCR) C. glabrata (PCR) C. krusei (PCR) C. parapsilosis (PCR) C. tropicalis (PCR) Coronavirus OC43 (PCR) Coronavirus HKU1 (PCR) Coronavirus 229E (PCR) SARS-CoV-2 (PCR) Coronavirus NL63 (PCR) C. neoform/gattii (PCR) Enterobacterales (PCR) E. cloacae complex PCR Enterococc faecalis PCR Enterococc faecium PCR E. coli (PCR) H. influenzae (PCR) Human Metapneumovir PCR Influenza Type A (PCR) Influenza Type B (PCR) Klebsiella aerogenes (PCR) Klebsiella oxytoca PCR Klebsiella pneumoniae List. monocytogenes PCR M. pneumoniae (PCR) N. meningitidis (PCR) Parainfluenza 1 (PCR) Parainfluenza 2 (PCR) Parainfluenza 3 (PCR) Parainfluenza 4 (PCR) Proteus species (PCR) RSV (PCR) Entero/Rhino (PCR) Salmonella spp. (PCR) Serratia marcescens PCR Staphylococcus sp PCR Staph aureus (PCR) Staph epidermidis (PCR) Staph lugdunensis PCR S. maltophilia (PCR) Streptococcus sp PCR Group A Strep (PCR) Strep agalactiae (PCR) Strep pneumoniae (PCR) P. aeruginosa (PCR) PFSH Medical History BPH w urinary obs/LUTS History of elevated PSA Hyperlipidemia Hypertension Low back pain Social History household members: spouse Smoking Status: Never smoker Assessment & Plan Assessment & Plan narrative: Assessment & Plan narrative: 1. Acute respiratory failure.? Probably combination of congestive heart failure secondary to rapid atrial fibrillation and COVID pneumonia.? He is feeling better subjectively and clinically seems to be improving. He is still requiring 3 L of nasal cannula oxygen Plan: Will continue with IV Lasix but decrease it to 40 mg once daily IV. We will reassess kidney function and overall status tomorrow. Will continue with respiratory therapy and supplemental oxygen. Will continue with remdesivir and steroids. This is day 2. Unsure if patient has a bacterial component that is contributing. He has group B strep growing out of his blood in 2 different cultures and we will treat this with Rocephin 2 g IV Q 24 hours. 2. Severe COVID pneumonia.? Will start dexamethasone and remdesivir.? Will support and follow from there.? We did discuss intubation he is not really thinking he is interested.? Patient seems to be improving. Will continue with the same and respiratory therapy and supplemental oxygen 3. Atrial fibrillation with RVR.? Rate is much better with metoprolol and treating his underlying problem of COVID-19 pneumonia and possible bacteremia. We will go ahead and continue metoprolol and continue to monitor and we will get an echo. 4. Leukocytosis.? Chest x-ray shows no evidence of any real abnormality but given the fact that there is a possibility of infection will cover with Rocephin.? Possible pneumonia.? Unsure if this is due to bacteremia. Will continue with ceftriaxone and continue to monitor 5. Nausea and vomiting improved. Plan will go ahead and advance diet 6. Troponemia likely secondary to AFib with RVR. Patient is doing much better. Will recheck in the morning and will check an echo as well. He is not had any cardiac symptoms. The echo will help verify this as well and we will continue with the metoprolol to treat his rate. 7. BPH.? Stable continue his usual meds 8. Reflux continue usual meds. 9. Patient patient was very hypertensive in the ER. He is doing much better now. Will continue losartan and Lasix once daily and metoprolol. Will stop hydrochlorothiazide due to kidney function and will continue to monitor. 10. Stage 3 chronic kidney disease with acute exacerbation improved Plan: Will stop hydrochlorothiazide. Will give Lasix judiciously. Will reassess tomorrow. 11. Insomnia Plan: Will continue trazodone Code status full. Disposition.? Will require at least 2-3 more days of hospitalization. Hopes would be that we can get him back home but depending on how he does overall may need skilled care facility. We will consult physical therapy. 55 minutes was spent with patient in reviewing his chart discussing with physicians, nursing, social security assessor and formulating a plan and documentation Quality VTE Deep Vein Thrombosis/Pulmonary Embolism Present on Admission: No
--- NOTE | 2022-07-05 13:51 | DI.ECHO.S_ITS ---
[facility]---------+ [facility] +---------+ : : [address] : : : : [id number] : : : : Phone: [phone] Echocardiogram Report + + :Name: BIENVENIDO CAMPOS Study Date: 07/06/2022 Height: 72 in : :[facility] ReadingLocation: Weight: 244 lb : : Gender: Male BSA: 2.3 m2 : :: 1935 Age: 86 yrs BP: 153/91 mmHg: :Reason For Study: CHF, AFIB : :Ordering Physician: LORENA, : :DORIE Performed By: Amena Hills : :Referring: DORIE CARRILLO : + + Interpretation Summary Afib with RVR; heart rate is 107-129 bpm during exam. Normal LV size and wall thickness. There is subtle basal anteroseptal hypokinesis. Otherwise normal wall motion. EF is 60-65%. Mild LA enlargement; otherwise normal chamber sizes. Aortic sclerosis without stenosis; mild-moderate MAC; otherwise no significant valvular abnormalities. No prior study available for comparison. Procedure: A two-dimensional transthoracic echocardiogram with color flow and Doppler was performed. The study quality was technically adequate. There is no prior echocardiogram noted for this patient. The patient was in atrial fibrillation with heart rates between 107-129 bpm during the exam. Left Ventricle: Proximal septal thickening is noted. The ejection fraction is estimated to be 55-60%. Diastolic function could not be accurately assessed due to atrial fibrillation. Right Ventricle: The right ventricle is normal in size, thickness and function. Right ventricular systolic function is at the lower limits of normal. Atria: The left atrium is mildly dilated. There is a catheter/pacemaker lead seen in the right atrium. Right atrial size is normal. There is no Doppler evidence for an interatrial shunt. Mitral Valve: There is mild to moderate mitral annular calcification. The mitral valve leaflets appear mildly thickened, but open well. There is trace mitral regurgitation. Aortic Valve: The aortic valve opens well. The aortic valve is mildly calcified. There is no aortic valve stenosis. There is mild aortic regurgitation. Tricuspid Valve: The tricuspid valve is normal in structure and function. There is mild tricuspid regurgitation. Pulmonic Valve: The pulmonic valve is not well seen, but is grossly normal. There is trace pulmonic regurgitation. Great Vessels: The aortic root is normal size. The dimensions of the ascending aorta are normal. The IVC is dilated (diameter is greater than 2.1 cm) yet it collapses greater than 50% with a sniff. This suggests a right atrial pressure of 8 mm Hg. Pericardium/ Pleura There is no pericardial effusion. There is no pleural effusion. MMode/2D Measurements & Calculations LVIDd: 4.8 cm LVOT diam: 2.1 cm LVIDs: 3.2 cm Ao root diam: 3.9 cm FS: 31.9 % asc Aorta Diam: 3.3 cm IVSd: 1.0 cm LVPWd: 1.1 cm LV faulkner. diameter/BSA (cm/m^2): 2.0 LV sys. diameter/BSA (cm/m^2): 1.4 LA A2 area: 32.7 cm2 RA long axis: 6.5 cm LA A4 area: 24.2 cm2 RA area: 24.0 cm2 LA length (vol): 7.1 cm RA vol: 75.6 ml LA vol: 94.1 ml RA : 32.6 ml/m2 LA vol index: 40.6 ml/m2 IVC diam: 2.4 cm RVD1 (basal): 4.2 cm TAPSE: 1.5 cm Doppler Measurements & Calculations Ao V2 max: 108.5 cm/sec LVOT Max Alvaro: 103.9 cm/sec Ao V2 mean: 81.4 cm/sec LV V1 max P.3 mmHg Ao max P.7 mmHg LV V1 VTI: 18.4 cm Ao mean P.9 mmHg TRAVIS(I,D): 3.6 cm2 Ao V2 VTI: 18.1 cm TRAVIS(V,D): 3.4 cm2 sev ratio: 1.0 TRAVIS indexed to BSA (cm^2/m^2): 1.6 MV E max alvaro: 99.8 cm/sec PA V2 max: 97.2 cm/sec MV A max alvaro: 2.0 cm/sec PA V2 mean: 64.5 cm/sec MV E/A: 50.8 PA mean P.9 mmHg Med Peak E' Alvaro: 8.7 cm/sec PA pr(Accel): 46.5 mmHg E/E' med: 11.5 Lat Peak E' Alvaro: 10.3 cm/sec E/E' lat: 9.7 E/e' average: 10.6 MV dec time: 0.14 sec SV(LVOT): 65.2 ml Electronically signed by: Zonia Zarate M.D. on Reading Physician:07/06/2022 11:16 AM
[2022-07-05 14:14] LABS: INR 2.1 (0.9-1.3); Prothrombin Time 23.9 SECONDS (10.1-12.7)
--- NOTE | 2022-07-05 16:30 | PT.IIE ---
Current Diagnoses COVID-19 (07/04/22) Medical History (Last Reviewed 07/04/22 @ 19:03 by Alonso Benitez MD) BPH w urinary obs/LUTS History of elevated PSA Hyperlipidemia Hypertension Low back pain Physical Therapy Inpatient Evaluation/Re-Eval M1 PT/OT-IP Prior Functional Status Start: 07/05/22 16:19 Freq: NEEDED Status: Active Protocol: Document 07/05/22 16:19 ES (Rec: 07/05/22 16:30 ES [id number]) Medical Review Prior Functional Status Medical History Reviewed Yes Diet/Fluid Consistency Regular Communication WFL Mobility and Gait Indep with SPC Activities of Daily Living and IADL's Indep Social History Household Members spouse Living Arrangements Mobile home Number of Floors (Floors) One Floor Number of Stairs To Enter/Railing? Ramp with 4 intermittent steps , with B rails (in place of 11 stairs) Home Environment High Toilet,Walk in Shower, Built-In Shower Seat Home Equipment Lift Recliner,Grab Bars In Shower Employment Status Retired Additional Social History Comment Patient sleeps in a lift recliner. Has daughters who live nearby who work during the day, otherwise are available to assist. M2 PT-IP Current Condition Start: 07/05/22 16:19 Freq: NEEDED Status: Active Protocol: Document 07/05/22 16:19 ES (Rec: 07/05/22 16:30 ES [id number]) Physical Therapy Current Condition Current Condition Evaluation Date 07/05/22 Treatment Diagnosis Acute respiratory failure, COVID pneumonia Onset Date 07/04/22 M3 PT-IP Subjective Start: 07/05/22 16:19 Freq: NEEDED Status: Active Protocol: Document 07/05/22 16:19 ES (Rec: 07/05/22 16:30 ES [id number]) Subjective Physical Therapy Visit Type Type Initial Evaluation Visit Start Time 15:47 Visit Stop Time 16:17 Total Visit Minutes 30 Physical Therapy Visit Comments Patient Comments Patient reported feeling okay in bed, not having any shortness of breath. Agreeable to work with PT. M4 PT-IP Mobility and Gait Start: 07/05/22 16:19 Freq: NEEDED Status: Active Protocol: Document 07/05/22 16:19 ES (Rec: 07/05/22 16:30 ES [id number]) PT-Bed Mobility Assessment Supine to Sit Supine to Sit Standby Assistance,Head of Bed Elevated Scooting Scooting to Edge of Bed Standby Assistance PT-Transfer Assessment Sit to and From Stand Sit to and from Stand Standby Assistance Equipment Transfer Assistive Device Front Wheeled Walker Orthotic/Prosthetic Devices or Brace: No Transfers Transfer Destination Chair Transfer Technique Ambulation Transfer Ability Level of Assist Standby Assistance Comments Mobility Comments Instructed to place hand on bed/chair vs FWW during transfers for increased safety . Gait Assessment Gait Gait Assistance Required: Standby Assistance Distance (Feet) 12 Assistive Devices Assistive Device Front Wheeled Walker Gait Deviations General Gait Pattern Within Normal Limits Comments Gait Comments Ambulated in room from bed to chair with min use of FWW. No c/o dizziness/lightheadedness/ shortness of breath. PT-Balance Assessment Sitting Balance and Reactions Static Sitting Balance Ability Normal Dynamic Sitting Balance Ability Normal Standing Balance and Reactions Static Standing Balance Ability Good Dynamic Standing Balance Ability Good Device Used FWW M5 PT-IP Objective Assessments Start: 07/05/22 16:19 Freq: NEEDED Status: Active Protocol: Document 07/05/22 16:19 ES (Rec: 07/05/22 16:30 ES [id number]) Orientation Orientation/Cognition Level of Alertness Alert Orientation Name,Age,Birthday,Month,Date, Year,Day of Week,Place, Situation Language Function Ability No Deficits Noted Safety Awareness Understands Safety Issues Memory Description No Deficits Noted Gross Range of Motion Upper Extremity ROM Assessment Within Functional Limits Lower Extremity ROM Assessment Within Functional Limits Strength Upper Extremity Strength Assessment Within Functional Limits Lower Extremity Strength Assessment Within Functional Limits Coordination Assessment Gross Coordination Gross Coordination WNL Sensation Assessment Sensation Gross Sensation WNL M6 PT-IP Treatment Start: 07/05/22 16:19 Freq: NEEDED Status: Active Protocol: Document 07/05/22 16:19 ES (Rec: 07/05/22 16:30 ES [id number]) Physical Therapy Treatment Education Education Provided Safety Other Treatments Other Treatment Performed Education on importance of OOB activity during hospitalization. Instructed to call staff to assist with mobility to help manage lines. M7 PT-IP Assessment and Plan Start: 07/05/22 16:19 Freq: NEEDED Status: Active Protocol: Document 07/05/22 16:19 ES (Rec: 07/05/22 16:30 ES [id number]) PT Summary Assessment and Plan Potential Rehabilitation Potential Excellent Status of Condition at Evaluation Stable Summary Impairments Gait,Activity Tolerance Assessment Summary Patient tolerated eval on 2.5 L O2 via NC without c/o shortness of breath, and had no dizziness/lightheadedness throughout visit. At one point patient's NC had moved off his nose and he was maintaining SPO2 in upper 90's with sitting. He demonstrated good strength and balance with min use of FWW during gait in room. Patient will benefit from skilled PT to increase activity and assess safety with SPC in order to return to [facility]. Anticipate he will be able to d/c home when medically stable. Goals Transfer Goal Independent,Cane Gait Goal Independent,Cane Gait Distance 100 Other Goals Patient will be able to ascend /descend 4 stairs with rail and SPC indep. Days to Meet Goals 7 Frequency of Treatment Frequency Of Treatment Once a Day Treatment Plan Physical Therapy Treatment Plan Transfer Training,Gait Training,Therapeutic Exercise, Discharge Planning Recommendations To Nursing Amount of Assist Needed Standby Assistance Discharge Recommendations PT Discharge Recommendations Home Transportation Needs at Discharge Private Vehicle
[2022-07-05] MEDS: REMDESIVIR 100 MG in SODIUM CHLORIDE 0.9% 230 ML 250 MG IV (17:23)
[2022-07-05] MEDS: WARFARIN 5 MG TABLET PO (17:23)
[2022-07-05] MEDS: diphenhydrAMINE 25 MG TABLET 50 MG PO (21:25)
[2022-07-05] MEDS: DOCUSATE 100 MG CAPSULE PO (21:26)
[2022-07-06] VITALS: PULSE 100; RESP 19; O2SAT 93
[2022-07-06] MEDS: TRAZODONE 50 MG TABLET PO (00:58)
[2022-07-06] MEDS: ONDANSETRON 4 MG/2 ML INJ IV (00:58)
[2022-07-06] MEDS: SODIUM CHLORIDE 0.9% FLUSH 10 ML IV ×3 (00:58→21:03)
[2022-07-06 01:13] VITALS: BP 129/61; PULSE 99; RESP 16; O2SAT 95
[2022-07-06 04:00] VITALS: BP 153/91; PULSE 113; RESP 23; TEMP 36.4; O2SAT 94
[2022-07-06 04:36] LABS: Add Manual Diff / Slide Review NO; Basophils Absolute Auto 0 /uL (0-100); Basophils Percent Auto 0.1 % (0-2); Eosinophils Absolute Auto 0 /uL (0-450); Hematocrit 33.1 % (41-53); Hemoglobin 11.1 g/dL (13.5-17.5); Lymphocytes Absolute Auto 600 /uL (1100-4500); Lymphocytes Percent Auto 6.4 % (25-40); Mean Corpuscular HGB Conc 33.4 % (30-36); Mean Corpuscular Volume 83.8 fL (80-100); Monocytes Absolute Auto 500 /uL (0-900); Monocytes Percent Auto 5.6 % (3-14); Neutrophils Absolute Auto 7800 /uL (1500-7000); Neutrophils Percent Auto 87.9 % (50-75); Platelet Count 172 X10^3/uL (150-400); Red Blood Cell Count 3.95 X10^6/uL (4.5-5.9); Red Cell Distribution Width 16.2 % (11.6-14.8); White Blood Cell Count 8.9 X10^3/uL (4.5-11.0)
[2022-07-06 04:48] LABS: INR 1.9 (0.9-1.3); Prothrombin Time 21.9 SECONDS (10.1-12.7)
[2022-07-06 04:51] LABS: Creatine Kinase 205 U/L (55-170)
[2022-07-06 04:55] LABS: Alanine Aminotransferase 35 IU/L (<50); Albumin 3.5 g/dL (3.5-5.0); Albumin Globulin Ratio 1.3 (1.0-2.8); Alkaline Phosphatase 56 U/L (38-126); Aspartate Aminotransferase 33 IU/L (17-59); BUN Creatinine Ratio 21.4 (6-22); Bilirubin Total 0.3 mg/dL (0.2-1.3); Blood Urea Nitrogen 46 mg/dL (9-20); Calcium 8.4 mg/dL (8.4-10.2); Carbon Dioxide 27 mmol/L (22-32); Chloride 97 mmol/L (98-107); Estimated Glomerular Filt Rate 29 mL/min (>60); Globulin 2.6 g/dL (1.7-4.1); Glucose 121 mg/dL (80-110); HEMOLYSIS < 15 (0-50); Potassium 4.5 mmol/L (3.4-5.1); Sodium 135 mmol/L (137-145); Total Protein 6.1 g/dL (6.3-8.2)
[2022-07-06 05:01] LABS: NT-proBNP (BNP-Adult 18+) 2300 pg/mL (<450)
[2022-07-06 05:04] LABS: Troponin I 0.016 ng/mL (0.01-0.034)
[2022-07-06 05:06] LABS: CKMB % Relative Index 1.1 % (1.5-5.0); Creatine Kinase MB 2.34 ng/mL (<2.37)
[2022-07-06 08:00] VITALS: BP 158/72; PULSE 110; RESP 22; O2SAT 96
[2022-07-06] MEDS: ACETAMINOPHEN 325 MG TABLET 650 MG PO ×2 (08:15→16:08)
[2022-07-06] MEDS: FUROSEMIDE 40 MG/4 ML VIAL IV (09:45)
[2022-07-06] MEDS: DEXAMETHASONE 10 MG/ML VIAL 6 MG IV (09:45)
[2022-07-06] MEDS: TAMSULOSIN 0.4 MG CAPSULE PO ×2 (09:46→21:02)
[2022-07-06] MEDS: DOCUSATE 100 MG CAPSULE PO (09:46)
[2022-07-06] MEDS: EZETIMIBE 10 MG TABLET PO (09:46)
[2022-07-06] MEDS: FAMOTIDINE 20 MG TABLET PO (09:46)
[2022-07-06] MEDS: METOPROLOL IR 25 MG TABLET PO (09:46)
[2022-07-06] MEDS: LOSARTAN 50 MG TABLET 25 MG PO ×2 (09:46→21:02)
[2022-07-06] MEDS: MAGNESIUM OXIDE 400 MG TABLET 200 MG PO (09:46)
[2022-07-06 12:00] VITALS: BP 146/73; PULSE 101; RESP 22; TEMP 36.4; O2SAT 96
[2022-07-06] MEDS: cefTRIAXone 2,000 MG in SODIUM CHLORIDE 0.9% 100 ML 200 MG IV (14:21)
--- NOTE | 2022-07-06 14:28 | CM.DPC ---
DCP Cont: Checked in with patient via phone in his room. His spouse is at bedside, she was just discharged from this hospital. Asked patient how he was doing, stated, not that great, but want to go home. Asked him if he was interested home health, stated, no, I have daughters that live nearby. P: DCP to continue to follow. Plan is likely home when deemed medically stable. Brenda Olvera RN/Orthotic Fitter
--- NOTE | 2022-07-06 15:28 | PT-IP ANOTE ---
Pt refusing to work with PT this afternoon. States he has had PT in the past and it never helped him. Therapist explained that it is not the same thing as OP therapy but still declined to mobilize.
--- NOTE | 2022-07-06 17:16 | P.PN_ITS ---
Subjective Subjective Date Patient Seen: 07/06/22 Time Patient Seen: 17:17 Interval history: Patient is feeling much better today. They are attempting to wean his oxygen. Was able to eat yesterday and did have a bowel movement this morning but it was loose. He is asking for Imodium. He denies any abdominal pain or nausea or vomiting. He feels his breathing is improving. His lower extremity swelling is improving He denies any chest pain. Twelve point review of systems is otherwise negative No events overnight. Exam Vital Signs (past 8 hours): - 07/06/22 12:00 Temperature 97.5 F L Pulse Rate 101 H Respiratory Rate 22 Blood Pressure 146/73 H Pulse Oximetry 96 Oxygen Delivery Method Room Air Oxygen Flow Rate 0 Const Other: Patient is afebrile and vital signs are stable Well-developed well-nourished male in no apparent distress HEENT: Mucous membranes moist and pink. Pupils equal round reactive to light Neck: Supple without adenopathy Chest: Improved air exchange and decreased wheezing though still expiratory wheeze Cor: Regular rate and rhythm with well-controlled rate Abdomen: Positive bowel sounds, soft, nontender, nondistended Extremities show 1+ pitting edema, improved from yesterday. Pulses intact. Neurologic exam nonfocal Objective Labs 07/06/22 04:15 07/06/22 04:15 Labs: Laboratory Results - last 24 hr 07/06/22 07/06/22 07/06/22 04:15 04:15 04:15 WBC 8.9 RBC 3.95 L Hgb 11.1 L Hct 33.1 L MCV 83.8 MCH 28.0 MCHC 33.4 RDW 16.2 H Plt Count 172 Neut % (Auto) 87.9 H Lymph % (Auto) 6.4 L [place] % (Auto) 5.6 Eos % (Auto) 0.0 L Baso % (Auto) 0.1 Neut # (Auto) 7800 H Lymph # (Auto) 600 L [place] # (Auto) 500 Eos # (Auto) 0 Baso # (Auto) 0 PT 21.9 H INR 1.9 H Sodium 135 L Potassium 4.5 Chloride 97 L Carbon Dioxide 27 BUN 46 H Creatinine 2.15 H Estimated GFR 29 L BUN/Creatinine Ratio 21.4 Glucose 121 H Calcium 8.4 Total Bilirubin 0.3 AST 33 ALT 35 Alkaline Phosphatase 56 Total Creatine Kinase CK-MB (CK-2) CK-MB (CK-2) Rel Index Troponin I NT-Pro-B Natriuret Pep 2300 H Total Protein 6.1 L Albumin 3.5 Globulin 2.6 Albumin/Globulin Ratio 1.3 07/06/22 04:15 WBC RBC Hgb Hct MCV MCH MCHC RDW Plt Count Neut % (Auto) Lymph % (Auto) [place] % (Auto) Eos % (Auto) Baso % (Auto) Neut # (Auto) Lymph # (Auto) [place] # (Auto) Eos # (Auto) Baso # (Auto) PT INR Sodium Potassium Chloride Carbon Dioxide BUN Creatinine Estimated GFR BUN/Creatinine Ratio Glucose Calcium Total Bilirubin AST ALT Alkaline Phosphatase Total Creatine Kinase 205 H CK-MB (CK-2) 2.34 CK-MB (CK-2) Rel Index 1.1 L Troponin I 0.016 NT-Pro-B Natriuret Pep Total Protein Albumin Globulin Albumin/Globulin Ratio PFSH Medical History BPH w urinary obs/LUTS History of elevated PSA Hyperlipidemia Hypertension Low back pain Social History household members: spouse Smoking Status: Never smoker Assessment & Plan Assessment & Plan narrative: 1. Acute respiratory failure.? Probably combination of congestive heart failure secondary to rapid atrial fibrillation and COVID pneumonia.? He is feeling better subjectively and clinically seems to be improving.? We will continue to wean off oxygen. Plan: Will will stop IV Lasix due to worsening renal insufficiency Will continue with respiratory therapy and supplemental oxygen.? Will continue with remdesivir and steroids.? This is day 3. Unsure if patient has a bacterial component that is contributing.? He has group B strep growing out of his blood in 2 different cultures and we will treat this with Rocephin 2 g IV Q 24 hours. 2. Severe COVID pneumonia.? Will start dexamethasone and remdesivir.? Will support and follow from there.? We did discuss intubation he is not really thinking he is interested.? Patient seems to be improving.? Will continue with the same and respiratory therapy and wean off supplemental oxygen as able 3. Atrial fibrillation with RVR.? Rate is much better with metoprolol and treating his underlying problem of COVID -19 pneumonia and possible bacteremia.? We will go ahead and continue metoprolol. Echo overall was reassuring there was mild apical hypokinesis. Patient may need treadmill as outpatient. 4. Leukocytosis.? Resolved today. Chest x-ray shows no evidence of any real abnormality but given the fact that there is a possibility of infection will cover with Rocephin.? Possible pneumonia.? Unsure if this is due to bacteremia.? Will continue with ceftriaxone and continue to monitor 5. Nausea and vomiting improved.? Tolerating diet without difficulty 6. Troponemia likely secondary to AFib with RVR.? Patient is doing much better.? Echo overall reassuring He is not had any cardiac symptoms.? we will continue with the metoprolol to treat his rate. No evidence today on a.m. labs. Do not need to repeat further. Will discuss echo with Cardiology 7. BPH.? Stable continue his usual meds 8. Reflux continue usual meds. 9. Patient patient was very hypertensive in the ER.? He is doing much better now.? Will continue losartan and Lasix once daily and metoprolol.? Will stop hydrochlorothiazide due to kidney function and will continue to monitor. 10. Stage 3 chronic kidney disease with acute exacerbation worsened today likely due to IV Lasix Plan:? Will stop IV Lasix. Will continue off hydrochlorothiazide.? Will reassess tomorrow. 11. Bacteremia Plan: Will await sensitivities to determine length of antibiotic treatment whether we need to do IV which will pose a challenge due to his COVID-19 illness. Hopefully will be able to do oral Levaquin or Zyvox but we need to await the sensitivities and we did repeat a culture today now that he is afebrile and leukocytosis has resolved 12. Loose stools Plan: Will continue to monitor and treat with Imodium Code status full. Disposition.? Will require at least 2-3 more days of hospitalization.? Hopes would be that we can get him back home but depending on how he does overall may need skilled care facility.? We will consult physical therapy. 55 minutes was spent with patient in reviewing his chart discussing with physicians, nursing, social and human services assistant and formulating a plan and documentation Quality Quality VTE Deep Vein Thrombosis/Pulmonary Embolism Present on Admission: No
[2022-07-06] MEDS: LOPERAMIDE 2 MG CAPSULE PO ×2 (18:08→21:15)
[2022-07-06] MEDS: REMDESIVIR 100 MG in SODIUM CHLORIDE 0.9% 230 ML 250 MG IV (18:27)
[2022-07-06] MEDS: WARFARIN 5 MG TABLET PO (18:27)
[2022-07-06 20:00] VITALS: BP 162/78; PULSE 98; RESP 24; TEMP 36.4; O2SAT 94
[2022-07-06 20:12] LABS: Magnesium 1.9 mg/dL (1.6-2.3)
[2022-07-06] MEDS: TRAZODONE 50 MG TABLET 200 MG PO (21:02)
[2022-07-06] MEDS: diphenhydrAMINE 25 MG TABLET 50 MG PO (21:02)
[2022-07-07] VITALS (52 sets, daily range): BP systolic 154–165; BP diastolic 77–84; PULSE 96–114; RESP 16–30; TEMP 36.1–36.7; O2SAT 93–96
[2022-07-07 04:53] LABS: Add Manual Diff / Slide Review NO; Basophils Absolute Auto 0 /uL (0-100); Basophils Percent Auto 0.1 % (0-2); Eosinophils Absolute Auto 0 /uL (0-450); Hematocrit 33.9 % (41-53); Hemoglobin 11.2 g/dL (13.5-17.5); Lymphocytes Absolute Auto 600 /uL (1100-4500); Lymphocytes Percent Auto 7.9 % (25-40); Mean Corpuscular HGB Conc 33.1 % (30-36); Mean Corpuscular Hemoglobin 27.6 PG (26-34); Mean Corpuscular Volume 83.5 fL (80-100); Monocytes Absolute Auto 400 /uL (0-900); Monocytes Percent Auto 5.2 % (3-14); Neutrophils Absolute Auto 7000 /uL (1500-7000); Neutrophils Percent Auto 86.8 % (50-75); Platelet Count 207 X10^3/uL (150-400); Red Blood Cell Count 4.06 X10^6/uL (4.5-5.9); Red Cell Distribution Width 16.4 % (11.6-14.8)
[2022-07-07 05:01] LABS: BUN Creatinine Ratio 27.3 (6-22); Blood Urea Nitrogen 51 mg/dL (9-20); Calcium 8.6 mg/dL (8.4-10.2); Carbon Dioxide 30 mmol/L (22-32); Chloride 99 mmol/L (98-107); Estimated Glomerular Filt Rate 35 mL/min (>60); Glucose 127 mg/dL (80-110); HEMOLYSIS < 15 (0-50); Potassium 4.5 mmol/L (3.4-5.1); Sodium 137 mmol/L (137-145)
[2022-07-07] MEDS: LOPERAMIDE 2 MG CAPSULE PO ×2 (05:13→14:49)
[2022-07-07] MEDS: ACETAMINOPHEN 325 MG TABLET 650 MG PO (05:13)
[2022-07-07] MEDS: EZETIMIBE 10 MG TABLET PO (08:44)
[2022-07-07] MEDS: FUROSEMIDE 40 MG/4 ML VIAL IV (08:44)
[2022-07-07] MEDS: LOSARTAN 50 MG TABLET 25 MG PO (08:45)
[2022-07-07] MEDS: FAMOTIDINE 20 MG TABLET PO (08:45)
[2022-07-07] MEDS: TAMSULOSIN 0.4 MG CAPSULE PO (08:45)
[2022-07-07] MEDS: MAGNESIUM OXIDE 400 MG TABLET 200 MG PO (08:45)
[2022-07-07] MEDS: METOPROLOL IR 25 MG TABLET PO (08:45)
[2022-07-07] MEDS: DEXAMETHASONE 10 MG/ML VIAL 6 MG IV (08:46)
[2022-07-07] MEDS: SODIUM CHLORIDE 0.9% FLUSH 10 ML IV (08:47)
--- NOTE | 2022-07-07 11:33 | PT-IP ANOTE ---
Patient has been refusing to work with PT. Visited with patient this morning, who stated he has been up and walking around the room without AD without assistance and without difficulty. Nursing concurred. He is currently tolerating room air and has no concerns about going home. Will d/c PT orders; patient is safe to d/c home when medically appropriate. Please reconsult if status changes.
--- NOTE | 2022-07-07 12:37 | CM.DPC ---
DCP Cont: Patient has been ambulatory in his room. On room air, patient's spouse discharged yesterday. Patient declined any type of home health services. Stated that he has supportive family that live nearby. P: DCP to continue to follow. Plan is home when stable, have not yet seen any provider notes for today. Jaylyn Olvera RN/Loop Drier Operator
[2022-07-07] MEDS: cefTRIAXone 2,000 MG in SODIUM CHLORIDE 0.9% 100 ML 200 MG IV (13:15)
--- NOTE | 2022-07-07 14:08 | P.DS_ITS ---
History of Present Illness History of Present Illness Date Patient Seen: 07/07/22 Time Patient Seen: 14:08 Chief complaint: FLU, Vomiting, weak, diarrhea Discharge Providers Provider Date of admission: 07/04/22 17:53 Discharge Date: 07/07/22 Primary care physician: Desi Frausto MD Consults: 07/05/22 13:51 Consult to Physical Therapy Evaluate & Treat Comment: Physician Instructions: Evaluate and Treat Discharge provider: Desi Frausto MD Summary Hospital Course Discharge Diagnosis: COVID-19 pneumonia, improved. Patient received 3 and half days of remdesivir and dexamethasone Bacteremia with sepsis represented by leukocytosis and acute respiratory failure, improved Hypertension improving Atrial fibrillation with rapid ventricular rate improved with metoprolol Leukocytosis, resolved Chronic kidney disease with acute exacerbation improved and progressing towards baseline but not the area Troponinemia with overall reassuring echo and resolution. Suspect related to kidney disease. Patient never had any cardiac symptoms Hospital Course: Patient admitted to the hospital with COVID-19 illness. Also found to have bacteremia with Gram-positive cocci. Patient was placed on remdesivir and dexamethasone for treatment of COVID-19 illness and was started on ceftriaxone. He was given IV Lasix for suspected pulmonary edema and this caused worsening kidney disease. This was discontinued kidney disease improved. Patient improved and was weaned off oxygen. Patient was continued on IV ceftriaxone due to the bacteremia. His leukocytosis resolved. He was discharged home on p.o. Levaquin starting tomorrow. See discussion below. Follow-up with me next week. Status at Discharge Cognitive/behavioral status at discharge: oriented Functional status at discharge: independent ambulation Overall status at discharge: patient is back to baseline Exam Vital Signs (past 8 hours): - 07/07/22 08:00 07/07/22 08:00 07/07/22 12:00 Temperature 97.3 F L 98.0 F Pulse Rate 103 H 96 H Respiratory Rate 16 17 Blood Pressure 162/84 H 165/77 H Pulse Oximetry 96 95 Oxygen Delivery Method Room Air Oxygen Flow Rate 0 0 Oxygen Delivery Method Room Air Oxygen Flow Rate 0 Narrative Exam Narrative: Afebrile vital signs are stable except for blood pressure 160s over 70s to 80s HEENT is unremarkable Neck: Supple Chest: Clear to auscultation without wheezes rhonchi or crackles Cor: Regular rate and rhythm at heart rate in the 90s to 100 Abdomen: Positive bowel sounds, soft, nontender Extremities: Edema has dissipated Objective Labs 07/07/22 04:20 07/07/22 04:20 Labs: Laboratory Results - last 24 hr 07/06/22 07/07/22 07/07/22 04:15 04:20 04:20 WBC 8.0 RBC 4.06 L Hgb 11.2 L Hct 33.9 L MCV 83.5 MCH 27.6 MCHC 33.1 RDW 16.4 H Plt Count 207 Neut % (Auto) 86.8 H Lymph % (Auto) 7.9 L [place] % (Auto) 5.2 Eos % (Auto) 0.0 L Baso % (Auto) 0.1 Neut # (Auto) 7000 Lymph # (Auto) 600 L [place] # (Auto) 400 Eos # (Auto) 0 Baso # (Auto) 0 Sodium 137 Potassium 4.5 Chloride 99 Carbon Dioxide 30 BUN 51 H Creatinine 1.87 H Estimated GFR 35 L BUN/Creatinine Ratio 27.3 H Glucose 127 H Calcium 8.6 Magnesium 1.9 PFSH Medical History BPH w urinary obs/LUTS History of elevated PSA Hyperlipidemia Hypertension Low back pain Social History household members: spouse Smoking Status: Never smoker Discharge Assessment & Plan Assessment and Plan Assessment: COVID-19 pneumonia, improved. Patient received 3 and half days of remdesivir and dexamethasone Bacteremia with sepsis represented by leukocytosis and acute respiratory failure, improved Hypertension improving Atrial fibrillation with rapid ventricular rate improved with metoprolol Leukocytosis, resolved Chronic kidney disease with acute exacerbation improved and progressing towards baseline but not the area Troponinemia with overall reassuring echo and resolution. Suspect related to kidney disease. Patient never had any cardiac symptoms Plan of Treatment: Will discharge to home today Pending patient's blood culture from yesterday that this is clear. Lengthy discussion regarding with patient the streptococcal infantarius and general recommendations of 2 weeks of IV antibiotics but given the complexity because of his COVID-19 illness and difficulty with arranging IV treatment and patient declining skilled care facility we will treat with Levaquin due to pansensitive bacteria and bioavailability of Levaquin. Due to kidney disease we will do Levaquin 750 mg p.o. every 48 hours for 2 weeks. I discussed with lachelle ent at length that he could have recurrence of his symptoms, fever, sepsis and discussed signs symptoms of concern in his questions were answered. He will be discharged home on losartan and metoprolol and we will hold the hydrochlorothiazide due to kidney disease and advanced age. He will monitor his blood pressure and he will see me back next week. He will continue on his same other outpatient medications. Prescription for Levaquin will be sent to [facility] here in and [place] He will continue on same anticoagulation and we will have to follow his protime due to antibiotics Discharge Plan Discharge Plan Patient Disposition: Home Discharge orders & Medications Prescriptions: Continued losartan 50 MG tablet 25 mg PO BID Qty: 0 multivitamin [Multiple Vitamins] 1 EACH tablet 1 tab PO DAILY Qty: 0 tamsulosin 0.4 mg capsule 0.4 mg PO BID torsemide 20 mg tablet 40 mg PO DAILY Patient Comments: Take 1 tablet by mouth once a day trazodone 50 mg tablet 50 mg PO QPM PRN (Reason: Insomnia) Patient Comments: Take 1 tablet by mouth at bedtime famotidine 20 mg Tablet 20 mg PO BID metoprolol tartrate 25 mg tablet 25 mg PO DAILY Patient Comments: Take 1 tablet by mouth once a day warfarin 5 mg tablet 5 mg PO DAILY Patient Comments: Take 1 tablet by mouth once a day acetaminophen 500 mg capsule 500 mg PO Q6H PRN (Reason: Pain, Moderate) ezetimibe 10 mg tablet 10 mg PO DAILY omega-3 fatty acids 1,000 mg capsule 2,000 mg PO DAILY omeprazole 20 mg capsule,delayed release(DR/EC) 20 mg PO BID polyethylene glycol 3350 17 gram/dose powder 17 g PO DAILY PRN (Reason: Constipation) magnesium 250 mg tablet 250 mg PO DAILY Discontinued hydralazine 25 mg tablet 25 mg PO TID Patient Comments: Take 1 tablet by mouth three times a day hydrochlorothiazide 25 mg tablet 25 mg PO DAILY Patient Comments: Take 1 tablet by mouth once a day hydrochlorothiazide 12.5 mg capsule 12.5 mg PO DAILY diphenhydramine HCl [Benadryl] 25 mg capsule 50 mg PO BEDTIME PRN (Reason: Insomnia) Follow up/Referrals: Desi Frausto MD [Primary Care Provider] - Diet/Activity/Treatments Diet: Low-sodium Visit Report/Discharge Packet Stand Alone Forms: Patient Portal/API, Stroke Signs & Symptoms Discharge Data Primary Care Provider: Desi Frausto VTE Deep Vein Thrombosis/Pulmonary Embolism Present on Admission: No
== END 2022-07-07 16:40 | disposition home or self-care (01) | DRG 871 ==
LOC: ED 17:45 → AC 17:54 → ICU 18:54
PROVIDERS: Admitting Provider Family Medicine; Emergency Provider Emergency Medicine; Family Provider Student in an Organized Health Care Education/Training Program; PCP Family Medicine; Referring Provider Emergency Medicine; Visit Provider Family Medicine
DX: A41.9 Sepsis, unspecified organism (principal); J12.82 Pneumonia due to coronavirus disease 2019; U07.1 COVID-19; J96.01 Acute respiratory failure with hypoxia; R65.20 Severe sepsis without septic shock; I48.91 Unspecified atrial fibrillation; R11.2 Nausea with vomiting, unspecified; N40.0 Benign prostatic hyperplasia without lower urinary tract symptoms; K21.9 Gastro-esophageal reflux disease without esophagitis; G47.00 Insomnia, unspecified; R19.7 Diarrhea, unspecified; I12.9 Hypertensive chronic kidney disease with stage 1 through stage 4 chronic kidney disease, or unspecified chronic kidney disease; N18.30 Chronic kidney disease, stage 3 unspecified
CPT/HCPCS: 36415; 71045; 80048; 80053; 81003; 81015; 82550; 82553; 83605; 83690; 83735; 83880; 84145; 84484; 85025; 85610; 85730; 87040; 87086; 87154; 87186; 87633; 87797; 93005; 93306; 96365; 97161; 99285; A9270; J0696; J1100; J1940; J2405

== ENCOUNTER → 2022-07-14 15:51 | Outpatient (ROUT) | payer MEDICARE, SELFPAY ==
[2022-07-05 04:28] VITALS: BMI 33.2
[2022-07-14 16:12] LABS: INR 2.2 (0.9-1.3)
== END ==
PROVIDERS: Family Provider Student in an Organized Health Care Education/Training Program; PCP Family Medicine; Visit Provider Family Medicine
DX: Z79.01 Long term (current) use of anticoagulants (principal)
CPT/HCPCS: 85610

== ENCOUNTER → 2022-08-13 10:57 | Outpatient (ROUT) | payer MEDICARE, SELFPAY ==
[2022-07-05 04:28] VITALS: BMI 33.2
[2022-08-13 11:08] LABS: INR 2.3 (0.9-1.3); Prothrombin Time 26.1 SECONDS (10.1-12.7)
== END ==
PROVIDERS: Family Provider Student in an Organized Health Care Education/Training Program; PCP Family Medicine; Visit Provider Family Medicine
DX: I48.91 Unspecified atrial fibrillation (principal)
CPT/HCPCS: 85610

== ENCOUNTER → 2022-09-23 11:59 | Outpatient (ROUT) | payer MEDICARE, SELFPAY ==
[2022-07-05 04:28] VITALS: BMI 33.2
[2022-09-23 12:23] LABS: INR 2.7 (0.9-1.3); Prothrombin Time 31.3 SECONDS (10.1-12.7)
== END ==
PROVIDERS: Family Provider Student in an Organized Health Care Education/Training Program; PCP Family Medicine; Visit Provider Family Medicine
DX: Z79.01 Long term (current) use of anticoagulants (principal); I48.91 Unspecified atrial fibrillation
CPT/HCPCS: 85610

== ENCOUNTER → 2022-10-20 11:27 | Outpatient (ROUT) | payer MEDICARE, SELFPAY ==
[2022-07-05 04:28] VITALS: BMI 33.2
[2022-10-20 11:44] LABS: INR 2.8 (0.9-1.3)
== END ==
PROVIDERS: Family Provider Student in an Organized Health Care Education/Training Program; PCP Family Medicine; Visit Provider Family Medicine
DX: I48.91 Unspecified atrial fibrillation (principal)
CPT/HCPCS: 85610

== ENCOUNTER → 2022-12-14 12:02 | Outpatient (ROUT) | payer MEDICARE, SELFPAY ==
[2022-07-05 04:28] VITALS: BMI 33.2
[2022-12-14 12:20] LABS: INR 3.3 (0.9-1.3); Prothrombin Time 38.3 SECONDS (10.1-12.7)
== END ==
PROVIDERS: Family Provider Student in an Organized Health Care Education/Training Program; PCP Family Medicine; Visit Provider Family Medicine
DX: I48.91 Unspecified atrial fibrillation (principal)
CPT/HCPCS: 85610

== ENCOUNTER → 2022-12-21 11:45 | Outpatient (ROUT) | payer MEDICARE, SELFPAY ==
[2022-07-05 04:28] VITALS: BMI 33.2
[2022-12-21 13:11] LABS: INR 1.9 (0.9-1.3); Prothrombin Time 22.3 SECONDS (10.1-12.7)
== END ==
PROVIDERS: Family Provider Student in an Organized Health Care Education/Training Program; PCP Family Medicine; Visit Provider Family Medicine
DX: I48.91 Unspecified atrial fibrillation (principal)
CPT/HCPCS: 85610

== ENCOUNTER → 2023-01-03 09:40 | Outpatient (ROUT) | payer MEDICARE, SELFPAY ==
[2022-07-05 04:28] VITALS: BMI 33.2
[2023-01-03 10:00] LABS: Prothrombin Time 23.1 SECONDS (10.1-12.7)
== END ==
PROVIDERS: Family Provider Student in an Organized Health Care Education/Training Program; PCP Family Medicine; Visit Provider Family Medicine
DX: I48.91 Unspecified atrial fibrillation (principal)
CPT/HCPCS: 85610

== ENCOUNTER → 2023-01-18 11:56 | Outpatient (ROUT) | payer MEDICARE, SELFPAY ==
[2022-07-05 04:28] VITALS: BMI 33.2
[2023-01-18 12:27] LABS: INR 2.4 (0.9-1.3); Prothrombin Time 27.6 SECONDS (9.4-12.5)
== END ==
PROVIDERS: Family Provider Student in an Organized Health Care Education/Training Program; PCP Family Medicine; Visit Provider Family Medicine
DX: I48.91 Unspecified atrial fibrillation (principal)
CPT/HCPCS: 85610

== ENCOUNTER → 2023-01-28 12:20 | Outpatient (ROUT) | payer MEDICARE, SELFPAY ==
[2022-07-05 04:28] VITALS: BMI 33.2
[2023-01-28 12:37] LABS: INR 3.9 (0.9-1.3); Prothrombin Time 45.8 SECONDS (9.4-12.5)
== END ==
PROVIDERS: Family Provider Student in an Organized Health Care Education/Training Program; PCP Family Medicine; Visit Provider Family Medicine
DX: I48.91 Unspecified atrial fibrillation (principal)
CPT/HCPCS: 85610

== ENCOUNTER → 2023-02-04 11:26 | Outpatient (ROUT) | payer MEDICARE, SELFPAY ==
[2022-07-05 04:28] VITALS: BMI 33.2
[2023-02-04 11:48] LABS: Prothrombin Time 34.8 SECONDS (9.4-12.5)
== END ==
PROVIDERS: Family Provider Student in an Organized Health Care Education/Training Program; PCP Family Medicine; Visit Provider Family Medicine
DX: I48.91 Unspecified atrial fibrillation (principal)
CPT/HCPCS: 85610

== ENCOUNTER → 2023-02-11 12:07 | Outpatient (ROUT) | payer MEDICARE, SELFPAY ==
[2022-07-05 04:28] VITALS: BMI 33.2
[2023-02-11 12:22] LABS: INR 1.7 (0.9-1.3); Prothrombin Time 19.2 SECONDS (9.4-12.5)
== END ==
PROVIDERS: Family Provider Student in an Organized Health Care Education/Training Program; PCP Family Medicine; Visit Provider Family Medicine
DX: I48.91 Unspecified atrial fibrillation (principal)
CPT/HCPCS: 85610

== ENCOUNTER → 2023-02-22 11:37 | Outpatient (ROUT) | payer MEDICARE, SELFPAY ==
[2022-07-05 04:28] VITALS: BMI 33.2
[2023-02-22 11:49] LABS: INR 3.4 (0.9-1.3); Prothrombin Time 39.9 SECONDS (9.4-12.5)
== END ==
PROVIDERS: Family Provider Student in an Organized Health Care Education/Training Program; PCP Family Medicine; Visit Provider Family Medicine
DX: I48.91 Unspecified atrial fibrillation (principal)
CPT/HCPCS: 85610

== ENCOUNTER → 2023-03-01 11:33 | Outpatient (ROUT) | payer MEDICARE, SELFPAY ==
[2022-07-05 04:28] VITALS: BMI 33.2
[2023-03-01 11:56] LABS: INR 2.4 (0.9-1.3); Prothrombin Time 27.5 SECONDS (9.4-12.5)
== END ==
PROVIDERS: Family Provider Student in an Organized Health Care Education/Training Program; PCP Family Medicine; Visit Provider Family Medicine
DX: I48.91 Unspecified atrial fibrillation (principal)
CPT/HCPCS: 85610

== ENCOUNTER → 2023-03-15 11:06 | Outpatient (ROUT) | payer MEDICARE, SELFPAY ==
[2022-07-05 04:28] VITALS: BMI 33.2
[2023-03-15 11:20] LABS: INR 2.1 (0.9-1.3); Prothrombin Time 24.5 SECONDS (9.4-12.5)
== END ==
PROVIDERS: Family Provider Student in an Organized Health Care Education/Training Program; PCP Family Medicine; Visit Provider Family Medicine
DX: I48.91 Unspecified atrial fibrillation (principal)
CPT/HCPCS: 85610

== ENCOUNTER → 2023-03-22 11:00 | Outpatient (ROUT) | payer MEDICARE, SELFPAY ==
[2022-07-05 04:28] VITALS: BMI 33.2
[2023-03-22 11:22] LABS: INR 2.8 (0.9-1.3); Prothrombin Time 32.7 SECONDS (9.4-12.5)
== END ==
PROVIDERS: Family Provider Student in an Organized Health Care Education/Training Program; PCP Family Medicine; Visit Provider Family Medicine
DX: I48.91 Unspecified atrial fibrillation (principal)
CPT/HCPCS: 85610

== ENCOUNTER → 2023-03-28 12:34 | Outpatient (CLI) | payer MEDICARE, SELFPAY ==
[2022-07-05 04:28] VITALS: BMI 33.2
--- NOTE | 2023-03-28 12:37 | DI.RAD.S_ITS ---
PROCEDURE: XR KNEE LT 1TO2V INDICATIONS: KNEE PAIN TECHNIQUE: 2 views of the knee were acquired. COMPARISON: None. FINDINGS: Bones: No fractures or dislocations. No suspicious bony lesions. Severe medial femorotibial joint space narrowing, subchondral sclerosis and marginal osteophytosis. Mild joint space narrowing and osteophytosis in the lateral femorotibial and patellofemoral compartments. Soft tissues: No joint effusion. No suspicious soft tissue calcifications. IMPRESSION: No acute bony abnormality or significant effusion. Tricompartmental osteoarthrosis, severe in the medial compartment. If symptoms persist with conservative management, consider cross-sectional imaging such as CT or MRI. Approved by: Erika Dahl M.D. on 03/28/2023 at 16:39
--- NOTE | 2023-03-28 12:37 | DI.RAD.S_ITS ---
PROCEDURE: XR KNEE RT 1TO2V INDICATIONS: KNEE PAIN TECHNIQUE: 2 views of the knee were acquired. COMPARISON: None. FINDINGS: Bones: No fractures or dislocations. No suspicious bony lesions. Soft tissues: No joint effusion. No suspicious soft tissue calcifications. IMPRESSION: No acute bony abnormality or significant effusion. If symptoms persist with conservative management, consider cross-sectional imaging such as CT or MRI. Approved by: Erika Dahl M.D. on 03/28/2023 at 16:37
== END ==
LOC: RAD 12:35
PROVIDERS: Family Provider Student in an Organized Health Care Education/Training Program; PCP Family Medicine; Referring Provider Family Medicine; Visit Provider Family Medicine
DX: M17.0 Bilateral primary osteoarthritis of knee (principal); I48.91 Unspecified atrial fibrillation
CPT/HCPCS: 73560; 85610

== ENCOUNTER → 2023-03-28 12:35 | Outpatient (ROUT) | payer MEDICARE, SELFPAY ==
[2022-07-05 04:28] VITALS: BMI 33.2
[2023-03-28 12:50] LABS: INR 3.2 (0.9-1.3); Prothrombin Time 36.8 SECONDS (9.4-12.5)
== END ==
PROVIDERS: Family Provider Student in an Organized Health Care Education/Training Program; PCP Family Medicine; Visit Provider Family Medicine
DX: I48.91 Unspecified atrial fibrillation (principal)
CPT/HCPCS: 85610

== ENCOUNTER → 2023-04-04 12:24 | Outpatient (ROUT) | payer MEDICARE, SELFPAY ==
[2022-07-05 04:28] VITALS: BMI 33.2
[2023-04-04 12:31] LABS: INR 2.8 (0.9-1.3); Prothrombin Time 32.1 SECONDS (9.4-12.5)
== END ==
PROVIDERS: Family Provider Student in an Organized Health Care Education/Training Program; PCP Family Medicine; Visit Provider Family Medicine
DX: I48.91 Unspecified atrial fibrillation (principal)
CPT/HCPCS: 85610

== ENCOUNTER → 2023-04-26 11:54 | Outpatient (ROUT) | payer MEDICARE, SELFPAY ==
[2022-07-05 04:28] VITALS: BMI 33.2
[2023-04-26 12:09] LABS: Prothrombin Time 46.4 SECONDS (9.4-12.5)
== END ==
PROVIDERS: Family Provider Student in an Organized Health Care Education/Training Program; PCP Family Medicine; Visit Provider Family Medicine
DX: I48.91 Unspecified atrial fibrillation (principal)
CPT/HCPCS: 85610

== ENCOUNTER → 2023-05-05 10:00 | Outpatient (CLI) | payer MEDICARE, SELFPAY ==
[2022-07-05 04:28] VITALS: BMI 33.2
--- NOTE | 2023-05-05 | DI.CT.S_ITS ---
PROCEDURE: CT ANGIO ABD AORTA RUNOFF INDICATIONS: Vascular Claudication TECHNIQUE: After the administration of intravenous contrast, 2.5 mm sections acquired from T12 to the feet, with optional delayed image acquisition from the knees to the feet. 3-dimensional maximum intensity projection (MIP) coronal and sagittal reformats, and/or 3-dimensional volume rendering reformatting was then performed. For radiation dose reduction, the following was used: automated exposure control. COMPARISON: [facility], CT, CT ABDOMEN PELVIS WO CON, 09/21/2021, 1:03. [facility], US, US ARTERIAL LOWER EXTREMITY DOPPLER BILATERAL, 02/17/2023, 13:44. FINDINGS: Image Quality: Motion artifact limits evaluation of the mid abdomen. Abdominal aorta: The infrarenal abdominal aorta demonstrates normal course and caliber. Scattered atheromatous calcifications are present throughout. No aortic dissection or aneurysmal dilatation. Splanchnic vessels: The mesenteric arteries in the renal arteries are widely patent. Right lower extremity: The origin of the right common iliac artery is widely patent. An ulcerated plaque is present just distal to the origin of the right common iliac artery (series 4/image 117). However, the vessel remains widely patent. 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 The external right iliac artery is widely patent. The right common femoral artery and profunda are widely patent. Multiple focal stenoses are present throughout the right SFA secondary to atheromatous plaque ranging from mild to severe in degree. The most severe stenosis is present at the inferior aspect of the right SFA (series 4/image 359). The popliteal artery is patent. The anterior and posterior tibial arteries are patent to the level of the foot. The peroneal artery is likely occluded at mid calf. Left lower extremity: Scattered atheromatous calcifications are present throughout the left common iliac artery without focal hemodynamically significant stenosis. An ulcerated plaque is present at the bifurcation of the left common iliac artery (series 5/image 179 and series 4/image 141). 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 The external iliac is widely patent. Mild stenosis is present at the left common femoral artery. The profunda is patent. Multiple mild stenoses are present throughout the left SFA. The distal popliteal artery is occluded. The tibioperoneal trunk is occluded. There is reconstitution of the anterior tibial, peroneal, and posterior tibial arteries via collaterals. The anterior and posterior tibial arteries are patent to the level of the foot.. Lower Chest: No significant findings. ABDOMEN: Liver: No solid mass. Gallbladder: The gallbladder is not well characterized and appears somewhat contracted. Biliary ducts: No biliary dilation. Pancreas: No ductal dilation. Spleen: Size is within normal limits. Adrenal Glands: No adrenal nodules. Kidneys and Ureters: No hydronephrosis. No solid mass. No complex renal cystic lesion which requires follow up. Stomach and Bowel: Normal colonic caliber, without significant wall thickening. There are scattered sigmoid diverticula. No evidence for diverticulitis. The appendix is thin walled and gas filled. Peritoneum: No abnormal intraperitoneal fluid. No free air. Ventral Wall: No hernia. Abdominal Nodes: No retroperitoneal or mesenteric adenopathy by size criteria. Vessels: Aorta and inferior vena cava are normal in size. PELVIS: Pelvic Organs: Unremarkable. Bladder: Unremarkable. Pelvic Nodes: No enlarged lymph nodes. Miscellaneous: No inguinal hernias are seen. Bones: No aggressive osseous abnormality. There are multilevel intraosseous hemangiomas noted. IMPRESSION: 1. Multifocal stenoses throughout the right SFA. These are likely amenable to transluminal percutaneous angioplasty. In the setting of claudication, therapeutic intervention may relieve the patient's symptoms. 2. 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 This may be amenable to percutaneous revascularization. 3. 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 4. Contracted gallbladder which is incompletely characterized on this limited view. If further characterization is warranted, right upper quadrant ultrasound could be used. 5. Diverticulosis. No acute diverticulitis. Normal appendix. Please note, if therapeutic intervention is warranted, please consider consultation to interventional radiology at [facility] (ambulatory consult interventional radiology) to discuss therapeutic options. Dictated by: Inna Burgess M.D. on 05/05/2023 at 13:10 Approved by: Inna Burgess M.D. on 05/05/2023 at 13:24
== END ==
PROVIDERS: Family Provider Student in an Organized Health Care Education/Training Program; PCP Family Medicine; Referring Provider Orthopaedic Surgery Foot and Ankle Surgery; Visit Provider Orthopaedic Surgery Foot and Ankle Surgery
DX: I70.211 Atherosclerosis of native arteries of extremities with intermittent claudication, right leg (principal); I70.202 Unspecified atherosclerosis of native arteries of extremities, left leg; I72.3 Aneurysm of iliac artery; K82.0 Obstruction of gallbladder; K57.30 Diverticulosis of large intestine without perforation or abscess without bleeding
CPT/HCPCS: 75635; Q9967

== ENCOUNTER → 2023-06-29 12:39 | Outpatient (ROUT) | payer MEDICARE, SELFPAY ==
[2022-07-05 04:28] VITALS: BMI 33.2
[2023-06-29 12:56] LABS: INR 2.6 (0.9-1.3); Prothrombin Time 30.6 SECONDS (9.4-12.5)
== END ==
PROVIDERS: PCP Family Medicine; Visit Provider Family Medicine
DX: Z51.81 Encounter for therapeutic drug level monitoring (principal); I48.91 Unspecified atrial fibrillation; Z79.01 Long term (current) use of anticoagulants
CPT/HCPCS: 85610

== ENCOUNTER 2024-04-13 08:36 | Emergency (ER) | payer MEDICARE, SELFPAY ==
[2022-07-05 04:28] VITALS: BMI 33.2
[2024-04-13] VITALS (9 sets, daily range): BP systolic 134–196; BP diastolic 72–88; PULSE 84–96; RESP 22; TEMP 37; O2SAT 86–97; BMI 32.5
--- NOTE | 2024-04-13 08:47 | DI.RAD.S_ITS ---
PROCEDURE: XR CHEST 1V INDICATIONS: Shortness of breath TECHNIQUE: One view of the chest was acquired. COMPARISON: [facility], , CHEST 1 VIEW, 10/31/2015, 3:17. [facility], , XR CHEST 1V, 07/04/2022, 16:20. FINDINGS: Surgical changes and devices: Left chest pacemaker with leads appearing intact. Lungs and pleura: Mild left linear basilar atelectasis. There appears to be a stable 0.6 mm right perihilar pulmonary nodule, unchanged since 2016. No pleural effusions or pneumothorax. Mediastinum: Mediastinal contours appear normal. Heart size is enlarged. Bones and chest wall: No suspicious bony lesions. Overlying soft tissues appear unremarkable. IMPRESSION: No acute cardiopulmonary abnormality is seen. Dictated by: Liu Gallagher M.D. on 04/13/2024 at 9:46 Approved by: Liu Gallagher M.D. on 04/13/2024 at 9:48
--- NOTE | 2024-04-13 08:50 | EKG_ITS ---
[address] [address] Test Date: 2024-04-13 Pat Name: Pan Crook Department: Room: Gender: Male Zyglo Inspector: CONNOR : 1935 Requested By: Order Number: [id number] Reading MD: Eros Zacarias MD Measurements Intervals [place] Rate: 89 P: 59 CT: 256 QRS: 38 QRSD: 80 T: 33 QT: 338 QTc: 411 Interpretive Statements Sinus rhythm with 1st degree AV block with premature supraventricular complexes Electronically Signed On 04-13-2024 9:32:03 PST by Eros Zacarias MD
--- NOTE | 2024-04-13 09:04 | ED.SOB ---
HPI - SOB/Dyspnea General Chief Complaint: Shortness of Breath/Dyspnea Stated Complaint: diff breathing Time Seen by Provider: 04/13/24 08:48 Source: patient Mode of arrival: Family Vehicle Limitations: no limitations History of Present Illness HPI Narrative: Patient is an 88-year-old male with a history of elevated PSA level, hypertension, hyperlipidemia, long-standing low back pain, atrial fibrillation with a pacemaker, and on anticoagulation (Eliquis), who presents with shortness of breath primarily at night for the past few days. The patient reports not being able to lay flat and sleeps in a reclining chair. He denies a history of heart failure or fluid retention but mentions a long-standing issue with mucus production, which has increased over the past six months. He also reports episodes of waking up at night with shallow breathing and a sensation of not having any thoughts. He denies chest pain, palpitations, fever, or chills. The patient takes hydrocortisone nightly for back and leg pain. Medications: Eliquis, hydrocortisone. Past Medical History: Elevated PSA level, hypertension, hyperlipidemia, long-standing low back pain, atrial fibrillation with a pacemaker,. Related Data Home Medications Medication Instructions Recorded Confirmed losartan 50 mg tablet 25 mg PO BID ##0 02/15/11 09/21/21 multivitamin (Multiple Vitamins 1 tab PO DAILY ##0 08/19/16 07/05/22 tablet) magnesium 250 mg tablet 250 mg PO DAILY 10/25/19 07/05/22 acetaminophen 500 mg capsule 500 mg PO Q6H PRN Pain, Moderate 11/13/20 07/05/22 ezetimibe 10 mg tablet 10 mg PO DAILY 11/13/20 07/05/22 omega-3 fatty acids 1,000 mg 2,000 mg PO DAILY 11/13/20 07/05/22 capsule omeprazole 20 mg capsule,delayed 20 mg PO BID 11/13/20 07/05/22 release polyethylene glycol 3350 17 17 g PO DAILY PRN Constipation 11/13/20 09/21/21 gram/dose oral powder famotidine 20 mg tablet 20 mg PO BID 09/21/21 09/21/21 metoprolol tartrate 25 mg tablet 25 mg PO DAILY 09/21/21 09/21/21 tamsulosin 0.4 mg capsule 0.4 mg PO BID 09/21/21 07/05/22 torsemide 20 mg tablet 40 mg PO DAILY 09/21/21 09/21/21 trazodone 50 mg tablet 50 mg PO QPM PRN Insomnia 09/21/21 07/05/22 warfarin 5 mg tablet 5 mg PO DAILY 09/21/21 07/05/22 Allergies Allergy/AdvReac Type Severity Reaction Status Date / Time benzocaine [From CETACAINE] Allergy Mild ANAPHYLAXSI Verified 09/21/21 00:54 S butamben [From CETACAINE] Allergy Mild ANAPHYLAXSI Verified 09/21/21 00:54 S tetracaine [From CETACAINE] Allergy Mild ANAPHYLAXSI Verified 09/21/21 00:54 S clonidine [CLONIDINE] Allergy Unknown Verified 09/21/21 00:54 Beta-Adrenergic Agents AdvReac Unknown WEAK,TIRED, Verified 09/21/21 00:54 [BETA-ADRENERGIC AGENTS] HARD TO FUNCTION Review of Systems Review of Systems Narrative: Constitutional: No fever or chills. Respiratory: Shortness of breath primarily at night, increased mucus production. Cardiovascular: No chest pain or palpitations. Gastrointestinal: No nausea, vomiting, or diarrhea. Genitourinary: No dysuria or hematuria. Musculoskeletal: Long-standing low back pain. Neurological: Episodes of waking up at night with shallow breathing and a sensation of not having any thoughts. Psychiatric: No anxiety or depression. Endocrine: No polyuria or polydipsia. Hematologic/Lymphatic: No easy bruising or bleeding. Allergic/Immunologic: No known allergies. Patient History Medical History BPH w urinary obs/LUTS History of elevated PSA Hyperlipidemia Hypertension Low back pain Social History household members: spouse Smoking Status: Never smoker Smoking Status: Never smoker alcohol intake frequency: holidays/special occasions only Exam Narrative Exam Narrative: General: Well appearing, well nourished, in no distress. Skin: Good turgor, no rash, unusual bruising or prominent lesions. Head: Normocephalic, atraumatic. HEENT: Conjunctiva clear, EOM intact, PERRL, mucous membranes moist. Neck: Supple, normal ROM. Heart: Regular rate and rhythm, no murmur or gallop or rubs. Lungs: Clear to auscultation bilaterally. No rales, rhonchi, or wheezes. Abdomen: Soft and nontender. Bowel sounds normal. No mass or hernia. Back: Spine normal without deformity or tenderness, no CVA tenderness. Extremities: No deformities, edema. Peripheral pulses intact. Neurologic: CN 2-12 normal. Normal sensation and motor exam. Psychiatric: Oriented X3. Normal mood and affect. Initial Vital Signs Initial Vital Signs: Vital Signs Temperature 98.6 F 04/13/24 08:48 Pulse Rate 96 H 04/13/24 08:48 Respiratory Rate 22 04/13/24 08:48 Blood Pressure 196/88 H 04/13/24 08:48 Pulse Oximetry 86 L 04/13/24 08:48 Oxygen Delivery Method Room Air 04/13/24 08:48 Course Orders Ordered: ED Orders 04/13/24 08:47 XR chest 1V Stat EKG-12 Lead Stat Measure peak expiratory flow ONCE RT Consult Eval and Treat NOW 04/13/24 09:00 Covid-19 + FLU A/B + RSV - PCR Stat 04/13/24 09:39 Complete Blood Count AUTO DIFF Stat Comprehensive Metabolic Panel Stat Lactate (Lactic Acid) Stat NT-proBNP (BNP-Adult 18+) Stat Prothrombin Time INR Stat Troponin I Stat Vital Signs Vital signs: Vital Signs - 8 hr 04/13/24 08:48 04/13/24 08:54 04/13/24 09:00 Temperature 98.6 F Pulse Rate 96 H 95 H 88 Respiratory Rate 22 Blood Pressure 196/88 H Pulse Oximetry 86 L 95 95 Oxygen Delivery Method Room Air 04/13/24 09:01 04/13/24 09:01 04/13/24 09:30 Temperature Pulse Rate 90 Respiratory Rate Blood Pressure 172/80 H 134/76 Pulse Oximetry 94 Oxygen Delivery Method 04/13/24 09:30 04/13/24 10:00 04/13/24 10:00 Temperature Pulse Rate 89 84 Respiratory Rate Blood Pressure 144/72 H Pulse Oximetry 97 95 Oxygen Delivery Method 04/13/24 10:30 04/13/24 10:30 Temperature Pulse Rate 85 Respiratory Rate Blood Pressure 160/73 H Pulse Oximetry 96 Oxygen Delivery Method MDM - SOB/Dyspnea Lab Data 04/13/24 09:39 04/13/24 09:39 Labs: Lab Results 04/13/24 04/13/24 Range/Units 09:00 09:39 WBC 6.7 (4.5-11.0) X10^3/uL RBC 4.03 L (4.5-5.9) X10^6/uL Hgb 11.3 L (13.5-17.5) g/dL Hct 34.4 L (41-53) % MCV 85.5 (80-100) fL MCH 28.1 (26-34) PG MCHC 32.9 (30-36) % RDW 14.7 (11.6-14.8) % Plt Count 213 (150-400) X10^3/uL Neut % (Auto) 74.9 (50-75) % Lymph % (Auto) 13.7 L (25-40) % [place] % (Auto) 7.5 (3-14) % Eos % (Auto) 3.1 (2-4) % Baso % (Auto) 0.8 (0-2) % Neut # (Auto) 5000 (5736-3443) /uL Lymph # (Auto) 900 L (4253-0792) /uL [place] # (Auto) 500 (0-900) /uL Eos # (Auto) 200 (0-450) /uL Baso # (Auto) 100 (0-100) /uL PT 13.5 H (9.4-12.5) SECONDS INR 1.2 (0.9-1.3) Sodium 137 (137-145) mmol/L Potassium 4.4 (3.4-5.1) mmol/L Chloride 103 (98-107) mmol/L Carbon Dioxide 26 (22-32) mmol/L BUN 25 H (9-20) mg/dL Creatinine 1.78 H (0.66-1.25) mg/dL Estimated GFR 36 L (>60) mL/min BUN/Creatinine Ratio 14.0 (6-22) Glucose 110 (80-110) mg/dL Lactate 0.9 (0.7-2.1) mmol/L Calcium 9.0 (8.4-10.2) mg/dL Total Bilirubin 0.6 (0.2-1.3) mg/dL AST 28 (17-59) IU/L ALT 21 (<50) IU/L Alkaline Phosphatase 53 (38-126) U/L Troponin I < 0.012 (0.01-0.034) ng/mL NT-Pro-B Natriuret Pep 949 H (<450) pg/mL Total Protein 6.8 (6.3-8.2) g/dL Albumin 4.1 (3.5-5.0) g/dL Globulin 2.7 (1.7-4.1) g/dL Albumin/Globulin Ratio 1.5 (1.0-2.8) SARS-CoV-2 (PCR) Negative (Negative) Influenza A (RT-PCR) Flu a negative (NEGATIVE) Influenza B (RT-PCR) Flu b negative (NEGATIVE) RSV (PCR) Negative (Negative) On review of patient's lab data he has negative influenza, COVID or RSV. -patient's BNP mildly raised at 9:49 a.m. however this appears to be not significantly elevated from previous values and clinically he does not have significant edema in his lower extremities -patient's creatinine is 1.78 however this appears to be in line with his previous values does not appear to have a significant RAY or significant change from previous -patient's electrolytes otherwise did not have any acute abnormalities that will require hospital intervention -patient has no elevated leukocytosis, lactate is negative both reassuring Imaging Data Chest x-ray: Attestation: I personally reviewed and interpreted this imaging study as follows: My Impression: Non independent evaluation of patient's chest x-ray I see mild haziness of the right side, no discrete consolidation Radiologist's Impression: Radiologist impression is for no acute intrathoracic abnormality, no consolidation, chronic right-sided changes ECG Data Attestation: I personally reviewed and interpreted this ECG as follows: Interpretation: On independent review of patient's EKG we have a rate of 89, unclear atrial flutter versus sinus with variable AV block, no significant ST elevation or depression, no signs of STEMI, no previous for comparison MDM Narrative Medical decision making narrative: INITIAL EVALUATION AND PLAN: - Obtain EKG. - Measure troponin level. - Assess cardiac BNP level. - Perform chest X-ray. - Evaluate for potential infection or pneumonia. - Consider further evaluation by a production technician for increased mucus production. Differential diagnosis includes but is not limited to COVID, influenza, pneumonia interstitial lung disease, COPD exacerbation CHF exacerbation On evaluation of patient's labs as discussed above overall reassuring, reassuring imaging with no signs of infectious process, doubt CHF exacerbation with none significantly elevated BNP, heart rate within normal limits, already being treated for paroxysmal AFib/flutter no need for acute intervention at this time appears to have adequate rate control. COVID and influenza panel negative -very low suspicion for pneumothorax given chronicity of patient's symptoms no signs of DVT on exam, no significant tachycardia, no significant hypoxia -we discussed return precautions to the emergency department and I encouraged the patient to follow up with PCP/to get a production technician appointment in the future for ongoing management of his chronic mucus production Discharge Plan Departure Patient Disposition: Home Clinical Impression: Breath shortness Activity Restrictions/Additional Instructions: You were seen in the emergency department today for shortness of breath fortunately you had reassuring chest x-ray, EKG and lab work. If you have worsening shortness of breath, fevers, chills, chest pain please return to the ED for re-evaluation. Please call your primary care physician in order to obtain a follow-up appointment and seek potential pulmonology consultation in the future Prescriptions: No Action losartan 50 MG tablet 25 mg PO BID Qty: 0 multivitamin [Multiple Vitamins] 1 EACH tablet 1 tab PO DAILY Qty: 0 tamsulosin 0.4 mg capsule 0.4 mg PO BID torsemide 20 mg tablet 40 mg PO DAILY Patient Comments: Take 1 tablet by mouth once a day trazodone 50 mg tablet 50 mg PO QPM PRN (Reason: Insomnia) Patient Comments: Take 1 tablet by mouth at bedtime famotidine 20 mg Tablet 20 mg PO BID metoprolol tartrate 25 mg tablet 25 mg PO DAILY Patient Comments: Take 1 tablet by mouth once a day warfarin 5 mg tablet 5 mg PO DAILY Patient Comments: Take 1 tablet by mouth once a day acetaminophen 500 mg capsule 500 mg PO Q6H PRN (Reason: Pain, Moderate) ezetimibe 10 mg tablet 10 mg PO DAILY omega-3 fatty acids 1,000 mg capsule 2,000 mg PO DAILY omeprazole 20 mg capsule,delayed release(DR/EC) 20 mg PO BID polyethylene glycol 3350 17 gram/dose powder 17 g PO DAILY PRN (Reason: Constipation) magnesium 250 mg tablet 250 mg PO DAILY Referrals: Desi Frausto MD [Primary Care Provider] - Stand Alone Forms: Patient Portal/API/Survey
[2024-04-13 09:48] LABS: Add Manual Diff / Slide Review NO; Basophils Absolute Auto 100 /uL (0-100); Basophils Percent Auto 0.8 % (0-2); Eosinophils Absolute Auto 200 /uL (0-450); Eosinophils Percent Auto 3.1 % (2-4); Hematocrit 34.4 % (41-53); Hemoglobin 11.3 g/dL (13.5-17.5); Lymphocytes Absolute Auto 900 /uL (1100-4500); Lymphocytes Percent Auto 13.7 % (25-40); Mean Corpuscular HGB Conc 32.9 % (30-36); Mean Corpuscular Hemoglobin 28.1 PG (26-34); Mean Corpuscular Volume 85.5 fL (80-100); Monocytes Absolute Auto 500 /uL (0-900); Monocytes Percent Auto 7.5 % (3-14); Neutrophils Absolute Auto 5000 /uL (1500-7000); Neutrophils Percent Auto 74.9 % (50-75); Platelet Count 213 X10^3/uL (150-400); Red Blood Cell Count 4.03 X10^6/uL (4.5-5.9); Red Cell Distribution Width 14.7 % (11.6-14.8); White Blood Cell Count 6.7 X10^3/uL (4.5-11.0)
[2024-04-13 09:58] LABS: Influenza A - CEPHEID Flu A NEGATIVE (NEGATIVE); Influenza B - CEPHEID Flu B NEGATIVE (NEGATIVE); Respiratory Syncytial Virus Negative (Negative)
[2024-04-13 09:59] LABS: COVID-19 CEPHEID 4-PLEX PCR Negative (Negative)
[2024-04-13 09:59] LABS: Alanine Aminotransferase 21 IU/L (<50); Albumin 4.1 g/dL (3.5-5.0); Albumin Globulin Ratio 1.5 (1.0-2.8); Alkaline Phosphatase 53 U/L (38-126); Aspartate Aminotransferase 28 IU/L (17-59); Bilirubin Total 0.6 mg/dL (0.2-1.3); Blood Urea Nitrogen 25 mg/dL (9-20); Carbon Dioxide 26 mmol/L (22-32); Chloride 103 mmol/L (98-107); Estimated Glomerular Filt Rate 36 mL/min (>60); Globulin 2.7 g/dL (1.7-4.1); Glucose 110 mg/dL (80-110); HEMOLYSIS < 15 (0-50); INR 1.2 (0.9-1.3); Potassium 4.4 mmol/L (3.4-5.1); Prothrombin Time 13.5 SECONDS (9.4-12.5); Sodium 137 mmol/L (137-145); Total Protein 6.8 g/dL (6.3-8.2)
[2024-04-13 10:00] LABS: Lactate (Lactic Acid) 0.9 mmol/L (0.7-2.1)
[2024-04-13 10:11] LABS: NT-proBNP (BNP-Adult 18+) 949 pg/mL (<450); Troponin I < 0.012 ng/mL (0.01-0.034)
== END 2024-04-13 11:39 | disposition home or self-care (01) ==
PROVIDERS: Emergency Provider Emergency Medicine; PCP Family Medicine
DX: R06.02 Shortness of breath (principal); I10 Essential (primary) hypertension; E78.5 Hyperlipidemia, unspecified; M54.50 Low back pain, unspecified; I48.91 Unspecified atrial fibrillation; Z79.01 Long term (current) use of anticoagulants; Z95.0 Presence of cardiac pacemaker; I44.0 Atrioventricular block, first degree
CPT/HCPCS: 0241U; 36415; 71045; 80053; 83605; 83880; 84484; 85025; 85610; 93005; 93010; 99283; 99284

== ENCOUNTER 2024-05-04 04:38 | Emergency (ER) | payer MEDICARE, SELFPAY ==
[2022-07-05 04:28] VITALS: BMI 33.2
[2024-05-04 04:48] VITALS: BP 140/70; PULSE 66; RESP 18; O2SAT 94; BMI 32.4
--- NOTE | 2024-05-04 04:56 | ED_ITS ---
HPI - Back Pain/Injury General Chief Complaint: Back Pain/Injury Stated Complaint: Possible obstruction in intestine Time Seen by Provider: 05/04/24 04:56 Source: patient History of Present Illness HPI Narrative: 88-year-old male past medical history of hypertension, a fib on Eliquis with pacemaker, chronic low back pain, hyperlipidemia, presents to the emergency department for evaluation of persistent low back pain consistent with history of denies any numbness weakness tingling to lower extremities is able to stand bear weight ambulate unassisted here in the emergency department. Patient also complaining of a abdominal pain/constipation. States that he is worried he might have a small bowel obstruction. States he does not have a history of this as well as has not had any history of abdominal surgery. He states that he did take Motrin for his back pain prior to arrival as well as [place] without much relief therefore decided come into the ED for further evaluation treatment. To note patient does state that he takes hydrocodone nightly for his back pain. Related Data Home Medications Medication Instructions Recorded Confirmed losartan 50 mg tablet 25 mg PO BID ##0 02/15/11 09/21/21 multivitamin (Multiple Vitamins 1 tab PO DAILY ##0 08/19/16 07/05/22 tablet) magnesium 250 mg tablet 250 mg PO DAILY 10/25/19 07/05/22 acetaminophen 500 mg capsule 500 mg PO Q6H PRN Pain, Moderate 11/13/20 07/05/22 ezetimibe 10 mg tablet 10 mg PO DAILY 11/13/20 07/05/22 omega-3 fatty acids 1,000 mg 2,000 mg PO DAILY 11/13/20 07/05/22 capsule omeprazole 20 mg capsule,delayed 20 mg PO BID 11/13/20 07/05/22 release polyethylene glycol 3350 17 17 g PO DAILY PRN Constipation 11/13/20 09/21/21 gram/dose oral powder famotidine 20 mg tablet 20 mg PO BID 09/21/21 09/21/21 metoprolol tartrate 25 mg tablet 25 mg PO DAILY 09/21/21 09/21/21 tamsulosin 0.4 mg capsule 0.4 mg PO BID 09/21/21 07/05/22 torsemide 20 mg tablet 40 mg PO DAILY 09/21/21 09/21/21 trazodone 50 mg tablet 50 mg PO QPM PRN Insomnia 09/21/21 07/05/22 warfarin 5 mg tablet 5 mg PO DAILY 09/21/21 07/05/22 Previous Rx's Medication Instructions Recorded methylprednisolone 4 mg tablets in See Rx Instructions PO .COMPLEX 05/04/24 a dose pack (Medrol (Rusty)) #21 ea Allergies Allergy/AdvReac Type Severity Reaction Status Date / Time benzocaine [From CETACAINE] Allergy Mild ANAPHYLAXSI Verified 09/21/21 00:54 S butamben [From CETACAINE] Allergy Mild ANAPHYLAXSI Verified 09/21/21 00:54 S tetracaine [From CETACAINE] Allergy Mild ANAPHYLAXSI Verified 09/21/21 00:54 S clonidine [CLONIDINE] Allergy Unknown Verified 09/21/21 00:54 Beta-Adrenergic Agents AdvReac Unknown WEAK,TIRED, Verified 09/21/21 00:54 [BETA-ADRENERGIC AGENTS] HARD TO FUNCTION Review of Systems Review of Systems Narrative: General: Denies fever, chills, weight loss HEENT: Denies headache, eye drainage, eye irritation, head trauma, sore throat, voice change Cardiovascular: Denies any chest pain, palpitations, tachycardia Respiratory: Denies any shortness of breath, cough, wheeze, stridor GI/: Positive abdominal pain, constipation, denies nausea, vomiting, diarrhea, bright red blood per rectum, melanotic stools, urinary frequency, urinary retention, dysuria, hematuria MSK: Positive low back pain Skin: Denies any rashes, lesions, discoloration Neuro: Denies any headache, lightheadedness, dizziness, fainting, weakness Psych: Denies SI/HI Patient History Medical History BPH w urinary obs/LUTS History of elevated PSA Hyperlipidemia Hypertension Low back pain Social History household members: spouse Smoking Status: Never smoker Smoking Status: Never smoker alcohol intake frequency: holidays/special occasions only Exam Narrative Exam Narrative: General: Cooperative, comfortable, well-developed, not in acute distress HEENT: Normocephalic, atraumatic, PERRLA, normal sclera, eyelids normal, Neck: Active full range of motion, atraumatic Chest: Normal to inspection, negative crepitus, no overlying erythema ecchymosis Respiratory: Normal respiratory effort, not in acute respiratory distress, clear to auscultation bilaterally negative cough, wheeze, tachypnea, rhonchi, rales Cardiology: Regular rate rhythm negative gallop, murmur, rubs GI/: Normal to inspection, soft, nonrigid, no tenderness to palpation, exam deferred MSK: Full range of active range of motion of all 4 extremities, atraumatic, there is no tenderness to palpation of the midline thoracic lumbar spine patient is able to stand bear weight ambulate unassisted here in the emergency department Skin: No rashes lesions noted Neuro: Alert awake oriented x3, moves all 4 extremities spontaneously, cranial nerves intact, able to answer all questions appropriately follows commands appropriately Psych: Cooperative, negative suicidal or homicidal ideations Initial Vital Signs Initial Vital Signs: Vital Signs Pulse Rate 66 05/04/24 04:48 Respiratory Rate 18 05/04/24 04:48 Blood Pressure 140/70 05/04/24 04:48 Pulse Oximetry 94 05/04/24 04:48 Oxygen Delivery Method Room Air 05/04/24 04:48 Course Orders Ordered: ED Orders 05/04/24 05:00 CT abdomen pelvis w con Stat 05/04/24 05:01 CBC Auto Diff [Complete Blood Count AUTO DIFF] Stat CMP [Comprehensive Metabolic Panel] Stat Lactate (Lactic Acid) Stat Lipase Stat MAG [Magnesium] Stat Sodium Chloride (Normal Saline 0.9%) 1,000 mls @ 1,000 mls/hr IV BOLUS ONE Stop: 05/04/24 06:24 Discontinued Medications Diazepam (Diazepam 10 Mg/2 Ml Syringe) 2 mg IV NOW ONE Stop: 05/04/24 04:59 Last Admin: 05/04/24 05:04 Dose: 2 mg Documented By: BEN Magnesium Sulfate (Magnesium Sulfate) 2 gm in 50 mls @ 150 mls/hr IV NOW ONE Stop: 05/04/24 05:45 Ondansetron HCl (Ondansetron 4 Mg/2 Ml Inj) 4 mg IV NOW ONE Stop: 05/04/24 04:59 Last Admin: 05/04/24 05:05 Dose: 4 mg Documented By: BEN Prednisone (Prednisone 20 Mg Tablet) 20 mg PO NOW ONE Stop: 05/04/24 04:59 Last Admin: 05/04/24 05:04 Dose: 20 mg Documented By: BEN Vital Signs Vital signs: Vital Signs - 8 hr 05/04/24 04:48 Pulse Rate 66 Respiratory Rate 18 Blood Pressure 140/70 Pulse Oximetry 94 Oxygen Delivery Method Room Air MDM - Back Pain/Injury Differential Diagnosis Differential diagnosis: Likely lumbar radiculopathy, sciatica, thoracic back pain and other (Electrolyte abnormality, small-bowel obstruction) Lab Data 05/04/24 05:01 05/04/24 05:01 Labs: Lab Results 05/04/24 Range/Units 05:01 WBC 7.9 (4.5-11.0) X10^3/uL RBC 4.53 (4.5-5.9) X10^6/uL Hgb 12.6 L (13.5-17.5) g/dL Hct 38.9 L (41-53) % MCV 86.0 (80-100) fL MCH 27.9 (26-34) PG MCHC 32.4 (30-36) % RDW 14.9 H (11.6-14.8) % Plt Count 214 (150-400) X10^3/uL Neut % (Auto) 67.6 (50-75) % Lymph % (Auto) 20.1 L (25-40) % [place] % (Auto) 9.5 (3-14) % Eos % (Auto) 2.2 (2-4) % Baso % (Auto) 0.6 (0-2) % Neut # (Auto) 5300 (1674-4953) /uL Lymph # (Auto) 1600 (6156-0420) /uL [place] # (Auto) 800 (0-900) /uL Eos # (Auto) 200 (0-450) /uL Baso # (Auto) 100 (0-100) /uL Sodium 137 (137-145) mmol/L Potassium 3.8 (3.4-5.1) mmol/L Chloride 93 L (98-107) mmol/L Carbon Dioxide 29 (22-32) mmol/L BUN 46 H (9-20) mg/dL Creatinine 2.76 H (0.66-1.25) mg/dL Estimated GFR 21 L (>60) mL/min BUN/Creatinine Ratio 16.7 (6-22) Glucose 124 H (80-110) mg/dL Lactate 1.4 (0.7-2.1) mmol/L Calcium 9.2 (8.4-10.2) mg/dL Magnesium 1.1 L (1.6-2.3) mg/dL Total Bilirubin 0.5 (0.2-1.3) mg/dL AST 31 (17-59) IU/L ALT 23 (<50) IU/L Alkaline Phosphatase 57 (38-126) U/L Total Protein 7.7 (6.3-8.2) g/dL Albumin 4.7 (3.5-5.0) g/dL Globulin 3.0 (1.7-4.1) g/dL Albumin/Globulin Ratio 1.6 (1.0-2.8) Lipase 179 (23-300) U/L Imaging Data CT scan - abdomen/pelvis: Radiologist's Impression: Preliminary read showing no evidence of colitis diverticulitis bowel obstruction obstructive uropathy or acute appendicitis, no suspicious lytic sclerotic osseous lesions in the thoracolumbar spine MDM Narrative Medical decision making narrative: 88-year-old male with a past medical history of AFib on Eliquis with pacemaker, hypertension, hyperlipidemia, chronic low back pain who takes hydrocodone nightly for this comes into the ED for evaluation of low back pain exacerbation as well as abdominal pain constipation. He states that he had small bowel movement yesterday now feels constipated, has also stating that he is having worsening exacerbation of his chronic low back pain, states that he took his normal medication without much relief therefore decided come into the ED for further evaluation treatment. On exam he is neurovascularly intact he has no red flags for cauda equina is able to stand bear weight ambulate at his baseline here in the emergency department. No numbness weakness tingling to lower extremities. No saddle paresthesias. Patient had CT scan of the abdomen. Patient lab work WBC 7.9 hemoglobin 12.6 creatinine 2.76 which is near patient's baseline, magnesium was decreased at 1.1, this was repleted with 2 g IV Mag patient received 2 mg IV Valium p.o. prednisone with significant improvement of her symptoms. CT without any acute findings, patient will be sent home with steroids and instructed to follow up with primary care in an outpatient setting for continued evaluation treatment of his chronic low back pain. Discharge Plan Departure Patient Disposition: Home Clinical Impression: Acute exacerbation of chronic low back pain, Hypomagnesemia Activity Restrictions/Additional Instructions: Please follow up with your primary care doctor Please read the discharge instructions sheet carefully and bring all papers to all doctor follow-up visits, as it may contain information that your doctor may want to see. Disease processes change and evolve, if your symptoms worsen or if you develop any new symptoms that are concerning to you please return for evaluation. Your evaluation today does not show any evidence of any life- threatening/serious illnesses requiring admission to the hospital or surgery. Please follow-up with your doctor for re-evaluation in approximately 1 day. Seek immediate medical attention for any worrisome symptoms. *If you do not have a primary care provider please contact the [facility] Resource line at [phone]. They will ask some questions about your medical history and help get you set up with a doctor in the community. Prescriptions: New methylprednisolone [Medrol (Rusty)] 4 mg tablets,dose pack See Rx Instructions .ROUTE .COMPLEX Qty: 21 0RF Rx Instructions: orally per package directions No Action losartan 50 MG tablet 25 mg PO BID Qty: 0 multivitamin [Multiple Vitamins] 1 EACH tablet 1 tab PO DAILY Qty: 0 tamsulosin 0.4 mg capsule 0.4 mg PO BID torsemide 20 mg tablet 40 mg PO DAILY Patient Comments: Take 1 tablet by mouth once a day trazodone 50 mg tablet 50 mg PO QPM PRN (Reason: Insomnia) Patient Comments: Take 1 tablet by mouth at bedtime famotidine 20 mg Tablet 20 mg PO BID metoprolol tartrate 25 mg tablet 25 mg PO DAILY Patient Comments: Take 1 tablet by mouth once a day warfarin 5 mg tablet 5 mg PO DAILY Patient Comments: Take 1 tablet by mouth once a day acetaminophen 500 mg capsule 500 mg PO Q6H PRN (Reason: Pain, Moderate) ezetimibe 10 mg tablet 10 mg PO DAILY omega-3 fatty acids 1,000 mg capsule 2,000 mg PO DAILY omeprazole 20 mg capsule,delayed release(DR/EC) 20 mg PO BID polyethylene glycol 3350 17 gram/dose powder 17 g PO DAILY PRN (Reason: Constipation) magnesium 250 mg tablet 250 mg PO DAILY Referrals: Desi Frausto MD [Primary Care Provider] - Stand Alone Forms: Patient Portal/API/Survey
[2024-05-04 04:59] VITALS: PULSE 84; O2SAT 94
[2024-05-04 05:00] VITALS: BP 143/67; PULSE 90; O2SAT 93
--- NOTE | 2024-05-04 05:00 | DI.CT.S_ITS ---
PROCEDURE: CT ABDOMEN PELVIS W CON INDICATIONS: Abdominal pain, constipation, with lumbar pain TECHNIQUE: After the administration of intravenous contrast, axial sections acquired from the lung bases to the pubic symphysis. Coronal and sagittal reformats were performed. For radiation dose reduction, the following was used: automated exposure control, adjustment of mA and/or kV according to patient size. COMPARISON: [facility], CT, CT ABDOMEN PELVIS W CON, 11/14/2019, 12:51. FINDINGS: Image quality: Diagnostic. Lower Chest: No significant findings. ABDOMEN: Liver: No solid mass. Gallbladder: Contracted . Biliary ducts: No biliary dilation. Pancreas: No ductal dilation. Spleen: Size is within normal limits. Adrenal Glands: No adrenal nodules. Kidneys and Ureters: No hydronephrosis. No solid mass. No complex renal cystic lesion which requires follow up. Stomach and Bowel: Normal colonic caliber, without significant wall thickening. Colonic diverticulosis without evidence of diverticulitis. Normal appendix. Peritoneum: No abnormal intraperitoneal fluid. No free air. Ventral Wall: No significant ventral hernia. Prior umbilical hernia repair. Abdominal Nodes: No retroperitoneal or mesenteric adenopathy by size criteria. Vessels: Aorta and inferior vena cava are normal in size. PELVIS: Pelvic Organs: Unremarkable. Bladder: No bladder wall thickening, accounting for underdistention. Pelvic Nodes: No enlarged lymph nodes. Miscellaneous: No inguinal hernias are seen. Bones: No aggressive osseous abnormality. IMPRESSION: No acute abnormality. Agree with preliminary report. Dictated by: Eladio Marie M.D. on 05/04/2024 at 8:44 Approved by: Eladio Marie M.D. on 05/04/2024 at 8:49
[2024-05-04] MEDS: diazePAM 10 MG/2 ML SYRINGE 2 MG IV (05:04)
[2024-05-04] MEDS: predniSONE 20 MG TABLET PO (05:04)
[2024-05-04] MEDS: ONDANSETRON 4 MG/2 ML INJ IV (05:05)
[2024-05-04 05:13] LABS: Add Manual Diff / Slide Review NO; Basophils Absolute Auto 100 /uL (0-100); Basophils Percent Auto 0.6 % (0-2); Eosinophils Absolute Auto 200 /uL (0-450); Eosinophils Percent Auto 2.2 % (2-4); Hematocrit 38.9 % (41-53); Hemoglobin 12.6 g/dL (13.5-17.5); Lymphocytes Absolute Auto 1600 /uL (1100-4500); Lymphocytes Percent Auto 20.1 % (25-40); Mean Corpuscular HGB Conc 32.4 % (30-36); Mean Corpuscular Hemoglobin 27.9 PG (26-34); Monocytes Absolute Auto 800 /uL (0-900); Monocytes Percent Auto 9.5 % (3-14); Neutrophils Absolute Auto 5300 /uL (1500-7000); Neutrophils Percent Auto 67.6 % (50-75); Platelet Count 214 X10^3/uL (150-400); Red Blood Cell Count 4.53 X10^6/uL (4.5-5.9); Red Cell Distribution Width 14.9 % (11.6-14.8); White Blood Cell Count 7.9 X10^3/uL (4.5-11.0)
[2024-05-04 05:21] LABS: Alanine Aminotransferase 23 IU/L (<50); Albumin 4.7 g/dL (3.5-5.0); Albumin Globulin Ratio 1.6 (1.0-2.8); Alkaline Phosphatase 57 U/L (38-126); Aspartate Aminotransferase 31 IU/L (17-59); BUN Creatinine Ratio 16.7 (6-22); Bilirubin Total 0.5 mg/dL (0.2-1.3); Blood Urea Nitrogen 46 mg/dL (9-20); Calcium 9.2 mg/dL (8.4-10.2); Carbon Dioxide 29 mmol/L (22-32); Chloride 93 mmol/L (98-107); Estimated Glomerular Filt Rate 21 mL/min (>60); Glucose 124 mg/dL (80-110); HEMOLYSIS 18 (0-50); Lactate (Lactic Acid) 1.4 mmol/L (0.7-2.1); Lipase 179 U/L (23-300); Magnesium 1.1 mg/dL (1.6-2.3); Potassium 3.8 mmol/L (3.4-5.1); Sodium 137 mmol/L (137-145); Total Protein 7.7 g/dL (6.3-8.2)
[2024-05-04 05:41] VITALS: PULSE 94; O2SAT 91
[2024-05-04] MEDS: SODIUM CHLORIDE 0.9% 1,000 ML 1000 ML IV (05:48)
[2024-05-04] MEDS: MAGNESIUM SULFATE 2 GM/50 ML PIGGYBACK IV (05:48)
[2024-05-04 05:53] VITALS: BP 108/55; PULSE 89; RESP 16; O2SAT 94
[2024-05-04 06:00] VITALS: BP 112/57; PULSE 92; O2SAT 91
== END 2024-05-04 06:36 | disposition home or self-care (01) ==
PROVIDERS: Emergency Provider Student in an Organized Health Care Education/Training Program; PCP Family Medicine
DX: M54.50 Low back pain, unspecified (principal); E83.42 Hypomagnesemia; R10.9 Unspecified abdominal pain; K59.00 Constipation, unspecified; Z79.01 Long term (current) use of anticoagulants
CPT/HCPCS: 36415; 74177; 80053; 83605; 83690; 83735; 85025; 96365; 96375; 99284; J2405; J3360; J3475; Q9967

== ENCOUNTER 2024-05-15 15:07 | Emergency (ER) | payer MEDICARE, SELFPAY ==
[2022-07-05 04:28] VITALS: BMI 33.2
[2024-05-15] VITALS (18 sets, daily range): BP systolic 126–158; BP diastolic 58–83; PULSE 87–103; RESP 8–26; TEMP 36.3; O2SAT 91–100; BMI 31.7
--- NOTE | 2024-05-15 15:17 | DI.RAD.S_ITS ---
PROCEDURE: XR CHEST 1V INDICATIONS: suspected sepsis TECHNIQUE: One view of the chest was acquired. COMPARISON: [facility], CR, XR CHEST 1V, 04/13/2024, 8:45. [facility], CR, XR CHEST 1V, 07/04/2022, 16:20. FINDINGS: Surgical changes and devices: Left chest wall generator with cardiac leads. Lungs and pleura: Lungs are clear. No pleural effusions or pneumothorax. Mediastinum: Mediastinal contours appear normal. Heart size is normal. Bones and chest wall: No suspicious bony lesions. Overlying soft tissues appear unremarkable. IMPRESSION: No acute cardiopulmonary abnormality is seen. Dictated by: Eladio Marie M.D. on 05/15/2024 at 15:57 Approved by: Eladio Marie M.D. on 05/15/2024 at 15:57
--- NOTE | 2024-05-15 15:17 | EKG_ITS ---
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
[2024-05-15] MEDS: SODIUM CHLORIDE 0.9% 1,000 ML 1000 ML IV (15:46)
--- NOTE | 2024-05-15 15:47 | ED.CHESTPAIN ---
HPI - Chest Pain General Chief Complaint: Weakness Stated Complaint: Dr. Frausto sent in, low BP 80/60 Time Seen by Provider: 05/15/24 15:45 History of Present Illness HPI narrative: 80-year-old gentleman history of atrial fibrillation, acute on chronic back pain, was sent over here from PCP office for concerns with kidney pathology with back pain wanting labs and a CT scan to rule out any acute pathology per the PCP. Pt reports low BP systolic 80s at the office and feeling lightheaded and weak but has since resolved. Other than what is stated 14 pt ROS is negative. Related Data Home Medications Medication Instructions Recorded Confirmed losartan 50 mg tablet 25 mg PO BID ##0 02/15/11 09/21/21 multivitamin (Multiple Vitamins 1 tab PO DAILY ##0 08/19/16 07/05/22 tablet) magnesium 250 mg tablet 250 mg PO DAILY 10/25/19 07/05/22 acetaminophen 500 mg capsule 500 mg PO Q6H PRN Pain, Moderate 11/13/20 07/05/22 ezetimibe 10 mg tablet 10 mg PO DAILY 11/13/20 07/05/22 omega-3 fatty acids 1,000 mg 2,000 mg PO DAILY 11/13/20 07/05/22 capsule omeprazole 20 mg capsule,delayed 20 mg PO BID 11/13/20 07/05/22 release polyethylene glycol 3350 17 17 g PO DAILY PRN Constipation 11/13/20 09/21/21 gram/dose oral powder famotidine 20 mg tablet 20 mg PO BID 09/21/21 09/21/21 metoprolol tartrate 25 mg tablet 25 mg PO DAILY 09/21/21 09/21/21 tamsulosin 0.4 mg capsule 0.4 mg PO BID 09/21/21 07/05/22 torsemide 20 mg tablet 40 mg PO DAILY 09/21/21 09/21/21 trazodone 50 mg tablet 50 mg PO QPM PRN Insomnia 09/21/21 07/05/22 warfarin 5 mg tablet 5 mg PO DAILY 09/21/21 07/05/22 Previous Rx's Medication Instructions Recorded methylprednisolone 4 mg tablets in See Rx Instructions PO .COMPLEX 05/04/24 a dose pack (Medrol (Rusty)) #21 ea Allergies Allergy/AdvReac Type Severity Reaction Status Date / Time benzocaine [From CETACAINE] Allergy Mild ANAPHYLAXSI Verified 09/21/21 00:54 S butamben [From CETACAINE] Allergy Mild ANAPHYLAXSI Verified 09/21/21 00:54 S tetracaine [From CETACAINE] Allergy Mild ANAPHYLAXSI Verified 09/21/21 00:54 S clonidine [CLONIDINE] Allergy Unknown Verified 09/21/21 00:54 Beta-Adrenergic Agents AdvReac Unknown WEAK,TIRED, Verified 09/21/21 00:54 [BETA-ADRENERGIC AGENTS] HARD TO FUNCTION Review of Systems Review of Systems ROS Unobtainable: All systems reviewed & are unremarkable except as noted in HPI and below Patient History Medical History History of elevated PSA BPH w urinary obs/LUTS Hypertension Hyperlipidemia Low back pain Social History household members: spouse Smoking Status: Never smoker Smoking Status: Never smoker alcohol intake frequency: holidays/special occasions only Exam Narrative Exam Narrative: GENERAL: [] year old patient appears stated age. Well-developed patient, in mild distress. HEAD: Atraumatic. Normocephalic. EYES: Pupils equal round and reactive. Extraocular motions intact. No scleral icterus. No injection or drainage. ENT: Nose without bleeding, purulent drainage. Throat without erythema, tonsillar hypertrophy or exudate. Airway patent. NECK: Trachea midline. Non tender CARDIOVASCULAR: Irregularly irregualr, without murmurs, gallops, or rubs. RESPIRATORY: Clear to auscultation. Breath sounds equal bilaterally. No wheezes, rales, or rhonchi. GASTROINTESTINAL: Abdomen soft, non-tender, nondistended. EXTREMITIES: No edema or joint tenderness. BACK: Nontender without deformity or crepitance. No flank tenderness. NEURO: AOx3. SKIN: No rash or erythema of visible areas Initial Vital Signs Initial Vital Signs: Vital Signs Temperature 97.4 F L 05/15/24 15:12 Pulse Rate 88 05/15/24 15:12 Respiratory Rate 20 05/15/24 15:12 Blood Pressure 137/83 05/15/24 15:12 Pulse Oximetry 99 05/15/24 15:12 Oxygen Delivery Method Room Air 05/15/24 15:12 Course Orders Ordered: ED Orders 05/15/24 15:17 XR chest 1V Stat EKG-12 Lead Stat RT Consult Eval and Treat NOW 05/15/24 15:40 Complete Blood Count AUTO DIFF Stat Comprehensive Metabolic Panel Stat Lactate (Lactic Acid) Stat Lipase Stat PTT Partial Thromboplastin Ruddy Stat Procalcitonin Stat Prothrombin Time INR Stat 05/15/24 16:30 Blood Culture Stat 05/15/24 17:24 CT abdomen pelvis wo con Stat Ondansetron HCl (Ondansetron 4 Mg/2 Ml Inj) 4 mg IV NOW PRN PRN Reason: Nausea And Vomiting Ondansetron HCl (Ondansetron 4 Mg Odt) 4 mg SL NOW PRN PRN Reason: Nausea And Vomiting Discontinued Medications Sodium Chloride (Normal Saline 0.9%) 1,000 mls @ 1,000 mls/hr IV BOLUS ONE Stop: 05/15/24 16:16 Last Infusion: 05/15/24 17:00 Dose: Infused Documented By: Admin: 05/15/24 15:46 Dose: 1,000 mls/hr Documented By: ALEJANDRO Potassium Chloride (Potassium Chloride 20 Meq Tab) 40 meq PO NOW ONE Stop: 05/15/24 18:07 Last Admin: 05/15/24 18:18 Dose: 40 meq Documented By: ALEJANDRO Vital Signs Vital signs: Vital Signs - 8 hr 05/15/24 15:12 05/15/24 15:22 05/15/24 15:23 Temperature 97.4 F L Pulse Rate 88 94 H Respiratory Rate 20 22 Blood Pressure 137/83 136/76 Pulse Oximetry 99 95 Oxygen Delivery Method Room Air 05/15/24 15:30 05/15/24 15:46 05/15/24 15:46 Temperature Pulse Rate 92 H 92 H Respiratory Rate 10 L 16 Blood Pressure 137/75 Pulse Oximetry 97 Oxygen Delivery Method 05/15/24 16:00 05/15/24 16:13 05/15/24 16:13 Temperature Pulse Rate 93 H 92 H Respiratory Rate 8 L 26 H Blood Pressure 144/69 H Pulse Oximetry 94 97 Oxygen Delivery Method 05/15/24 16:30 05/15/24 16:30 05/15/24 17:07 Temperature Pulse Rate 87 103 H Respiratory Rate 16 Blood Pressure 149/69 H Pulse Oximetry 96 91 Oxygen Delivery Method 05/15/24 17:28 05/15/24 17:28 05/15/24 17:30 Temperature Pulse Rate 90 92 H Respiratory Rate 18 13 Blood Pressure 138/58 L Pulse Oximetry 97 99 Oxygen Delivery Method Room Air 05/15/24 17:30 05/15/24 18:00 05/15/24 18:00 Temperature Pulse Rate 91 H Respiratory Rate 13 Blood Pressure 138/60 136/63 Pulse Oximetry 100 Oxygen Delivery Method Room Air MDM - Chest Pain Lab Data 05/15/24 15:40 05/15/24 15:40 Labs: Lab Results 05/15/24 Range/Units 15:40 WBC 9.8 (4.5-11.0) X10^3/uL RBC 4.59 (4.5-5.9) X10^6/uL Hgb 12.8 L (13.5-17.5) g/dL Hct 39.0 L (41-53) % MCV 84.9 (80-100) fL MCH 27.8 (26-34) PG MCHC 32.7 (30-36) % RDW 14.5 (11.6-14.8) % Plt Count 319 (150-400) X10^3/uL Neut % (Auto) 81.5 H (50-75) % Lymph % (Auto) 10.0 L (25-40) % Robertson % (Auto) 6.0 (3-14) % Eos % (Auto) 1.9 L (2-4) % Baso % (Auto) 0.6 (0-2) % Neut # (Auto) 8000 H (3114-1477) /uL Lymph # (Auto) 1000 L (6428-1047) /uL Robertson # (Auto) 600 (0-900) /uL Eos # (Auto) 200 (0-450) /uL Baso # (Auto) 100 (0-100) /uL PT 12.7 H (9.4-12.5) SECONDS INR 1.1 (0.9-1.3) APTT 38 H (25.1-36.5) SECONDS Sodium 134 L (137-145) mmol/L Potassium 3.3 L (3.4-5.1) mmol/L Chloride 86 L (98-107) mmol/L Carbon Dioxide 30 (22-32) mmol/L BUN 105 H (9-20) mg/dL Creatinine 3.19 H (0.66-1.25) mg/dL Estimated GFR 18 L (>60) mL/min BUN/Creatinine Ratio 32.9 H (6-22) Glucose 146 H (80-110) mg/dL Lactate 1.7 (0.7-2.1) mmol/L Calcium 9.5 (8.4-10.2) mg/dL Total Bilirubin 0.6 (0.2-1.3) mg/dL AST 34 (17-59) IU/L ALT 42 (<50) IU/L Alkaline Phosphatase 65 (38-126) U/L Total Protein 8.1 (6.3-8.2) g/dL Albumin 4.8 (3.5-5.0) g/dL Globulin 3.3 (1.7-4.1) g/dL Albumin/Globulin Ratio 1.5 (1.0-2.8) Lipase 385 H (23-300) U/L Procalcitonin 0.211 (<0.5) ng/mL Urine Dip Bedside Urine Glucose Negative Bedside Urine Bilirubin - Negative Bedside Urine Ketone - Negative Urine Specific Verner 1.015 Bedside Urine Occult Blood - Negative Bedside Urine pH 5.5 Bedside Urine Protein - Negative Bedside Urine Urobilinogen +/- 1mg Bedside Urine Nitrite - Negative Bedside Urine Leukocytes - Negative Esterase Imaging Data Chest x-ray: Radiologist's Impression: [address] [address] XRay Report Signed Patient: Pan Crook MR#: [id number] : 1935 Acct:[id number] Age/Sex: 88 / M Date of Service: 05/15/24 Loc: ED Accession Number: [id number] Procedure: XR chest 1V Ordering Provider: Eros Aguirre D.O. PROCEDURE: XR CHEST 1V INDICATIONS: suspected sepsis TECHNIQUE: One view of the chest was acquired. COMPARISON: [facility], CR, XR CHEST 1V, 04/13/2024, 8:45. [facility], CR, XR CHEST 1V, 07/04/2022, 16:20. FINDINGS: Surgical changes and devices: Left chest wall generator with cardiac leads. Lungs and pleura: Lungs are clear. No pleural effusions or pneumothorax. Mediastinum: Mediastinal contours appear normal. Heart size is normal. Bones and chest wall: No suspicious bony lesions. Overlying soft tissues appear unremarkable. IMPRESSION: No acute cardiopulmonary abnormality is seen. Dictated by: Eladio Marie M.D. on 05/15/2024 at 15:57 Approved by: Eladio Marie M.D. on 05/15/2024 at 15:57 ECG Data Attestation: I personally reviewed and interpreted this ECG as follows: Interpretation: Atrial Fibrillation HR [address]-t wave changes Unchanged from 04/13/24 Normal axis MDM Narrative Medical decision making narrative: Pt s/o to at shift change pending final disposition Discharge Plan Departure Prescriptions: No Action losartan 50 MG tablet 25 mg PO BID Qty: 0 multivitamin [Multiple Vitamins] 1 EACH tablet 1 tab PO DAILY Qty: 0 tamsulosin 0.4 mg capsule 0.4 mg PO BID torsemide 20 mg tablet 40 mg PO DAILY Patient Comments: Take 1 tablet by mouth once a day trazodone 50 mg tablet 50 mg PO QPM PRN (Reason: Insomnia) Patient Comments: Take 1 tablet by mouth at bedtime famotidine 20 mg Tablet 20 mg PO BID metoprolol tartrate 25 mg tablet 25 mg PO DAILY Patient Comments: Take 1 tablet by mouth once a day warfarin 5 mg tablet 5 mg PO DAILY Patient Comments: Take 1 tablet by mouth once a day methylprednisolone [Medrol (Rusty)] 4 mg tablets,dose pack See Rx Instructions .ROUTE .COMPLEX Qty: 21 0RF Rx Instructions: orally per package directions acetaminophen 500 mg capsule 500 mg PO Q6H PRN (Reason: Pain, Moderate) ezetimibe 10 mg tablet 10 mg PO DAILY omega-3 fatty acids 1,000 mg capsule 2,000 mg PO DAILY omeprazole 20 mg capsule,delayed release(DR/EC) 20 mg PO BID polyethylene glycol 3350 17 gram/dose powder 17 g PO DAILY PRN (Reason: Constipation) magnesium 250 mg tablet 250 mg PO DAILY Referrals: Desi Frausto MD [Primary Care Provider] -
[2024-05-15 15:51] LABS: Add Manual Diff / Slide Review NO; Basophils Absolute Auto 100 /uL (0-100); Basophils Percent Auto 0.6 % (0-2); Eosinophils Absolute Auto 200 /uL (0-450); Eosinophils Percent Auto 1.9 % (2-4); Hemoglobin 12.8 g/dL (13.5-17.5); Lymphocytes Absolute Auto 1000 /uL (1100-4500); Mean Corpuscular HGB Conc 32.7 % (30-36); Mean Corpuscular Hemoglobin 27.8 PG (26-34); Mean Corpuscular Volume 84.9 fL (80-100); Monocytes Absolute Auto 600 /uL (0-900); Neutrophils Absolute Auto 8000 /uL (1500-7000); Neutrophils Percent Auto 81.5 % (50-75); Platelet Count 319 X10^3/uL (150-400); Red Blood Cell Count 4.59 X10^6/uL (4.5-5.9); Red Cell Distribution Width 14.5 % (11.6-14.8); White Blood Cell Count 9.8 X10^3/uL (4.5-11.0)
[2024-05-15 15:56] LABS: INR 1.1 (0.9-1.3); Prothrombin Time 12.7 SECONDS (9.4-12.5)
[2024-05-15 15:58] LABS: PTT Partial Thromboplastin Tim 38 SECONDS (25.1-36.5)
[2024-05-15 16:00] LABS: Alanine Aminotransferase 42 IU/L (<50); Albumin 4.8 g/dL (3.5-5.0); Albumin Globulin Ratio 1.5 (1.0-2.8); Alkaline Phosphatase 65 U/L (38-126); Aspartate Aminotransferase 34 IU/L (17-59); BUN Creatinine Ratio 32.9 (6-22); Bilirubin Total 0.6 mg/dL (0.2-1.3); Blood Urea Nitrogen 105 mg/dL (9-20); Calcium 9.5 mg/dL (8.4-10.2); Carbon Dioxide 30 mmol/L (22-32); Chloride 86 mmol/L (98-107); Estimated Glomerular Filt Rate 18 mL/min (>60); Globulin 3.3 g/dL (1.7-4.1); Glucose 146 mg/dL (80-110); HEMOLYSIS < 15 (0-50); Lipase 385 U/L (23-300); Potassium 3.3 mmol/L (3.4-5.1); Sodium 134 mmol/L (137-145); Total Protein 8.1 g/dL (6.3-8.2)
[2024-05-15 16:01] LABS: Lactate (Lactic Acid) 1.7 mmol/L (0.7-2.1)
[2024-05-15 16:17] LABS: Procalcitonin 0.211 ng/mL (<0.5)
--- NOTE | 2024-05-15 17:24 | DI.CT.S_ITS ---
PROCEDURE: CT ABDOMEN PELVIS WO CON INDICATIONS: abd/back pain TECHNIQUE: Axial sections were acquired from the lung bases to the pubic symphysis. Coronal and sagittal reformats were performed. For radiation dose reduction, the following was used: automated exposure control, adjustment of mA and/or kV according to patient size. COMPARISON: [facility], CT, CT ABDOMEN PELVIS WO CON, 09/21/2021, 1:03., CT abdomen pelvis with contrast 05/04/2024 FINDINGS: Image quality: Diagnostic. Lower Chest: No significant findings. URINARY: Right Kidney: No stones or hydronephrosis. Right Ureter: No hydroureter. Left Kidney: No stones or hydronephrosis. Left Ureter: No hydroureter. Bladder: Normal wall thickness. No stones. ABDOMEN: Liver: No contour-deforming solid mass. Gallbladder: No radiopaque gallstones or wall thickening. Biliary ducts: No biliary dilation. Pancreas: No ductal dilation. Spleen: Size is within normal limits. Adrenal Glands: No adrenal nodules. Stomach and Bowel: Normal colonic caliber, without significant wall thickening. Normal caliber appendix. Sigmoid diverticulosis without acute inflammation. Peritoneum: No abnormal intraperitoneal fluid. No free air. Ventral Wall: No hernia. Abdominal Nodes: No enlarged retroperitoneal or mesenteric lymph nodes. Vessels: Aorta and inferior vena cava are normal in size. PELVIS: Pelvic Organs: Unremarkable. Pelvic Nodes: Unremarkable. Miscellaneous: No inguinal hernias are seen. Bones: Unremarkable. IMPRESSION: No obstructing stones or hydronephrosis. No acute abdominopelvic process. Normal appendix. Sigmoid diverticulosis without CT evidence of acute diverticulitis. Approved by: Erika Dahl M.D.,Ph.D. on 05/15/2024 at 17:44
[2024-05-15] MEDS: POTASSIUM CHLORIDE 20 MEQ TAB 40 MEQ PO (18:18)
== END 2024-05-15 19:30 | disposition home or self-care (01) ==
PROVIDERS: Family Medicine; Emergency Provider Emergency Medicine; PCP Family Medicine
DX: M54.9 Dorsalgia, unspecified (principal); G89.29 Other chronic pain; I48.91 Unspecified atrial fibrillation; R42 Dizziness and giddiness; R53.1 Weakness; Z79.01 Long term (current) use of anticoagulants
CPT/HCPCS: 36415; 71045; 74176; 80053; 81003; 83605; 83690; 84145; 85025; 85610; 85730; 87040; 93005; 93010; 96360; 99284

== ENCOUNTER 2024-05-23 13:00 | Inpatient (IN) | payer MEDICARE, SELFPAY ==
[2022-07-05 04:28] VITALS: BMI 33.2
[2024-05-23] VITALS (13 sets, daily range): BP systolic 114–133; BP diastolic 56–79; PULSE 80–100; RESP 14–18; TEMP 36.4–36.9; O2SAT 91–99; BMI 30.1
--- NOTE | 2024-05-23 13:43 | ED_ITS ---
HPI - Back Pain/Injury <Sophia Lind PA-C - Last Filed: 05/23/24 19:43> General Chief Complaint: Back Pain/Injury Stated Complaint: pain, lower back pain Time Seen by Provider: 05/23/24 13:43 Source: family History of Present Illness HPI Narrative: Mr. Crook is a very pleasant 88-year-old male with a past medical history of CKD, AFib on Eliquis with a pacemaker, chronic back pain on Rome, hyperlipidemia, hypertension, sigmoid diverticulosis, who presents to the emergency department with his for acute on chronic exacerbation of low back pain and rectal pain today. Patient has been suffering with an acute exacerbation of chronic low back pain for about the last month, he was in the emergency department on 04/17 for shortness of breath, 05/04 for back pain, 05/15 for weakness. States that today he continued having his low back pain but when he attempted to have a bowel movement he had 10/10 severe rectal pain that almost caused him to pass out. Called his PCP Dr. Frausto who advised he come to the ED rather than outpt visit. States that now at rest he still continues to have rectal pain that somewhat radiates up the back. His pain is in the midline low back region and does not radiate. He denies any numbness tingling or weakness of the legs. States that he still has control of his bowels and bladder, he does have some constipation but denies difficulty urinating or dysuria. No loss of bowel or bladder function. He does ambulate independently but with an unsteady gait at baseline. Denies any fevers, chills, chest pain, shortness of breath, nausea, vomiting, hematuria, melena, hematochezia. He took a dose of Rome and an additional dose of Tylenol prior to arrival. Reports using a rectal suppository, red and white pill, the did allow him to have somewhat of a soft bowel movement. Related Data Home Medications Medication Instructions Recorded Confirmed multivitamin (Multiple Vitamins 1 tab PO DAILY ##0 08/19/16 05/23/24 tablet) magnesium 250 mg tablet 500 mg PO DAILY 10/25/19 05/23/24 omega-3 fatty acids 1,000 mg 2,000 mg PO DAILY 11/13/20 05/23/24 capsule omeprazole 20 mg capsule,delayed 20 mg PO BID 11/13/20 05/23/24 release tamsulosin 0.4 mg capsule 0.4 mg PO DAILY 09/21/21 05/23/24 trazodone 50 mg tablet 100 mg PO QPM PRN Insomnia 09/21/21 05/23/24 acetaminophen 325 mg tablet 650 mg PO Q8HR 05/23/24 05/23/24 apixaban 2.5 mg tablet (Eliquis) 2.5 mg PO BID 05/23/24 05/23/24 chlorthalidone 25 mg tablet 25 mg PO DAILY 05/23/24 05/23/24 cholecalciferol (vitamin D3) 25 25 mcg PO DAILY 05/23/24 05/23/24 mcg (1,000 unit) capsule ciprofloxacin HCl 500 mg tablet 500 mg PO BID 05/23/24 05/23/24 diphenhydramine HCl 25 mg capsule 50 mg PO BEDTIME PRN Allergy 05/23/24 05/23/24 (Allergy (diphenhydramine)) Symptoms ezetimibe 10 mg-simvastatin 10 mg 1 tab PO DAILY 05/23/24 05/23/24 tablet (Vytorin) fexofenadine 180 mg tablet 180 mg PO DAILY 05/23/24 05/23/24 hydrocodone 5 mg-acetaminophen 325 1 tab PO Q4H PRN Pain (Scale Score 05/23/24 05/23/24 mg tablet 1-3) ipratropium bromide 42 mcg (0.06 2 spray intranasal TID PRN 05/23/24 05/23/24 %) nasal spray rhinorhea metoprolol succinate 25 mg 25 mg PO DAILY 05/23/24 05/23/24 tablet,extended release 24 hr trazodone 100 mg tablet 200 mg PO DAILY PRN Sleep 05/23/24 05/23/24 triamcinolone acetonide 0.1 % 1 applic topical BID PRN affected 05/23/24 05/23/24 topical cream area, avoid face Allergies Allergy/AdvReac Type Severity Reaction Status Date / Time benzocaine [From CETACAINE] Allergy Mild ANAPHYLAXSI Verified 09/21/21 00:54 S butamben [From CETACAINE] Allergy Mild ANAPHYLAXSI Verified 09/21/21 00:54 S tetracaine [From CETACAINE] Allergy Mild ANAPHYLAXSI Verified 09/21/21 00:54 S clonidine [CLONIDINE] Allergy Unknown Verified 09/21/21 00:54 Beta-Adrenergic Agents AdvReac Unknown WEAK,TIRED, Verified 09/21/21 00:54 [BETA-ADRENERGIC AGENTS] HARD TO FUNCTION Review of Systems <Sophia Lind PA-C - Last Filed: 05/23/24 19:43> Review of Systems ROS Unobtainable: All systems reviewed & are unremarkable except as noted in HPI and below Patient History <Sophia Lind PA-C - Last Filed: 05/23/24 19:43> Medical History History of elevated PSA BPH w urinary obs/LUTS Hypertension Hyperlipidemia Low back pain Social History household members: spouse Smoking Status: Never smoker alcohol intake: former alcohol intake frequency: holidays/special occasions only Exam <Sophia Lind PA-C - Last Filed: 05/23/24 19:43> Narrative Exam Narrative: GENERAL: 88 year old patient appears stated age. Elderly patient, in no acute distress. HEAD: Atraumatic. Normocephalic. ENT: Nose without bleeding, purulent drainage. Airway patent. NECK: Trachea midline. Cervical ROM intact. CARDIOVASCULAR: Regular rate and rhythm. Strong radial pulse BL. RESPIRATORY: ?Nonlabored respirations. ?Speaking in clear, full sentences. ?Clear to auscultation. GASTROINTESTINAL: Abdomen soft, non-tender, nondistended. Protuberant. BS present. Rectal exam reveals no obvious hemorrhoid or fissure, no external abscess or bleeding, light brown stool on glove, positive Hemoccult. EXTREMITIES: No edema or joint tenderness. BACK: Nontender, but subjective pain in midline lumbar region. NEURO: Alert and oriented, answers questions appropriately. ?Clear speech. ?Moves all 4 extremities appropriately. Sensation intact to light touch on bilateral lower extremities. Plantar and dorsiflexion strength intact. SKIN: Mild erythema in gluteal cleft, otherwise no rashes or wounds visible. Initial Vital Signs Initial Vital Signs: Vital Signs Temperature 98.1 F 05/23/24 13:19 Pulse Rate 85 05/23/24 13:19 Respiratory Rate 18 05/23/24 13:19 Blood Pressure 114/57 L 05/23/24 13:19 Pulse Oximetry 98 05/23/24 13:19 Oxygen Delivery Method Room Air 05/23/24 13:19 <Noemi Dobbs DO - Last Filed: 05/24/24 07:35> Initial Vital Signs Initial Vital Signs: Vital Signs Temperature 98.1 F 05/23/24 13:19 Pulse Rate 85 05/23/24 13:19 Respiratory Rate 18 05/23/24 13:19 Blood Pressure 114/57 L 05/23/24 13:19 Pulse Oximetry 98 05/23/24 13:19 Oxygen Delivery Method Room Air 05/23/24 13:19 Course <Sophia Lind PA-C - Last Filed: 05/23/24 19:43> Orders Ordered: Acetaminophen (Acetaminophen 325 Mg Tablet) 650 mg PO Q6H [facility] Last Admin: 05/24/24 05:22 Dose: 650 mg Documented By: Apixaban (Apixaban 5 Mg Tablet) 2.5 mg PO BID [facility] Last Admin: 05/23/24 22:38 Dose: 2.5 mg Documented By: Atorvastatin Calcium (Atorvastatin 20 Mg Tablet) 10 mg PO BEDTIME [facility] Chlorthalidone (Chlorthalidone 25 Mg Tablet) 25 mg PO DAILY [facility] Diphenhydramine HCl (Diphenhydramine 25 Mg Tablet) 50 mg PO BEDTIME PRN PRN Reason: Allergy Symptoms Docusate Sodium (Docusate 100 Mg Capsule) 100 mg PO BID [facility] Last Admin: 05/23/24 22:38 Dose: 100 mg Documented By: Ezetimibe (Ezetimibe 10 Mg Tablet) 10 mg PO DAILY [facility] Sodium Chloride (Normal Saline 0.9%) 1,000 mls @ 100 mls/hr IV CONT [facility] Last Admin: 05/23/24 22:37 Dose: 100 mls/hr Documented By: Ipratropium [place] (Ipratropium 0.06% Nasal 15 Ml) 2 spray NASAL TID PRN PRN Reason: rhinorhea Loratadine (Loratadine 10 Mg Tablet) 10 mg PO DAILY [facility] Metoprolol Succinate (Metoprolol Er 25 Mg Tablet) 25 mg PO DAILY [facility] Morphine Sulfate (Morphine 2 Mg/Ml Inj) 2 mg IV Q2HR PRN PRN Reason: Pain, Moderate (4-6) Last Admin: 05/24/24 05:22 Dose: 2 mg Documented By: Admin: 05/24/24 01:00 Dose: 2 mg Documented By: Admin: 05/23/24 16:43 Dose: 2 mg Documented By: JADYN Naloxone HCl (Naloxone 0.4 Mg/Ml Vial) 0.2 mg IV Q2MIN PRN PRN Reason: Opiate Reversal Pantoprazole Sodium (Pantoprazole Dr 20 Mg Tablet) 20 mg PO BID [facility] Tamsulosin HCl (Tamsulosin 0.4 Mg Capsule) 0.4 mg PO DAILY [facility] Trazodone HCl (Trazodone 50 Mg Tablet) 100 mg PO QPM PRN PRN Reason: Insomnia Last Admin: 05/23/24 22:38 Dose: 100 mg Documented By: Discontinued Medications Acetaminophen (Acetaminophen 325 Mg Tablet) 650 mg PO Q6H [facility] Last Admin: 05/23/24 22:37 Dose: 650 mg Documented By: Sodium Chloride (Normal Saline 0.9%) 1,000 mls @ 1,000 mls/hr IV BOLUS ONE Stop: 05/23/24 16:24 Last Infusion: 05/23/24 17:23 Dose: Infused Documented By: Admin: 05/23/24 15:34 Dose: 1,000 mls/hr Documented By: JADYN Piperacillin Sod/Tazobactam (Sod 3.375 gm/ Sodium Chloride) 100 mls @ 200 mls/hr IV NOW ONE Stop: 05/23/24 15:40 Last Infusion: 05/23/24 17:24 Dose: Infused Documented By: Admin: 05/23/24 16:14 Dose: 200 mls/hr Documented By: JADYN Acetaminophen (Ofirmev) 1,000 mg in 100 mls @ 400 mls/hr IV NOW ONE Stop: 05/23/24 17:17 Last Infusion: 05/23/24 17:50 Dose: Infused Documented By: Admin: 05/23/24 17:26 Dose: 400 mls/hr Documented By: CARLA Lidocaine HCl (Lidocaine 2% (Glydo) 6 Ml Gel) 6 ml TOP NOW ONE Stop: 05/23/24 18:40 Last Admin: 05/23/24 18:47 Dose: 6 ml Documented By: JADYN Morphine Sulfate (Morphine 4 Mg/Ml Inj) 4 mg IV NOW ONE Stop: 05/23/24 14:04 Last Admin: 05/23/24 15:22 Dose: 4 mg Documented By: JADYN Morphine Sulfate (Morphine 4 Mg/Ml Inj) 4 mg IV NOW ONE Stop: 05/23/24 16:26 Last Admin: 05/23/24 17:55 Dose: 4 mg Documented By: CARLA Morphine Sulfate (Morphine 4 Mg/Ml Inj) 4 mg IV NOW ONE Stop: 05/23/24 17:04 Last Admin: 05/23/24 17:06 Dose: 4 mg Documented By: JADYN Ondansetron HCl (Ondansetron 4 Mg/2 Ml Inj) 4 mg IV NOW ONE Stop: 05/23/24 14:04 Last Admin: 05/23/24 15:22 Dose: 4 mg Documented By: JADYN Potassium Chloride (Potassium Chloride 20 Meq Tab) 40 meq PO NOW ONE Stop: 05/23/24 16:12 Last Admin: 05/23/24 17:23 Dose: 40 meq Documented By: CARLA Tamsulosin HCl (Tamsulosin 0.4 Mg Capsule) 0.4 mg PO BEDTIME [facility] Last Admin: 05/23/24 22:45 Dose: Not Given Documented By: MD Consultations Consultation #1: Discussed case with the patient's PCP, Dr. Frausto. She states that patient was sent to the ED for hopeful admission for intractable back pain, physical therapy. Reports that she started him on ciprofloxacin on Tuesday for suspected UTI. Labs 2 days ago: His PSA was 8.8. His lipase was 55. His creatinine was 3.3. His GFR has been ranging from 18-25 however his baseline is typically in the 30s. His BUN was 91. His WBC count was 10.5. Time: 14:24 Consultation #2: Touched base with PCP Dr. Frausto. She would like repeat lactic and BMP after 1 L of IV fluids. Also would like postvoid residual/bladder scan and catheter if he is retaining. Her shift is ending soon so he will need to be admitted to Dr. Oshea if he is able to state [facility]. His molding engineer is Dr. Savannah Calvin at [facility]. Time: 16:58 Consultation #3: Consulted [facility] molding engineer artifacts conservator Dr. Torres cell phone [phone]. She states that because patient has improvement in his creatinine after 1 L of fluids, patient can be admitted to [facility] if hospitalist is comfortable, does not need emergent dialysis. Stated that we could check a urine sodium, urine creatinine, urine urea, patient's Flomax could be increased to 0.8, if his postvoid residual is 300 then he can have a straight catheter or even a Thrasher catheter placed. Time: 18:33 Vital Signs Vital signs: Vital Signs - 8 hr 05/23/24 13:19 05/23/24 16:00 05/23/24 16:15 Temperature 98.1 F 98.1 F Pulse Rate 85 100 H 85 Respiratory Rate 18 18 18 Blood Pressure 114/57 L 131/57 L Pulse Oximetry 98 97 97 Oxygen Delivery Method Room Air Room Air Room Air Oxygen Flow Rate 05/23/24 16:18 05/23/24 16:33 05/23/24 17:00 Temperature 98.1 F 98.5 F Pulse Rate 80 82 Respiratory Rate 18 18 Blood Pressure 120/56 L 121/56 L Pulse Oximetry 97 98 Oxygen Delivery Method Room Air Room Air Oxygen Flow Rate 05/23/24 17:30 05/23/24 18:00 05/23/24 18:30 Temperature Pulse Rate 88 82 83 Respiratory Rate 18 18 15 Blood Pressure 120/58 L 123/57 L 122/59 L Pulse Oximetry 97 97 91 Oxygen Delivery Method Room Air Room Air Oxygen Flow Rate 05/23/24 18:40 05/23/24 19:00 Temperature 98.5 F 97.9 F Pulse Rate 80 87 Respiratory Rate 16 18 Blood Pressure 128/60 Pulse Oximetry 99 97 Oxygen Delivery Method Nasal Cannula Nasal Cannula Oxygen Flow Rate 2 2 <Noemi Dobbs, DO - Last Filed: 05/24/24 07:35> Orders Ordered: Acetaminophen (Acetaminophen 325 Mg Tablet) 650 mg PO Q6H [facility] Last Admin: 05/24/24 05:22 Dose: 650 mg Documented By: Apixaban (Apixaban 5 Mg Tablet) 2.5 mg PO BID [facility] Last Admin: 05/23/24 22:38 Dose: 2.5 mg Documented By: Atorvastatin Calcium (Atorvastatin 20 Mg Tablet) 10 mg PO BEDTIME [facility] Chlorthalidone (Chlorthalidone 25 Mg Tablet) 25 mg PO DAILY [facility] Diphenhydramine HCl (Diphenhydramine 25 Mg Tablet) 50 mg PO BEDTIME PRN PRN Reason: Allergy Symptoms Docusate Sodium (Docusate 100 Mg Capsule) 100 mg PO BID [facility] Last Admin: 05/23/24 22:38 Dose: 100 mg Documented By: Ezetimibe (Ezetimibe 10 Mg Tablet) 10 mg PO DAILY [facility] Sodium Chloride (Normal Saline 0.9%) 1,000 mls @ 100 mls/hr IV CONT [facility] Last Admin: 05/23/24 22:37 Dose: 100 mls/hr Documented By: Ipratropium [place] (Ipratropium 0.06% Nasal 15 Ml) 2 spray NASAL TID PRN PRN Reason: rhinorhea Loratadine (Loratadine 10 Mg Tablet) 10 mg PO DAILY [facility] Metoprolol Succinate (Metoprolol Er 25 Mg Tablet) 25 mg PO DAILY [facility] Morphine Sulfate (Morphine 2 Mg/Ml Inj) 2 mg IV Q2HR PRN PRN Reason: Pain, Moderate (4-6) Last Admin: 05/24/24 05:22 Dose: 2 mg Documented By: Admin: 05/24/24 01:00 Dose: 2 mg Documented By: Admin: 05/23/24 16:43 Dose: 2 mg Documented By: JADYN Naloxone HCl (Naloxone 0.4 Mg/Ml Vial) 0.2 mg IV Q2MIN PRN PRN Reason: Opiate Reversal Pantoprazole Sodium (Pantoprazole Dr 20 Mg Tablet) 20 mg PO BID [facility] Tamsulosin HCl (Tamsulosin 0.4 Mg Capsule) 0.4 mg PO DAILY [facility] Trazodone HCl (Trazodone 50 Mg Tablet) 100 mg PO QPM PRN PRN Reason: Insomnia Last Admin: 05/23/24 22:38 Dose: 100 mg Documented By: Discontinued Medications Acetaminophen (Acetaminophen 325 Mg Tablet) 650 mg PO Q6H [facility] Last Admin: 05/23/24 22:37 Dose: 650 mg Documented By: Sodium Chloride (Normal Saline 0.9%) 1,000 mls @ 1,000 mls/hr IV BOLUS ONE Stop: 05/23/24 16:24 Last Infusion: 05/23/24 17:23 Dose: Infused Documented By: Admin: 05/23/24 15:34 Dose: 1,000 mls/hr Documented By: JADYN Piperacillin Sod/Tazobactam (Sod 3.375 gm/ Sodium Chloride) 100 mls @ 200 mls/hr IV NOW ONE Stop: 05/23/24 15:40 Last Infusion: 05/23/24 17:24 Dose: Infused Documented By: Admin: 05/23/24 16:14 Dose: 200 mls/hr Documented By: JADYN Acetaminophen (Ofirmev) 1,000 mg in 100 mls @ 400 mls/hr IV NOW ONE Stop: 05/23/24 17:17 Last Infusion: 05/23/24 17:50 Dose: Infused Documented By: Admin: 05/23/24 17:26 Dose: 400 mls/hr Documented By: CARLA Lidocaine HCl (Lidocaine 2% (Glydo) 6 Ml Gel) 6 ml TOP NOW ONE Stop: 05/23/24 18:40 Last Admin: 05/23/24 18:47 Dose: 6 ml Documented By: JADYN Morphine Sulfate (Morphine 4 Mg/Ml Inj) 4 mg IV NOW ONE Stop: 05/23/24 14:04 Last Admin: 05/23/24 15:22 Dose: 4 mg Documented By: JADYN Morphine Sulfate (Morphine 4 Mg/Ml Inj) 4 mg IV NOW ONE Stop: 05/23/24 16:26 Last Admin: 05/23/24 17:55 Dose: 4 mg Documented By: CARLA Morphine Sulfate (Morphine 4 Mg/Ml Inj) 4 mg IV NOW ONE Stop: 05/23/24 17:04 Last Admin: 05/23/24 17:06 Dose: 4 mg Documented By: JADYN Ondansetron HCl (Ondansetron 4 Mg/2 Ml Inj) 4 mg IV NOW ONE Stop: 05/23/24 14:04 Last Admin: 05/23/24 15:22 Dose: 4 mg Documented By: JADYN Potassium Chloride (Potassium Chloride 20 Meq Tab) 40 meq PO NOW ONE Stop: 05/23/24 16:12 Last Admin: 05/23/24 17:23 Dose: 40 meq Documented By: CARLA Tamsulosin HCl (Tamsulosin 0.4 Mg Capsule) 0.4 mg PO BEDTIME [facility] Last Admin: 05/23/24 22:45 Dose: Not Given Documented By: Vital Signs Vital signs: Vital Signs - 8 hr 05/23/24 13:19 05/23/24 16:00 05/23/24 16:15 Temperature 98.1 F 98.1 F Pulse Rate 85 100 H 85 Respiratory Rate 18 18 18 Blood Pressure 114/57 L 131/57 L Pulse Oximetry 98 97 97 Oxygen Delivery Method Room Air Room Air Room Air Oxygen Flow Rate 05/23/24 16:18 05/23/24 16:33 05/23/24 17:00 Temperature 98.1 F 98.5 F Pulse Rate 80 82 Respiratory Rate 18 18 Blood Pressure 120/56 L 121/56 L Pulse Oximetry 97 98 Oxygen Delivery Method Room Air Room Air Oxygen Flow Rate 05/23/24 17:30 05/23/24 18:00 05/23/24 18:30 Temperature Pulse Rate 88 82 83 Respiratory Rate 18 18 15 Blood Pressure 120/58 L 123/57 L 122/59 L Pulse Oximetry 97 97 91 Oxygen Delivery Method Room Air Room Air Oxygen Flow Rate 05/23/24 18:40 05/23/24 19:00 Temperature 98.5 F 97.9 F Pulse Rate 80 87 Respiratory Rate 16 18 Blood Pressure 128/60 Pulse Oximetry 99 97 Oxygen Delivery Method Nasal Cannula Nasal Cannula Oxygen Flow Rate 2 2 MDM - Back Pain/Injury <Sophia Lind PA-C - Last Filed: 05/23/24 19:43> Medical Records Attestation: I reviewed the patient's medical records. Lab Data 05/24/24 06:00 05/24/24 06:00 Labs: Lab Results 05/23/24 05/23/24 05/23/24 Range/Units 14:40 17:00 17:34 WBC 11.3 H (4.5-11.0) X10^3/uL RBC 4.41 L (4.5-5.9) X10^6/uL Hgb 12.3 L (13.5-17.5) g/dL Hct 37.1 L (41-53) % MCV 84.1 (80-100) fL MCH 27.8 (26-34) PG MCHC 33.1 (30-36) % RDW 14.9 H (11.6-14.8) % Plt Count 315 (150-400) X10^3/uL Neut % (Auto) 86.0 H (50-75) % Lymph % (Auto) 7.0 L (25-40) % [place] % (Auto) 5.3 (3-14) % Eos % (Auto) 1.1 L (2-4) % Baso % (Auto) 0.6 (0-2) % Neut # (Auto) 9700 H (6228-2929) /uL Lymph # (Auto) 800 L (5444-4580) /uL [place] # (Auto) 600 (0-900) /uL Eos # (Auto) 100 (0-450) /uL Baso # (Auto) 100 (0-100) /uL PT 14.2 H (9.4-12.5) SECONDS INR 1.3 (0.9-1.3) APTT 38 H (25.1-36.5) SECONDS Sodium 133 L 131 L (137-145) mmol/L Potassium 3.0 L 2.9 L (3.4-5.1) mmol/L Chloride 84 L 88 L (98-107) mmol/L Carbon Dioxide 33 H 34 H (22-32) mmol/L BUN 99 H 93 H (9-20) mg/dL Creatinine 3.68 H 3.40 H (0.66-1.25) mg/dL Estimated GFR 15 L 17 L (>60) mL/min BUN/Creatinine Ratio 26.9 H 27.4 H (6-22) Glucose 129 H 104 (80-110) mg/dL Lactate 2.2 H 1.4 (0.7-2.1) mmol/L Calcium 10.0 9.1 (8.4-10.2) mg/dL Magnesium 1.9 (1.6-2.3) mg/dL Total Bilirubin 0.7 (0.2-1.3) mg/dL AST 32 (17-59) IU/L ALT 29 (<50) IU/L Alkaline Phosphatase 58 (38-126) U/L Total Protein 8.1 (6.3-8.2) g/dL Albumin 4.9 (3.5-5.0) g/dL Globulin 3.2 (1.7-4.1) g/dL Albumin/Globulin Ratio 1.5 (1.0-2.8) Lipase 210 (23-300) U/L Procalcitonin 0.195 (<0.5) ng/mL Urine RBC None seen (0-5/HPF) Urine WBC None seen (0-5/HPF) Ur Squamous Epith Cells 0-1 /hpf (0-5/HPF) Ur Transition Epith Cell 0-1/hpf (0-5/HPF) Urine Bacteria None seen (None) Ur Culture Indicated? Cult not indicated Vol Urine Centrifuged 10ml (spun) Ur Random Sodium 41 (30-90) mmol/L Urine Creatinine 90.23 mg/dL Urine Urea Nitrogen 451 mg/dL Point of Care Testing Stool Occult Blood Positive Imaging Data Chest x-ray: Radiologist's Impression: PROCEDURE: XR CHEST 1V INDICATIONS: concern for infx TECHNIQUE: One view of the chest was acquired. COMPARISON: [facility], CR, XR CHEST 1V, 05/15/2024, 15:18. [facility], CR, XR CHEST 1V, 04/13/2024, 8:45. FINDINGS: Surgical changes and devices: Left chest wall pacemaker. Lungs and pleura: Lungs are clear. No pleural effusions or pneumothorax. Mediastinum: Mediastinal contours appear normal. Heart size is normal. Bones and chest wall: No suspicious bony lesions. Overlying soft tissues appear unremarkable. IMPRESSION: No acute cardiopulmonary abnormality is seen. CT scan - abdomen/pelvis: Radiologist's Impression: PROCEDURE: CT ABDOMEN PELVIS WO CON INDICATIONS: rectal pain; low back pain; infx? fistula? TECHNIQUE: Axial sections were acquired from the lung bases to the pubic symphysis. Coronal and sagittal reformats were performed. For radiation dose reduction, the following was used: automated exposure control, adjustment of mA and/or kV according to patient size. COMPARISON: [facility], CT, CT ABDOMEN PELVIS W CON, 05/04/2024, 5:14. [facility], CT, CT ABDOMEN PELVIS WO CON, 05/15/2024, 17:05. FINDINGS: Image quality: Diagnostic. Lower Chest: No significant findings. URINARY: Right Kidney: No stones or hydronephrosis. Right Ureter: No hydroureter. Left Kidney: No stones or hydronephrosis. Left Ureter: No hydroureter. Bladder: Normal wall thickness. No stones. ABDOMEN: Liver: No contour-deforming solid mass. Gallbladder: No radiopaque gallstones or wall thickening. Biliary ducts: No biliary dilation. Pancreas: No ductal dilation. No peripancreatic inflammation. Spleen: Size is within normal limits. Adrenal Glands: No adrenal nodules. Stomach and Bowel: Normal colonic caliber, without significant wall thickening. No evidence for perirectal inflammatory changes. No evidence for fistula formation. Scattered colonic diverticulosis without acute diverticulitis. No evidence for small bowel obstruction or associated inflammatory changes. Normal appendix. Peritoneum: No abnormal intraperitoneal fluid. No free air. Ventral Wall: No hernia. Abdominal Nodes: No enlarged retroperitoneal or mesenteric lymph nodes. Vessels: Aorta and inferior vena cava are normal in size. PELVIS: Pelvic Organs: Prostatomegaly. Pelvic Nodes: Unremarkable. Miscellaneous: No inguinal hernias are seen. Bones: Unremarkable. Visualized osseous structures appear intact without acute fracture or focal destructive lesion. No acute compression fractures of the imaged spine. Multilevel spondylosis. IMPRESSION: CT abdomen and pelvis without acute abnormalities to explain patient's symptoms. No evidence for acute diverticulitis or perirectal inflammatory changes or fistula. Colonic diverticulosis without acute diverticulitis. Other chronic/non-acute findings as above. MDM Narrative Medical decision making narrative: 88-year-old male with a past medical history of CKD follows with Gabriel Calvin, AFib on Eliquis with a pacemaker, chronic back pain on [place], hyperlipidemia, hypertension, sigmoid diverticulosis, who presents to the emergency department with his for acute on chronic exacerbation of low back pain and rectal pain. Differential diagnosis includes but is not limited to prostatitis, proctitis, rectal fistula, abscess, diverticulitis, spinal stenosis, lumbar degenerative disc disease, malignancy, UTI, dehydration, RAY, etc. On exam patient is in no acute distress, nontoxic appearing. Lower extremities are neurovascularly intact. He is having worsening of low back pain now with severe rectal pain. Discussed case with his PCP who is concerned for intractable pain, declining kidney function. Consulted main ED attending physician. We will proceed with labs, urinalysis, CT abdomen pelvis with potential oral an/or rectal contrast, rectal exam, treat symptoms with morphine and Zofran at this time. Rectal exam reveals light brown stool, rectal sensation and tone intact, no gross blood, bedside Hemoccult positive. No obvious abscess or external hemorrhoid or fissure. Labs reveal elevated WBC count of 11.3, hemoglobin 12.3, platelets 315. Sodium is low at 133, potassium 3.0, chloride 84, BUN 99, creatinine 3.68 which has increased from 3.19 a week ago. Estimated GFR is only 15. Glucose 129. Lactate elevated at 2.2. Normal lipase and LFTs. 40mEq PO potassium ordered. Given elevated lactic and WBC count, we will proceed with blood cultures, 1 L IV fluids, Zosyn which I consulted pharmacy and we will dose at 3.375 Q 12 hours. UA negative for blood or infection. Chest x-ray negative for acute cardiopulmonary abnormality. CT abdomen and pelvis with oral and rectal contrast reveals no acute abnormalities to explain patient's symptoms. No evidence of acute diverticulitis or perirectal inflammatory changes or fistula. There is chronic diverticulosis without acute diverticulitis. There is prostate to megaly and multilevel spondylosis. Consulted Nephrology, they state patient can be admitted to [facility] as he did have improvement with renal function, urine sodium creatinine and urea could be ordered which I did place for now. We will proceed with Thrasher catheter and admission to the hospital. Patient warrants admission for continued monitoring and management of rectal pain, acute on chronic renal failure, acute hyperkalemia, potential lower GI bleed. Discussed case with Dr. Oshea who agrees to admit the patient. Patient is agreeable to the plan and stable for admission. <Noemi Dobbs, - Last Filed: 05/24/24 07:35> Lab Data Labs: Lab Results 05/23/24 05/23/24 05/23/24 Range/Units 14:40 17:00 17:34 WBC 11.3 H (4.5-11.0) X10^3/uL RBC 4.41 L (4.5-5.9) X10^6/uL Hgb 12.3 L (13.5-17.5) g/dL Hct 37.1 L (41-53) % MCV 84.1 (80-100) fL MCH 27.8 (26-34) PG MCHC 33.1 (30-36) % RDW 14.9 H (11.6-14.8) % Plt Count 315 (150-400) X10^3/uL Neut % (Auto) 86.0 H (50-75) % Lymph % (Auto) 7.0 L (25-40) % York % (Auto) 5.3 (3-14) % Eos % (Auto) 1.1 L (2-4) % Baso % (Auto) 0.6 (0-2) % Neut # (Auto) 9700 H (7012-5712) /uL Lymph # (Auto) 800 L (4069-7221) /uL York # (Auto) 600 (0-900) /uL Eos # (Auto) 100 (0-450) /uL Baso # (Auto) 100 (0-100) /uL PT 14.2 H (9.4-12.5) SECONDS INR 1.3 (0.9-1.3) APTT 38 H (25.1-36.5) SECONDS Sodium 133 L 131 L (137-145) mmol/L Potassium 3.0 L 2.9 L (3.4-5.1) mmol/L Chloride 84 L 88 L (98-107) mmol/L Carbon Dioxide 33 H 34 H (22-32) mmol/L BUN 99 H 93 H (9-20) mg/dL Creatinine 3.68 H 3.40 H (0.66-1.25) mg/dL Estimated GFR 15 L 17 L (>60) mL/min BUN/Creatinine Ratio 26.9 H 27.4 H (6-22) Glucose 129 H 104 (80-110) mg/dL Lactate 2.2 H 1.4 (0.7-2.1) mmol/L Calcium 10.0 9.1 (8.4-10.2) mg/dL Magnesium 1.9 (1.6-2.3) mg/dL Total Bilirubin 0.7 (0.2-1.3) mg/dL AST 32 (17-59) IU/L ALT 29 (<50) IU/L Alkaline Phosphatase 58 (38-126) U/L Total Protein 8.1 (6.3-8.2) g/dL Albumin 4.9 (3.5-5.0) g/dL Globulin 3.2 (1.7-4.1) g/dL Albumin/Globulin Ratio 1.5 (1.0-2.8) Lipase 210 (23-300) U/L Procalcitonin 0.195 (<0.5) ng/mL Urine RBC None seen (0-5/HPF) Urine WBC None seen (0-5/HPF) Ur Squamous Epith Cells 0-1 /hpf (0-5/HPF) Ur Transition Epith Cell 0-1/hpf (0-5/HPF) Urine Bacteria None seen (None) Ur Culture Indicated? Cult not indicated Vol Urine Centrifuged 10ml (spun) Ur Random Sodium 41 (30-90) mmol/L Urine Creatinine 90.23 mg/dL Urine Urea Nitrogen 451 mg/dL Point of Care Testing Stool Occult Blood Positive Discharge Plan Departure Patient Disposition: Admitted As Inpatient Clinical Impression: Rectal pain, Acute hypokalemia, Lower GI bleed Acute on chronic renal failure Qualifiers: Acute renal failure type: unspecified Chronic kidney disease stage: unspecified stage Qualified Code(s): N17.9 - Acute kidney failure, unspecified Admit Date/Time: 05/23/24 19:42 Admit Provider: Peter Oshea ED Sign-out <Noemi Dobbs DO - Last Filed: 05/24/24 07:35> Cosign ED Attending Cosignature Attestation: I was available for consultation. I was consulted on this case discussed plan with FRANK Lind. I never saw and evaluated patient myself
[2024-05-23 14:48] LABS: Add Manual Diff / Slide Review NO; Basophils Absolute Auto 100 /uL (0-100); Basophils Percent Auto 0.6 % (0-2); Eosinophils Absolute Auto 100 /uL (0-450); Eosinophils Percent Auto 1.1 % (2-4); Hematocrit 37.1 % (41-53); Hemoglobin 12.3 g/dL (13.5-17.5); Lymphocytes Absolute Auto 800 /uL (1100-4500); Mean Corpuscular HGB Conc 33.1 % (30-36); Mean Corpuscular Hemoglobin 27.8 PG (26-34); Mean Corpuscular Volume 84.1 fL (80-100); Monocytes Absolute Auto 600 /uL (0-900); Monocytes Percent Auto 5.3 % (3-14); Neutrophils Absolute Auto 9700 /uL (1500-7000); Platelet Count 315 X10^3/uL (150-400); Red Blood Cell Count 4.41 X10^6/uL (4.5-5.9); Red Cell Distribution Width 14.9 % (11.6-14.8); White Blood Cell Count 11.3 X10^3/uL (4.5-11.0)
--- NOTE | 2024-05-23 14:59 | DI.CT.S_ITS ---
PROCEDURE: CT ABDOMEN PELVIS WO CON INDICATIONS: rectal pain; low back pain; infx? fistula? TECHNIQUE: Axial sections were acquired from the lung bases to the pubic symphysis. Coronal and sagittal reformats were performed. For radiation dose reduction, the following was used: automated exposure control, adjustment of mA and/or kV according to patient size. COMPARISON: [facility], CT, CT ABDOMEN PELVIS W CON, 05/04/2024, 5:14. [facility], CT, CT ABDOMEN PELVIS WO CON, 05/15/2024, 17:05. FINDINGS: Image quality: Diagnostic. Lower Chest: No significant findings. URINARY: Right Kidney: No stones or hydronephrosis. Right Ureter: No hydroureter. Left Kidney: No stones or hydronephrosis. Left Ureter: No hydroureter. Bladder: Normal wall thickness. No stones. ABDOMEN: Liver: No contour-deforming solid mass. Gallbladder: No radiopaque gallstones or wall thickening. Biliary ducts: No biliary dilation. Pancreas: No ductal dilation. No peripancreatic inflammation. Spleen: Size is within normal limits. Adrenal Glands: No adrenal nodules. Stomach and Bowel: Normal colonic caliber, without significant wall thickening. No evidence for perirectal inflammatory changes. No evidence for fistula formation. Scattered colonic diverticulosis without acute diverticulitis. No evidence for small bowel obstruction or associated inflammatory changes. Normal appendix. Peritoneum: No abnormal intraperitoneal fluid. No free air. Ventral Wall: No hernia. Abdominal Nodes: No enlarged retroperitoneal or mesenteric lymph nodes. Vessels: Aorta and inferior vena cava are normal in size. PELVIS: Pelvic Organs: Prostatomegaly. Pelvic Nodes: Unremarkable. Miscellaneous: No inguinal hernias are seen. Bones: Unremarkable. Visualized osseous structures appear intact without acute fracture or focal destructive lesion. No acute compression fractures of the imaged spine. Multilevel spondylosis. IMPRESSION: CT abdomen and pelvis without acute abnormalities to explain patient's symptoms. No evidence for acute diverticulitis or perirectal inflammatory changes or fistula. Colonic diverticulosis without acute diverticulitis. Other chronic/non-acute findings as above. Dictated by: Carlos Escobar M.D. on 05/23/2024 at 17:17 Approved by: Carlos Escobar M.D. on 05/23/2024 at 17:27
[2024-05-23 15:10] LABS: Alanine Aminotransferase 29 IU/L (<50); Albumin 4.9 g/dL (3.5-5.0); Albumin Globulin Ratio 1.5 (1.0-2.8); Alkaline Phosphatase 58 U/L (38-126); Aspartate Aminotransferase 32 IU/L (17-59); BUN Creatinine Ratio 26.9 (6-22); Bilirubin Total 0.7 mg/dL (0.2-1.3); Blood Urea Nitrogen 99 mg/dL (9-20); Carbon Dioxide 33 mmol/L (22-32); Chloride 84 mmol/L (98-107); Estimated Glomerular Filt Rate 15 mL/min (>60); Globulin 3.2 g/dL (1.7-4.1); Glucose 129 mg/dL (80-110); HEMOLYSIS 24 (0-50); Lactate (Lactic Acid) 2.2 mmol/L (0.7-2.1); Lipase 210 U/L (23-300); Sodium 133 mmol/L (137-145); Total Protein 8.1 g/dL (6.3-8.2)
[2024-05-23] MEDS: ONDANSETRON 4 MG/2 ML INJ IV (15:22)
[2024-05-23] MEDS: MORPHINE 4 MG/ML INJ IV ×3 (15:22→17:55)
--- NOTE | 2024-05-23 15:27 | DI.RAD.S_ITS ---
PROCEDURE: XR CHEST 1V INDICATIONS: concern for infx TECHNIQUE: One view of the chest was acquired. COMPARISON: [facility], CR, XR CHEST 1V, 05/15/2024, 15:18. [facility], CR, XR CHEST 1V, 04/13/2024, 8:45. FINDINGS: Surgical changes and devices: Left chest wall pacemaker. Lungs and pleura: Lungs are clear. No pleural effusions or pneumothorax. Mediastinum: Mediastinal contours appear normal. Heart size is normal. Bones and chest wall: No suspicious bony lesions. Overlying soft tissues appear unremarkable. IMPRESSION: No acute cardiopulmonary abnormality is seen. Dictated by: Rylan Esposito M.D. on 05/23/2024 at 15:59 Approved by: Rylan Esposito M.D. on 05/23/2024 at 16:02
[2024-05-23] MEDS: SODIUM CHLORIDE 0.9% 1,000 ML 1000 ML IV (15:34)
[2024-05-23] MEDS: PIPERACILLIN/TAZO 3.375 GM in SODIUM CHLORIDE 0.9% 100 ML IV (16:14)
[2024-05-23 16:20] LABS: Reflexed Lactate in 2 Hours Y
[2024-05-23 16:28] LABS: INR 1.3 (0.9-1.3); Prothrombin Time 14.2 SECONDS (9.4-12.5)
[2024-05-23 16:31] LABS: PTT Partial Thromboplastin Tim 38 SECONDS (25.1-36.5)
[2024-05-23 16:32] LABS: Magnesium 1.9 mg/dL (1.6-2.3)
[2024-05-23] MEDS: MORPHINE 2 MG/ML INJ IV (16:43)
[2024-05-23 16:50] LABS: Procalcitonin 0.195 ng/mL (<0.5)
[2024-05-23] MEDS: POTASSIUM CHLORIDE 20 MEQ TAB 40 MEQ PO (17:23)
[2024-05-23] MEDS: ACETAMINOPHEN IV 1,000 MG/100 ML VIAL 400 MG IV (17:26)
[2024-05-23 17:36] LABS: Bacteria Urine None Seen; RBC Urine None Seen (0-5/HPF); Squamous Epithelial Cell Urine 0-1 /HPF (0-5/HPF); Transitional Epi Cells Urine 0-1/HPF (0-5/HPF); Urine Volume 10mL (spun); WBC Urine None Seen (0-5/HPF)
[2024-05-23 17:37] LABS: Culture Indicated Urine Cult Not Indicated
[2024-05-23 18:00] LABS: BUN Creatinine Ratio 27.4 (6-22); Blood Urea Nitrogen 93 mg/dL (9-20); Calcium 9.1 mg/dL (8.4-10.2); Carbon Dioxide 34 mmol/L (22-32); Chloride 88 mmol/L (98-107); Estimated Glomerular Filt Rate 17 mL/min (>60); Glucose 104 mg/dL (80-110); HEMOLYSIS < 15 (0-50); Lactate 2HR (Lactic Acid Rflx) 1.4 mmol/L (0.7-2.1); Potassium 2.9 mmol/L (3.4-5.1); Sodium 131 mmol/L (137-145)
[2024-05-23] MEDS: LIDOCAINE 2% (GLYDO) 6 ML GEL TOP (18:47)
[2024-05-23 19:20] LABS: Creatinine Urine Random 90.23 mg/dL; Sodium Urine Random 41 mmol/L (30-90); Urea Nitrogen,Urine Random 451 mg/dL
[2024-05-23] MEDS: ACETAMINOPHEN 325 MG TABLET 650 MG PO (22:37)
[2024-05-23] MEDS: SODIUM CHLORIDE 0.9% 1,000 ML 100 ML IV (22:37)
[2024-05-23] MEDS: APIXABAN 5 MG TABLET 2.5 MG PO (22:38)
[2024-05-23] MEDS: TRAZODONE 50 MG TABLET 100 MG PO (22:38)
[2024-05-23] MEDS: DOCUSATE 100 MG CAPSULE PO (22:38)
[2024-05-24] VITALS (10 sets, daily range): BP systolic 108–129; BP diastolic 55–76; PULSE 63–90; RESP 17–20; TEMP 36.4–37; O2SAT 87–100
[2024-05-24] MEDS: MORPHINE 2 MG/ML INJ IV ×4 (01:00→21:40)
[2024-05-24] MEDS: ACETAMINOPHEN 325 MG TABLET 650 MG PO ×3 (05:22→16:44)
[2024-05-24 06:37] LABS: Add Manual Diff / Slide Review NO; Basophils Absolute Auto 0 /uL (0-100); Basophils Percent Auto 0.1 % (0-2); Eosinophils Absolute Auto 100 /uL (0-450); Eosinophils Percent Auto 1.1 % (2-4); Hematocrit 31.4 % (41-53); Hemoglobin 10.5 g/dL (13.5-17.5); Lymphocytes Absolute Auto 600 /uL (1100-4500); Lymphocytes Percent Auto 7.2 % (25-40); Mean Corpuscular HGB Conc 33.3 % (30-36); Mean Corpuscular Hemoglobin 28.4 PG (26-34); Mean Corpuscular Volume 85.2 fL (80-100); Monocytes Absolute Auto 600 /uL (0-900); Monocytes Percent Auto 6.9 % (3-14); Neutrophils Absolute Auto 7600 /uL (1500-7000); Neutrophils Percent Auto 84.7 % (50-75); Platelet Count 226 X10^3/uL (150-400); Red Blood Cell Count 3.69 X10^6/uL (4.5-5.9); Red Cell Distribution Width 14.8 % (11.6-14.8); White Blood Cell Count 8.9 X10^3/uL (4.5-11.0)
[2024-05-24 06:48] LABS: Alanine Aminotransferase 22 IU/L (<50); Albumin 3.9 g/dL (3.5-5.0); Albumin Globulin Ratio 1.5 (1.0-2.8); Alkaline Phosphatase 51 U/L (38-126); Aspartate Aminotransferase 24 IU/L (17-59); Bilirubin Total 0.6 mg/dL (0.2-1.3); Blood Urea Nitrogen 84 mg/dL (9-20); Calcium 8.9 mg/dL (8.4-10.2); Carbon Dioxide 33 mmol/L (22-32); Chloride 90 mmol/L (98-107); Estimated Glomerular Filt Rate 19 mL/min (>60); Globulin 2.6 g/dL (1.7-4.1); Glucose 147 mg/dL (80-110); HEMOLYSIS < 15 (0-50); Sodium 133 mmol/L (137-145); Total Protein 6.5 g/dL (6.3-8.2)
[2024-05-24] MEDS: METOPROLOL ER 25 MG TABLET PO (08:44)
[2024-05-24] MEDS: TAMSULOSIN 0.4 MG CAPSULE PO (08:44)
[2024-05-24] MEDS: PANTOPRAZOLE DR 20 MG TABLET PO ×2 (08:44→20:35)
[2024-05-24] MEDS: APIXABAN 5 MG TABLET 2.5 MG PO ×2 (08:45→20:36)
[2024-05-24] MEDS: CHLORTHALIDONE 25 MG TABLET PO (08:45)
[2024-05-24] MEDS: LORATADINE 10 MG TABLET PO (08:45)
[2024-05-24] MEDS: EZETIMIBE 10 MG TABLET PO (08:45)
[2024-05-24] MEDS: DOCUSATE 100 MG CAPSULE PO ×2 (08:45→20:35)
[2024-05-24] MEDS: POTASSIUM CHLORIDE IN WATER 10 MEQ/100 ML PIGGYBACK 100 MEQ IV (10:14)
[2024-05-24] MEDS: POTASSIUM CHLORIDE 10 MEQ TAB PO (12:16)
--- NOTE | 2024-05-24 14:10 | OT.IP.EVAL ---
Past Medical History (Last Reviewed 05/23/24 @ 14:22 by Sophia Lind PA-C) BPH w urinary obs/LUTS History of elevated PSA Hyperlipidemia Hypertension Low back pain Occupational Therapy Inpatient Evaluation/Re-Eval M1 PT/OT-IP Prior Functional Status Start: 05/24/24 14:15 Freq: NEEDED Status: Active Protocol: Document 05/24/24 14:16 [facility] (Rec: 05/24/24 14:37 [facility] [id number]) Medical Review Prior Functional Status Communication I Mobility and Gait Pt states does not use a devices and just walks from the recliner to bathroom and dinner table in between 3-5 times a day. Activities of Daily Living and IADL's Pt states able to do all his ADL's , but just only sponging off for the past 10 days. Social History Household Members spouse Living Arrangements House Number of Floors (Floors) One Floor Home Environment High Toilet,Walk in Shower, Built-In Shower Seat,Ramp Home Equipment Hand Held Shower,Grab Bars In Shower Additional Social History Comment Pt has a recliner chair but not lift chair. M2 OT-IP Current Condition Start: 05/24/24 14:15 Freq: Status: Active Protocol: Document 05/24/24 14:16 [facility] (Rec: 05/24/24 14:37 [facility] [id number]) Occupational Therapy Current Condition Current Condition Evaluation Date 05/24/24 Treatment Diagnosis Acure on chronic exacerbation of back pain, UTI Diagnosis Onset Date 05/23/24 M3 OT- IP Subjective and Pain Start: 05/24/24 14:15 Freq: Status: Active Protocol: Document 05/24/24 14:16 [facility] (Rec: 05/24/24 14:37 [facility] [id number]) OT- Subjective Occupational Therapy Visit Type Type Initial Evaluation Visit Start Time 13:35 Visit Stop Time 14:10 Occupational Therapy Visit Comments Patient Comments Pt needing lots of encouragement to try to get up . Pt's daughter, , and PT present for OT eval. Patient/Caregiver Goals To go home and adamantly refusing skilled rehab and would rather at home per pt. OT Pain Assessment Pain When Pain Assessed During Mobility Pain Present Pain Present Pain Reported Location lower back & rectum Intensity 8 Scale Used Numeric (0 - 10) Pain Behaviors Facial Grimacing,Holding Area M4 OT- IP ADL's Start: 05/24/24 14:15 Freq: Status: Active Protocol: Document 05/24/24 14:16 [facility] (Rec: 05/24/24 14:37 [facility] [id number]) OT [id number] Comments OT Self-Feeding Comments Not at meal time. OT ADL-Grooming Comments OT Grooming Comments NOt performed. OT ADL-Oral Care Comments Oral Care Comments Not performed. OT ADL-Dressing Comments OT Dressing Comments Not performed. Pt states is able to bend forwards to do his dressing needs. Educated to pt best to use equipment of assist to prevent aggravation of pain. OT ADL-Toileting General Evaluation Toileting Ability Total Assistance Comments OT Toileting Comments Thrasher. Pt states is very constipated at home and now has a BM whenever it works out but not daily. OT ADL-Bathing Comments OT Bathing Comments Sponge bath more appropriate at this time. M5 OT- IP IADL's Start: 05/24/24 14:15 Freq: Status: Active Protocol: Document 05/24/24 14:16 [facility] (Rec: 05/24/24 14:37 [id number] OT-Instrumental Activities of Daily Living Deficits IADL Deficits Identified Deficits Home Safety Awareness Home Safety Comments TO assess more tomorrow. Meal Preparation Meal Preparation Caregiver Provides Assist Shell Worker Shell Worker Caregiver Provides Assist M6 OT- IP Functional Cognition Start: 05/24/24 14:15 Freq: Status: Active Protocol: Document 05/24/24 14:16 [facility] (Rec: 05/24/24 14:37 [facility] [id number]) Cognitive Factors Limiting Selfcare Function Cognitive Ability Level of Alertness Alert Patient Orientation Name,Place,Situation Attention Span Ability Capable of Focused Attention, Capable of Sustained Attention Ability to Follow Commands Able to Follow One Step Commands Cognitive Comments Cognitive Assessment Comments Pt is a bit insistent to his needs. Pt states not needing devices or equipment to help relieve his back pain for ADL and mobility needs. Pt may benefit from formal cognitive eval. OT- Vision and Hearing OT- Hearing Assessment OT- Hearing Assessment Hearing Impaired OT- Vision Assessment Visual Acuity Glasses All The Time Vision Assessment Comments Pt states did not bring his hearing aids. M7 OT- IP Mobility and Balance Start: 05/24/24 14:15 Freq: Status: Active Protocol: Document 05/24/24 14:16 [facility] (Rec: 05/24/24 14:37 [facility] [id number]) OT- Bed Mobility Assessment Sit to Supine Sit to Supine Assist Standby Assistance Scooting Scooting to Edge of Bed Standby Assistance Scooting Up and Down in Bed Standby Assistance OT-Transfer Assessment Sit to and From Stand Sit to and from Stand Minimal Assistance Technique Transfer Destination Bed Transfer Technique Stand Step Pivot Devices Transfer Assistive Devices Gait Belt,Front Wheeled Walker Comments Mobility Comments SBA to get to the edge of the bed and back into bed. ROGELIO x1 to stand to the FWW. Pt feeling weak and nauseous and having to sit back down. BP supine 142/63, sitting 135/68, standing 102/62, sitting 103/ 66 and back in supine 129/62. Pt able to try a few side steps to the head of the bed with ROGELIO with FWW. At this time best to have two person assist for transfers only. OT- Balance Assessment Sitting Balance and Reactions Static Sitting Balance Ability Good Dynamic Sitting Balance Ability Good Standing Balance and Reactions Static Standing Balance Ability Fair Comments Other Balance Tests/Deviations/Treatment Pt sits with flexed posture : due to his pain. M8 OT- IP Objective Assessments Start: 05/24/24 14:15 Freq: Status: Active Protocol: Document 05/24/24 14:16 [facility] (Rec: 05/24/24 14:37 [facility] [id number]) OT Gross Range of Motion Upper Extremity Range of Motion Assessment Within Functional Limits OT Strength Upper Extremity Strength Assessment Within Functional Limits M9 OT- IP Assessment and Plan Start: 05/24/24 14:15 Freq: Status: Active Protocol: Document 05/24/24 14:16 [facility] (Rec: 05/24/24 14:37 [facility] [id number]) OT Summary Assessment and Plan Potential Rehabilitation Potential Fair Analytic Complexity at Evaluation Moderate Summary OT Impairments Pain,Balance,Functional Cognition,Functional Mobility, Self-Feeding,Grooming,Dressing ,Toileting,Bathing,Toilet Transfers,Shower Transfers, Activity Tolerance Progress Towards Goals Slow Progress due to Pain,Slow Progress due to Medical Issues,Slow Progress due to Activity Tolerance,Slow Progress due to Cognition Assessment Summary Pt main barriers are pain, decreased balance and activity tolerance, and having hypotension. Pt at this time would benefit from skilled rehab. However pt insistent on going home. Pending progress and medical needs SNF versus home with 13/09 available assist and home health. Goals Self-Feeding Goal Independent Grooming Goal Independent Dressing Goal Independent Toileting Goal Independent Bathing Goal Standby Assistance Toilet Transfer Goal Independent Shower Transfer Goal Standby Assistance Days to Meet Goals 15 Frequency of Treatment Other frequency 5x/week Treatment Plan OT Treatment Plan ADL Training,Functional Mobility,Patient/Family Education,Discharge Planning Discharge Recommendations OT Discharge Recommendations SNF Rehab,Home vs SNF Home Equipment Needs FWW Transportation Needs at Discharge Private Vehicle,Wheelchair/ Cabulance
--- NOTE | 2024-05-24 14:22 | SLP.IPNOTE ---
Chart reviewed and RN consulted. Clinical swallow evaluation attempted, though pt just began PT/OT evaluation. Will follow up later in day or tomorrow 05/25 as [employer] schedule allows.
--- NOTE | 2024-05-24 14:54 | CM.DANOTE ---
Initial DCP Assessment Visit Note Reviewed EMR and team rounds for status updates. Went to meet with pt/spouse, however they were found to be meeting with OT at the time of this assessment. Pt resides independently in his own home with his spouse here in [place]. Once he's medically cleared for d/c, his spouse will also transport him back home. No CM d/c assistance needs are identified at this time. Payor: Medicare PCP: Dr. Frausto Pt is a 88 year-old M who presented to the ED last evening with his spouse with c/o acute acerbation of his chronic back pain, as well as acute onset severe rectal pain (11/30) when he tried to have a BM. He states that the pain continued even at rest, and then began to radiate up his back. CT imaging was negative for any symptom etiology. He was started on IV morphine and Zofran for symptom management, and admitted as OBS for further pain/symptom managemnet and monitoring. DCP will continue to monitor for any further d/c assistance/resource needs. Discharge Planning/Care Management Advanced directive, confirm from FAMILY Start: 05/23/24 21:11 Freq: Q24H Status: Active Protocol: Document 05/23/24 21:33 [facility] (Rec: 05/23/24 21:34 [facility] [id number]) Advance Directive, confirm on record Time 21:33 Person contacted POLST on file Copy received Yes Advanced directive available on record Yes
[2024-05-24 16:49] LABS: BUN Creatinine Ratio 29.6 (6-22); Blood Urea Nitrogen 73 mg/dL (9-20); Calcium 8.9 mg/dL (8.4-10.2); Carbon Dioxide 32 mmol/L (22-32); Chloride 92 mmol/L (98-107); Estimated Glomerular Filt Rate 24 mL/min (>60); Glucose 129 mg/dL (80-110); HEMOLYSIS < 15 (0-50); Potassium 3.5 mmol/L (3.4-5.1); Sodium 133 mmol/L (137-145)
[2024-05-24] MEDS: HYDROCODONE/ACET 5/325 TABLET 1 TAB PO ×2 (17:46→23:55)
--- NOTE | 2024-05-24 17:50 | DI.ECHO.S_ITS ---
[facility] : : [address] : : [place] : : [address] : : Phone: [phone] Echocardiogram Report + + :Name: BIENVENIDO CAMPOS Study Date: 05/25/2024 Height: 72 in : :Hospital ReadingLocation: Weight: 221 lb : : Gender: Male BSA: 2.2 m2 : :: 1935 Age: 88 yrs BP: 133/66 mmHg: :Reason For Study: HYPOXIA : :Ordering Physician: LORENA, : :DORIE Performed By: Peter Caldwell : :Referring: DORIE CARRILLO : + + Interpretation Summary The patient was in atrial fibrillation with heart rates between 76-123 bpm during the exam. The ejection fraction is estimated to be 65-70%. The right ventricle is not well visualized. No significant valvular abnormalities. Procedure: A two-dimensional transthoracic echocardiogram with color flow and Doppler was performed. The study quality was technically difficult. Comparison is made with the echocardiogram of 07/06/2022. The patient was in atrial fibrillation with heart rates between 76-123 bpm during the exam. Left Ventricle: The left ventricle is normal in size. Left ventricular wall thickness is mildly increased. There is no ventricular septal defect visualized. The ejection fraction is estimated to be 65-70%. There are no focal wall motion abnormalities. Diastolic function could not be accurately assessed due to atrial fibrillation. Right Ventricle: The right ventricle is not well visualized. Atria: The left atrium is severely dilated. Right atrium not well visualized. The interatrial septum is not well visualized. Mitral Valve: There is moderate mitral annular calcification. The mitral valve leaflets appear mildly thickened, but open well. There is no mitral regurgitation noted. Aortic Valve: The aortic valve opens well. The aortic valve is mildly calcified. There is no aortic valve stenosis. No aortic regurgitation is present. Tricuspid Valve: The tricuspid valve is not well visualized. No tricuspid regurgitation. Pulmonic Valve: The pulmonic valve is not well visualized. There is trace pulmonic regurgitation. Great Vessels: The aortic root is mildly dilated. The ascending aorta could not be visualized. The pulmonary is not well visualized. The inferior vena cava was not visualized. Pericardium/ Pleura There is no pericardial effusion. MMode/2D Measurements & Calculations LVIDd: 3.3 cm LVOT diam: 2.1 cm LVIDs: 2.4 cm Ao root diam: 3.8 cm FS: 26.7 % EPSS: 0.99 cm IVSd: 1.2 cm LVPWd: 1.2 cm LV faulkner. diameter/BSA (cm/m^2): 1.5 LV sys. diameter/BSA (cm/m^2): 1.1 LA A2 area: 27.0 cm2 LA A4 area: 31.6 cm2 LA length (vol): 7.1 cm LA vol: 102.0 ml LA vol index: 45.9 ml/m2 Doppler Measurements & Calculations Ao V2 max: 133.8 cm/sec LVOT Max Alvaro: 109.7 cm/sec Ao V2 mean: 94.0 cm/sec LV V1 max P.8 mmHg Ao max P.2 mmHg LV V1 VTI: 20.7 cm Ao mean P.9 mmHg TRAVIS(I,D): 3.2 cm2 Ao V2 VTI: 23.2 cm TRAVIS(V,D): 2.9 cm2 sev ratio: 0.89 TRAVIS indexed to BSA (cm^2/m^2): 1.4 MV E max alvaro: 86.1 cm/sec PA V2 max: 65.0 cm/sec MV A max alvaro: 37.7 cm/sec PA V2 mean: 44.3 cm/sec MV E/A: 2.3 PA mean P.89 mmHg Med Peak E' Alvaro: 10.1 cm/sec PA pr(Accel): 43.0 mmHg E/E' med: 8.5 Lat Peak E' Alvaro: 10.4 cm/sec E/E' lat: 8.3 E/e' average: 8.4 MV dec time: 0.19 sec SV(LVOT): 74.2 ml Reading Physician:12:25 PM
--- NOTE | 2024-05-24 17:54 | PM.HP.1 ---
History of Present Illness History of Present Illness Date Patient Seen: 05/24/24 Time Patient Seen: 13:00 Chief complaint: pain , lower back pain Narrative: Patient is well known to me. 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 Workup showed markedly worsened kidney disease with a GFR of 14 and patient appeared dehydrated with urinary retention and elevated lactate but normal prolactin. Patient was given IV fluids and lactate came back down to normal. He was started on Zosyn given he had been on Cipro as an outpatient for suspected UTI/prostatitis. Patient is not feeling any better. He is complaining of severe throat pain. He is complaining of difficulty swallowing. He is complaining of back pain and leg pain. This is all chronic. Past medical history: 1. AFib on chronic anticoagulation, Eliquis 2. Chronic low back pain on chronic hydrocodone twice daily 3. Peripheral neuropathy 4. BPH with lower urinary tract symptoms 5. Elevated PSA 6. Chronic kidney disease stage 3 7. Hypertension 8. Hyperlipidemia Allergies multiple drug allergies Past surgical history: No GI surgeries Healthy behavior: Patient does not smoke. Previous alcohol use not currently using alcohol. Patient is fairly inactive Family history: Negative for any prostate cancer or GI cancer Social history: Patient is has 2 daughters. Daughters live here in town. Patient and his live here in town. Twelve point review of systems is otherwise negative other than above No rectal bleeding Intermittent constipation but he has had this for quite some time Patient is unable to sleep at night and lie flat because he states his lungs fill up with fluid from his sinuses Patient has constant nasal drip Patient denies any blood in his stool Patient denies any chest pain. Patient does have shortness of breath intermittently Patient does have chronic back pain. He is not currently having any radiculopathy. Patient has not had any rashes or chills [facility] Medical History History of elevated PSA BPH w urinary obs/LUTS Hypertension Hyperlipidemia Low back pain Social History household members: spouse Smoking Status: Never smoker alcohol intake: former Meds Home Medications and Allergies Home Medications Medication Instructions Recorded Confirmed Type multivitamin (Multiple Vitamins 1 tab PO DAILY ##0 08/19/16 05/23/24 History tablet) magnesium 250 mg tablet 500 mg PO DAILY 10/25/19 05/23/24 History omega-3 fatty acids 1,000 mg 2,000 mg PO DAILY 11/13/20 05/23/24 History capsule omeprazole 20 mg capsule,delayed 20 mg PO BID 11/13/20 05/23/24 History release tamsulosin 0.4 mg capsule 0.4 mg PO DAILY 09/21/21 05/23/24 History trazodone 50 mg tablet 100 mg PO QPM PRN Insomnia 09/21/21 05/23/24 History acetaminophen 325 mg tablet 650 mg PO Q8HR 05/23/24 05/23/24 History apixaban 2.5 mg tablet (Eliquis) 2.5 mg PO BID 05/23/24 05/23/24 History chlorthalidone 25 mg tablet 25 mg PO DAILY 05/23/24 05/23/24 History cholecalciferol (vitamin D3) 25 25 mcg PO DAILY 05/23/24 05/23/24 History mcg (1,000 unit) capsule ciprofloxacin HCl 500 mg tablet 500 mg PO BID 05/23/24 05/23/24 History diphenhydramine HCl 25 mg capsule 50 mg PO BEDTIME PRN Allergy 05/23/24 05/23/24 History (Allergy (diphenhydramine)) Symptoms ezetimibe 10 mg-simvastatin 10 mg 1 tab PO DAILY 05/23/24 05/23/24 History tablet (Vytorin) fexofenadine 180 mg tablet 180 mg PO DAILY 05/23/24 05/23/24 History hydrocodone 5 mg-acetaminophen 325 1 tab PO Q4H PRN Pain (Scale Score 05/23/24 05/23/24 History mg tablet 1-3) ipratropium bromide 42 mcg (0.06 2 spray intranasal TID PRN 05/23/24 05/23/24 History %) nasal spray rhinorhea metoprolol succinate 25 mg 25 mg PO DAILY 05/23/24 05/23/24 History tablet,extended release 24 hr trazodone 100 mg tablet 200 mg PO DAILY PRN Sleep 05/23/24 05/23/24 History triamcinolone acetonide 0.1 % 1 applic topical BID PRN affected 05/23/24 05/23/24 History topical cream area, avoid face Allergies Allergy/AdvReac Type Severity Reaction Status Date / Time benzocaine [From CETACAINE] Allergy Mild ANAPHYLAXSI Verified 09/21/21 00:54 S butamben [From CETACAINE] Allergy Mild ANAPHYLAXSI Verified 09/21/21 00:54 S tetracaine [From CETACAINE] Allergy Mild ANAPHYLAXSI Verified 09/21/21 00:54 S clonidine [CLONIDINE] Allergy Unknown Verified 09/21/21 00:54 Beta-Adrenergic Agents AdvReac Unknown WEAK,TIRED, Verified 09/21/21 00:54 [BETA-ADRENERGIC AGENTS] HARD TO FUNCTION Exam Vital Signs (past 8 hours): - 05/24/24 12:00 Temperature 97.8 F Pulse Rate 89 Respiratory Rate 17 Blood Pressure 129/72 Pulse Oximetry 98 Oxygen Flow Rate 2 Oxygen Delivery Method Nasal Cannula Oxygen Flow Rate 2 Narrative Exam Narrative: Patient is afebrile vital signs are stable, normotensive. Patient is resting comfortably in the hospital bed but states that he is in pain 7/10. Patient appears pale HEENT is unremarkable specifically no pharyngeal lesions or significant erythema or abnormalities of the mucous membranes. Mucous membranes are moist and pink Neck: Supple without adenopathy Chest: Clear to auscultation with shallow breaths. No wheezes rhonchi or crackles Cor: Distant S1-S2 with systolic ejection murmur loudest at the left upper sternal border. With regular rate and rhythm Abdomen: Positive bowel sounds, soft, nontender, nondistended, no hepatosplenomegaly. No guarding Extremities no edema pulses intact. Patient is diffusely tender Neurologic exam is nonfocal Objective Labs 05/24/24 06:00 05/24/24 16:01 Labs: Laboratory Results - last 24 hr 05/23/24 05/23/24 05/24/24 17:00 17:34 06:00 WBC 8.9 RBC 3.69 L Hgb 10.5 L Hct 31.4 L MCV 85.2 MCH 28.4 MCHC 33.3 RDW 14.8 Plt Count 226 Neut % (Auto) 84.7 H Lymph % (Auto) 7.2 L Dickinson % (Auto) 6.9 Eos % (Auto) 1.1 L Baso % (Auto) 0.1 Neut # (Auto) 7600 H Lymph # (Auto) 600 L Dickinson # (Auto) 600 Eos # (Auto) 100 Baso # (Auto) 0 Sodium 131 L 133 L Potassium 2.9 L 3.0 L Chloride 88 L 90 L Carbon Dioxide 34 H 33 H BUN 93 H 84 H Creatinine 3.40 H 3.00 H Estimated GFR 17 L 19 L BUN/Creatinine Ratio 27.4 H 28.0 H Glucose 104 147 H Lactate 1.4 Calcium 9.1 8.9 Total Bilirubin 0.6 AST 24 ALT 22 Alkaline Phosphatase 51 Total Protein 6.5 Albumin 3.9 Globulin 2.6 Albumin/Globulin Ratio 1.5 Ur Random Sodium 41 Urine Creatinine 90.23 Urine Urea Nitrogen 451 05/24/24 16:01 WBC RBC Hgb Hct MCV MCH MCHC RDW Plt Count Neut % (Auto) Lymph % (Auto) Dickinson % (Auto) Eos % (Auto) Baso % (Auto) Neut # (Auto) Lymph # (Auto) Dickinson # (Auto) Eos # (Auto) Baso # (Auto) Sodium 133 L Potassium 3.5 Chloride 92 L Carbon Dioxide 32 BUN 73 H Creatinine 2.47 H Estimated GFR 24 L BUN/Creatinine Ratio 29.6 H Glucose 129 H Lactate Calcium 8.9 Total Bilirubin AST ALT Alkaline Phosphatase Total Protein Albumin Globulin Albumin/Globulin Ratio Ur Random Sodium Urine Creatinine Urine Urea Nitrogen Assessment & Plan Assessment & Plan narrative: 88-year-old male admitted for possible sepsis of unclear etiology possibly urogenital origin Assessment 1. Sepsis with leukocytosis, elevated lactate. Unclear origin. Urine culture was not done but UA not suspicious but patient had been on Cipro. Blood cultures pending negative this far. Patient was on outpatient Cipro for 3 days prior to admit and is on Zosyn. White blood cell count is improved today. Patient is afebrile. Patient is normotensive. Plan: Will continue Zosyn for now. Assessment 2. Degenerative joint disease with chronic pain unclear if it is worse or he is feeling worse because of multiple medical problems. Plan: Will work with PT and OT. Likely will need snf placement but he will refuse this. Will treat with hydrocodone which he takes as an outpatient. He has not had it since he came in but he did have a couple of doses so I wonder if this is why he is having significant pain with palpation Assessment 3. Dysphagia with throat pain. No visible abnormalities. Will do swallow eval. Pending results we may need to do further evaluation EGD etc.. However patient has had reactions to medications they used for sedation although he does not know what. Assessment 4. AFib with well-controlled rate. Plan: Continue with Eliquis and continue with metoprolol Assessment 5. Acute on chronic kidney disease improving. Plan: Continue with IV fluids tonight will recheck in the morning be careful not to fluid overload him. Assessment 6. Hypoxemia unclear etiology. Will check for fluid overload with BNP and will do a repeat echo as patient had hypokinesis in his last echo in 2022 Plan: Continue with supplemental oxygen. Reviewed chest x-ray. May need contrasted chest CT evaluation of the back. Assessment 7. Insomnia Plan: Will continue with trazodone Assessment 8. BPH with urinary retention currently with Thrasher catheter Plan: Continue the same. Continue with same Flomax. DVT prophylaxis: Patient is on Eliquis GI prophylaxis. Continue omeprazole 79 minutes was spent with patient discussing with physicians, nursing, reviewing workup and clinic chart and documentation Time-Based Coding :: [TOTAL MINUTES] spent with patient and on the chart (including review of chart, obtaining history, exam, reviewing outside data, placing orders, documenting exam and treatment plan, and counseling patient) on [DATE].
[2024-05-24] MEDS: POTASSIUM CHLORIDE 20 MEQ TAB PO (18:10)
[2024-05-24] MEDS: TRAZODONE 50 MG TABLET 100 MG PO (20:35)
[2024-05-24] MEDS: ATORVASTATIN 20 MG TABLET 10 MG PO (20:36)
[2024-05-24] MEDS: SODIUM CHLORIDE 0.9% 1,000 ML 100 ML IV (20:37)
[2024-05-25] MEDS: ACETAMINOPHEN 325 MG TABLET 650 MG PO ×4 (00:01→21:57)
[2024-05-25 02:00] VITALS: BP 115/66; PULSE 74; RESP 19; TEMP 36.6; O2SAT 97
[2024-05-25] MEDS: MORPHINE 2 MG/ML INJ IV ×5 (04:06→23:47)
[2024-05-25 06:30] LABS: Add Manual Diff / Slide Review NO; Basophils Absolute Auto 0 /uL (0-100); Basophils Percent Auto 0.1 % (0-2); Eosinophils Absolute Auto 100 /uL (0-450); Eosinophils Percent Auto 1.6 % (2-4); Hematocrit 29.6 % (41-53); Hemoglobin 9.7 g/dL (13.5-17.5); Lymphocytes Absolute Auto 700 /uL (1100-4500); Lymphocytes Percent Auto 9.4 % (25-40); Mean Corpuscular HGB Conc 32.9 % (30-36); Mean Corpuscular Volume 85.2 fL (80-100); Monocytes Absolute Auto 700 /uL (0-900); Monocytes Percent Auto 9.4 % (3-14); Neutrophils Absolute Auto 5600 /uL (1500-7000); Neutrophils Percent Auto 79.5 % (50-75); Platelet Count 198 X10^3/uL (150-400); Red Blood Cell Count 3.47 X10^6/uL (4.5-5.9); Red Cell Distribution Width 14.5 % (11.6-14.8); White Blood Cell Count 7.1 X10^3/uL (4.5-11.0)
[2024-05-25] MEDS: SODIUM CHLORIDE 0.9% 1,000 ML 100 ML IV ×2 (06:31→19:58)
[2024-05-25 06:37] LABS: Magnesium 2.3 mg/dL (1.6-2.3)
[2024-05-25 06:38] LABS: Alanine Aminotransferase 20 IU/L (<50); Albumin 3.8 g/dL (3.5-5.0); Albumin Globulin Ratio 1.4 (1.0-2.8); Alkaline Phosphatase 46 U/L (38-126); Aspartate Aminotransferase 25 IU/L (17-59); BUN Creatinine Ratio 32.3 (6-22); Bilirubin Total 0.7 mg/dL (0.2-1.3); Blood Urea Nitrogen 65 mg/dL (9-20); Calcium 8.7 mg/dL (8.4-10.2); Carbon Dioxide 32 mmol/L (22-32); Chloride 96 mmol/L (98-107); Estimated Glomerular Filt Rate 31 mL/min (>60); Globulin 2.7 g/dL (1.7-4.1); Glucose 100 mg/dL (80-110); HEMOLYSIS 17 (0-50); Potassium 3.6 mmol/L (3.4-5.1); Sodium 134 mmol/L (137-145); Total Protein 6.5 g/dL (6.3-8.2)
[2024-05-25 06:45] LABS: NT-proBNP (BNP-Adult 18+) 161 pg/mL (<450)
[2024-05-25 07:59] VITALS: O2SAT 96
[2024-05-25 08:00] VITALS: BP 133/66; PULSE 93; RESP 18; TEMP 36.4; O2SAT 94
[2024-05-25] MEDS: EZETIMIBE 10 MG TABLET PO (08:48)
[2024-05-25] MEDS: LORATADINE 10 MG TABLET PO (08:48)
[2024-05-25] MEDS: APIXABAN 5 MG TABLET 2.5 MG PO ×2 (08:48→20:10)
[2024-05-25] MEDS: CHLORTHALIDONE 25 MG TABLET PO (08:48)
[2024-05-25] MEDS: HYDROCODONE/ACET 5/325 TABLET 1 TAB PO ×2 (08:49→21:58)
[2024-05-25] MEDS: PANTOPRAZOLE DR 20 MG TABLET PO ×2 (08:49→20:09)
[2024-05-25] MEDS: METOPROLOL ER 25 MG TABLET PO (08:49)
[2024-05-25] MEDS: DOCUSATE 100 MG CAPSULE PO ×2 (08:49→20:09)
[2024-05-25] MEDS: TAMSULOSIN 0.4 MG CAPSULE PO (08:49)
--- NOTE | 2024-05-25 09:15 | OT.IPNOTE ---
Attempted OT treatment and pt refusing due to too much pain.
--- NOTE | 2024-05-25 09:41 | PM.PN.1 ---
Subjective Subjective Date Patient Seen: 05/25/24 Time Patient Seen: 09:00 Interval history: Chief complaint acute on chronic kidney injury Creatinine and BUN continue to improve with IV hydration and take 1 more day is indicated appears to be mentally clearing up I do suspect high nitrogen levels. Continue IV hydration. Exam Vital Signs (past 8 hours): - 05/25/24 02:00 05/25/24 07:59 05/25/24 08:00 Temperature 97.8 F 97.6 F Pulse Rate 74 93 H Respiratory Rate 19 18 Blood Pressure 115/66 133/66 Pulse Oximetry 97 96 94 Oxygen Delivery Method Nasal Cannula Oxygen Flow Rate 2 1 1.5 Oxygen Delivery Method Nasal Cannula Oxygen Flow Rate 1.5 Resp Other: Moving air well bilaterally clear to auscultation Cardio Other: Regular rate no pedal edema GI Other: Soft nontender active bowel sounds Neuro Other: Oriented to day of week location situation Objective Labs 05/25/24 06:04 05/25/24 06:04 Labs: Laboratory Results - last 24 hr 05/24/24 05/25/24 16:01 06:04 WBC 7.1 RBC 3.47 L Hgb 9.7 L Hct 29.6 L MCV 85.2 MCH 28.0 MCHC 32.9 RDW 14.5 Plt Count 198 Neut % (Auto) 79.5 H Lymph % (Auto) 9.4 L Potter % (Auto) 9.4 Eos % (Auto) 1.6 L Baso % (Auto) 0.1 Neut # (Auto) 5600 Lymph # (Auto) 700 L Potter # (Auto) 700 Eos # (Auto) 100 Baso # (Auto) 0 Sodium 133 L 134 L Potassium 3.5 3.6 Chloride 92 L 96 L Carbon Dioxide 32 32 BUN 73 H 65 H Creatinine 2.47 H 2.01 H Estimated GFR 24 L 31 L BUN/Creatinine Ratio 29.6 H 32.3 H Glucose 129 H 100 Calcium 8.9 8.7 Magnesium 2.3 Total Bilirubin 0.7 AST 25 ALT 20 Alkaline Phosphatase 46 NT-Pro-B Natriuret Pep 161 Total Protein 6.5 Albumin 3.8 Globulin 2.7 Albumin/Globulin Ratio 1.4 PFSH Medical History History of elevated PSA BPH w urinary obs/LUTS Hypertension Hyperlipidemia Low back pain Social History household members: spouse Smoking Status: Never smoker alcohol intake: former Assessment & Plan Assessment & Plan narrative: 88-year-old male admitted for possible sepsis of unclear etiology possibly urogenital origin #Sepsis with leukocytosis, elevated lactate. Unclear origin but improving on Zosyn. Was on Cipro for 3 days prior to admission. Afebrile normotensive continue Zosyn for now cultures negative. # Degenerative joint disease Continue to work with PT OT consider need for placement continue outpatient hydrocodone as needed # Dysphagia with throat pain. Swallow eval results pending may need more # AFib with well-controlled rate. Stable continue metoprolol and Eliquis #acute on chronic kidney failure with elevated BUN Continuing gentle IV fluid repletion with care not to overload creatinine and BUN continue to improve. Monitor # hypoxemia Etiology unclear continue to track BNP repeat echo continue with supplemental oxygen. # Insomnia continue with trazodone # BPH with urinary retention Continue Thrasher with Flomax mild diuresing Disposition: Maybe in shape for discharge tomorrow creatinine is approaching baseline Code status do not resuscitate DVT prophylaxis: Patient is on Eliquis GI prophylaxis. Continue omeprazole Time-Based Coding :: [TOTAL MINUTES] spent with patient and on the chart (including review of chart, obtaining history, exam, reviewing outside data, placing orders, documenting exam and treatment plan, and counseling patient) on [DATE].
--- NOTE | 2024-05-25 10:35 | PT.IIE ---
Medical History (Last Reviewed 05/23/24 @ 14:22 by Sophia Lind PA-C) BPH w urinary obs/LUTS History of elevated PSA Hyperlipidemia Hypertension Low back pain Physical Therapy Inpatient Evaluation/Re-Eval M1 PT/OT-IP Prior Functional Status Start: 05/24/24 14:15 Freq: NEEDED Status: Active Protocol: Document 05/24/24 14:16 [facility] (Rec: 05/24/24 14:37 [facility] [id number]) Medical Review Prior Functional Status Communication I Mobility and Gait Pt states does not use a devices and just walks from the recliner to bathroom and dinner table in between 3-5 times a day. Activities of Daily Living and IADL's Pt states able to do all his ADL's , but just only sponging off for the past 10 days. Social History Household Members spouse Living Arrangements House Number of Floors (Floors) One Floor Home Environment High Toilet,Walk in Shower, Built-In Shower Seat,Ramp Home Equipment Hand Held Shower,Grab Bars In Shower Additional Social History Comment Pt has a recliner chair but not lift chair. M1 PT/OT-IP Prior Functional Status Start: 05/25/24 08:39 Freq: NEEDED Status: Active Protocol: Document 05/25/24 10:21 KJ (Rec: 05/25/24 10:34 KJ [id number]) Medical Review Prior Functional Status Communication I Mobility and Gait Pt states does not use a devices and just walks from the recliner to bathroom and dinner table in between 3-5 times a day. Activities of Daily Living and IADL's Pt states able to do all his ADL's , but just only sponging off for the past 10 days. Prior Functional Level (Other details) Pt uses canes to ambulate. Says he does not have a walker . Social History Household Members spouse Living Arrangements House Number of Floors (Floors) One Floor Home Environment High Toilet,Walk in Shower, Built-In Shower Seat,Ramp Home Equipment Hand Held Shower,Grab Bars In Shower Additional Social History Comment Pt has an electric recliner chair but not lift chair. M2 PT-IP Current Condition Start: 05/25/24 08:39 Freq: NEEDED Status: Active Protocol: Document 05/25/24 10:21 KJ (Rec: 05/25/24 10:34 KJ [id number]) Physical Therapy Current Condition Current Condition Evaluation Date 05/24/24 Treatment Diagnosis impaired mobility Onset Date chronic M3 PT-IP Subjective Start: 05/25/24 08:39 Freq: NEEDED Status: Active Protocol: Document 05/25/24 10:21 KJ (Rec: 05/25/24 10:34 KJ [id number]) Subjective Physical Therapy Visit Type Type Initial Evaluation Visit Start Time 13:35 Visit Stop Time 14:10 Notes Co-eval with OT Physical Therapy Visit Comments Patient Comments Pt has had back pain for a long time, it's worsened in the last 10 days. Patient Goals To go home Therapy Pain Assessment Pain When Pain Assessed During Mobility Pain Present Pain Present Pain Reported Location lower back & rectum Intensity 10 Scale Used Numeric (0 - 10) Pain Management Techniques Modification of Treatment,Re- positioning M4 PT-IP Mobility and Gait Start: 05/25/24 08:39 Freq: NEEDED Status: Active Protocol: Document 05/25/24 10:21 KJ (Rec: 05/25/24 10:34 KJ [id number]) PT-Bed Mobility Assessment Supine to Sit Supine to Sit Standby Assistance Sit to Supine Sit to Supine Standby Assistance Scooting Scooting to Edge of Bed Standby Assistance PT-Transfer Assessment Sit to and From Stand Sit to and from Stand Minimal Assistance Equipment Transfer Assistive Device Gait Belt,Front Wheeled Walker Transfers Transfer Destination Bed Comments Mobility Comments Pt was able to take short side steps to the left prior to sitting down. He did not demonstrate the ability to ambulate. PT-Balance Assessment Sitting Balance and Reactions Static Sitting Balance Ability Good Dynamic Sitting Balance Ability Good Standing Balance and Reactions Static Standing Balance Ability Good Dynamic Standing Balance Ability Fair M5 PT-IP Objective Assessments Start: 05/25/24 08:39 Freq: NEEDED Status: Active Protocol: Document 05/25/24 10:21 KJ (Rec: 05/25/24 10:34 KJ [id number]) Orientation Orientation/Cognition Level of Alertness Alert Orientation Name,Birthday,Day of Week Comments flat affect Gross Range of Motion Upper Extremity ROM Assessment Within Functional Limits Impairments Some decreases in end range shoulder Rom Lower Extremity ROM Assessment Within Functional Limits Strength Lower Extremity Strength Ankle 5/5 M7 PT-IP Assessment and Plan Start: 05/25/24 08:39 Freq: NEEDED Status: Active Protocol: Document 05/25/24 10:21 KJ (Rec: 05/25/24 10:34 KJ [id number]) PT Summary Assessment and Plan Potential Rehabilitation Potential Fair Status of Condition at Evaluation Evolving Summary Impairments Pain,Gait Goals Bed Mobility Goal Independent Transfer Goal Contact Guard Assistance Gait Goal Contact Guard Assistance Gait Distance 50 Days to Meet Goals 3 Frequency of Treatment Frequency Of Treatment Once a Day Treatment Plan Physical Therapy Treatment Plan Transfer Training,Gait Training Recommendations To Nursing Amount of Assist Needed 1 Person Assist Discharge Recommendations PT Discharge Recommendations SNF Rehab Transportation Needs at Discharge Wheelchair/Cabulance
--- NOTE | 2024-05-25 10:58 | DIET.CONS ---
Dietary Consultation Note Admission Date: 05/23/2024 19:42 Assessment: 88 y M admitted for sepsis and back pain. Dietitian screened for low MNA. Met with pt at bedside who reports for last 2 weeks has been unable to eat much d/t pain. Reports he normally has 3 meals per day and has not been able to tolerate even half of usual meals in these 2 weeks. Reports 20 lb weight loss in last 2-3 wks. Has watermelon, crackers, tea at bedside that he is slowly eating. Already ordered Ensure for lunch. NFPE with mild muscle loss temples and mild loss buccal and orbital fat pads. Assessed clavicle region and interosseous with no significant findings. Ht: 182.88 cm Wt: 100.5 kg BMI: 30.1 UBW: 108.409 kg on 05/04/24 (-7% wt loss within 3 wks, severe) Last BM: 05/23/24 (05/23/24 20:52) MNA: 10 Buster Score: 17 Diet: 05/24/24 Breakfast Renal Diet Diet Modifications: Food Texture: Level 7 - Regular Liquid Consistency: Level 0 - Thin Labs: RBC 3.47 X10^6/uL (4.5-5.9) L 05/25/24 06:04 Hgb 9.7 g/dL (13.5-17.5) L 05/25/24 06:04 Hct 29.6 % (41-53) L 05/25/24 06:04 Creatinine 2.01 mg/dL (0.66-1.25) H 05/25/24 06:04 Lactate 1.4 mmol/L (0.7-2.1) 05/23/24 17:34 NT-Pro-B Natriuret Pep 161 pg/mL (<450) 05/25/24 06:04 Nutrition Diagnosis: Severe acute protein calorie malnutrition r/t decreased appetite secondary to pain as evidence by 7% (20 lb) weight loss in 3 weeks (severe), <50% of energy needs in last 2 weeks per diet recall (severe) Interventions: -ONS BID EER: 1800 kcals (MSJx1.3 vs 15 kcals/kg per BMI) 75-90 g protein (.8-1 g/kg per renal and sepsis) Monitoring/Evaluations: po intakes, ONS tolerance Electronically Signed by: Mayuri Coombs 05/25/24 10:58 Clinical Dietitian [address] [address]
--- NOTE | 2024-05-25 12:21 | PT-IP ANOTE ---
checked on pt this morning and spouse in room. pt adamantly refused PT. stated that he is not going to move and just want to be in bed. educated pt on importance of mobility. pt understood and stated that he knows but still does not want to do PT. will f/u.
[2024-05-25 14:00] VITALS: BP 133/55; PULSE 90; RESP 20; TEMP 36.4; O2SAT 98
--- NOTE | 2024-05-25 14:24 | ST.IPCSEOM ---
Visit Care Team Role Provider Type ED* *Temp Referring Provider Physician Specialty: Emergency Medicine Address: Phone: Fax: Email: Sophia Lind PA-C Emergency Provider Advanced Spool Cleaner Specialty: Emergency Medicine Address: [address] [place] [address], [phone] Fax: Email: [email or web address] Frausto MD Attending Provider Physician Primary Care Provider Specialty: Family Practice Address: [address] [place] [address], [place], [address] Email: [email or web address] Peter Oshea MD Admit Provider Physician Other Providers Specialty: Family Practice Obstetrics Address: [address] [place] [address], [facility] 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 Workup showed markedly worsened kidney disease with a GFR of 14 and patient appeared dehydrated with urinary retention and elevated lactate but normal prolactin. Patient was given IV fluids and lactate came back down to normal. He was started on Zosyn given he had been on Cipro as an outpatient for suspected UTI/prostatitis. Patient is not feeling any better. He is complaining of severe throat pain. He is complaining of difficulty swallowing. He is complaining of back pain and leg pain. This is all chronic. Past medical history: 1. AFib on chronic anticoagulation, Eliquis 2. Chronic low back pain on chronic hydrocodone twice daily 3. Peripheral neuropathy 4. BPH with lower urinary tract symptoms 5. Elevated PSA 6. Chronic kidney disease stage 3 7. Hypertension 8. Hyperlipidemia Pt referred for ST evaluation d/t nursing reporting Pt with reports of throat pain since admitted, minimal intake and reports of trouble swallowing, however taking pills without difficulties. Subjective Observations Pt sitting upright in bed with present at bedside. Pt awake, alert, Ox3 and compliant with swallow evaluation. Pt reports he has had a sore throat since admitted to hospital and has had difficulties swallowing. He reports he also had difficulties swallowing at home for a couple weeks. Pt reports she did not know he was having swallow trouble. Pt also reports he has n't been eating a lot due to back pain. Reported by Patient/Caregiver Pain/Discomfort Yes Current Diet Regular (IDDSI 7) Baseline Feeding Method Independent in self-feeding The IDDSI Framework Protocol: IDDSI.1 Objective Assessment Mental Status Alert,Responsive,Cooperative Oral Integrity WFL Dentition Within normal limits Lip Function Within normal limits Pucker Within normal limits Lip Retraction Within normal limits Alternating Pucker/Lip Retraction Within normal limits Tongue Function Within normal limits Observations of Tongue at Rest Within normal limits Tongue Protrusion Within normal limits Tongue Retraction Within normal limits Tongue Lateralization Within normal limits Food and Liquid Trials Position During Assessment Upright (90 degrees) Liquids Trialed Thin (IDDSI 0) Solid Trials Purred (IDDSI 4),Regular ( IDDSI 7) Administration Type Straw,Self-feeding Oral Impairment Within functional limits Oral Phase Comments Pt consumed pudding and vitaliy crackers with about 8 oz of thin water via straw. For pudding, Pt exhibited adequate bite size and rate, good oral acceptance and containment and bolus manipulation, timely ap transport. For vitaliy cracker, Pt took small bites, slow rate, adequate mastication time and bolus formation and control, no oral stasis observed. For thin water via straw, Pt exhibited adequate suction, good oral acceptance and containment. Pharyngeal Impairment Within functional limits Pharyngeal Phase Comments Pt reported no pain with swallowing PO trials during evaluation. He did report feeling nauseous. Pt exhibited no overt s/s of aspiration with all PO trials, such as coughing or choking. Fatigue/Endurance Endurance WNL The IDDSI Framework Protocol: IDDSI.1 Findings Swallowing Function Within functional limits Severity of Swallow Impairment Within functional limits Prognosis Good Impact on Safety and Functioning Risk for inadequate nutrition/ hydration Recommendations Instrumental Assessment No Swallowing Treatment No Recommended Solids Regular (IDDSI 7) Recommended Liquids Thin (IDDSI 0) Other Recommendations ST recommends regular solids and thin liquids, as well as for Pt to consume foods that don't cause him throat pain and/or supplementation such as ensure to make sure he is meeting primary nutrition and hydration needs. ST recommends Pt f/u with PCP/ENT in regards to throat pain if it persists. Safety Precautions/Swallowing Remain upright (90 degrees) Recommendations during all oral intake,Upright position at least 30 minutes after meals,Slow rate; swallow between bites,Alternate liquids and solids Medication Recommendations As Tolerated Discharge Recommendations Home Referrals Recommended Referrals Otolaryngology/ENT Education Patient/Caregiver Education Described results of evaluation,Patient expressed understanding of evaluation, Family/caregivers expressed understanding of evaluation
--- NOTE | 2024-05-25 16:04 | PT-IP ANOTE ---
checked on pt this afternoon and continues to refuse PT. stated that he is going home tomorrow. pt informed regarding safe d/c. pt stated that he is able to move and will move when he needs to but does not want to move right now.
[2024-05-25 20:00] VITALS: BP 156/66; PULSE 77; RESP 19; TEMP 37.2; O2SAT 95
[2024-05-25] MEDS: ATORVASTATIN 20 MG TABLET 10 MG PO (20:09)
[2024-05-25] MEDS: TRAZODONE 50 MG TABLET 100 MG PO (21:58)
[2024-05-26 02:00] VITALS: BP 112/76; PULSE 74; RESP 19; TEMP 36.6; O2SAT 95
[2024-05-26] MEDS: ACETAMINOPHEN 325 MG TABLET 650 MG PO ×3 (03:58→16:54)
[2024-05-26] MEDS: HYDROCODONE/ACET 5/325 TABLET 1 TAB PO ×3 (03:59→16:53)
[2024-05-26] MEDS: MORPHINE 2 MG/ML INJ IV ×3 (05:22→21:35)
[2024-05-26] MEDS: SODIUM CHLORIDE 0.9% 1,000 ML 100 ML IV (05:24)
[2024-05-26 08:00] VITALS: RESP 18; TEMP 36.4
[2024-05-26] MEDS: EZETIMIBE 10 MG TABLET PO (08:53)
[2024-05-26] MEDS: PANTOPRAZOLE DR 20 MG TABLET PO ×2 (08:53→21:38)
[2024-05-26] MEDS: METOPROLOL ER 25 MG TABLET PO (08:53)
[2024-05-26] MEDS: DOCUSATE 100 MG CAPSULE PO ×2 (08:53→21:39)
[2024-05-26] MEDS: CHLORTHALIDONE 25 MG TABLET PO (08:53)
[2024-05-26] MEDS: LORATADINE 10 MG TABLET PO (08:53)
[2024-05-26] MEDS: TAMSULOSIN 0.4 MG CAPSULE PO (08:53)
[2024-05-26] MEDS: APIXABAN 5 MG TABLET 2.5 MG PO ×2 (08:53→21:36)
--- NOTE | 2024-05-26 09:14 | P.PN_ITS ---
Subjective Subjective Date Patient Seen: 05/26/24 Time Patient Seen: 09:14 Interval history: 88-year-old male admitted on May 23 with acute kidney injury altered mental status thought to be secondary to mild uremia with elevated BUN etcetera. Also felt possibly to have an infectious issue perhaps even early sepsis was placed on Zosyn In the ER but this has been discontinued. Since admission patient's renal function has steadily improved was at baseline as of lab work done yesterday (no lab work ordered for this morning). In addition patient with chronic pain thought to be secondary to osteoarthritis/degenerative joint disease. Skilled therapies have been involved, but patient has more often than not been declining to work with skilled therapies, in fact yesterday declined anticipating discharge today, and/or ?too much pain to move ? In addition patient with some degree of dysphagia, evaluated by speech therapy not found to have any significant issues so he was speech or swallowing. Apparently there some degree of discomfort and may need outpatient evaluation with the ENT this morning patient was seen with his spouse. she was expressing worries about taking him home in his current state as he was not really been up out of bed etcetera. Patient seems more willing to participate with skilled therapies and more willing to consider an alternative such as temporary placement in rehab facility before returning home No new complaints. Does admit still has lots of pain. Vital signs have been okay remains afebrile etcetera Exam Vital Signs (past 8 hours): - 05/26/24 02:00 Temperature 97.8 F Pulse Rate 74 Respiratory Rate 19 Blood Pressure 112/76 Pulse Oximetry 95 Oxygen Flow Rate 0 Oxygen Delivery Method Room Air Oxygen Flow Rate 0 Objective Labs 05/25/24 06:04 05/25/24 06:04 [facility] Medical History (Updated 05/26/24 @ 09:23 by Eros Zacarias MD) Uncomplicated opioid dependence Chronic low back pain Peripheral neuropathy Mixed hyperlipidemia Hypertension History of colon polyps Collagenous colitis Chronic renal failure, stage 3 (moderate) Atrial fibrillation History of elevated PSA BPH w urinary obs/LUTS Hypertension Low back pain Social History household members: spouse Smoking Status: Never smoker alcohol intake: former Assessment & Plan Assessment & Plan narrative: 1. Acute on chronic renal failure-appears to be back to baseline. No need for any particular intervention at this time 2. Question sepsis verses other source of infection-patient has done quite well off of antibiotics. White count he was normalized he was afebrile vital signs are stable. All cultures in hospital have been negative . No indication for antibiotic therapy at this time in my opinion. 3. Throat pain with questionable dysphagia-cleared by speech therapy. No active disease consider outpatient ENT evaluation 4. History of hypoxia-patient was apparently initially hypoxic upon admission but no longer has oxygen requirement. No evidence of primary pulmonary disease at this time 5. Chronic pain due to DJD/osteoarthritis-continue patient on his usual meds as an outpatient including hydrocodone. Continue to work with skilled therapies today to establish whether not he can return home or would benefit from senior care placement temporarily 6. Weakness-patient with chronic weakness but mostly declining to work with skilled therapies. per nursing staff and spouse seems unlikely to be safe to return home at this time. Patient more willing to work with skilled therapies as above. Probably would benefit from least short term stay in senior care. Plan to re-evaluate tomorrow and or Tuesday after skilled therapy evaluations etcetera. 7. Anemia-patient with chronic anemia somewhat worse during this hospitalization. No evidence of active bleeding. Okay to continue on his chronic anticoagulation for his AFib. Will need to be monitored as an outpatient as well and continue to monitor for evidence of ongoing bleeding while an inpatient Time-Based Coding :: [TOTAL MINUTES] spent with patient and on the chart (including review of chart, obtaining history, exam, reviewing outside data, placing orders, documenting exam and treatment plan, and counseling patient) on [DATE]. 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
--- NOTE | 2024-05-26 10:30 | PT.IPTN ---
Current Diagnoses Sepsis, unspecified organism (05/25/24) Physical Therapy Treatment Note M2 PT-IP Current Condition Start: 05/25/24 08:39 Freq: NEEDED Status: Active Protocol: Document 05/25/24 10:21 KJ (Rec: 05/25/24 10:34 KJ [id number]) Physical Therapy Current Condition Current Condition Evaluation Date 05/24/24 Treatment Diagnosis impaired mobility Onset Date chronic M3 PT-IP Subjective Start: 05/25/24 08:39 Freq: NEEDED Status: Active Protocol: Document 05/26/24 10:30 AB (Rec: 05/26/24 12:53 AB [id number]) Subjective Physical Therapy Visit Type Type Treatment Note Visit Start Time 10:30 Visit Stop Time 10:55 Number of CLINICAL EXERCISE PHYSIOLOGIST Visits 0 Physical Therapy Visit Comments Patient Comments agreeable to do PT Therapy Pain Assessment Pain When Pain Assessed At Rest Pain Present Pain Present Pain Reported Location Back Intensity 8 Scale Used Numeric (0 - 10) Pain Behaviors Guarding,Holding Area,Wincing Pain Management Techniques Distraction,Modification of Treatment,Re-positioning, Timing of Activity with Medications M4 PT-IP Mobility and Gait Start: 05/25/24 08:39 Freq: NEEDED Status: Active Protocol: Document 05/26/24 10:30 AB (Rec: 05/26/24 12:53 AB [id number]) PT-Bed Mobility Assessment Supine to Sit Supine to Sit Minimal Assistance,1 Person Assistance,Head of Bed Elevated,Bedrails PT-Transfer Assessment Sit to and From Stand Sit to and from Stand Maximum Assistance,2 Person Assistance,Use of Upper Extremities Equipment Transfer Assistive Device Gait Belt,Front Wheeled Walker Orthotic/Prosthetic Devices or Brace: No Transfers Transfer Destination Chair Transfer Technique Stand Step Pivot Transfer Ability Level of Assist Maximum Assistance,2 Person Assistance,Use of Upper Extremities Comments Mobility Comments pt in bed. spouse in room. pt agreed to do PT. spouse confirmed that they have 8 platform steps to enter the house. completed supine to sit min A and cues with HOB elevated and use of bed rail. pt able to sit on EOB CGA. pt has bilateral knee supports on. pt completed sit <>stand from EOB max A x 2 and max cues but unable to get to an upright position and needing to sit down. c/o LE pain and back pain. pt rested and agreed to stand again. completed sit to stand max A x 2 and max cues. Able to stand requiring max A x 2 for steadiness. pt completed step transfer to chair max A x 2 and max cues; presents with unsteady steps. pt agreed to stay up on the chair. educated and completed LE exercises: ankle pumps, LAQs. refused further mobility. positioned pt on the chair. call light and table placed within reach. M5 PT-IP Objective Assessments Start: 05/25/24 08:39 Freq: NEEDED Status: Active Protocol: Document 05/25/24 10:21 KJ (Rec: 05/25/24 10:34 KJ [id number]) Orientation Orientation/Cognition Level of Alertness Alert Orientation Name,Birthday,Day of Week Comments flat affect Gross Range of Motion Upper Extremity ROM Assessment Within Functional Limits Impairments Some decreases in end range shoulder Rom Lower Extremity ROM Assessment Within Functional Limits Strength Lower Extremity Strength Ankle 5/5 M6 PT-IP Treatment Start: 05/25/24 08:39 Freq: NEEDED Status: Active Protocol: Document 05/26/24 10:30 AB (Rec: 05/26/24 12:53 AB [id number]) Physical Therapy Treatment Exercises Exercises Ankle Pumps,Seated Knee Flexion/Extension Education Education Provided Safety M7 PT-IP Assessment and Plan Start: 05/25/24 08:39 Freq: NEEDED Status: Active Protocol: Document 05/26/24 10:30 AB (Rec: 05/26/24 12:53 AB [id number]) PT Summary Assessment and Plan Potential Rehabilitation Potential Fair Summary Impairments Pain,ROM,Strength,Balance, Coordination,Sensation,Tone, Cognition,Bed Mobility, Transfers,Gait,Activity Tolerance Progress Towards Goals Slow Progress due to Pain,Slow Progress due to Activity Tolerance Assessment Summary pt requiring max A x 2 with transfers using fWW and unable to ambulate at this time. pt will require SNF rehab to improve overall strength and function. Goals Bed Mobility Goal Independent Transfer Goal Minimal Assistance,Front Wheeled Walker Gait Goal Minimal Assistance,Front Wheel Walker Gait Distance 50 Other Goals LTG: improve transfers and ambulation using FWW ~ 100ft SBA up/down 8 platform steps using fWW SBA Days to Meet Goals 10 Frequency of Treatment Frequency Of Treatment Once a Day Treatment Plan Physical Therapy Treatment Plan Transfer Training,Gait Training Recommendations To Nursing Amount of Assist Needed Mechanical Lift Discharge Recommendations PT Discharge Recommendations SNF Rehab Transportation Needs at Discharge Wheelchair/Cabulance
[2024-05-26 12:00] VITALS: BP 156/66; PULSE 86; RESP 18; TEMP 36.4; O2SAT 98
--- NOTE | 2024-05-26 13:01 | CM.DPC ---
Patient initially refusing to participate with PT, spouse concerned about taking patient home. Dr. Zacarias spoke with patient and notes he is now more agreeable to participating, will ask PT to see again. Spoke with patient and and they would like [facility], if approved. Will send to [facility] after updated PT note showing participation. Can d/c after 3rd midnight on Tuesday.
[2024-05-26 18:00] VITALS: BP 105/83; PULSE 96; RESP 16; TEMP 36.4; O2SAT 96
[2024-05-26] MEDS: ATORVASTATIN 20 MG TABLET 10 MG PO (21:37)
[2024-05-26] MEDS: TRAZODONE 50 MG TABLET 100 MG PO (21:37)
[2024-05-26] MEDS: OXYCODONE IR 5 MG TABLET PO (22:45)
[2024-05-27] VITALS: BP 144/83; PULSE 92; RESP 16; TEMP 36.6; O2SAT 93
[2024-05-27] MEDS: HYDROCODONE/ACET 5/325 TABLET 1 TAB PO ×6 (01:44→20:29)
[2024-05-27 06:00] VITALS: BP 157/73; PULSE 91; RESP 19; TEMP 36.4; O2SAT 93
[2024-05-27 06:35] LABS: Add Manual Diff / Slide Review NO; Basophils Absolute Auto 0 /uL (0-100); Basophils Percent Auto 0.3 % (0-2); Eosinophils Absolute Auto 300 /uL (0-450); Eosinophils Percent Auto 4.8 % (2-4); Hematocrit 28.4 % (41-53); Hemoglobin 9.4 g/dL (13.5-17.5); Lymphocytes Absolute Auto 800 /uL (1100-4500); Lymphocytes Percent Auto 13.7 % (25-40); Mean Corpuscular HGB Conc 33.2 % (30-36); Mean Corpuscular Hemoglobin 28.5 PG (26-34); Monocytes Absolute Auto 600 /uL (0-900); Monocytes Percent Auto 9.4 % (3-14); Neutrophils Absolute Auto 4300 /uL (1500-7000); Neutrophils Percent Auto 71.8 % (50-75); Platelet Count 209 X10^3/uL (150-400); Red Blood Cell Count 3.31 X10^6/uL (4.5-5.9); White Blood Cell Count 6.1 X10^3/uL (4.5-11.0)
[2024-05-27 06:40] LABS: BUN Creatinine Ratio 26.6 (6-22); Blood Urea Nitrogen 41 mg/dL (9-20); Calcium 8.8 mg/dL (8.4-10.2); Carbon Dioxide 29 mmol/L (22-32); Chloride 103 mmol/L (98-107); Estimated Glomerular Filt Rate 43 mL/min (>60); Glucose 107 mg/dL (80-110); HEMOLYSIS < 15 (0-50); Potassium 3.5 mmol/L (3.4-5.1); Sodium 138 mmol/L (137-145)
[2024-05-27] MEDS: PANTOPRAZOLE DR 20 MG TABLET PO ×2 (09:49→20:28)
[2024-05-27] MEDS: CHLORTHALIDONE 25 MG TABLET PO (09:49)
[2024-05-27] MEDS: DOCUSATE 100 MG CAPSULE PO ×2 (09:50→20:29)
[2024-05-27] MEDS: APIXABAN 5 MG TABLET 2.5 MG PO ×2 (09:50→20:27)
[2024-05-27] MEDS: EZETIMIBE 10 MG TABLET PO (09:50)
[2024-05-27] MEDS: TAMSULOSIN 0.4 MG CAPSULE PO (09:50)
[2024-05-27] MEDS: POTASSIUM CHLORIDE 20 MEQ TAB PO (09:50)
[2024-05-27] MEDS: METOPROLOL ER 25 MG TABLET PO (09:50)
[2024-05-27] MEDS: LORATADINE 10 MG TABLET PO (09:51)
--- NOTE | 2024-05-27 10:17 | P.PN_ITS ---
Subjective Subjective Date Patient Seen: 05/27/24 Time Patient Seen: 10:17 Interval history: Patient up with physical therapy yesterday. Able to do stand and sit but really no stamina or strength do any sort of ambulation trial etcetera. Physical therapy recommending residential placement Lab work shows continued improvement in renal function with GFR now 43 BUN 41 and creatinine 1.5. Hemoglobin hematocrit med stable although down from baseline it appears. No evidence of large volume active bleeding Patient was self says he does feel little bit better. Still very weak and very much accepting of the fact now that he can not go home until he is stronger No new complaints or issues. A bit frustrated by his chronic pain management yesterday which ran into a difficulty with total daily acetaminophen intake (I think we have corrected that now) Exam Vital Signs (past 8 hours): - 05/27/24 06:00 Temperature 97.6 F Pulse Rate 91 H Respiratory Rate 19 Blood Pressure 157/73 H Pulse Oximetry 93 Oxygen Flow Rate 0 Oxygen Delivery Method Room Air Oxygen Flow Rate 0 Objective Labs 05/27/24 05:59 05/27/24 05:59 Labs: Laboratory Results - last 24 hr 05/27/24 05:59 WBC 6.1 RBC 3.31 L Hgb 9.4 L Hct 28.4 L MCV 86.0 MCH 28.5 MCHC 33.2 RDW 15.0 H Plt Count 209 Neut % (Auto) 71.8 Lymph % (Auto) 13.7 L [place] % (Auto) 9.4 Eos % (Auto) 4.8 H Baso % (Auto) 0.3 Neut # (Auto) 4300 Lymph # (Auto) 800 L [place] # (Auto) 600 Eos # (Auto) 300 Baso # (Auto) 0 Sodium 138 Potassium 3.5 Chloride 103 Carbon Dioxide 29 BUN 41 H Creatinine 1.54 H Estimated GFR 43 L BUN/Creatinine Ratio 26.6 H Glucose 107 Calcium 8.8 [facility] Medical History (Updated 05/26/24 @ 09:23 by Eros Zacarias MD) Uncomplicated opioid dependence Chronic low back pain Peripheral neuropathy Mixed hyperlipidemia Hypertension History of colon polyps Collagenous colitis Chronic renal failure, stage 3 (moderate) Atrial fibrillation History of elevated PSA BPH w urinary obs/LUTS Hypertension Low back pain Social History household members: spouse Smoking Status: Never smoker alcohol intake: former Assessment & Plan Assessment & Plan narrative: 1. Acute on chronic renal failure-appears to be back to baseline. No need for any particular intervention at this time. Remains off of IV fluids, and numbers will be rechecked tomorrow 2. Question sepsis verses other source of infection-no further evidence of infection. Continue off antibiotics and at this point I doubt that sepsis was present upon admission 3. Throat pain with questionable dysphagia-cleared by speech therapy. No active disease consider outpatient ENT evaluation 4. History of hypoxia-patient remains off oxygen with O2 saturation 93-96%. No evidence of primary pulmonary disease at this time 5. Chronic pain due to DJD/osteoarthritis-continue patient on his usual meds as an outpatient including hydrocodone. Continue to work with skilled therapies, and it appears residential is going to be the safest discharge 6. Weakness-patient with chronic weakness, and based on physical therapy evaluate and yesterday that is seems as though residential placement is going to be his discharge destination. Continue with skilled therapies today including occupational therapy as well as ongoing physical therapy 7. Anemia-patient with chronic anemia somewhat worse during this hospitalization. No evidence of active bleeding. Okay to continue on his chronic anticoagulation for his AFib. Continue to monitor for evidence of active bleeding 8. Disposition-plan for discharge to residential probably as early as tomorrow the seventh, continue with skilled therapies today. Will review with Dr. Frausto tomorrow Time-Based Coding :: [TOTAL MINUTES] spent with patient and on the chart (including review of chart, obtaining history, exam, reviewing outside data, placing orders, documenting exam and treatment plan, and counseling patient) on [DATE]. PROFEE Regional Facilities Specialist Document charge(s): Yes Charge Codes Subsequent inpatient/observation care: [id number]
--- NOTE | 2024-05-27 11:22 | PC.NURSE ---
Patient did not eat much for breakfast, he was given his vicodin around 1015. Stated that his pain to his back and legs was 8/10. He is comfortable now and visiting with his .
--- NOTE | 2024-05-27 11:50 | PT.IPTN ---
Current Diagnoses Sepsis, unspecified organism (05/25/24) Physical Therapy Treatment Note M2 PT-IP Current Condition Start: 05/25/24 08:39 Freq: NEEDED Status: Active Protocol: Document 05/25/24 10:21 KJ (Rec: 05/25/24 10:34 KJ [id number]) Physical Therapy Current Condition Current Condition Evaluation Date 05/24/24 Treatment Diagnosis impaired mobility Onset Date chronic M3 PT-IP Subjective Start: 05/25/24 08:39 Freq: NEEDED Status: Active Protocol: Document 05/27/24 11:30 KS (Rec: 05/27/24 12:46 KS [id number]) Subjective Physical Therapy Visit Type Type Treatment Note Visit Start Time 11:30 Visit Stop Time 11:50 Number of PRODUCTION CELL LEADER Visits 1 Physical Therapy Visit Comments Patient Comments agreeable to do PT Therapy Pain Assessment Location Feet Scale Used not quanitified Description Aching,Throbbing Pain Behaviors Facial Grimacing,Guarding, Moaning,Wincing Pain Management Techniques Elevation,Modification of Treatment M4 PT-IP Mobility and Gait Start: 05/25/24 08:39 Freq: NEEDED Status: Active Protocol: Document 05/27/24 11:30 KS (Rec: 05/27/24 12:46 KS [id number]) PT-Bed Mobility Assessment Supine to Sit Supine to Sit Contact Guard Assistance,1 Person Assistance,Head of Bed Elevated,Bedrails Scooting Scooting to Edge of Bed Contact Guard Assistance PT-Transfer Assessment Sit to and From Stand Sit to and from Stand Moderate Assistance,Maximum Assistance,2 Person Assistance ,Use of Upper Extremities Equipment Transfer Assistive Device Gait Belt,Front Wheeled Walker Orthotic/Prosthetic Devices or Brace: No Transfers Transfer Destination Chair Transfer Technique Stand Step Pivot Transfer Ability Level of Assist Minimal Assistance,Moderate Assistance,2 Person Assistance ,Use of Upper Extremities Comments Mobility Comments Pt in bed upon arrival. Able to sit hemself and scoot EOB CGA. Bed raised in prep for standing. Pt required Mod to Max A x2 for sit<>Stand w/ FWW . Once standing, pt able to perform a few reps marching in place and then agrees to transfer to chair. Requires Min-Mod A x2 for stand step pivot to chair and needs FWW mgmt. Pt very weak and c/o bilatera foot pain w/ weightbearing. Gait Assessment Comments Gait Comments Stand step pivot only. Min-Mod A x2 w/ FWW mgmt and cues. PT-Balance Assessment Sitting Balance and Reactions Static Sitting Balance Ability Good Dynamic Sitting Balance Ability Good Standing Balance and Reactions Static Standing Balance Ability Fair Dynamic Standing Balance Ability Fair Device Used FWW M5 PT-IP Objective Assessments Start: 05/25/24 08:39 Freq: NEEDED Status: Active Protocol: Document 05/25/24 10:21 KJ (Rec: 05/25/24 10:34 KJ [id number]) Orientation Orientation/Cognition Level of Alertness Alert Orientation Name,Birthday,Day of Week Comments flat affect Gross Range of Motion Upper Extremity ROM Assessment Within Functional Limits Impairments Some decreases in end range shoulder Rom Lower Extremity ROM Assessment Within Functional Limits Strength Lower Extremity Strength Ankle 5/5 M6 PT-IP Treatment Start: 05/25/24 08:39 Freq: NEEDED Status: Active Protocol: Document 05/27/24 11:30 KS (Rec: 05/27/24 12:46 KS [id number]) Physical Therapy Treatment Exercises Exercises Ankle Pumps,Gluteal Sets,Quad Sets,Straight Leg Raises Education Education Provided Safety M7 PT-IP Assessment and Plan Start: 05/25/24 08:39 Freq: NEEDED Status: Active Protocol: Document 05/27/24 11:30 KS (Rec: 05/27/24 12:46 KS [id number]) PT Summary Assessment and Plan Potential Rehabilitation Potential Fair Summary Impairments Pain,ROM,Strength,Balance, Coordination,Sensation,Tone, Cognition,Bed Mobility, Transfers,Gait,Activity Tolerance Progress Towards Goals Slow Progress due to Pain,Slow Progress due to Activity Tolerance Assessment Summary Pt still reqiring two person assist for sit<>Stand and transfer and limited to ambulating only a few feet for transfer due to weakness, pain, and low activity tolerance. Pt not safe to dc home at this time and will require SNF rehab to improve overall strength and function. Goals Bed Mobility Goal Independent Transfer Goal Minimal Assistance,Front Wheeled Walker Gait Goal Minimal Assistance,Front Wheel Walker Gait Distance 50 Other Goals LTG: improve transfers and ambulation using FWW ~ 100ft SBA up/down 8 platform steps using fWW SBA Days to Meet Goals 10 Frequency of Treatment Frequency Of Treatment Once a Day Treatment Plan Physical Therapy Treatment Plan Transfer Training,Gait Training Recommendations To Nursing Amount of Assist Needed 2 Person Assist Discharge Recommendations PT Discharge Recommendations SNF Rehab Transportation Needs at Discharge Wheelchair/Cabulance - PT assist 2PA
[2024-05-27 12:00] VITALS: PULSE 90; RESP 16; TEMP 36.6; O2SAT 98
[2024-05-27] MEDS: MORPHINE 2 MG/ML INJ IV ×3 (12:24→23:09)
--- NOTE | 2024-05-27 13:00 | CM.DPC ---
DCP SNF Planning: Per MD, pt was willing to work with PT yesterday and per PT was 2PA with FWW for transfers and had not been able to ambulate yesterday and will attempt again today Tuesday. SW made referral to [facility] and updated admissions justin and she will review as [facility] pt/spouse first preference and also sent referral to [facility] as pt has Medicare and Inpt Status as of 05/25 and Medicare eligible to d/c to SNF tomorrow Mon 05/28. PASRR done. Plan: SW to follow closely today and in the AM for [facility] and [facility] review to confirm which can accept for plan of d/c to SNF rehab for strengthening before home with spouse. Sandie Covarrubias MSW
[2024-05-27] MEDS: TRAZODONE 50 MG TABLET 100 MG PO (20:27)
[2024-05-27] MEDS: ATORVASTATIN 20 MG TABLET 10 MG PO (20:29)
[2024-05-28] VITALS: BP 164/72; PULSE 110; RESP 19; TEMP 37.2; O2SAT 92
[2024-05-28] MEDS: HYDROCODONE/ACET 5/325 TABLET 1 TAB PO ×6 (00:15→20:47)
[2024-05-28 06:11] VITALS: BP 168/77; PULSE 95; RESP 17; TEMP 36.8; O2SAT 92
[2024-05-28 06:22] LABS: BUN Creatinine Ratio 21.2 (6-22); Blood Urea Nitrogen 32 mg/dL (9-20); Calcium 9.1 mg/dL (8.4-10.2); Carbon Dioxide 27 mmol/L (22-32); Chloride 101 mmol/L (98-107); Estimated Glomerular Filt Rate 44 mL/min (>60); Glucose 117 mg/dL (80-110); HEMOLYSIS < 15 (0-50); Potassium 3.7 mmol/L (3.4-5.1); Sodium 138 mmol/L (137-145)
[2024-05-28] MEDS: METOPROLOL ER 25 MG TABLET PO (08:33)
[2024-05-28] MEDS: PANTOPRAZOLE DR 20 MG TABLET PO ×2 (08:33→20:46)
[2024-05-28] MEDS: APIXABAN 5 MG TABLET 2.5 MG PO ×2 (08:33→20:47)
[2024-05-28] MEDS: LORATADINE 10 MG TABLET PO (08:33)
[2024-05-28] MEDS: EZETIMIBE 10 MG TABLET PO (08:34)
[2024-05-28] MEDS: CHLORTHALIDONE 25 MG TABLET PO (08:34)
[2024-05-28] MEDS: TAMSULOSIN 0.4 MG CAPSULE PO (08:34)
--- NOTE | 2024-05-28 08:34 | PM.PN.1 ---
Subjective Subjective Date Patient Seen: 05/28/24 Time Patient Seen: 08:34 Interval history: Patient with unremarkable night. Reviewed notes from last 48 hours. No significant events. Patient continues to be very frail and unsteady on his feet requiring assistance. Initially suspicion for sepsis. Blood cultures x4 days are negative. Patient received 1 dose of Zosyn in the ER and no further antibiotics and continues to have a normal white blood cell count and is afebrile without evidence of infection or signs or symptoms of infection. Patient's appetite has been decreased throughout the stay. He states he ate the most this morning eating his breakfast of cereal. Patient has not had a bowel movement for 48 hours or greater. Patient is complaining of right knee pain and complaining of significant bilateral foot pain. This has been a problem for him. He has previously been on gabapentin but it is unclear if maybe this made him sick. Patient denies any difficulty breathing Patient denies any chest pain. Otherwise no change in past medical history, medications, allergies or health related behavior 12 point review of systems otherwise negative Exam Vital Signs (past 8 hours): - 05/28/24 06:11 Temperature 98.2 F Pulse Rate 95 H Respiratory Rate 17 Blood Pressure 168/77 H Pulse Oximetry 92 Oxygen Flow Rate 0 Oxygen Delivery Method Room Air Oxygen Flow Rate 0 Narrative Exam Narrative: Patient is sitting upright in recliner eating his breakfast in no apparent distress. Alert and oriented x3 Afebrile vital signs are stable except for elevated blood pressure this morning at 168/77 Neck: Supple Chest: Clear to auscultation without wheezes rhonchi or crackles Cor: Irregularly irregular rhythm with a well-controlled rate Abdomen: Positive bowel sounds, soft, nontender Extremities no edema, pulses intact Objective Labs 05/27/24 05:59 05/28/24 05:50 Labs: Laboratory Results - last 24 hr 05/28/24 05:50 Sodium 138 Potassium 3.7 Chloride 101 Carbon Dioxide 27 BUN 32 H Creatinine 1.51 H Estimated GFR 44 L BUN/Creatinine Ratio 21.2 Glucose 117 H Calcium 9.1 [facility] Medical History (Updated 05/26/24 @ 09:23 by Eros Zacarias MD) Uncomplicated opioid dependence Chronic low back pain Peripheral neuropathy Mixed hyperlipidemia Chronic renal failure, stage 3 (moderate) Atrial fibrillation History of elevated PSA BPH w urinary obs/LUTS Hypertension Low back pain Collagenous colitis History of colon polyps Hypertension Social History household members: spouse Smoking Status: Never smoker alcohol intake: former Assessment & Plan Assessment & Plan narrative: 1. Acute on chronic renal failure-appears to be back to baseline. No need for any particular intervention at this time. Remains off of IV fluids, and numbers will be rechecked tomorrow 2. Question sepsis verses other source of infection-no further evidence of infection. Continue off antibiotics and at this point I doubt that sepsis was present upon admission. Patient remains afebrile with a normal white blood cell count. Will continue to monitor. 3. Throat pain with questionable dysphagia-cleared by speech therapy. No active disease consider outpatient ENT evaluation 4. History of hypoxia-patient remains off oxygen with O2 saturation 93-96%. No evidence of primary pulmonary disease at this time 5. Chronic pain due to DJD/osteoarthritis-continue patient on his usual meds as an outpatient including hydrocodone. Continue to work with skilled therapies, and it appears residential is going to be the safest discharge. Due to multiple comorbidities and deconditioning and fall risk and chronic pain patient will need skilled care. Anticipate discharge tomorrow. Will give a trial of gabapentin. Will stop morphine. Will continue with hydrocodone but decreased dosing. 6. Weakness-patient with chronic weakness, and based on physical therapy evaluate and yesterday that is seems as though residential placement is going to be his discharge destination. Continue with skilled therapies today including occupational therapy as well as ongoing physical therapy 7. Anemia-patient with chronic anemia somewhat worse during this hospitalization. No evidence of active bleeding. Okay to continue on his chronic anticoagulation for his AFib. Continue to monitor for evidence of active bleeding 8. Peripheral neuropathy. Chronic long-term history who patient has had multiple problems with different medications has tried multiple medications without improvement. He is willing to give a trial of gabapentin again. We need to decrease the narcotics and discuss why. 9. DVT prophylaxis Patient on Eliquis. Will continue the same. 10. Hypertension, elevated while in the hospital intermittently. We will continue to monitor. Continue same outpatient medications 11. AFib with well-controlled rate Plan: Continue metoprolol and Eliquis. 55 minutes spent with patient reviewing his chart discussing with nursing and physician meeting with patient formulating a plan and documentation. Time-Based Coding :: [TOTAL MINUTES] spent with patient and on the chart (including review of chart, obtaining history, exam, reviewing outside data, placing orders, documenting exam and treatment plan, and counseling patient) on [DATE].
[2024-05-28] MEDS: SENNOSIDES 8.6 MG TABLET PO (09:07)
[2024-05-28] MEDS: polyethylene glycoL 3350 17 GM POWD.PACK PO (09:07)
[2024-05-28] MEDS: GABAPENTIN 100 MG CAPSULE PO ×2 (09:07→20:47)
[2024-05-28] MEDS: DOCUSATE 100 MG CAPSULE PO ×2 (09:08→20:47)
--- NOTE | 2024-05-28 10:55 | DIET.PN1 ---
Dietary Progress Note Assessment: F/u with pt who reports still only tolerating soups, jellos/puddings, juices at meals, but is tolerating Ensures. DRUPAL WEB DEVELOPER cleared pt for regular diet. Pt having throat pain with difficulty swallowing. Was encouraged to focus on easier tolerated foods/liquids/supplements and f/u with PCP/ENT. Switching to ONS+/Enlive today. Will closely monitor intakes and adjust ONS as needed d/t renal protein needs. Ht: 182.88 cm Wt: 100.5 kg BMI: 30.1 Last BM: 05/26/24 (05/26/24 21:10) MNA: 10 Buster Score: 18 Diet: 05/24/24 Breakfast Renal Diet Diet Modifications: Food Texture: Level 7 - Regular Liquid Consistency: Level 0 - Thin 05/26/24 Dinner Courtesy Tray (Peds, comfort care) Diet Modifications: Nutrition Percent Meal Consumed 5 05/27/24 07:00 Percent Meal Consumed 100% 05/26/24 18:00 Labs: RBC 3.31 X10^6/uL (4.5-5.9) L 05/27/24 05:59 Hgb 9.4 g/dL (13.5-17.5) L 05/27/24 05:59 Hct 28.4 % (41-53) L 05/27/24 05:59 Creatinine 1.51 mg/dL (0.66-1.25) H 05/28/24 05:50 Lactate 1.4 mmol/L (0.7-2.1) 05/23/24 17:34 NT-Pro-B Natriuret Pep 161 pg/mL (<450) 05/25/24 06:04 Electronically Signed by: Mayuri Coombs 05/28/24 10:55 Clinical Diet[address] [address]
--- NOTE | 2024-05-28 11:28 | CM.DPC ---
Addendum entered by ZE Zuh 05/28/24 11:32: ADD: [facility] requested COVID swab to confirm negative before they can accept him and orders placed and updated RN requesting swab today. BF Original Note: DCP SNF Planning: Per MD, pt quite weak and slow to recover today and to continue medical care and PT/OT. NATASHA received a call from Irene at [facility] and she confirms she can accept pt at d/c for today if needed or ideally tomorrow for bed availability. NATASHA confirmed with MD that pt not stable today but should be stable for d/c to SNF tomorrow Tues. NATASHA updated [facility]. ZE Zhu
[2024-05-28 12:00] VITALS: BP 129/69; PULSE 101; RESP 15; TEMP 36.7; O2SAT 92
[2024-05-28 16:31] LABS: COVID19 -Nasal RAPID Negative (Negative)
--- NOTE | 2024-05-28 16:36 | PT.IPTN ---
Current Diagnoses Sepsis, unspecified organism (05/25/24) Physical Therapy Treatment Note M2 PT-IP Current Condition Start: 05/25/24 08:39 Freq: NEEDED Status: Active Protocol: Document 05/25/24 10:21 KJ (Rec: 05/25/24 10:34 KJ [id number]) Physical Therapy Current Condition Current Condition Evaluation Date 05/24/24 Treatment Diagnosis impaired mobility Onset Date chronic M3 PT-IP Subjective Start: 05/25/24 08:39 Freq: NEEDED Status: Active Protocol: Document 05/28/24 16:20 MB (Rec: 05/28/24 16:36 MB Desktop) Subjective Physical Therapy Visit Type Type Treatment Note Visit Start Time 16:20 Visit Stop Time 16:30 Number of DISTRIBUTION OPERATIONS SUPERVISOR Visits 0 Physical Therapy Visit Comments Patient Comments Pt nods his head side to side and states he isn't doing too well today. Therapy Pain Assessment Pain When Pain Assessed During Mobility Pain Present Pain Present Pain Reported Location Feet Scale Used Does not rate Pain Behaviors Moaning,Wincing Pain Management Techniques Elevation,Modification of Treatment M4 PT-IP Mobility and Gait Start: 05/25/24 08:39 Freq: NEEDED Status: Active Protocol: Document 05/28/24 16:20 MB (Rec: 05/28/24 16:36 MB Desktop) PT-Transfer Assessment Sit to and From Stand Sit to and from Stand Minimal Assistance,Moderate Assistance,2 Person Assistance ,Use of Upper Extremities Equipment Transfer Assistive Device Gait Belt,Front Wheeled Walker Orthotic/Prosthetic Devices or Brace: No Transfers Transfer Destination Chair Transfer Ability Level of Assist Minimal Assistance,Maximum Assistance,2 Person Assistance ,Use of Upper Extremities Comments Mobility Comments Max A of 2 to stand up from lower chair with pt pushing up from the chair and min A to sit back safely, reaching back for the chair Gait Assessment Gait Gait Assistance Required: Maximum Assistance,2 Person Assist Assistive Devices Assistive Device Gait Belt,Front Wheeled Walker Gait Deviations General Gait Pattern Antalgic,Decreased Stride Length,Decreased Feet Clearance,Flexed Trunk,Step-to Gait,Wide Based Gait Factors Limiting Gait Function Factors Limiting Gait Function Decreased Activity Tolerance, Decreased Strength,Limited Range of Motion,Pain,Poor Balance,Poor Safety Awareness Comments Gait Comments Small weight shifts, lifting right and then left foot x3, small steps forward and then backwards, x2 of insignificant distance, less than a foot, pt c/o B foot pain and left foot is more swollen than the right today PT-Balance Assessment Sitting Balance and Reactions Static Sitting Balance Ability Good Dynamic Sitting Balance Ability Good Standing Balance and Reactions Static Standing Balance Ability Fair Dynamic Standing Balance Ability Poor Device Used RW M5 PT-IP Objective Assessments Start: 05/25/24 08:39 Freq: NEEDED Status: Active Protocol: Document 05/25/24 10:21 KJ (Rec: 05/25/24 10:34 KJ [id number]) Orientation Orientation/Cognition Level of Alertness Alert Orientation Name,Birthday,Day of Week Comments flat affect Gross Range of Motion Upper Extremity ROM Assessment Within Functional Limits Impairments Some decreases in end range shoulder Rom Lower Extremity ROM Assessment Within Functional Limits Strength Lower Extremity Strength Ankle 5/5 M6 PT-IP Treatment Start: 05/25/24 08:39 Freq: NEEDED Status: Active Protocol: Document 05/28/24 16:20 MB (Rec: 05/28/24 16:36 MB Desktop) Physical Therapy Treatment Exercises Exercises Ankle Pumps Other Treatments Other Treatment Performed LAQs in sitting M7 PT-IP Assessment and Plan Start: 05/25/24 08:39 Freq: NEEDED Status: Active Protocol: Document 05/28/24 16:20 MB (Rec: 05/28/24 16:36 MB Desktop) PT Summary Assessment and Plan Potential Rehabilitation Potential Fair Status of Condition at Evaluation Evolving Summary Impairments Pain,ROM,Strength,Balance, Coordination,Bed Mobility, Transfers,Gait,Activity Tolerance Progress Towards Goals Slow Progress due to Pain Assessment Summary Slow progression and trouble standing up from lower surface of chair today. Pt has decreased tolerance to stepping and he has trouble with imbalance with stepping as well. Goals Bed Mobility Goal Independent Transfer Goal Minimal Assistance,Front Wheeled Walker Gait Goal Minimal Assistance,Front Wheel Walker Gait Distance 50 Other Goals LTG: improve transfers and ambulation using FWW ~ 100ft SBA up/down 8 platform steps using fWW SBA Days to Meet Goals 10 Frequency of Treatment Frequency Of Treatment Once a Day Treatment Plan Physical Therapy Treatment Plan Bed Mobility Training,Transfer Training,Gait Training, Therapeutic Exercise,Balance Retraining,Discharge Planning, Hot or Cold Pack,Neuromuscular Re-ed,Coordination Retraining ,Manual Therapy Recommendations To Nursing Amount of Assist Needed 2 Person Assist Discharge Recommendations PT Discharge Recommendations SNF Rehab Transportation Needs at Discharge Wheelchair/Cabulance - PT assist x2
--- NOTE | 2024-05-28 16:43 | OT.IP.TRT ---
Current Diagnoses Sepsis, unspecified organism (05/25/24) Occupational Therapy Treatment Note M2 OT-IP Current Condition Start: 05/24/24 14:15 Freq: Status: Active Protocol: Document 05/24/24 14:16 [facility] (Rec: 05/24/24 14:37 [facility] [id number]) Occupational Therapy Current Condition Current Condition Evaluation Date 05/24/24 Treatment Diagnosis Acure od chronic exacerbation, UTI Diagnosis Onset Date 05/23/24 M3 OT- IP Subjective and Pain Start: 05/24/24 14:15 Freq: Status: Active Protocol: Document 05/28/24 16:45 CGR (Rec: 05/28/24 16:50 CGR Desktop) OT- Subjective Occupational Therapy Visit Type Type Treatment Note Visit Start Time 16:20 Visit Stop Time 16:43 Notes Partial co-treat with p.t. OT Pain Assessment Pain When Pain Assessed At Rest Pain Present Pain Present Denied Pain M4 OT- IP ADL's Start: 05/24/24 14:15 Freq: Status: Active Protocol: Document 05/28/24 16:45 CGR (Rec: 05/28/24 16:50 CGR Desktop) OT [id number] Comments OT Self-Feeding Comments not meal time OT ADL-Grooming General Evaluation Grooming Ability Standby Assistance Areas Needing Assistance Retrieving/Set-up of Grooming Items,Face Washing Comments OT Grooming Comments seated in chair OT ADL-Oral Care General Eval Oral Care Ability Standby Assistance Areas of Assistance Brushing Teeth,Retrieving/Set- Up of Items Comments Oral Care Comments seated in chair OT ADL-Dressing General Eval Lower Body Dressing Ability Total Assistance Areas Needing Assistance Socks Comments OT Dressing Comments pt states he typically dons socks IND but requests help today OT ADL-Toileting Comments OT Toileting Comments not performed OT ADL-Bathing Comments OT Bathing Comments not performed M5 OT- IP IADL's Start: 05/24/24 14:15 Freq: Status: Active Protocol: Document 05/24/24 14:16 [facility] (Rec: 05/24/24 14:37 [facility] [id number]) OT-Instrumental Activities of Daily Living Deficits IADL Deficits Identified Deficits Home Safety Awareness Home Safety Comments TO assess more tomorrow. Meal Preparation Meal Preparation Caregiver Provides Assist Fire Chief Deputy Fire Chief Deputy Caregiver Provides Assist M6 OT- IP Functional Cognition Start: 05/24/24 14:15 Freq: Status: Active Protocol: Document 05/24/24 14:16 [facility] (Rec: 05/24/24 14:37 [facility] [id number]) Cognitive Factors Limiting Selfcare Function Cognitive Ability Level of Alertness Alert Patient Orientation Name,Place,Situation Attention Span Ability Capable of Focused Attention, Capable of Sustained Attention Ability to Follow Commands Able to Follow One Step Commands Cognitive Comments Cognitive Assessment Comments Pt is a bit insistent to his needs. Pt states not needing devices or equipment to help relieve his back pain for ADL and mobility needs. Pt may benefit from formal cognitive eval. OT- Vision and Hearing OT- Hearing Assessment OT- Hearing Assessment Hearing Impaired OT- Vision Assessment Visual Acuity Glasses All The Time Vision Assessment Comments Pt states did not bring his hearing aids. M7 OT- IP Mobility and Balance Start: 05/24/24 14:15 Freq: Status: Active Protocol: Document 05/28/24 16:45 CGR (Rec: 05/28/24 16:50 CGR Desktop) OT-Transfer Assessment Sit to and From Stand Sit to and from Stand Maximum Assistance,2 Person Assistance Technique Transfer Destination Chair Transfer Technique Stand Step Pivot Devices Transfer Assistive Devices Gait Belt,Front Wheeled Walker Comments Mobility Comments Pt stood from chair with max x 2 and was able to take steps forward and backward close to the chair. Pt then states that's all I can do and further describes feeling like his R knee is going to give out. Pt returned to chair with verbal cues for safe stand to sit. OT- Balance Assessment Sitting Balance and Reactions Static Sitting Balance Ability Good Dynamic Sitting Balance Ability Fair M8 OT- IP Objective Assessments Start: 05/24/24 14:15 Freq: Status: Active Protocol: Document 05/24/24 14:16 [facility] (Rec: 05/24/24 14:37 [facility] [id number]) OT Gross Range of Motion Upper Extremity Range of Motion Assessment Within Functional Limits OT Strength Upper Extremity Strength Assessment Within Functional Limits M9 OT- IP Assessment and Plan Start: 05/24/24 14:15 Freq: Status: Active Protocol: Document 05/28/24 16:45 CGR (Rec: 05/28/24 16:50 CGR Desktop) OT Summary Assessment and Plan Potential Rehabilitation Potential Fair Analytic Complexity at Evaluation Moderate Summary OT Impairments Pain,Balance,Functional Cognition,Functional Mobility, Self-Feeding,Grooming,Dressing ,Toileting,Bathing,Toilet Transfers,Shower Transfers, Activity Tolerance Progress Towards Goals Slow Progress due to Pain,Slow Progress due to Medical Issues,Slow Progress due to Activity Tolerance,Slow Progress due to Cognition Assessment Summary Pt main barriers are pain, decreased balance and activity tolerance. Pt at this time would benefit from skilled rehab. Pt is able to stand with 2 person max a and take a few steps today but overall still feels weak. Pt is agreeable to SNF and is planned for discharge tomorrow . Goals Self-Feeding Goal Independent Grooming Goal Independent Dressing Goal Independent Toileting Goal Independent Bathing Goal Standby Assistance Toilet Transfer Goal Independent Shower Transfer Goal Standby Assistance Days to Meet Goals 15 Frequency of Treatment Other frequency 5x/week Treatment Plan OT Treatment Plan ADL Training,Functional Mobility,Patient/Family Education,Discharge Planning Discharge Recommendations OT Discharge Recommendations SNF Rehab,Home vs SNF Home Equipment Needs FWW Transportation Needs at Discharge Private Vehicle,Wheelchair/ Cabulance
--- NOTE | 2024-05-28 16:44 | CM.DPC ---
DCP continued Per Irene at [facility], able to accept Tues at 1330. Per Cinthya at , declined referral at this time. AGRICULTURAL TECHNICIAN met with pt in room, pt reports he is upset about leaving [place] and will need to review the plan with his . acknowledges he is needing more assistance now than at home. AGRICULTURAL TECHNICIAN updated that the plan is to dc tomorrow to [facility] at 1330 if he is in agreement. pt expressed verbal understanding. PASRR previously completed CM team will continue to follow closely for DCP coordination. Pending agreement, anticipate dc tomorrow to [facility] at 1330 ZE Ornelas
[2024-05-28 20:00] VITALS: BP 153/76; PULSE 91; RESP 24; TEMP 37.1; O2SAT 93
[2024-05-28] MEDS: ATORVASTATIN 20 MG TABLET 10 MG PO (20:47)
[2024-05-28] MEDS: TRAZODONE 50 MG TABLET 100 MG PO (21:44)
[2024-05-28] MEDS: SODIUM CHLORIDE 0.9% FLUSH 10 ML IV (21:44)
[2024-05-29] MEDS: HYDROCODONE/ACET 5/325 TABLET 1 TAB PO ×4 (00:51→13:03)
[2024-05-29 05:34] LABS: Add Manual Diff / Slide Review NO; Basophils Absolute Auto 0 /uL (0-100); Basophils Percent Auto 0.3 % (0-2); Eosinophils Absolute Auto 400 /uL (0-450); Eosinophils Percent Auto 6.5 % (2-4); Hematocrit 28.9 % (41-53); Hemoglobin 9.5 g/dL (13.5-17.5); Lymphocytes Absolute Auto 800 /uL (1100-4500); Lymphocytes Percent Auto 11.9 % (25-40); Mean Corpuscular Hemoglobin 28.2 PG (26-34); Mean Corpuscular Volume 85.7 fL (80-100); Monocytes Absolute Auto 700 /uL (0-900); Monocytes Percent Auto 10.1 % (3-14); Neutrophils Absolute Auto 4700 /uL (1500-7000); Neutrophils Percent Auto 71.2 % (50-75); Platelet Count 222 X10^3/uL (150-400); Red Blood Cell Count 3.38 X10^6/uL (4.5-5.9); Red Cell Distribution Width 14.9 % (11.6-14.8); White Blood Cell Count 6.6 X10^3/uL (4.5-11.0)
[2024-05-29 05:46] LABS: BUN Creatinine Ratio 20.1 (6-22); Blood Urea Nitrogen 30 mg/dL (9-20); Carbon Dioxide 28 mmol/L (22-32); Chloride 101 mmol/L (98-107); Estimated Glomerular Filt Rate 45 mL/min (>60); Glucose 113 mg/dL (80-110); HEMOLYSIS < 15 (0-50); Potassium 3.7 mmol/L (3.4-5.1); Sodium 137 mmol/L (137-145)
[2024-05-29] MEDS: TAMSULOSIN 0.4 MG CAPSULE PO (08:30)
[2024-05-29] MEDS: APIXABAN 5 MG TABLET 2.5 MG PO (08:30)
[2024-05-29] MEDS: DOCUSATE 100 MG CAPSULE PO (08:30)
[2024-05-29] MEDS: EZETIMIBE 10 MG TABLET PO (08:31)
[2024-05-29] MEDS: LORATADINE 10 MG TABLET PO (08:31)
[2024-05-29] MEDS: METOPROLOL ER 25 MG TABLET PO (08:31)
[2024-05-29] MEDS: CHLORTHALIDONE 25 MG TABLET PO (08:31)
[2024-05-29] MEDS: GABAPENTIN 100 MG CAPSULE PO (08:31)
[2024-05-29 08:37] VITALS: BP 156/81; PULSE 119; RESP 15; TEMP 37.1; O2SAT 93
[2024-05-29] MEDS: polyethylene glycoL 3350 17 GM POWD.PACK PO (08:38)
--- NOTE | 2024-05-29 08:50 | P.DS_ITS ---
History of Present Illness History of Present Illness Date Patient Seen: 05/29/24 Time Patient Seen: 08:51 Chief complaint: pain , lower back pain Narrative: Patient is well known to me. 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 Workup showed markedly worsened kidney disease with a GFR of 14 and patient appeared dehydrated with urinary retention and elevated lactate but normal prolactin. Patient was given IV fluids and lactate came back down to normal. He was started on Zosyn given he had been on Cipro as an outpatient for suspected UTI/prostatitis. Patient is not feeling any better. He is complaining of severe throat pain. He is complaining of difficulty swallowing. He is complaining of back pain and leg pain. This is all chronic. Past medical history: 1. AFib on chronic anticoagulation, Eliquis 2. Chronic low back pain on chronic hydrocodone twice daily 3. Peripheral neuropathy 4. BPH with lower urinary tract symptoms 5. Elevated PSA 6. Chronic kidney disease stage 3 7. Hypertension 8. Hyperlipidemia Allergies multiple drug allergies Past surgical history: No GI surgeries Healthy behavior: Patient does not smoke. Previous alcohol use not currently using alcohol. Patient is fairly inactive Family history: Negative for any prostate cancer or GI cancer Social history: Patient is has 2 daughters. Daughters live here in town. Patient and his live here in town. Twelve point review of systems is otherwise negative other than above No rectal bleeding Intermittent constipation but he has had this for quite some time Patient is unable to sleep at night and lie flat because he states his lungs fill up with fluid from his sinuses Patient has constant nasal drip Patient denies any blood in his stool Patient denies any chest pain. Patient does have shortness of breath intermittently Patient does have chronic back pain. He is not currently having any radiculopathy. Patient has not had any rashes or chills Discharge Providers Provider Date of admission: 05/25/24 09:13 Discharge Date: 05/29/24 Primary care physician: Desi Frausto MD Consults: 05/23/24 21:49 Consult to Physical Therapy Evaluate & Treat Comment: Physician Instructions: Evaluate and Treat 05/24/24 10:09 Consult to Speech Therapy Evaluate & Treat Comment: Pt described difficulty with swallowing Physician Instructions: Evaluate and treat 05/24/24 10:11 Consult to Occupational Therapy Evaluate & Treat Comment: Physician Instructions: Evaluate and treat Discharge provider: Desi Frausto MD Summary Hospital Course Discharge Diagnosis: Acute on chronic renal failure, improved Dehydration improved Sepsis ruled out. Patient received 1 dose of Zosyn. Had no further evidence of infectious process. Chronic pain due to degenerative joint disease Peripheral neuropathy AFib on chronic anticoagulation Hypertension Hospital Course: Patient was admitted to the hospital with concern for possible sepsis. He had severe acute dehydration with acute on chronic renal failure. Patient was given 1 dose of Zosyn in the ER and this was not continued. Blood cultures x5 days are negative. Urine culture not done because UA not suspicious. Patient was managed with IV fluids and PT, OT and speech therapy was consulted. Patient was some difficulty swallowing but steady was unremarkable. Patient slowly progressed with severe deconditioning and significant pain. He was treated with morphine and p.o. hydrocodone. On day prior to discharge patient's morphine was discontinued and he was started on gabapentin and was tolerating this well and this was increased at the time of discharge. Patient was transferred to skilled care facility for ongoing PT, OT with hopes for him to be discharged back home. Follow up in 2 weeks or sooner with concerns Status at Discharge Cognitive/behavioral status at discharge: at baseline, oriented Functional status at discharge: uses cane/walker Overall status at discharge: patient is progressing back to baseline Exam Vital Signs (past 8 hours): - 05/29/24 08:37 Temperature 98.7 F Pulse Rate 119 H Respiratory Rate 15 Blood Pressure 156/81 H Pulse Oximetry 93 Oxygen Flow Rate 0 Oxygen Delivery Method Room Air Oxygen Flow Rate 0 Narrative Exam Narrative: Afebrile vital signs are stable HEENT unchanged and unremarkable Neck is supple Chest: Clear to auscultation without wheezes rhonchi or crackles Cor: Distant S1-S2 well-controlled rate Abdomen: Positive bowel sounds, soft, nontender Extremities no edema Objective Labs 05/29/24 05:16 05/29/24 05:16 Labs: Laboratory Results - last 24 hr 05/28/24 05/29/24 16:11 05:16 WBC 6.6 RBC 3.38 L Hgb 9.5 L Hct 28.9 L MCV 85.7 MCH 28.2 MCHC 33.0 RDW 14.9 H Plt Count 222 Neut % (Auto) 71.2 Lymph % (Auto) 11.9 L [place] % (Auto) 10.1 Eos % (Auto) 6.5 H Baso % (Auto) 0.3 Neut # (Auto) 4700 Lymph # (Auto) 800 L [place] # (Auto) 700 Eos # (Auto) 400 Baso # (Auto) 0 Sodium 137 Potassium 3.7 Chloride 101 Carbon Dioxide 28 BUN 30 H Creatinine 1.49 H Estimated GFR 45 L BUN/Creatinine Ratio 20.1 Glucose 113 H Calcium 9.0 SARS-CoV-2 (PCR) Negative [facility] Medical History (Updated 05/26/24 @ 09:23 by Eros Zacarias MD) Uncomplicated opioid dependence Chronic low back pain Peripheral neuropathy Mixed hyperlipidemia Chronic renal failure, stage 3 (moderate) Atrial fibrillation History of elevated PSA BPH w urinary obs/LUTS Hypertension Low back pain Collagenous colitis History of colon polyps Hypertension Social History household members: spouse Smoking Status: Never smoker alcohol intake: former Discharge Assessment & Plan Assessment and Plan Assessment: 1. Acute on chronic renal failure-appears to be back to baseline. Will continue to follow as outpatient 2. Question sepsis verses other source of infection-no further evidence of infection. Continue off antibiotics and at this point I doubt that sepsis was present upon admission. Patient remains afebrile with a normal white blood cell count. Blood cultures negative. Sepsis was ruled out 3. Throat pain with questionable dysphagia-cleared by speech therapy. No active disease consider outpatient ENT evaluation. Patient not complaining any further. 4. History of hypoxia-patient remains off oxygen with O2 saturation 93-96%. No evidence of primary pulmonary disease at this time 5. Chronic pain due to DJD/osteoarthritis-continue patient on his usual meds as an outpatient including hydrocodone. Continue to work with skilled therapies, and it appears [facility] is going to be the safest discharge. Due to multiple comorbidities and deconditioning and fall risk and chronic pain patient will need skilled care. Will discharge home on increased gabapentin at 200 mg t.i.d.. Will watch closely. Will provide hydrocodone as well. 6. Weakness-patient with chronic weakness, discharge to skilled care facility, [facility] and could fill 7. Anemia-patient with chronic anemia somewhat worse during this hospitalization. No evidence of active bleeding. Okay to continue on his chronic anticoagulation for his AFib. Continue to monitor for evidence of active bleeding 8. Peripheral neuropathy. Chronic long-term history who patient has had multiple problems with different medications has tried multiple medications without improvement. He is willing to give a trial of gabapentin again. We need to decrease the narcotics and discuss why. Will increase gabapentin to 200 mg t.i.d.. He feels it is beneficial. 9. DVT prophylaxis Patient on Eliquis. Will continue the same. 10. Hypertension, elevated while in the hospital intermittently. We will continue to monitor. Continue same outpatient medications 11. AFib with well-controlled rate Plan: Continue metoprolol and Eliquis. Discharge Plan Discharge Plan Patient Disposition: Home Discharge orders & Medications Prescriptions: New hydrocodone-acetaminophen 5-325 mg Tablet 1 tab PO Q4HR Qty: 120 0RF gabapentin 100 mg Capsule 200 mg PO TID Qty: 180 0RF Continued multivitamin [Multiple Vitamins] 1 EACH tablet 1 tab PO DAILY Qty: 0 tamsulosin 0.4 mg capsule 0.4 mg PO DAILY trazodone 50 mg tablet 100 mg PO QPM PRN (Reason: Insomnia) Patient Comments: Take 1 tablet by mouth at bedtime acetaminophen 325 mg Tablet 650 mg PO Q8HR hydrocodone-acetaminophen 5-325 mg Tablet 1 tab PO Q4H PRN (Reason: Pain (Scale Score 1-3)) chlorthalidone 25 mg Tablet 25 mg PO DAILY fexofenadine 180 mg Tablet 180 mg PO DAILY triamcinolone acetonide 0.1 % Cream 1 applic TOPICAL BID PRN (Reason: affected area, avoid face) trazodone 100 mg Tablet 200 mg PO DAILY PRN (Reason: Sleep) Rx Instructions: daily at bedtime as needed for sleep diphenhydramine HCl [Allergy (diphenhydramine)] 25 mg Capsule 50 mg PO BEDTIME PRN (Reason: Allergy Symptoms) metoprolol succinate 25 mg Tablet Extended Release 24 Hr 25 mg PO DAILY ipratropium bromide 42 mcg (0.06 %) [place],Non-Aerosol 2 spray INTRANASAL TID PRN (Reason: rhinorhea) Rx Instructions: 2 sprays each nostril cholecalciferol (vitamin D3) 25 mcg (1,000 unit) Capsule 25 mcg PO DAILY ezetimibe-simvastatin [Vytorin 10-10] 10-10 mg Tablet 1 tab PO DAILY Eliquis 2.5 mg Tablet 2.5 mg PO BID omega-3 fatty acids 1,000 mg capsule 2,000 mg PO DAILY omeprazole 20 mg capsule,delayed release(DR/EC) 20 mg PO BID magnesium 250 mg tablet 500 mg PO DAILY Discontinued ciprofloxacin HCl 500 mg tablet 500 mg PO BID Follow up/Referrals: Desi Frausto MD [Primary Care Provider] - 1 Week () Discharge Health Status Multidrug resistant organism: No MDRO Diet/Activity/Treatments Diet: Diet as Tolerated Visit Report/Discharge Packet Stand Alone Forms: Patient Portal/API, Stroke Signs & Symptoms Discharge Data Primary Care Provider: Desi Frausto
[2024-05-29] MEDS: PANTOPRAZOLE DR 20 MG TABLET PO (09:13)
[2024-05-29] MEDS: GABAPENTIN 100 MG CAPSULE 200 MG PO (09:13)
[2024-05-29] MEDS: SENNOSIDES 8.6 MG TABLET PO (09:13)
[2024-05-29] MEDS: SODIUM CHLORIDE 0.9% FLUSH 10 ML IV (09:14)
--- NOTE | 2024-05-29 11:41 | PC.NURSE ---
Addendum entered by Mitra Onofre R.N. 05/29/24 13:19: Pt exited via w/c with [facility] personnel. Confirmed with that pt had all belongings. Original Note: D/c instructions printed and added to discharge packet. IV removed. Gave report to Madhavi FELIX at [facility] in [place].
[2024-05-29 12:00] VITALS: BP 104/74; PULSE 91; RESP 15; TEMP 36.8; O2SAT 93
--- NOTE | 2024-05-29 12:54 | CM.DPNOTE ---
DCP note CHILDREN'S ATTENDANT reviewed EMR per Dr. Frausto, cleared to dc to [facility] today. CHILDREN'S ATTENDANT met with pt and spouse in room. pt and spouse agreeable to dc to [facility]. CHILDREN'S ATTENDANT answered questions to best of ability. Provided [facility] brochure to spouse. CHRISTINE Rodriguez emailed signed med list/PASRR/scripts to Irene at [facility] along with initial ref information. Irene confirms transport scheduled for 1300. CHILDREN'S ATTENDANT updated pt/spouse/provider/RN. CHILDREN'S ATTENDANT provided RN with report number. CHRISTINE Rodriguez updated FISHING VESSEL CAPTAIN. issue with dc order- Lisbet with assistance of RN Augusta kindly agreed to switch dc order to SNF. CHILDREN'S ATTENDANT emailed final dc information to Irene from [facility]. P: dc today to [facility] at 1300 via facility van. no further CM needs at this time. will continue to follow as needed ZE Garcia
== END 2024-05-29 13:24 | DRG 683 ==
LOC: ED 19:33 → AC 20:03
PROVIDERS: Internal Medicine; Admitting Provider Family Medicine; Emergency Provider Physician Assistant; PCP Family Medicine; Visit Provider Family Medicine
DX: N17.9 Acute kidney failure, unspecified (principal); I48.20 Chronic atrial fibrillation, unspecified; E86.0 Dehydration; R13.10 Dysphagia, unspecified; R07.0 Pain in throat; N18.32 Chronic kidney disease, stage 3b; G47.00 Insomnia, unspecified; N40.1 Benign prostatic hyperplasia with lower urinary tract symptoms; R33.8 Other retention of urine; R09.02 Hypoxemia; R53.1 Weakness; D63.1 Anemia in chronic kidney disease; G62.9 Polyneuropathy, unspecified; M47.9 Spondylosis, unspecified; I12.9 Hypertensive chronic kidney disease with stage 1 through stage 4 chronic kidney disease, or unspecified chronic kidney disease; E78.5 Hyperlipidemia, unspecified; E87.6 Hypokalemia; K62.89 Other specified diseases of anus and rectum; Z79.01 Long term (current) use of anticoagulants
CPT/HCPCS: 36415; 51798; 71045; 74176; 80048; 80053; 81015; 82272; 82570; 83605; 83690; 83735; 83880; 84145; 84300; 84540; 85025; 85610; 85730; 87040; 87635; 92610; 93306; 94760; 96361; 96365; 96375; 96376; 97110; 97162; 97166; 97530; 97535; 99233; 99285; G0378; J0131; J2270; J2405; J2543

== ENCOUNTER 2024-06-17 20:46 | Emergency (ER) | payer MEDICARE, SELFPAY ==
[2024-05-23 20:52] VITALS: BMI 30.1
[2024-06-17 20:49] VITALS: BP 129/74; PULSE 64; RESP 18; TEMP 36.1; O2SAT 97; BMI 30.5
[2024-06-17 22:08] VITALS: BP 156/68; PULSE 106; O2SAT 96
[2024-06-17 22:30] VITALS: PULSE 94; O2SAT 95
[2024-06-17 22:31] VITALS: BP 128/66; PULSE 93; RESP 20; O2SAT 94
[2024-06-17 22:53] VITALS: BP 170/77; PULSE 113; RESP 20; O2SAT 96
[2024-06-17 23:00] VITALS: BP 193/85; PULSE 67; RESP 20; O2SAT 95
--- NOTE | 2024-06-17 23:01 | ED_ITS ---
HPI - General Adult General Chief complaint: Urogenital-Male Stated complaint: pain in my prostate Time Seen by Provider: 06/17/24 22:50 Source: patient and family Mode of arrival: Wheelchair History of Present Illness HPI narrative: 88-year-old male with concern for prostate area discomfort, concerned he might have an infection. Not currently on antibiotics. No history of prostate cancer, radiation or surgical procedures in the prostate or perineal region. No skin papule or drainage or redness known to the patient. No injury or trauma new activities. He is not ride bicycles or motorcycles. No local trauma recalled, no scratching or itching. No skin rashes in the area. No drainage. No fevers or chills. He is not necessarily having painful urination. But aching in the perineal region without trauma. Related Data Home Medications Medication Instructions Recorded Confirmed multivitamin (Multiple Vitamins 1 tab PO DAILY ##0 08/19/16 05/23/24 tablet) magnesium 250 mg tablet 500 mg PO DAILY 10/25/19 05/23/24 omega-3 fatty acids 1,000 mg 2,000 mg PO DAILY 11/13/20 05/23/24 capsule omeprazole 20 mg capsule,delayed 20 mg PO BID 11/13/20 05/23/24 release tamsulosin 0.4 mg capsule 0.4 mg PO DAILY 09/21/21 05/23/24 trazodone 50 mg tablet 100 mg PO QPM PRN Insomnia 09/21/21 05/23/24 acetaminophen 325 mg tablet 650 mg PO Q8HR 05/23/24 05/23/24 apixaban 2.5 mg tablet (Eliquis) 2.5 mg PO BID 05/23/24 05/23/24 chlorthalidone 25 mg tablet 25 mg PO DAILY 05/23/24 05/23/24 cholecalciferol (vitamin D3) 25 25 mcg PO DAILY 05/23/24 05/23/24 mcg (1,000 unit) capsule diphenhydramine HCl 25 mg capsule 50 mg PO BEDTIME PRN Allergy 05/23/24 05/23/24 (Allergy (diphenhydramine)) Symptoms ezetimibe 10 mg-simvastatin 10 mg 1 tab PO DAILY 05/23/24 05/23/24 tablet (Vytorin) fexofenadine 180 mg tablet 180 mg PO DAILY 05/23/24 05/23/24 hydrocodone 5 mg-acetaminophen 325 1 tab PO Q4H PRN Pain (Scale Score 05/23/24 05/23/24 mg tablet 1-3) ipratropium bromide 42 mcg (0.06 2 spray intranasal TID PRN 05/23/24 05/23/24 %) nasal spray rhinorhea metoprolol succinate 25 mg 25 mg PO DAILY 05/23/24 05/23/24 tablet,extended release 24 hr trazodone 100 mg tablet 200 mg PO DAILY PRN Sleep 05/23/24 05/23/24 triamcinolone acetonide 0.1 % 1 applic topical BID PRN affected 05/23/24 05/23/24 topical cream area, avoid face Previous Rx's Medication Instructions Recorded gabapentin 100 mg capsule 200 mg (2 x 100 mg) PO TID #180 05/29/24 caps hydrocodone 5 mg-acetaminophen 325 1 tab PO Q4HR #120 tabs 05/29/24 mg tablet ciprofloxacin HCl 500 mg tablet 500 mg PO BID #28 tabs 06/17/24 (Cipro) Allergies Allergy/AdvReac Type Severity Reaction Status Date / Time benzocaine [From CETACAINE] Allergy Mild ANAPHYLAXSI Verified 09/21/21 00:54 S butamben [From CETACAINE] Allergy Mild ANAPHYLAXSI Verified 09/21/21 00:54 S tetracaine [From CETACAINE] Allergy Mild ANAPHYLAXSI Verified 09/21/21 00:54 S clonidine [CLONIDINE] Allergy Unknown Verified 09/21/21 00:54 Beta-Adrenergic Agents AdvReac Unknown WEAK,TIRED, Verified 09/21/21 00:54 [BETA-ADRENERGIC AGENTS] HARD TO FUNCTION Patient History Medical History (Updated 06/17/24 @ 23:07 by Jasiel Glez MD) Uncomplicated opioid dependence Chronic low back pain Peripheral neuropathy Mixed hyperlipidemia Chronic renal failure, stage 3 (moderate) Atrial fibrillation History of elevated PSA BPH w urinary obs/LUTS Hypertension Low back pain Collagenous colitis History of colon polyps Hypertension Social History household members: spouse Smoking Status: Never smoker alcohol intake: former Smoking Status: Never smoker alcohol intake frequency: holidays/special occasions only Exam Narrative Exam Narrative: GENERAL: Well-developed patient, in mild distress. HEAD: Atraumatic. Normocephalic. EYES: Pupils equal round and reactive. Extraocular motions intact. No scleral icterus. No injection or drainage. ENT: Nose without bleeding, purulent drainage. Throat without erythema, tonsillar hypertrophy or exudate. Airway patent. NECK: Trachea midline. Non tender CARDIOVASCULAR: Regular rate and rhythm without murmurs, gallops, or rubs. RESPIRATORY: Clear to auscultation. Breath sounds equal bilaterally. No wheezes, rales, or rhonchi. GASTROINTESTINAL: Abdomen soft, non-tender, nondistended. Genitourinary: Circumcised male genitalia without obvious lesions or discharge, no tenderness to epididymal or testicular regions, nonenlarged scrotum. No inguinal lymphadenopathy obvious. No tenderness to the base of the scrotum, nor along the perineal region or visible rectal region. No obvious folliculitis or redness or swelling changes to the skin or hair follicles. EXTREMITIES: No edema or joint tenderness. BACK: Nontender without deformity or crepitance. No flank tenderness. NEURO: AOx3. Motor functions grossly nonfocal SKIN: No rash or erythema of visible areas Initial Vital Signs Initial Vital Signs: Vital Signs Temperature 96.9 F L 06/17/24 20:49 Pulse Rate 64 06/17/24 20:49 Respiratory Rate 18 06/17/24 20:49 Blood Pressure 129/74 06/17/24 20:49 Pulse Oximetry 97 06/17/24 20:49 Oxygen Delivery Method Room Air 06/17/24 20:49 Course Orders Ordered: Discontinued Medications Ciprofloxacin (Ciprofloxacin 250 Mg Tablet) 500 mg PO NOW ONE Stop: 06/17/24 23:10 Last Admin: 06/17/24 23:12 Dose: 500 mg Documented By: LS Vital Signs Vital signs: Vital Signs - 8 hr 06/17/24 20:49 Temperature 96.9 F L Pulse Rate 64 Respiratory Rate 18 Blood Pressure 129/74 Pulse Oximetry 97 Oxygen Delivery Method Room Air Medical Decision Making Lab Data Lab results reviewed: Yes I reviewed the patient's lab results. Lab results narrative: Urine dip negative Labs: Urine Dip Bedside Urine Glucose Negative Bedside Urine Bilirubin - Negative Bedside Urine Ketone - Negative Urine Specific [place] 1.020 Bedside Urine Occult Blood - Negative Bedside Urine pH 5.5 Bedside Urine Protein - Negative Bedside Urine Urobilinogen - Negative Bedside Urine Nitrite - Negative Bedside Urine Leukocytes - Negative Esterase Point of care testing: Urine Dip Bedside Urine Glucose Negative Bedside Urine Bilirubin - Negative Bedside Urine Ketone - Negative Urine Specific [place] 1.020 Bedside Urine Occult Blood - Negative Bedside Urine pH 5.5 Bedside Urine Protein - Negative Bedside Urine Urobilinogen - Negative Bedside Urine Nitrite - Negative Bedside Urine Leukocytes - Negative Esterase MDM Narrative Medical decision making narrative: 88-year-old male with perineal area discomfort concerned about prostate infection, no history of recurrent prostatitis or prostate surgery or pathology known. External exam perineal region without obvious folliculitis or cellulitis skin changes, exam otherwise unremarkable. We did discuss digital rectal exam with palpation and pressure over the prostate, he declined this exam. Urine dip negative. We discussed clinical diagnosis of prostatitis, could pursue imaging but could offer treatment empiric. Declined [place]. He would like to try empiric antibiotics in case of prostate infection. First dose oral ciprofloxacin given, prescription sent to his pharmacy for further course. Advised to follow up with his regular doctor this week to recheck on symptoms. Given contact information for local urologists to consult as well if needed. Return precautions discussed. Discharged home with family, patient and expressed understanding of the treatment plan. Discharge Plan Departure Patient Disposition: Home Clinical Impression: Prostatitis Instructions: Prostatitis Activity Restrictions/Additional Instructions: Perineal area discomfort, concern for possible prostate infection. Direct examination of the prostate not performed, discussed digital rectal exam with palpation of the prostate, declined. External inspection of the perineal region underneath the base of the scrotum was performed however, no obvious folliculitis or skin superficial infection seemed obvious. Clinical diagnosis of prostatitis based on area of discomfort. You wanted to try empiric antibiotics in case there is prostate infection. First oral antibiotic given in the emergency department, further antibiotics prescription sent to your pharmacy. Take antibiotics as prescribed. Drink plenty of fluids. Recheck symptoms with your regular doctor in close follow up this week. Contact information also provided for local urologist if you prefer to obtain urology consultation. Return earlier for any change worsening symptoms or any concerns prior. Prescriptions: New ciprofloxacin HCl [Cipro] 500 mg tablet 500 mg PO BID Qty: 28 0RF No Action multivitamin [Multiple Vitamins] 1 EACH tablet 1 tab PO DAILY Qty: 0 tamsulosin 0.4 mg capsule 0.4 mg PO DAILY trazodone 50 mg tablet 100 mg PO QPM PRN (Reason: Insomnia) Patient Comments: Take 1 tablet by mouth at bedtime acetaminophen 325 mg Tablet 650 mg PO Q8HR hydrocodone-acetaminophen 5-325 mg Tablet 1 tab PO Q4H PRN (Reason: Pain (Scale Score 1-3)) chlorthalidone 25 mg Tablet 25 mg PO DAILY fexofenadine 180 mg Tablet 180 mg PO DAILY triamcinolone acetonide 0.1 % Cream 1 applic TOPICAL BID PRN (Reason: affected area, avoid face) trazodone 100 mg Tablet 200 mg PO DAILY PRN (Reason: Sleep) Rx Instructions: daily at bedtime as needed for sleep diphenhydramine HCl [Allergy (diphenhydramine)] 25 mg Capsule 50 mg PO BEDTIME PRN (Reason: Allergy Symptoms) metoprolol succinate 25 mg Tablet Extended Release 24 Hr 25 mg PO DAILY ipratropium bromide 42 mcg (0.06 %) [place],Non-Aerosol 2 spray INTRANASAL TID PRN (Reason: rhinorhea) Rx Instructions: 2 sprays each nostril cholecalciferol (vitamin D3) 25 mcg (1,000 unit) Capsule 25 mcg PO DAILY ezetimibe-simvastatin [Vytorin 10-10] 10-10 mg Tablet 1 tab PO DAILY Eliquis 2.5 mg Tablet 2.5 mg PO BID hydrocodone-acetaminophen 5-325 mg Tablet 1 tab PO Q4HR Qty: 120 0RF gabapentin 100 mg Capsule 200 mg PO TID Qty: 180 0RF omega-3 fatty acids 1,000 mg capsule 2,000 mg PO DAILY omeprazole 20 mg capsule,delayed release(DR/EC) 20 mg PO BID magnesium 250 mg tablet 500 mg PO DAILY Referrals: Eduardo Pang DO [Physician] - Brandan Kaur MD [Physician] - Desi Frausto MD [Primary Care Provider] - Stand Alone Forms: Patient Portal/API/Survey
[2024-06-17] MEDS: CIPROFLOXACIN 250 MG TABLET 500 MG PO (23:12)
== END 2024-06-17 23:19 | disposition home or self-care (01) ==
PROVIDERS: Emergency Provider Emergency Medicine; PCP Family Medicine
DX: N41.9 Inflammatory disease of prostate, unspecified (principal)
CPT/HCPCS: 51798; 81003; 99283

== ENCOUNTER 2024-06-19 04:24 | Emergency (ER) | payer MEDICARE, SELFPAY ==
[2024-05-23 20:52] VITALS: BMI 30.1
[2024-06-19] VITALS (11 sets, daily range): BP systolic 147–163; BP diastolic 60–79; PULSE 61–106; RESP 18; TEMP 36.7; O2SAT 85–96; BMI 29.8
--- NOTE | 2024-06-19 04:33 | DI.CT.S_ITS ---
PROCEDURE: CT ABDOMEN PELVIS WO CON INDICATIONS: low abd pain, prostate concern, return visit TECHNIQUE: Axial sections were acquired from the lung bases to the pubic symphysis. Coronal and sagittal reformats were performed. For radiation dose reduction, the following was used: automated exposure control, adjustment of mA and/or kV according to patient size. COMPARISON: [facility], CT, CT ABDOMEN PELVIS WO CON, 05/15/2024, 17:05. [facility], CT, CT ABDOMEN PELVIS WO [facility], 05/23/2024, 16:51. FINDINGS: Image quality: Diagnostic. Lower Chest: No significant findings. URINARY: Right Kidney: No stones or hydronephrosis. Punctate exophytic hyperdensity possibly related to hyperdense cyst although too small to definitively characterize. It is stable. Right Ureter: No hydroureter. Left Kidney: No stones or hydronephrosis. Left Ureter: No hydroureter. Bladder: Normal wall thickness. No stones. ABDOMEN: Liver: No contour-deforming solid mass. Gallbladder: No radiopaque gallstones or wall thickening. Biliary ducts: No biliary dilation. Pancreas: No ductal dilation. Spleen: Size is within normal limits. Adrenal Glands: No adrenal nodules. Stomach and Bowel: Normal colonic caliber, without significant wall thickening. Diverticular present without inflammatory change. Peritoneum: No abnormal intraperitoneal fluid. No free air. Ventral Wall: No hernia. Abdominal Nodes: No enlarged retroperitoneal or mesenteric lymph nodes. Vessels: Aorta and inferior vena cava are normal in size. PELVIS: Pelvic Organs: Prostate gland is enlarged. Pelvic Nodes: Unremarkable. Miscellaneous: No inguinal hernias are seen. Bones: Unremarkable. IMPRESSION: No acute intra-abdominal or pelvic process. Diverticulosis. The above findings are concordant with preliminary report. Dictated by: Nohemi Melvin M.D. on 06/19/2024 at 6:23 Approved by: Nohemi Melvin M.D. on 06/19/2024 at 6:25
--- NOTE | 2024-06-19 05:05 | ED_ITS ---
HPI - Abdominal Pain General Chief Complaint: Urogenital-Male Stated Complaint: prostate pain Time Seen by Provider: 06/19/24 04:32 Source: patient and EMS Mode of arrival: EMS History of Present Illness HPI narrative: 88-year-old male with perineal region discomfort had concern about his prostate was here yesterday seen by me, at that time on clinical exam and external inspection and palpation did not seem to have any perineal region crepitance or skin lesions or folliculitis, had concerns he might have prostatitis infection, had refused [place] at that time, empiric treatment for possible prostatitis, negative urinalysis, oral ciprofloxacin given with prescription that he is now taking. He is having perineal area discomfort that is persisting and increasing. No fevers or chills. No history of diabetes. No injury or trauma. No upper abdominal inguinal buttock perirectal discomfort. No drainage of any fluid. No pain in his testes or phalanx. He is able to urinate without pain, with normal appearing urine color and clarity. Related Data Home Medications Medication Instructions Recorded Confirmed multivitamin (Multiple Vitamins 1 tab PO DAILY ##0 08/19/16 05/23/24 tablet) magnesium 250 mg tablet 500 mg PO DAILY 10/25/19 05/23/24 omega-3 fatty acids 1,000 mg 2,000 mg PO DAILY 11/13/20 05/23/24 capsule omeprazole 20 mg capsule,delayed 20 mg PO BID 11/13/20 05/23/24 release tamsulosin 0.4 mg capsule 0.4 mg PO DAILY 09/21/21 05/23/24 trazodone 50 mg tablet 100 mg PO QPM PRN Insomnia 09/21/21 05/23/24 acetaminophen 325 mg tablet 650 mg PO Q8HR 05/23/24 05/23/24 apixaban 2.5 mg tablet (Eliquis) 2.5 mg PO BID 05/23/24 05/23/24 chlorthalidone 25 mg tablet 25 mg PO DAILY 05/23/24 05/23/24 cholecalciferol (vitamin D3) 25 25 mcg PO DAILY 05/23/24 05/23/24 mcg (1,000 unit) capsule diphenhydramine HCl 25 mg capsule 50 mg PO BEDTIME PRN Allergy 05/23/24 05/23/24 (Allergy (diphenhydramine)) Symptoms ezetimibe 10 mg-simvastatin 10 mg 1 tab PO DAILY 05/23/24 05/23/24 tablet (Vytorin) fexofenadine 180 mg tablet 180 mg PO DAILY 05/23/24 05/23/24 hydrocodone 5 mg-acetaminophen 325 1 tab PO Q4H PRN Pain (Scale Score 05/23/24 05/23/24 mg tablet 1-3) ipratropium bromide 42 mcg (0.06 2 spray intranasal TID PRN 05/23/24 05/23/24 %) nasal spray rhinorhea metoprolol succinate 25 mg 25 mg PO DAILY 05/23/24 05/23/24 tablet,extended release 24 hr trazodone 100 mg tablet 200 mg PO DAILY PRN Sleep 05/23/24 05/23/24 triamcinolone acetonide 0.1 % 1 applic topical BID PRN affected 05/23/24 05/23/24 topical cream area, avoid face Previous Rx's Medication Instructions Recorded gabapentin 100 mg capsule 200 mg (2 x 100 mg) PO TID #180 05/29/24 caps hydrocodone 5 mg-acetaminophen 325 1 tab PO Q4HR #120 tabs 05/29/24 mg tablet ciprofloxacin HCl 500 mg tablet 500 mg PO BID #28 tabs 06/17/24 (Cipro) hydrocodone 5 mg-acetaminophen 325 1 tab PO Q6H PRN pain #14 tabs 06/19/24 mg tablet Allergies Allergy/AdvReac Type Severity Reaction Status Date / Time benzocaine [From CETACAINE] Allergy Mild ANAPHYLAXSI Verified 09/21/21 00:54 S butamben [From CETACAINE] Allergy Mild ANAPHYLAXSI Verified 09/21/21 00:54 S tetracaine [From CETACAINE] Allergy Mild ANAPHYLAXSI Verified 09/21/21 00:54 S clonidine [CLONIDINE] Allergy Unknown Verified 09/21/21 00:54 Beta-Adrenergic Agents AdvReac Unknown WEAK,TIRED, Verified 09/21/21 00:54 [BETA-ADRENERGIC AGENTS] HARD TO FUNCTION Patient History Medical History (Updated 06/19/24 @ 06:42 by Jasiel Glez MD) Uncomplicated opioid dependence Chronic low back pain Peripheral neuropathy Mixed hyperlipidemia Chronic renal failure, stage 3 (moderate) Atrial fibrillation History of elevated PSA BPH w urinary obs/LUTS Hypertension Low back pain Collagenous colitis History of colon polyps Hypertension Social History household members: spouse alcohol intake: former alcohol intake frequency: holidays/special occasions only Exam Narrative Exam Narrative: GENERAL: Well-developed patient, in mild distress. HEAD: Atraumatic. Normocephalic. EYES: Pupils equal round and reactive. Extraocular motions intact. No scleral icterus. No injection or drainage. ENT: Nose without bleeding, purulent drainage. Throat without erythema, tonsillar hypertrophy or exudate. Airway patent. NECK: Trachea midline. Non tender CARDIOVASCULAR: Regular rate and rhythm without murmurs, gallops, or rubs. RESPIRATORY: Clear to auscultation. Breath sounds equal bilaterally. No wheezes, rales, or rhonchi. GASTROINTESTINAL: Abdomen soft, non-tender, nondistended. EXTREMITIES: No edema or joint tenderness. BACK: Nontender without deformity or crepitance. No flank tenderness. NEURO: AOx3. Motor functions grossly nonfocal SKIN: No rash or erythema of visible areas Initial Vital Signs Initial Vital Signs: Vital Signs Pulse Rate 87 06/19/24 04:42 Pulse Oximetry 94 06/19/24 04:42 Course Orders Ordered: Discontinued Medications Hydrocodone Bitart/Acetaminophen (Hydrocodone/Acet 5/325 Prepack) 1 bottle MISC DIRECTED ONE Stop: 06/19/24 06:13 Last Admin: 06/19/24 06:42 Dose: 1 bottle Documented By: RUSS Hydrocodone Bitart/Acetaminophen (Hydrocodone/Acet 5/325 Tablet) 1 tab PO NOW ONE Stop: 06/19/24 06:35 Last Admin: 06/19/24 07:32 Dose: 1 tab Documented By: COLIN Hydromorphone HCl (Hydromorphone 0.5 Mg Inj) 0.5 mg IV NOW ONE Stop: 06/19/24 05:09 Last Admin: 06/19/24 05:15 Dose: 0.5 mg Documented By: BRENNAN Ondansetron HCl (Ondansetron 4 Mg/2 Ml Inj) 4 mg IV NOW ONE Stop: 06/19/24 05:09 Last Admin: 06/19/24 05:15 Dose: 4 mg Documented By: BRENNAN Vital Signs Vital signs: Vital Signs - 8 hr 06/19/24 04:42 06/19/24 04:43 06/19/24 05:00 Temperature 98.0 F Pulse Rate 87 104 H 86 Respiratory Rate 18 Blood Pressure 163/69 H Pulse Oximetry 94 94 95 Oxygen Delivery Method Room Air Oxygen Flow Rate 06/19/24 05:42 06/19/24 05:57 06/19/24 05:57 Temperature Pulse Rate 72 106 H Respiratory Rate Blood Pressure 147/69 H Pulse Oximetry 94 85 L Oxygen Delivery Method Room Air Oxygen Flow Rate 06/19/24 06:00 06/19/24 06:01 06/19/24 06:01 Temperature Pulse Rate 62 61 Respiratory Rate Blood Pressure 154/79 H Pulse Oximetry 87 L 92 Oxygen Delivery Method Nasal Cannula Nasal Cannula Oxygen Flow Rate 2 3 06/19/24 06:30 06/19/24 06:31 06/19/24 06:31 Temperature Pulse Rate 88 72 Respiratory Rate Blood Pressure 162/65 H Pulse Oximetry 96 95 Oxygen Delivery Method Room Air Oxygen Flow Rate MDM - Abdominal Pain Lab Data Attestation: I reviewed the patient's lab results. Lab results narrative: White blood cell count 12,000, hemoglobin 11.4, platelets adequate. BUN 49 with creatinine 2.87 elevated. Glucose 140. Sodium 134, potassium 3.8, glucose 93, serum CO2 27. Liver functions and lipase normal. Urinalysis negative. 06/19/24 04:57 06/19/24 04:57 Labs: Lab Results 06/19/24 06/19/24 Range/Units 04:57 05:20 WBC 12.0 H (4.5-11.0) X10^3/uL RBC 4.18 L (4.5-5.9) X10^6/uL Hgb 11.4 L (13.5-17.5) g/dL Hct 34.4 L (41-53) % MCV 82.4 (80-100) fL MCH 27.2 (26-34) PG MCHC 33.0 (30-36) % RDW 14.8 (11.6-14.8) % Plt Count 302 (150-400) X10^3/uL Neut % (Auto) 82.0 H (50-75) % Lymph % (Auto) 10.3 L (25-40) % [place] % (Auto) 5.5 (3-14) % Eos % (Auto) 1.3 L (2-4) % Baso % (Auto) 0.9 (0-2) % Neut # (Auto) 9900 H (2332-0463) /uL Lymph # (Auto) 1200 (2753-0784) /uL [place] # (Auto) 700 (0-900) /uL Eos # (Auto) 200 (0-450) /uL Baso # (Auto) 100 (0-100) /uL Sodium 134 L (137-145) mmol/L Potassium 3.8 (3.4-5.1) mmol/L Chloride 93 L (98-107) mmol/L Carbon Dioxide 27 (22-32) mmol/L BUN 49 H (9-20) mg/dL Creatinine 2.87 H (0.66-1.25) mg/dL Estimated GFR 20 L (>60) mL/min BUN/Creatinine Ratio 17.1 (6-22) Glucose 140 H (70-99) mg/dL Lactate 1.8 (0.7-2.1) mmol/L Calcium 9.2 (8.4-10.2) mg/dL Total Bilirubin 0.7 (0.2-1.3) mg/dL AST 28 (17-59) IU/L ALT 23 (<50) IU/L Alkaline Phosphatase 70 (38-126) U/L Total Protein 7.4 (6.3-8.2) g/dL Albumin 4.4 (3.5-5.0) g/dL Globulin 3.0 (1.7-4.1) g/dL Albumin/Globulin Ratio 1.5 (1.0-2.8) Lipase 221 (23-300) U/L Urine Color Yellow Urine Appearance Clear Urine pH 5.0 (4.5-8.0) Ur Specific [place] 1.015 (1.000-1.035) Urine Protein Negative (Negative) Urine Glucose (UA) Negative (Negative) g/dL Urine Ketones Negative (NEGATIVE) Urine Occult Blood Negative (Negative) Urine Nitrate Negative (Negative) Urine Bilirubin Negative (NEGATIVE) Urine Urobilinogen 0.2 (0.2) E.U./dL Ur Leukocyte Esterase Negative (NEGATIVE) Urine RBC None seen (0-5/HPF) Urine WBC None seen (0-5/HPF) Ur Squamous Epith Cells 0-1 /hpf (0-5/HPF) Urine Bacteria None seen (None) Hyaline Casts 1-5/lpf (None) Ur Culture Indicated? Cult not indicated Vol Urine Centrifuged 10ml (spun) MDM Narrative Medical decision making narrative: 88-year-old male returns again from yesterday with same complaint of perineal discomfort, started on empiric oral ciprofloxacin for possible prostatitis yesterday, he would not want digital rectal exam, no advanced imaging, urinalysis yesterday negative, no skin changes or folliculitis or fasciitis changes, afebrile. Today also afebrile, sirs screen negative. Again the skin area in the perineal region is without palpable crepitance or tenderness or induration, no obvious redness. Labs pending. CT abdomen and pelvis ordered. He is having pain, we would like pain medication, IV Dilaudid/Zofran. Keep NPO for now. White blood cell count 03465, renal function shows GFR 20, has been variable in the past, increased and decreased from that value in the past. Liver functions and lipase normal. Urinalysis negative. CT abdomen and pelvis with oral contrast. Impressions: ?No evidence of colitis diverticulitis bowel obstruction obstructive uropathy. No CT findings to explain abdominal pain.? See tele radiology report Patient advised workup has been negative, can continue ciprofloxacin empirically for possible prostate infection, but no prostate inflammation or other imaging findings to support diagnosis or confirm an alternate diagnosis. No Adriana's soft tissue changes described on CT scan. Follow up with Urology as planned. Case discussed by phone with Dr. Pang of Urology, agrees with empiric treatment for prostatitis, could add gabapentin however patient apparently had been on gabapentin in the past for neuropathy which was not tolerated due to rashes. Patient amenable to analgesic trial in close follow up with Urology. Prescription for hydrocodone/acetaminophen. Continue ciprofloxacin antibiotic. Discharged home with . Discharge Plan Departure Patient Disposition: Home Clinical Impression: Acute prostatitis Instructions: DI for Acute Prostatitis Activity Restrictions/Additional Instructions: Perineal area discomfort between the base of the scrotum in the rectal area, without injury or trauma or skin changes, no fever, no crepitance or redness or inflammation of hair follicles. You had similar symptoms yesterday or started on empiric ciprofloxacin antibiotic in case of referred pain from prostatitis. Your pain was increasing. CT abdomen and pelvis did not show any acute inflammation of the perineum or prostate or other structures to account for your pain today. Unclear cause of your pain. Consider urology referral. Consider general surgery referral, if lower endoscopy might be useful to find an associated cause. For now consider continuing your ciprofloxacin in case prostatitis as your clinical diagnosis. Take pain medications as needed. Follow up with your regular doctor in the next couple of days to reassess your symptoms. Return to this/nearest emergency department for any change worsening symptoms or any concerns prior. Case discussed with urologist Dr. Pang who felt the in the absence of inflammatory changes on CT scan this nothing for him to really do at this time but agrees with antibiotic treatment with ciprofloxacin for possible prostatitis based on clinical presentation. He suggested gabapentin but you had had a severe reaction to this medication. Continue your ciprofloxacin. We will send pain medication to your pharmacy, he thought you need further time of antibiotics and pain control and hopefully you have abatement of symptoms. He would want to see you in clinic, was given your contact information. Also consider contacting his office later today and let there know that we had a phone consultation and request for close follow up in clinic to be scheduled. Prescriptions: New hydrocodone-acetaminophen 5-325 mg tablet 1 tab PO Q6H PRN (Reason: pain) Qty: 14 0RF No Action multivitamin [Multiple Vitamins] 1 EACH tablet 1 tab PO DAILY Qty: 0 tamsulosin 0.4 mg capsule 0.4 mg PO DAILY trazodone 50 mg tablet 100 mg PO QPM PRN (Reason: Insomnia) Patient Comments: Take 1 tablet by mouth at bedtime acetaminophen 325 mg Tablet 650 mg PO Q8HR hydrocodone-acetaminophen 5-325 mg Tablet 1 tab PO Q4H PRN (Reason: Pain (Scale Score 1-3)) chlorthalidone 25 mg Tablet 25 mg PO DAILY fexofenadine 180 mg Tablet 180 mg PO DAILY triamcinolone acetonide 0.1 % Cream 1 applic TOPICAL BID PRN (Reason: affected area, avoid face) trazodone 100 mg Tablet 200 mg PO DAILY PRN (Reason: Sleep) Rx Instructions: daily at bedtime as needed for sleep diphenhydramine HCl [Allergy (diphenhydramine)] 25 mg Capsule 50 mg PO BEDTIME PRN (Reason: Allergy Symptoms) metoprolol succinate 25 mg Tablet Extended Release 24 Hr 25 mg PO DAILY ipratropium bromide 42 mcg (0.06 %) [place],Non-Aerosol 2 spray INTRANASAL TID PRN (Reason: rhinorhea) Rx Instructions: 2 sprays each nostril cholecalciferol (vitamin D3) 25 mcg (1,000 unit) Capsule 25 mcg PO DAILY ezetimibe-simvastatin [Vytorin 10-10] 10-10 mg Tablet 1 tab PO DAILY Eliquis 2.5 mg Tablet 2.5 mg PO BID hydrocodone-acetaminophen 5-325 mg Tablet 1 tab PO Q4HR Qty: 120 0RF gabapentin 100 mg Capsule 200 mg PO TID Qty: 180 0RF ciprofloxacin HCl [Cipro] 500 mg tablet 500 mg PO BID Qty: 28 0RF omega-3 fatty acids 1,000 mg capsule 2,000 mg PO DAILY omeprazole 20 mg capsule,delayed release(DR/EC) 20 mg PO BID magnesium 250 mg tablet 500 mg PO DAILY Referrals: Eduardo Pang DO [Physician] - Carlito Light MD [Physician] - Desi Frausto MD [Primary Care Provider] - Stand Alone Forms: Patient Portal/API/Survey
[2024-06-19 05:10] LABS: Add Manual Diff / Slide Review NO; Basophils Absolute Auto 100 /uL (0-100); Basophils Percent Auto 0.9 % (0-2); Eosinophils Absolute Auto 200 /uL (0-450); Eosinophils Percent Auto 1.3 % (2-4); Hematocrit 34.4 % (41-53); Hemoglobin 11.4 g/dL (13.5-17.5); Lymphocytes Absolute Auto 1200 /uL (1100-4500); Lymphocytes Percent Auto 10.3 % (25-40); Mean Corpuscular Hemoglobin 27.2 PG (26-34); Mean Corpuscular Volume 82.4 fL (80-100); Monocytes Absolute Auto 700 /uL (0-900); Monocytes Percent Auto 5.5 % (3-14); Neutrophils Absolute Auto 9900 /uL (1500-7000); Platelet Count 302 X10^3/uL (150-400); Red Blood Cell Count 4.18 X10^6/uL (4.5-5.9); Red Cell Distribution Width 14.8 % (11.6-14.8)
[2024-06-19] MEDS: HYDROMORPHONE 0.5 MG INJ IV (05:15)
[2024-06-19] MEDS: ONDANSETRON 4 MG/2 ML INJ IV (05:15)
[2024-06-19 05:19] LABS: Alanine Aminotransferase 23 IU/L (<50); Albumin 4.4 g/dL (3.5-5.0); Albumin Globulin Ratio 1.5 (1.0-2.8); Alkaline Phosphatase 70 U/L (38-126); Aspartate Aminotransferase 28 IU/L (17-59); BUN Creatinine Ratio 17.1 (6-22); Bilirubin Total 0.7 mg/dL (0.2-1.3); Blood Urea Nitrogen 49 mg/dL (9-20); Calcium 9.2 mg/dL (8.4-10.2); Carbon Dioxide 27 mmol/L (22-32); Chloride 93 mmol/L (98-107); Estimated Glomerular Filt Rate 20 mL/min (>60); Glucose 140 mg/dL (70-99); HEMOLYSIS < 15 (0-50); Lipase 221 U/L (23-300); Potassium 3.8 mmol/L (3.4-5.1); Sodium 134 mmol/L (137-145); Total Protein 7.4 g/dL (6.3-8.2)
[2024-06-19 05:28] LABS: Lactate (Lactic Acid) 1.8 mmol/L (0.7-2.1)
[2024-06-19 05:44] LABS: Appearance Urine UA CLEAR; Bilirubin Urine UA NEGATIVE (NEGATIVE); Color Urine UA YELLOW; Glucose Urine UA NEGATIVE (Negative); Ketones Urine UA NEGATIVE (NEGATIVE); Leukocyte Esterase Urine UA NEGATIVE (NEGATIVE); Nitrite Urine UA NEGATIVE (Negative); Occult Blood Urine UA NEGATIVE (Negative); Protein Urine UA NEGATIVE (Negative); Specific Gravity Urine UA 1.015 (1.000-1.035); Urobilinogen Urine UA 0.2 E.U./dL (0.2)
[2024-06-19 05:54] LABS: Urine Volume 10mL (spun)
[2024-06-19 05:56] LABS: Bacteria Urine None Seen; Culture Indicated Urine Cult Not Indicated; Hyaline Casts Urine 1-5/LPF; RBC Urine None Seen (0-5/HPF); Squamous Epithelial Cell Urine 0-1 /HPF (0-5/HPF); WBC Urine None Seen (0-5/HPF)
[2024-06-19] MEDS: HYDROCODONE/ACET 5/325 PREPACK 1 BOTTLE MISC (06:42)
[2024-06-19] MEDS: HYDROCODONE/ACET 5/325 TABLET 1 TAB PO (07:32)
== END 2024-06-19 08:19 | disposition home or self-care (01) ==
PROVIDERS: Emergency Provider Emergency Medicine; PCP Family Medicine
DX: N41.0 Acute prostatitis (principal)
CPT/HCPCS: 36415; 74176; 80053; 81001; 83605; 83690; 85025; 99284; J1171; J2405

== ENCOUNTER 2024-06-21 10:14 | Inpatient (IN) | payer MEDICARE, SELFPAY ==
[2024-05-23 20:52] VITALS: BMI 30.1
[2024-06-21] VITALS (23 sets, daily range): BP systolic 104–188; BP diastolic 65–90; PULSE 68–108; RESP 12–20; TEMP 36.4–37; O2SAT 92–100; BMI 28.8
--- NOTE | 2024-06-21 | DI.RAD.S_ITS ---
PROCEDURE: XR HIP W PEL IF DONE EBER MIN 4V INDICATIONS: groin pain TECHNIQUE: AP pelvis with lateral view(s) of the bilateral hip(s). COMPARISON: None. FINDINGS: Bones: No fractures or dislocations. 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 Pelvic ring appears intact. No suspicious bony lesions. Soft tissues: The visualized bowel gas pattern is normal. No suspicious soft tissue calcifications. IMPRESSION: Degenerative change of the bilateral hips without evidence of acute bony abnormality. Dictated by: Filiberto Nice M.D. on 06/23/2024 at 17:41 Approved by: Filiberto Nice M.D. on 06/23/2024 at 17:42
[2024-06-21 11:13] LABS: Add Manual Diff / Slide Review NO; Basophils Absolute Auto 0 /uL (0-100); Basophils Percent Auto 0.2 % (0-2); Eosinophils Absolute Auto 100 /uL (0-450); Eosinophils Percent Auto 1.6 % (2-4); Hematocrit 32.2 % (41-53); Hemoglobin 10.8 g/dL (13.5-17.5); Lymphocytes Absolute Auto 900 /uL (1100-4500); Mean Corpuscular HGB Conc 33.6 % (30-36); Mean Corpuscular Hemoglobin 27.7 PG (26-34); Mean Corpuscular Volume 82.4 fL (80-100); Monocytes Absolute Auto 500 /uL (0-900); Monocytes Percent Auto 6.8 % (3-14); Neutrophils Absolute Auto 6100 /uL (1500-7000); Neutrophils Percent Auto 79.4 % (50-75); Platelet Count 302 X10^3/uL (150-400); Red Blood Cell Count 3.91 X10^6/uL (4.5-5.9); Red Cell Distribution Width 14.6 % (11.6-14.8); White Blood Cell Count 7.7 X10^3/uL (4.5-11.0)
--- NOTE | 2024-06-21 11:14 | PC.NURSE ---
Pt arrived to dept today via ems due to worsening prostate pain. States his pain is 9/10 and is not getting any better since tuesday when he was seen for the same complaint. Pt was dx with prostitis and dc with rx for oxycodone. Took oxycodone 5/325 at 0700 and is not experiencing any relief. Pt is also experiencing some socioeconomic and mobility barriers to care and is unable to get to and from his appointments. Pt would like to see urology today and is very frustrated. [facility] services offered to help with finding resources or the possibility of home care. Pt a&Ox4. [facility] consult ordered per protocol and notified of pt status.
[2024-06-21 11:26] LABS: Alanine Aminotransferase 21 IU/L (<50); Albumin 4.4 g/dL (3.5-5.0); Albumin Globulin Ratio 1.5 (1.0-2.8); Alkaline Phosphatase 63 U/L (38-126); Aspartate Aminotransferase 41 IU/L (17-59); BUN Creatinine Ratio 21.7 (6-22); Bilirubin Total 0.7 mg/dL (0.2-1.3); Blood Urea Nitrogen 55 mg/dL (9-20); Calcium 8.9 mg/dL (8.4-10.2); Carbon Dioxide 24 mmol/L (22-32); Chloride 94 mmol/L (98-107); Estimated Glomerular Filt Rate 24 mL/min (>60); Globulin 2.9 g/dL (1.7-4.1); Glucose 116 mg/dL (70-99); HEMOLYSIS 28 (0-50); Potassium 3.6 mmol/L (3.4-5.1); Sodium 132 mmol/L (137-145); Total Protein 7.3 g/dL (6.3-8.2)
[2024-06-21 11:40] LABS: Lactate (Lactic Acid) 1.2 mmol/L (0.7-2.1)
--- NOTE | 2024-06-21 13:57 | DI.CT.S_ITS ---
PROCEDURE: CT ABDOMEN PELVIS WO CON INDICATIONS: groin pain r/o lymphadnitis vs incarcerated hernia or mass TECHNIQUE: Axial sections were acquired from the lung bases to the pubic symphysis. Coronal and sagittal reformats were performed. For radiation dose reduction, the following was used: automated exposure control, adjustment of mA and/or kV according to patient size. COMPARISON: [facility], CT, CT ABDOMEN PELVIS WO CON, 06/19/2024, 4:42. FINDINGS: Image quality: Diagnostic. Lower Chest: No significant findings. URINARY: Right Kidney: No stones or hydronephrosis. Right Ureter: No hydroureter. Left Kidney: No stones or hydronephrosis. Left Ureter: No hydroureter. Bladder: Normal wall thickness. No stones. ABDOMEN: Liver: No contour-deforming solid mass. Gallbladder: Contracted. Biliary ducts: No biliary dilation. Pancreas: No ductal dilation. Spleen: Size is within normal limits. Adrenal Glands: No adrenal nodules. Stomach and Bowel: Normal colonic caliber, without significant wall thickening. Diverticula without inflammatory change. Peritoneum: No abnormal intraperitoneal fluid. No free air. Ventral Wall: No hernia. Abdominal Nodes: No enlarged retroperitoneal or mesenteric lymph nodes. Vessels: Aorta and inferior vena cava are normal in size. PELVIS: Pelvic Organs: Unremarkable. Pelvic Nodes: Unremarkable. Miscellaneous: No inguinal hernias are seen. Bones: Unremarkable. IMPRESSION: Stable interval exam demonstrating no areas of acute process or inflammatory change. No visualized hernia. Dictated by: Nohemi Melvin M.D. on 06/21/2024 at 14:55 Approved by: Nohemi Melvin M.D. on 06/21/2024 at 14:57
--- NOTE | 2024-06-21 15:36 | DI.RAD.S_ITS ---
PROCEDURE: XR CHEST 1V INDICATIONS: Elevated lactate and respiratory rate TECHNIQUE: One view of the chest was acquired. COMPARISON: [facility], CR, XR CHEST 1V, 05/23/2024, 15:46. FINDINGS: Surgical changes and devices: Pacemaker. Lungs and pleura: Lungs are clear. No pleural effusions or pneumothorax. Mediastinum: Mediastinal contours appear normal. Heart size is normal. Bones and chest wall: No suspicious bony lesions. Overlying soft tissues appear unremarkable. IMPRESSION: No acute pulmonary process. Dictated by: Nohemi Melvin M.D. on 06/21/2024 at 16:33 Approved by: Nohemi Melvin M.D. on 06/21/2024 at 16:33
[2024-06-21] MEDS: ONDANSETRON 4 MG/2 ML INJ IV ×2 (15:52→23:23)
[2024-06-21] MEDS: MORPHINE 2 MG/ML INJ IV (15:53)
[2024-06-21 17:10] LABS: Bacteria Urine None Seen; Culture Indicated Urine Cult Not Indicated; RBC Urine None Seen (0-5/HPF); Squamous Epithelial Cell Urine 0-1 /HPF (0-5/HPF); Urine Volume 1; WBC Urine None Seen (0-5/HPF)
--- NOTE | 2024-06-21 17:22 | CM.IDA ---
Addendum entered by Katia Cook 06/21/24 17:54: INSPECTOR [employer] informs [facility] of patient's admission. Katia Cook, [facility] Original Note: Initial Brief DCP Assessment Patient is 88 y/o male who presents to the ED for the 3rd time this week due to concern for worsening prostate pain. Patient was recommended to f/u with Urology but has not been able to do so. Patient was admitted on 05/24/24 due to concern for rectal pain, acute hypokalemia and lower GI bleed. Patient discharged to SNF rehab at [facility] on 05/29/24. INSPECTOR [employer] reviews [facility] and determines that patient was at [facility] until 06/12/24 discharged with [facility] referral. Patient's PCP is Dr. Frausto. Patient has Medicare and [employer]P insurance. Patient is DNR/limited intervention. Patient has hx of acute prostatis, uncomplicated opioid dependence, mixed hyperlipidemia, chronic renal failure, acute hypokalemia, AFib and Hypertension. INSPECTOR [employer]UING calls [facility], it is reported that patient started services with HH yesterday. Patient has referral with PT and RN. It is reported that patient's spouse is patient's primary caregiver. INSPECTOR [employer]UING enters room briefly to meet with patient, present in room are patient's daughters Marleen and Regine. Patient resides with spouse in [place]. Patient's spouse assists patient with medication management and assisting with patient's care needs as they arrise. Patient states that he could ambulate at baseline, has cane at home but states concern for mobility due to pain. Patient and family endorse concern for patient's mobility and care at home at this time. If patient meets criteria for SNF rehab, patient endorses preference for [facility], somewhere closer to [place] with preference not to return to [facility]. Patient's family were unsure about private pay SNF as an option at this time. INSPECTOR [employer]UING calls patient's PCP office and speaks with Dr. Marshall, he puts in Urology referral based on patient's previous ED discharge recommendations to do so. INSPECTOR [employer]UING calls Urology and it is reported that Dr. Pang can see patient in the ED. It is reported that there is no known eitology of patient's perineal pain and no urgent urology needs at this time. ED provider discusses patient with Dr. Marshall and patient is admitted as OBS due to concern for pain control of hips and concern for restless legs. Patient will require hip x ray and PT eval. ED provider endorses concern for restless leg syndrome r/o neurology needs. Plan: patient admitted as OBS, patient will need PT eval, DCP to f/u with patient and family. Return home with resumption [facility] orders vs. SNF rehab if appropriate. Katia Cook [facility] Discharge Planning/Care Management CM Discharge Assessment Start: 06/21/24 17:10 Freq: Status: Active Protocol: Document 06/21/24 17:13 LN (Rec: 06/21/24 17:21 LN [id number]) Discharge Planning Assessment Advance Directives? Yes: POLST Advance Directives on File Yes History Provided By Patient,Family Member,Medical Record Has Patient been admitted in last 30 Yes days? Comment 05/24/24-05/29/24 admitted due to rectal pain, acute hypokalemia and lower GI bleed Prior Living Arrangements House Household Members spouse Type of transportation used prior to Relies on Others admit Independent with ADLs No Is patient alert and oriented? Yes Needs Assistance With Toileting,Managing Medications ,Home Chores / Shopping Community Services used prior to Physical Therapy,Home Health admission: Nurse Comment Patient has new HH referral with [facility]. DME Already Rented / Owned Cane Patient/Family Preference [facility] Facility,Home with Home Health Comment SNF rehab vs. Home with HH, would need resignation orders with [facility]. Barriers to Discharge Yes Comment Patient's spouse is primary caregiver, family has concern with patient d/c to home at this time. SNF/HH Preference Current with [facility]. Preference for [facility] ( close to [place]), preference not to go to [facility].
--- NOTE | 2024-06-21 17:23 | P.HP_ITS ---
History of Present Illness History of Present Illness Date Patient Seen: 06/21/24 Time Patient Seen: 17:00 Chief complaint: groin pain Narrative: chief complaint hip pain patient presents to ED with acute pain in hips bilaterally has been treated up to now for prostatitis due to complaining of pain in that area but declining exam. Today appreciate exam courtesy of Dr. Pang who agrees this is not anything out of the ordinary as regards perineum and prostate area. Patient is a vague historian but endorses near constant fluctuant pain in both hips going down both legs does feel like his legs are in constant motion. Has tried gabapentin in the past that did not really do anything positive got some morphine here that is really helping his pain. endorses normal appetite normal urination and maybe longer constipated otherwise normal bowel function pain is the same whether he is lying down sitting up or walking around. He has been taking hydrocodone for some time and it is no longer providing relief. COUNTS INCLUDE 234 BEDS AT THE [facility] Medical History Uncomplicated opioid dependence Chronic low back pain Peripheral neuropathy Mixed hyperlipidemia Chronic renal failure, stage 3 (moderate) Atrial fibrillation History of elevated PSA BPH w urinary obs/LUTS Hypertension Low back pain Collagenous colitis History of colon polyps Hypertension Social History household members: spouse Smoking Status: Never smoker alcohol intake: former Meds Home Medications and Allergies Home Medications Medication Instructions Recorded Confirmed Type multivitamin (Multiple Vitamins 1 tab PO DAILY ##0 08/19/16 06/21/24 History tablet) magnesium 250 mg tablet 500 mg PO DAILY 10/25/19 06/21/24 History omega-3 fatty acids 1,000 mg 2,000 mg PO DAILY 11/13/20 06/21/24 History capsule omeprazole 20 mg capsule,delayed 20 mg PO BID 11/13/20 06/21/24 History release tamsulosin 0.4 mg capsule 0.4 mg PO DAILY 09/21/21 05/23/24 History acetaminophen 325 mg tablet 650 mg PO Q8HR 05/23/24 06/21/24 History apixaban 2.5 mg tablet (Eliquis) 2.5 mg PO BID 05/23/24 06/21/24 History chlorthalidone 25 mg tablet 25 mg PO DAILY 05/23/24 06/21/24 History cholecalciferol (vitamin D3) 25 25 mcg PO DAILY 05/23/24 06/21/24 History mcg (1,000 unit) capsule diphenhydramine HCl 25 mg capsule 50 mg PO BEDTIME PRN Allergy 05/23/24 06/21/24 History (Allergy (diphenhydramine)) Symptoms ezetimibe 10 mg-simvastatin 10 mg 1 tab PO DAILY 05/23/24 06/21/24 History tablet (Vytorin) metoprolol succinate 25 mg 25 mg PO DAILY 05/23/24 06/21/24 History tablet,extended release 24 hr trazodone 100 mg tablet 200 mg PO DAILY PRN Sleep 05/23/24 05/23/24 History triamcinolone acetonide 0.1 % 1 applic topical BID PRN affected 05/23/24 05/23/24 History topical cream area, avoid face ciprofloxacin HCl 500 mg tablet 500 mg PO BID #28 tabs 06/17/24 06/21/24 Rx (Cipro) hydrocodone 5 mg-acetaminophen 325 1 tab PO Q6H PRN pain #14 tabs 06/19/24 Rx mg tablet Allergies Allergy/AdvReac Type Severity Reaction Status Date / Time benzocaine [From CETACAINE] Allergy Mild ANAPHYLAXSI Verified 09/21/21 00:54 S butamben [From CETACAINE] Allergy Mild ANAPHYLAXSI Verified 09/21/21 00:54 S tetracaine [From CETACAINE] Allergy Mild ANAPHYLAXSI Verified 09/21/21 00:54 S clonidine [CLONIDINE] Allergy Unknown Verified 09/21/21 00:54 Beta-Adrenergic Agents AdvReac Unknown WEAK,TIRED, Verified 09/21/21 00:54 [BETA-ADRENERGIC AGENTS] HARD TO FUNCTION Review of Systems Review of Systems Narrative: All systems reviewed and negative except as otherwise documented in HPI Exam Vital Signs (past 8 hours): - 06/21/24 10:17 06/21/24 10:17 06/21/24 10:17 Temperature 98.6 F Pulse Rate 98 H 73 Respiratory Rate 20 Blood Pressure 124/65 124/65 Pulse Oximetry 100 95 Oxygen Delivery Method Room Air 06/21/24 10:30 06/21/24 11:00 06/21/24 11:30 Temperature Pulse Rate 68 93 H 86 Respiratory Rate Blood Pressure Pulse Oximetry 95 92 94 Oxygen Delivery Method 06/21/24 12:00 06/21/24 12:30 06/21/24 13:00 Temperature Pulse Rate 95 H 94 H 82 Respiratory Rate Blood Pressure 124/65 Pulse Oximetry 95 95 Oxygen Delivery Method 06/21/24 13:30 06/21/24 14:00 06/21/24 14:16 Temperature Pulse Rate 106 H 93 H Respiratory Rate Blood Pressure 131/86 Pulse Oximetry 95 95 Oxygen Delivery Method 06/21/24 14:16 06/21/24 14:30 06/21/24 14:31 Temperature Pulse Rate 98 H 98 H Respiratory Rate Blood Pressure 167/73 H Pulse Oximetry 96 94 Oxygen Delivery Method 06/21/24 14:31 06/21/24 15:00 06/21/24 15:01 Temperature Pulse Rate 97 H 108 H 104 H Respiratory Rate Blood Pressure Pulse Oximetry 94 94 94 Oxygen Delivery Method 06/21/24 15:01 06/21/24 15:30 06/21/24 15:31 Temperature Pulse Rate 103 H Respiratory Rate Blood Pressure 181/67 H 159/69 H Pulse Oximetry 96 Oxygen Delivery Method 06/21/24 15:31 06/21/24 16:00 06/21/24 16:01 Temperature Pulse Rate 95 H 92 H 93 H Respiratory Rate Blood Pressure Pulse Oximetry 96 94 94 Oxygen Delivery Method 06/21/24 16:01 06/21/24 16:30 06/21/24 17:00 Temperature Pulse Rate 70 76 Respiratory Rate Blood Pressure 188/90 H Pulse Oximetry 96 96 Oxygen Delivery Method 06/21/24 17:02 06/21/24 17:02 Temperature Pulse Rate 95 H Respiratory Rate Blood Pressure 173/81 H Pulse Oximetry 95 Oxygen Delivery Method Oxygen Delivery Method Room Air Narrative Exam Narrative: well-developed well-nourished [facility] Resp Other: clear to auscultation bilaterally on room air Cardio Other: regular rate and rhythm S1-S2 Neuro Other: alert awake fully oriented moving all extremities Extrem Other: moving all extremities equally strength in legs is 5/5 as is sensation good distal pulses on both feet there is some slight muscle twitching evident in both calves denies any similar issue in arms Objective Labs 06/21/24 10:56 06/21/24 10:56 Labs: Laboratory Results - last 24 hr 06/21/24 06/21/2425 10:56 11:21 16:38 WBC 7.7 RBC 3.91 L Hgb 10.8 L Hct 32.2 L MCV 82.4 MCH 27.7 MCHC 33.6 RDW 14.6 Plt Count 302 Neut % (Auto) 79.4 H Lymph % (Auto) 12.0 L Stanley % (Auto) 6.8 Eos % (Auto) 1.6 L Baso % (Auto) 0.2 Neut # (Auto) 6100 Lymph # (Auto) 900 L Stanley # (Auto) 500 Eos # (Auto) 100 Baso # (Auto) 0 Sodium 132 L Potassium 3.6 Chloride 94 L Carbon Dioxide 24 BUN 55 H Creatinine 2.54 H Estimated GFR 24 L BUN/Creatinine Ratio 21.7 Glucose 116 H Lactate 1.2 Calcium 8.9 Total Bilirubin 0.7 AST 41 ALT 21 Alkaline Phosphatase 63 Total Protein 7.3 Albumin 4.4 Globulin 2.9 Albumin/Globulin Ratio 1.5 Urine RBC None seen Urine WBC None seen Ur Squamous Epith Cells 0-1 /hpf Urine Bacteria None seen Ur Culture Indicated? Cult not indicated Vol Urine Centrifuged 1 Assessment & Plan Assessment & Plan narrative: #Chronic pain of hips impressive story of pain unable to manage at home anymore will initiate pain control with various PRNs including IV tylenol - ordering XR of hips and PT eval in morning. Not clear what is going on here but he states too much pain to go home. Per labs and urology this is really not a prostatitis issue so will stop antibiotics. #restless legs will try some ropinirole for this see if that is helpful. #acute kidney injury on CKD 3a notable bump above baseline today over previous will hydrate with IVF and recheck in a.m. #Essential hypertension stable continue home meds #mixed hyperlipidemia stable continue home meds #BPH with obstruction stable continue home flomax #afib stable continue home eliquis Dispo: admit obsv for pain control MDM: [phone] Daughter Regine [phone] Daughter Marleen [phone] Diet: no dairy no nuts Code: DNR Time-Based Coding :: [TOTAL MINUTES] spent with patient and on the chart (including review of chart, obtaining history, exam, reviewing outside data, placing orders, documenting exam and treatment plan, and counseling patient) on [DATE].
--- NOTE | 2024-06-21 17:31 | PM.CN.IH.1 ---
History of Present Illness Consult details Date Patient Seen: 06/21/24 Time Patient Seen: 17:31 Chief complaint: groin pain Narrative: 88 y/o M presents to ER for the third time in less than a week for evaluation of severe perineal pain that will radiate into bilateral lower extremities. Briefly, he admits that this pain/discomfort has been present for years and has acutely worsened over the last few months. He describes the pain as a dull ache that can become a burning sensation. It is typically a 9/10 and will radiate into his bilateral lower extremities and lead to either burning in both of his feet or weakness of his thighs bilaterally. His pain will sometimes improve when he ambulates. There is otherwise nothing that he can do to make his pain worse. The pain/discomfort is typically present for more than 85-90% of each day. He will typically go to bed and wake up with pain (unless he has taken narcotics). He otherwise denies any urinary symptoms. He has been constipated lately, however, does not suffer from this at baseline. 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 Meds Home Medications and Allergies Home Medications Medication Instructions Recorded Confirmed Type multivitamin (Multiple Vitamins 1 tab PO DAILY ##0 08/19/16 05/23/24 History tablet) magnesium 250 mg tablet 500 mg PO DAILY 10/25/19 05/23/24 History omega-3 fatty acids 1,000 mg 2,000 mg PO DAILY 11/13/20 05/23/24 History capsule omeprazole 20 mg capsule,delayed 20 mg PO BID 11/13/20 05/23/24 History release tamsulosin 0.4 mg capsule 0.4 mg PO DAILY 09/21/21 05/23/24 History trazodone 50 mg tablet 100 mg PO QPM PRN Insomnia 09/21/21 05/23/24 History acetaminophen 325 mg tablet 650 mg PO Q8HR 05/23/24 05/23/24 History apixaban 2.5 mg tablet (Eliquis) 2.5 mg PO BID 05/23/24 05/23/24 History chlorthalidone 25 mg tablet 25 mg PO DAILY 05/23/24 05/23/24 History cholecalciferol (vitamin D3) 25 25 mcg PO DAILY 05/23/24 05/23/24 History mcg (1,000 unit) capsule diphenhydramine HCl 25 mg capsule 50 mg PO BEDTIME PRN Allergy 05/23/24 05/23/24 History (Allergy (diphenhydramine)) Symptoms ezetimibe 10 mg-simvastatin 10 mg 1 tab PO DAILY 05/23/24 05/23/24 History tablet (Vytorin) fexofenadine 180 mg tablet 180 mg PO DAILY 05/23/24 05/23/24 History hydrocodone 5 mg-acetaminophen 325 1 tab PO Q4H PRN Pain (Scale Score 05/23/24 05/23/24 History mg tablet 1-3) ipratropium bromide 42 mcg (0.06 2 spray intranasal TID PRN 05/23/24 05/23/24 History %) nasal spray rhinorhea metoprolol succinate 25 mg 25 mg PO DAILY 05/23/24 05/23/24 History tablet,extended release 24 hr trazodone 100 mg tablet 200 mg PO DAILY PRN Sleep 05/23/24 05/23/24 History triamcinolone acetonide 0.1 % 1 applic topical BID PRN affected 05/23/24 05/23/24 History topical cream area, avoid face gabapentin 100 mg capsule 200 mg (2 x 100 mg) PO TID #180 05/29/24 Rx caps hydrocodone 5 mg-acetaminophen 325 1 tab PO Q4HR #120 tabs 05/29/24 Rx mg tablet ciprofloxacin HCl 500 mg tablet 500 mg PO BID #28 tabs 06/17/24 Rx (Cipro) hydrocodone 5 mg-acetaminophen 325 1 tab PO Q6H PRN pain #14 tabs 06/19/24 Rx mg tablet Allergies Allergy/AdvReac Type Severity Reaction Status Date / Time benzocaine [From CETACAINE] Allergy Mild ANAPHYLAXSI Verified 09/21/21 00:54 S butamben [From CETACAINE] Allergy Mild ANAPHYLAXSI Verified 09/21/21 00:54 S tetracaine [From CETACAINE] Allergy Mild ANAPHYLAXSI Verified 09/21/21 00:54 S clonidine [CLONIDINE] Allergy Unknown Verified 09/21/21 00:54 Beta-Adrenergic Agents AdvReac Unknown WEAK,TIRED, Verified 09/21/21 00:54 [BETA-ADRENERGIC AGENTS] HARD TO FUNCTION Review of Systems Review of Systems Narrative: CONSTITUTIONAL: Denies weight loss, fevers, chills. HEENT: Denies change in vision, hearing. RESP: Denies SOB, cough. CV: Denies palpations, CP. GI: Denies abdominal pain, nausea, vomiting, diarrhea. : Denies dysuria, hematuria, inability to void. MSK: Denies myalgia, joint pain. SKIN: Denies rash, pruritus. NEURO: Denies headache, syncope. PSYCH: Denies recent change in mood, anxiety, depression. Exam Vital Signs (past 8 hours): - 06/21/24 10:17 06/21/24 10:17 06/21/24 10:17 Temperature 98.6 F Pulse Rate 98 H 73 Respiratory Rate 20 Blood Pressure 124/65 124/65 Pulse Oximetry 100 95 Oxygen Delivery Method Room Air 06/21/24 10:30 06/21/24 11:00 06/21/24 11:30 Temperature Pulse Rate 68 93 H 86 Respiratory Rate Blood Pressure Pulse Oximetry 95 92 94 Oxygen Delivery Method 06/21/24 12:00 06/21/24 12:30 06/21/24 13:00 Temperature Pulse Rate 95 H 94 H 82 Respiratory Rate Blood Pressure 124/65 Pulse Oximetry 95 95 Oxygen Delivery Method 06/21/24 13:30 06/21/24 14:00 06/21/24 14:16 Temperature Pulse Rate 106 H 93 H Respiratory Rate Blood Pressure 131/86 Pulse Oximetry 95 95 Oxygen Delivery Method 06/21/24 14:16 06/21/24 14:30 06/21/24 14:31 Temperature Pulse Rate 98 H 98 H Respiratory Rate Blood Pressure 167/73 H Pulse Oximetry 96 94 Oxygen Delivery Method 06/21/24 14:31 06/21/24 15:00 06/21/24 15:01 Temperature Pulse Rate 97 H 108 H 104 H Respiratory Rate Blood Pressure Pulse Oximetry 94 94 94 Oxygen Delivery Method 06/21/24 15:01 06/21/24 15:30 06/21/24 15:31 Temperature Pulse Rate 103 H Respiratory Rate Blood Pressure 181/67 H 159/69 H Pulse Oximetry 96 Oxygen Delivery Method 06/21/24 15:31 06/21/24 16:00 06/21/24 16:01 Temperature Pulse Rate 95 H 92 H 93 H Respiratory Rate Blood Pressure Pulse Oximetry 96 94 94 Oxygen Delivery Method 06/21/24 16:01 06/21/24 16:30 06/21/24 17:00 Temperature Pulse Rate 70 76 Respiratory Rate Blood Pressure 188/90 H Pulse Oximetry 96 96 Oxygen Delivery Method 06/21/24 17:02 06/21/24 17:02 Temperature Pulse Rate 95 H Respiratory Rate Blood Pressure 173/81 H Pulse Oximetry 95 Oxygen Delivery Method Oxygen Delivery Method Room Air Narrative Exam Narrative: GEN: Alert and oriented X3. No acute distress. Well-nourished. EYES: PERRLA, EOMI. HENT: Moist mucus membranes, no scleral icterus, normal neck ROM. RESP: Unlabored breathing, equal rise and fall of chest bilaterally, no cyanosis appreciated. CV: No peripheral edema, unremarkable heart rate. ABD: Soft, non-tender, non-distended, no palpable masses. : Uncircumcised penis, no urethral discharge, no meatal stenosis. Bilaterally descended testicles, firm, no testicular masses, no hydrocele/varicocele/spermatocele noted bilaterally. Unremarkable perineal exam. CHAR[place]TE notable for a >40g prostate, firm, symmetric, no nodularity. EXT: No edema, clubbing or cyanosis. SKIN: No rashes or lesions. NEURO: No focal neurologic deficits, CN II-XII grossly intact. PSYCH: Cooperative, appropriate mood and affect. Objective Labs 06/21/24 10:56 06/21/24 10:56 Labs: Laboratory Results - last 24 hr 06/21/24 06/21/24 06/21/24 10:56 11:21 16:38 WBC 7.7 RBC 3.91 L Hgb 10.8 L Hct 32.2 L MCV 82.4 MCH 27.7 MCHC 33.6 RDW 14.6 Plt Count 302 Neut % (Auto) 79.4 H Lymph % (Auto) 12.0 L Taylor % (Auto) 6.8 Eos % (Auto) 1.6 L Baso % (Auto) 0.2 Neut # (Auto) 6100 Lymph # (Auto) 900 L Taylor # (Auto) 500 Eos # (Auto) 100 Baso # (Auto) 0 Sodium 132 L Potassium 3.6 Chloride 94 L Carbon Dioxide 24 BUN 55 H Creatinine 2.54 H Estimated GFR 24 L BUN/Creatinine Ratio 21.7 Glucose 116 H Lactate 1.2 Calcium 8.9 Total Bilirubin 0.7 AST 41 ALT 21 Alkaline Phosphatase 63 Total Protein 7.3 Albumin 4.4 Globulin 2.9 Albumin/Globulin Ratio 1.5 Urine RBC None seen Urine WBC None seen Ur Squamous Epith Cells 0-1 /hpf Urine Bacteria None seen Ur Culture Indicated? Cult not indicated Vol Urine Centrifuged 1 PFSH Medical History Uncomplicated opioid dependence Chronic low back pain Peripheral neuropathy Mixed hyperlipidemia Chronic renal failure, stage 3 (moderate) Atrial fibrillation History of elevated PSA BPH w urinary obs/LUTS Hypertension Low back pain Collagenous colitis History of colon polyps Hypertension Social History household members: spouse Tobacco & Substance Use Smoking Status: Never smoker alcohol intake: former Assessment & Plan Assessment and plan (1) Perineal pain: Status: Acute Plan: 88 y/o M presents to ER for the third time in less than a week for evaluation of severe perineal pain that will radiate into bilateral lower extremities. 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 His exam is also benign. Discussed extensively with him and his family members that his pain does not appear to have a Urological etiology. - Noted to have an RAY, appreciate assistance of hospitalist with management of this issue - Unknown etiology of his perineal pain - No Urgent Urological intervention necessary at this time, please reconsult Urology should additional questions/concerns arise Time-Based Coding :: [TOTAL MINUTES] spent with patient and on the chart (including review of chart, obtaining history, exam, reviewing outside data, placing orders, documenting exam and treatment plan, and counseling patient) on [DATE]. PROFEE Charge Codes Inpatient or Observation consultation: [id number]
[2024-06-21] MEDS: ACETAMINOPHEN 325 MG TABLET 650 MG PO (17:49)
[2024-06-21] MEDS: OXYCODONE IR 10 MG TABLET PO ×2 (17:49→21:41)
--- NOTE | 2024-06-21 19:55 | ED_ITS ---
HPI - Male Genitourinary General Chief complaint: Urogenital-Male Stated complaint: groin pain Time Seen by Provider: 06/21/24 11:44 Source: patient and EMS Mode of arrival: Ambulatory History of Present Illness HPI Narrative: This 88-year-old male presents in the company of his siblings with a history that he was seen earlier in the week for prostatitis and started on an antibiotic and a few days later he began having severe burning pain in both his legs which felt like ?nerve pain?. He has not been able to keep his leg still is they keep moving due to the severe pain. He has never had such a problem before. No one has ever told him he had restless legs. He was treated for his prostatitis with Ciprofloxacin 500 mg p.o. b.i.d.. Past medical history reveals AFib for which he is on Eliquis and also hypertension and hyperlipidemia. He has a history of chronic renal failure stage 3. Related Data Home Medications Medication Instructions Recorded Confirmed multivitamin (Multiple Vitamins 1 tab PO DAILY ##0 08/19/16 06/21/24 tablet) magnesium 250 mg tablet 500 mg PO DAILY 10/25/19 06/21/24 omega-3 fatty acids 1,000 mg 2,000 mg PO DAILY 11/13/20 06/21/24 capsule omeprazole 20 mg capsule,delayed 20 mg PO BID 11/13/20 06/21/24 release tamsulosin 0.4 mg capsule 0.4 mg PO DAILY 09/21/21 06/21/24 acetaminophen 325 mg tablet 650 mg PO Q8HR 05/23/24 06/21/24 apixaban 2.5 mg tablet (Eliquis) 2.5 mg PO BID 05/23/24 06/21/24 chlorthalidone 25 mg tablet 25 mg PO DAILY 05/23/24 06/21/24 cholecalciferol (vitamin D3) 25 25 mcg PO DAILY 05/23/24 06/21/24 mcg (1,000 unit) capsule diphenhydramine HCl 25 mg capsule 50 mg PO BEDTIME PRN Allergy 05/23/24 06/21/24 (Allergy (diphenhydramine)) Symptoms ezetimibe 10 mg-simvastatin 10 mg 1 tab PO DAILY 05/23/24 06/21/24 tablet (Vytorin) metoprolol succinate 25 mg 25 mg PO DAILY 05/23/24 06/21/24 tablet,extended release 24 hr trazodone 100 mg tablet 200 mg PO DAILY PRN Sleep 05/23/24 06/21/24 Previous Rx's Medication Instructions Recorded ciprofloxacin HCl 500 mg tablet 500 mg PO BID #28 tabs 06/17/24 (Cipro) hydrocodone 5 mg-acetaminophen 325 1 tab PO Q6H PRN pain #14 tabs 06/19/24 mg tablet Allergies Allergy/AdvReac Type Severity Reaction Status Date / Time benzocaine [From CETACAINE] Allergy Mild ANAPHYLAXSI Verified 09/21/21 00:54 S butamben [From CETACAINE] Allergy Mild ANAPHYLAXSI Verified 09/21/21 00:54 S tetracaine [From CETACAINE] Allergy Mild ANAPHYLAXSI Verified 09/21/21 00:54 S clonidine [CLONIDINE] Allergy Unknown Verified 09/21/21 00:54 Beta-Adrenergic Agents AdvReac Unknown WEAK,TIRED, Verified 09/21/21 00:54 [BETA-ADRENERGIC AGENTS] HARD TO FUNCTION Review of Systems Review of Systems Narrative: All other systems are negative on review of systems. Constitutional Comments: Malaise secondary to constant burning pain in both his legs the past couple of days with constant movement. Eyes Comments: Negative ENT Comments: Negative negative Cardiovascular Comments: Negative Respiratory Comments: Negative Gastrointestinal Comments: Negative Genitourinary Comments: Prostatitis earlier in the week treated with Cipro Musculoskeletal Comments: Severe burning pain in both his legs making him almost a rational and not wanting to live. Constant movement of his legs as result of this pain. Neurologic Comments: Burning pain in both legs, feels like nerve pain. Patient History Medical History Uncomplicated opioid dependence Chronic low back pain Peripheral neuropathy Mixed hyperlipidemia Chronic renal failure, stage 3 (moderate) Atrial fibrillation History of elevated PSA BPH w urinary obs/LUTS Hypertension Low back pain Collagenous colitis History of colon polyps Hypertension Social History household members: spouse alcohol intake: former Smoking Status: Never smoker alcohol intake frequency: holidays/special occasions only Exam Initial Vital Signs Initial Vital Signs: Vital Signs Temperature 98.6 F 06/21/24 10:17 Pulse Rate 98 H 06/21/24 10:17 Respiratory Rate 20 06/21/24 10:17 Blood Pressure 124/65 06/21/24 10:17 Pulse Oximetry 100 06/21/24 10:17 Oxygen Delivery Method Room Air 06/21/24 10:17 Const Other: Miracle elderly who is begging for pain medicine for his burning type pain in his legs. HENMT HENMT Other: Negative Eyes Other: Negative Neck Other: Nontender, no bruits normal range of motion Resp Effort & Inspection: normal respiratory effort Other: Clear breath sounds. Cardio Rate: regular rate Rhythm: regular rhythm GI Other: Nontender adequate bowel sounds. No flank tenderness. Other: No marked suprapubic tenderness. Back/Spine/Pelvis Other: Nontender lumbar spine. Neuro Other: No unilateral weakness or paresthesias. There is burning type pain radiating down both legs but it does not appear to be clearly sciatica like. Extrem Other: There is constant movement of the legs due to the burning pain sensation the patient has down both his legs. He has no sciatic notch tenderness. He does appear to have intact vascular status distally in his lower extremities. Course Course Course Narrative: This 88-year-old male presents to the emergency room with a complaint of constantly painful legs with burning type pain sensation which could be nerve pain. He has constant motion of his lower extremities as well raising the question of restless legs syndrome. Lab revealed a normal WBC. Kidney function appeared to be poor with high values for BUN and creatinine and a low value for GFR. CT of the abdomen and pelvis was done initially because it was described that the patient had groin pain. There were no unusual findings on this study nor any evidence of any hernias. The patient was given morphine for his pain IV. It was felt due to the degree of his pain and distress that he might require admission for observation. Dr. Galloway was called about his situation and agreed to admit him to observation to Medicine. Orders Ordered: ED Orders 06/21/24 11:21 Lactate (Lactic Acid) Stat 06/21/24 13:57 CT abdomen pelvis wo con Stat 06/21/24 15:36 Chest [XR chest 1V] Stat 06/21/24 16:38 Urine Microscopic Stat Acetaminophen (Acetaminophen 325 Mg Tablet) 650 mg PO Q6H OPHELIA Last Admin: 06/21/24 17:49 Dose: 650 mg Documented By: LOUISE Hydrocodone Bitart/Acetaminophen (Hydrocodone/Acet 5/325 Tablet) 1 tab PO Q4H PRN PRN Reason: Pain, Moderate (4-6) Apixaban (Apixaban 5 Mg Tablet) 2.5 mg PO BID [facility] Atorvastatin Calcium (Atorvastatin 20 Mg Tablet) 10 mg PO BEDTIME [facility] Chlorthalidone (Chlorthalidone 25 Mg Tablet) 25 mg PO DAILY [facility] Diphenhydramine HCl (Diphenhydramine 25 Mg Tablet) 50 mg PO BEDTIME PRN PRN Reason: Allergy Symptoms Docusate Sodium (Docusate 100 Mg Capsule) 100 mg PO BID [facility] Ezetimibe (Ezetimibe 10 Mg Tablet) 10 mg PO DAILY [facility] Dextrose (D10w) 100 mls @ 999 mls/hr IV PRN PRN PRN Reason: Hypoglycemia Acetaminophen (Ofirmev) 1,000 mg in 100 mls @ 400 mls/hr IV Q6H PRN PRN Reason: Fever/Mild Pain (1-3) Sodium Chloride (Normal Saline 0.9%) 1,000 mls @ 125 mls/hr IV CONT [facility] Magnesium Oxide (Magnesium Oxide 400 Mg Tablet) 400 mg PO DAILY [facility] Metoprolol Succinate (Metoprolol Er 25 Mg Tablet) 25 mg PO DAILY [facility] Morphine Sulfate (Morphine 4 Mg/Ml Inj) 3 mg IV Q2HR PRN PRN Reason: Pain, Severe (7-10) Naloxone HCl (Naloxone 0.4 Mg/Ml Vial) 0.2 mg IV Q2MIN PRN PRN Reason: Opiate Reversal Oxycodone HCl (Oxycodone Ir 10 Mg Tablet) 10 mg PO Q3H PRN PRN Reason: Pain, Severe (7-10) Last Admin: 06/21/24 17:49 Dose: 10 mg Documented By: LOUISE Pantoprazole Sodium (Pantoprazole Dr 20 Mg Tablet) 20 mg PO BID [facility] Ropinirole HCl (Ropinirole 1 Mg Tablet) 1 mg PO BEDTIME [facility] Tamsulosin HCl (Tamsulosin 0.4 Mg Capsule) 0.4 mg PO DAILY [facility] Trazodone HCl (Trazodone 50 Mg Tablet) 200 mg PO BEDTIME PRN PRN Reason: sleep Discontinued Medications Enoxaparin Sodium (Enoxaparin 40 Mg/0.4 Ml Syringe) 40 mg SUBCUT DAILY [facility] Morphine Sulfate (Morphine 2 Mg/Ml Inj) 2 mg IV NOW ONE Stop: 06/21/24 15:46 Last Admin: 06/21/24 15:53 Dose: 2 mg Documented By: HERB Ondansetron HCl (Ondansetron 4 Mg/2 Ml Inj) 4 mg IV NOW ONE Stop: 06/21/24 15:46 Last Admin: 06/21/24 15:52 Dose: 4 mg Documented By: HERB Vital Signs Vital signs: Vital Signs - 8 hr 06/21/24 12:30 06/21/24 13:00 06/21/24 13:30 Pulse Rate 94 H 82 106 H Blood Pressure 124/65 Pulse Oximetry 95 95 95 06/21/24 14:00 06/21/24 14:16 06/21/24 14:16 Pulse Rate 93 H 98 H Blood Pressure 131/86 Pulse Oximetry 95 96 06/21/24 14:30 06/21/24 14:31 06/21/24 14:31 Pulse Rate 98 H 97 H Blood Pressure 167/73 H Pulse Oximetry 94 94 06/21/24 15:00 06/21/24 15:01 06/21/24 15:01 Pulse Rate 108 H 104 H Blood Pressure 181/67 H Pulse Oximetry 94 94 06/21/24 15:30 06/21/24 15:31 06/21/24 15:31 Pulse Rate 103 H 95 H Blood Pressure 159/69 H Pulse Oximetry 96 96 06/21/24 16:00 06/21/24 16:01 06/21/24 16:01 Pulse Rate 92 H 93 H Blood Pressure 188/90 H Pulse Oximetry 94 94 06/21/24 16:30 Pulse Rate 70 Blood Pressure Pulse Oximetry 96 MDM - Male Genitourinary Medical Records Medical records narrative: Differential is restless legs syndrome versus neuropathy versus neuromuscular disease versus peripheral arterial disease it was concluded after workup that the patient most likely had restless legs syndrome. He was admitted for treatment of same. Lab Data 06/21/24 10:56 06/21/24 10:56 Labs: Lab Results 06/21/24 06/21/24 06/21/24 Range/Units 10:56 11:21 16:38 WBC 7.7 (4.5-11.0) X10^3/uL RBC 3.91 L (4.5-5.9) X10^6/uL Hgb 10.8 L (13.5-17.5) g/dL Hct 32.2 L (41-53) % MCV 82.4 (80-100) fL MCH 27.7 (26-34) PG MCHC 33.6 (30-36) % RDW 14.6 (11.6-14.8) % Plt Count 302 (150-400) X10^3/uL Neut % (Auto) 79.4 H (50-75) % Lymph % (Auto) 12.0 L (25-40) % Wolfe % (Auto) 6.8 (3-14) % Eos % (Auto) 1.6 L (2-4) % Baso % (Auto) 0.2 (0-2) % Neut # (Auto) 6100 (4398-6074) /uL Lymph # (Auto) 900 L (7869-1408) /uL Wolfe # (Auto) 500 (0-900) /uL Eos # (Auto) 100 (0-450) /uL Baso # (Auto) 0 (0-100) /uL Sodium 132 L (137-145) mmol/L Potassium 3.6 (3.4-5.1) mmol/L Chloride 94 L (98-107) mmol/L Carbon Dioxide 24 (22-32) mmol/L BUN 55 H (9-20) mg/dL Creatinine 2.54 H (0.66-1.25) mg/dL Estimated GFR 24 L (>60) mL/min BUN/Creatinine Ratio 21.7 (6-22) Glucose 116 H (70-99) mg/dL Lactate 1.2 (0.7-2.1) mmol/L Calcium 8.9 (8.4-10.2) mg/dL Total Bilirubin 0.7 (0.2-1.3) mg/dL AST 41 (17-59) IU/L ALT 21 (<50) IU/L Alkaline Phosphatase 63 (38-126) U/L Total Protein 7.3 (6.3-8.2) g/dL Albumin 4.4 (3.5-5.0) g/dL Globulin 2.9 (1.7-4.1) g/dL Albumin/Globulin Ratio 1.5 (1.0-2.8) Urine RBC None seen (0-5/HPF) Urine WBC None seen (0-5/HPF) Ur Squamous Epith Cells 0-1 /hpf (0-5/HPF) Urine Bacteria None seen (None) Ur Culture Indicated? Cult not indicated Vol Urine Centrifuged 1 Urine Dip Bedside Urine Glucose Negative Bedside Urine Bilirubin - Negative Bedside Urine Ketone - Negative Urine Specific [place] 1.025 Bedside Urine Occult Blood - Negative Bedside Urine pH 5.5 Bedside Urine Protein +/- 15 Bedside Urine Urobilinogen - Negative Bedside Urine Nitrite - Negative Bedside Urine Leukocytes - Negative Esterase Discharge Plan Departure Patient Disposition: Admitted as Observation Clinical Impression: Restless leg syndrome Admit Date/Time: 06/21/24 16:59 Admit Provider: Peter Galloway
[2024-06-21] MEDS: SODIUM CHLORIDE 0.9% 1,000 ML 125 ML IV (20:30)
[2024-06-21] MEDS: ACETAMINOPHEN IV 1,000 MG/100 ML VIAL 400 MG IV (21:39)
[2024-06-21] MEDS: PANTOPRAZOLE DR 20 MG TABLET PO (21:41)
[2024-06-21] MEDS: TRAZODONE 50 MG TABLET 200 MG PO (21:42)
[2024-06-21] MEDS: ROPINIROLE 1 MG TABLET PO (21:42)
[2024-06-21] MEDS: APIXABAN 5 MG TABLET 2.5 MG PO (21:42)
[2024-06-21] MEDS: ATORVASTATIN 20 MG TABLET 10 MG PO (21:42)
[2024-06-21] MEDS: DOCUSATE 100 MG CAPSULE PO (21:42)
[2024-06-22] MEDS: OXYCODONE IR 10 MG TABLET PO ×4 (02:05→18:48)
[2024-06-22 04:00] VITALS: BP 142/79; PULSE 103; RESP 16; TEMP 36.3; O2SAT 92
[2024-06-22] MEDS: SODIUM CHLORIDE 0.9% 1,000 ML 125 ML IV ×2 (06:16→14:33)
[2024-06-22] MEDS: ONDANSETRON 4 MG/2 ML INJ IV (07:36)
[2024-06-22 08:00] VITALS: BP 137/73; PULSE 90; RESP 16; TEMP 36.3; O2SAT 97
[2024-06-22 08:30] VITALS: BP 137/73; PULSE 88
[2024-06-22] MEDS: PANTOPRAZOLE DR 20 MG TABLET PO ×2 (08:30→20:43)
[2024-06-22] MEDS: APIXABAN 5 MG TABLET 2.5 MG PO ×2 (08:30→20:43)
[2024-06-22] MEDS: METOPROLOL ER 25 MG TABLET PO (08:30)
[2024-06-22] MEDS: CHLORTHALIDONE 25 MG TABLET PO (08:31)
[2024-06-22] MEDS: TAMSULOSIN 0.4 MG CAPSULE PO (08:31)
[2024-06-22] MEDS: EZETIMIBE 10 MG TABLET PO (08:31)
[2024-06-22] MEDS: ACETAMINOPHEN 325 MG TABLET 650 MG PO ×2 (09:21→20:06)
--- NOTE | 2024-06-22 10:15 | PT.IIE ---
Current Diagnoses Pelvic and perineal pain (06/21/24) Medical History (Last Reviewed 06/21/24 @ 17:35 by Eduardo Pang DO) Atrial fibrillation BPH w urinary obs/LUTS Chronic low back pain Chronic renal failure, stage 3 (moderate) Collagenous colitis History of colon polyps History of elevated PSA Hypertension Hypertension Low back pain Mixed hyperlipidemia Peripheral neuropathy Uncomplicated opioid dependence Physical Therapy Inpatient Evaluation/Re-Eval M1 PT/OT-IP Prior Functional Status Start: 06/22/24 11:55 Freq: NEEDED Status: Active Protocol: Document 06/22/24 10:15 AB (Rec: 06/22/24 12:08 AB [id number]) Medical Review Prior Functional Status Medical History Reviewed Yes Communication able to make needs known Mobility and Gait pt stated that he was modified independent with all mobilities and ambulation using a FWW Activities of Daily Living and IADL's Pt able to do ADL, but needs assist from his when he has pain. Social History Household Members spouse Living Arrangements RV Number of Floors (Floors) One Floor Number of Stairs To Enter/Railing? ramp to enter Home Environment High Toilet,Walk in Shower, Ramp Home Equipment Front Wheel Walker,Bedside Commode,Shower Seat with Backrest,Hand Held Shower, Plumbing And Heating Mechanic,Grab Bars In Shower Additional Social History Comment pt stated that his spouse will not be able to assist him at home pt sleeps on a recliner M2 PT-IP Current Condition Start: 06/22/24 11:55 Freq: NEEDED Status: Active Protocol: Document 06/22/24 10:15 AB (Rec: 06/22/24 12:08 AB [id number]) Physical Therapy Current Condition Current Condition Evaluation Date 06/22/24 Treatment Diagnosis RLS; RAY; difficulty in walking Onset Date 06/21/24 M3 PT-IP Subjective Start: 06/22/24 11:55 Freq: NEEDED Status: Active Protocol: Document 06/22/24 10:15 AB (Rec: 06/22/24 12:08 AB [id number]) Subjective Physical Therapy Visit Type Type Initial Evaluation Visit Start Time 10:15 Visit Stop Time 10:35 Number of FREIGHT HUSTLER Visits 0 Physical Therapy Visit Comments Patient Comments stated that he cannot walk Therapy Pain Assessment Pain When Pain Assessed At Rest Pain Present Pain Present Pain Reported Location Bilateral Leg Intensity 8 Scale Used pain from hips to B feet Pain Behaviors Guarding Pain Management Techniques Distraction,Modification of Treatment,Re-positioning, Timing of Activity with Medications M4 PT-IP Mobility and Gait Start: 06/22/24 11:55 Freq: NEEDED Status: Active Protocol: Document 06/22/24 10:15 AB (Rec: 06/22/24 12:08 AB [id number]) PT-Bed Mobility Assessment Supine to Sit Supine to Sit Standby Assistance Sit to Supine Sit to Supine Standby Assistance PT-Transfer Assessment Sit to and From Stand Sit to and from Stand Contact Guard Assistance,1 Person Assistance,Use of Upper Extremities Equipment Transfer Assistive Device Gait Belt,Front Wheeled Walker Orthotic/Prosthetic Devices or Brace: No Comments Mobility Comments pt in bed and agreed to do PT but stated that he cannot walk . obtained PLOF and home set up. BP: 132/68. completed supine to sit SBA. able to sit on EOB SBA. pt requested to use the urinal. refused to walk to the toilet . sit to stand cGA and was able to stand using FWW for support CGA while using the urinal. pt sat back on EOB. again, refused to walk. sit to supine SBA. positioned pt on the bed. call light and table placed within reach. PT-Balance Assessment Sitting Balance and Reactions Static Sitting Balance Ability Normal Dynamic Sitting Balance Ability Good Standing Balance and Reactions Static Standing Balance Ability Fair Dynamic Standing Balance Ability Fair Device Used FWW M5 PT-IP Objective Assessments Start: 06/22/24 11:55 Freq: NEEDED Status: Active Protocol: Document 06/22/24 10:15 AB (Rec: 06/22/24 12:08 [id number]) Orientation Orientation/Cognition Level of Alertness Alert Orientation Name,Place,Situation Language Function Ability Hard of Hearing Safety Awareness Decreased Safety Awareness Memory Description No Deficits Noted Gross Range of Motion Lower Extremity ROM Assessment Within Functional Limits Strength Lower Extremity Strength Assessment Within Functional Limits Coordination Assessment Gross Coordination Gross Coordination WNL Sensation Assessment Sensation Sensation Description Tingling Comments Sensation Comments c/o tingling on BLE Muscle Tone Muscle Tone WNL Yes M6 PT-IP Treatment Start: 06/22/24 11:55 Freq: NEEDED Status: Active Protocol: Document 06/22/24 10:15 AB (Rec: 06/22/24 12:08 AB [id number]) Physical Therapy Treatment Education Education Provided Safety M7 PT-IP Assessment and Plan Start: 06/22/24 11:55 Freq: NEEDED Status: Active Protocol: Document 06/22/24 10:15 AB (Rec: 06/22/24 12:08 AB [id number]) PT Summary Assessment and Plan Potential Rehabilitation Potential Fair Status of Condition at Evaluation Evolving Summary Impairments Pain,ROM,Strength,Balance, Coordination,Sensation,Tone, Cognition,Bed Mobility, Transfers,Gait,Activity Tolerance Assessment Summary pt is an 88 y/o M who is admitted for RLS, acute kidney injury. pt requiring CGA for sit to stand but refused to ambulate. pt stated that he cannot walk and refused to try . will continue to assess progress. pt may require SNF rehab. Goals Transfer Goal Independent,Front Wheeled Walker Gait Goal Independent,Front Wheel Walker Gait Distance 100 Other Goals improve ambulation using FWW ~ 150 ft mod I Days to Meet Goals 10 Frequency of Treatment Frequency Of Treatment Once a Day Treatment Plan Physical Therapy Treatment Plan Bed Mobility Training,Transfer Training,Gait Training, Therapeutic Exercise,Post Op Education,Discharge Planning, Hot or Cold Pack,Neuromuscular Re-ed,Coordination Retraining ,Manual Therapy Recommendations To Nursing Amount of Assist Needed 1 Person Assist Discharge Recommendations PT Discharge Recommendations SNF Rehab Transportation Needs at Discharge Wheelchair/Cabulance - PT assist 1
--- NOTE | 2024-06-22 10:50 | OT.IP.EVAL ---
Current Diagnoses Pelvic and perineal pain (06/21/24) Past Medical History (Last Reviewed 06/21/24 @ 17:35 by Eduardo Pang DO) Atrial fibrillation BPH w urinary obs/LUTS Chronic low back pain Chronic renal failure, stage 3 (moderate) Collagenous colitis History of colon polyps History of elevated PSA Hypertension Hypertension Low back pain Mixed hyperlipidemia Peripheral neuropathy Uncomplicated opioid dependence Occupational Therapy Inpatient Evaluation/Re-Eval M2 OT-IP Current Condition Start: 06/22/24 11:37 Freq: Status: Active Protocol: Document 06/22/24 10:50 CCC (Rec: 06/22/24 11:55 [facility] Desktop) Occupational Therapy Current Condition Current Condition Evaluation Date 06/22/24 Treatment Diagnosis CHronic hip pain M3 OT- IP Subjective and Pain Start: 06/22/24 11:37 Freq: Status: Active Protocol: Document 06/22/24 10:50 CCC (Rec: 06/22/24 11:55 [facility] Desktop) OT- Subjective Occupational Therapy Visit Type Type Initial Evaluation Visit Start Time 10:50 Visit Stop Time 11:17 Occupational Therapy Visit Comments Patient Comments Pt reluctant to get up and then agreed as having to use the urinal. Patient/Caregiver Goals Pt states can not go home as he feels that he is too much for his to take care of. OT Pain Assessment Pain When Pain Assessed At Rest Pain Present Pain Present Pain Reported Location prostate Intensity 9 Scale Used Numeric (0 - 10) M4 OT- IP ADL's Start: 06/22/24 11:37 Freq: Status: Active Protocol: Document 06/22/24 10:50 [facility] (Rec: 06/22/24 11:55 [facility] Desktop) OT [id number] Comments OT Self-Feeding Comments Not at meal time. OT ADL-Grooming General Evaluation Grooming Ability Standby Assistance Areas Needing Assistance Retrieving/Set-up of Grooming Items Comments OT Grooming Comments Pt able to do while seated at the edge of the bed. OT ADL-Oral Care General Eval Oral Care Ability Independent OT ADL-Dressing General Eval Lower Body Dressing Ability Maximum Assistance Areas Needing Assistance Socks Comments OT Dressing Comments Assist for socks. OT ADL-Toileting Comments OT Toileting Comments Pt able to use the urinal while standing with FWW with SBA and assist to hold the gown up all the way. Pt has a BSC at home next to the recliner. OT ADL-Bathing Comments OT Bathing Comments Pt has a shower chair at home now. M5 OT- IP IADL's Start: 06/22/24 11:37 Freq: Status: Active Protocol: Document 06/22/24 10:50 [facility] (Rec: 06/22/24 11:55 [facility] Desktop) OT-Instrumental Activities of Daily Living Medication Management Medication Management Caregiver Administers Money Management Money Management Comments Pt states his assist with bill paying. Meal Preparation Meal Preparation Caregiver Provides Assist Syrup Mixer Assistant Syrup Mixer Assistant Caregiver Provides Assist M6 OT- IP Functional Cognition Start: 06/22/24 11:37 Freq: Status: Active Protocol: Document 06/22/24 10:50 [facility] (Rec: 06/22/24 11:55 [facility] Desktop) Cognitive Factors Limiting Selfcare Function Cognitive Ability Level of Alertness Alert Patient Orientation Name,Place,Situation Attention Span Ability Capable of Focused Attention, Capable of Sustained Attention Ability to Follow Commands Able to Follow One Step Commands Cognitive Comments Cognitive Assessment Comments Pt able to follow commands for ADL and mobility needs , however insistent of his care. Pt aware LB dressing equipment would be helpful but states does not use them. Pt insists that he can not go home, but insisted on not going to skilled rehab. OT- Vision and Hearing OT- Vision Assessment Visual Acuity Glasses All The Time Visual Attentiveness WFL Occular Pursuits WFL M7 OT- IP Mobility and Balance Start: 06/22/24 11:37 Freq: Status: Active Protocol: Document 06/22/24 10:50 [facility] (Rec: 06/22/24 11:55 [facility] Desktop) OT- Bed Mobility Assessment Supine to Sit Supine to Sit Assist Standby Assistance Sit to Supine Sit to Supine Assist Standby Assistance Scooting Scooting to Edge of Bed Standby Assistance Scooting Up and Down in Bed Standby Assistance OT-Transfer Assessment Sit to and From Stand Sit to and from Stand Standby Assistance Comments Mobility Comments SBA to get to the edge of the bed and stand to the FWW so able to use the urinal. Pt refused to take any steps. OT- Balance Assessment Sitting Balance and Reactions Static Sitting Balance Ability Good Dynamic Sitting Balance Ability Good Standing Balance and Reactions Static Standing Balance Ability Fair+ M8 OT- IP Objective Assessments Start: 06/22/24 11:37 Freq: Status: Active Protocol: Document 06/22/24 10:50 [facility] (Rec: 06/22/24 11:55 [facility] Desktop) OT Gross Range of Motion Upper Extremity Range of Motion ROM Impairments grossly WFL OT Strength Comments Strength Comments BUE 4/5 M9 OT- IP Assessment and Plan Start: 06/22/24 11:37 Freq: Status: Active Protocol: Document 06/22/24 10:50 [facility] (Rec: 06/22/24 11:55 [facility] Desktop) OT Summary Assessment and Plan Potential Rehabilitation Potential Fair Analytic Complexity at Evaluation Moderate Summary OT Impairments Pain,Strength,Balance, Functional Mobility,Self- Feeding,Grooming,Dressing, Toileting,Bathing,Toilet Transfers,Shower Transfers, Activity Tolerance Progress Towards Goals Slow Progress due to Pain,Slow Progress due to Medical Issues Assessment Summary Pt MOD complexity and main barriers are pain, pt not wanting to walk and just agreeable to stand with the FWW to use the urinal at this time. At this time hard to determine pt's needs due to pt not willing to take any steps . Therefore at this time may need SNF versus 24/7 assist at home with HH. Goals Self-Feeding Goal Independent Grooming Goal Independent Dressing Goal Minimal Assistance Toileting Goal Standby Assistance Bathing Goal Moderate Assistance Toilet Transfer Goal Independent Shower Transfer Goal Minimal Assistance OT-Other Goals Goals and days to meet goals will change when able to see assess pt's mobility more. Days to Meet Goals 7 Frequency of Treatment Other frequency 5x/week Treatment Plan OT Treatment Plan ADL Training,Functional Cognition Training,Functional Mobility,Patient/Family Education,Discharge Planning Other Treatment Recommendations and Next [facility], transfer to [facility] with Treatment Focus FWW and SBA Discharge Recommendations OT Discharge Recommendations SNF rehab, Home with 24/7 Assist Available,Home Health,SNF versus HOme with HH 24/7 assist Transportation Needs at Discharge Private Vehicle,Wheelchair/ Cabulance
[2024-06-22] MEDS: PROMETHAZINE 25 MG TABLET 12.5 MG PO (11:16)
[2024-06-22 12:24] LABS: BUN Creatinine Ratio 22.3 (6-22); Blood Urea Nitrogen 49 mg/dL (9-20); Calcium 8.6 mg/dL (8.4-10.2); Carbon Dioxide 26 mmol/L (22-32); Chloride 96 mmol/L (98-107); Estimated Glomerular Filt Rate 28 mL/min (>60); Glucose 92 mg/dL (70-99); HEMOLYSIS < 15 (0-50); Potassium 3.9 mmol/L (3.4-5.1); Sodium 133 mmol/L (137-145)
--- NOTE | 2024-06-22 15:03 | PM.PN.1 ---
Subjective Subjective Interval history: Chief complaint pain in hips Exam Vital Signs (past 8 hours): - 06/22/24 08:00 06/22/24 08:30 Temperature 97.3 F L Pulse Rate 90 88 Respiratory Rate 16 Blood Pressure 137/73 137/73 Pulse Oximetry 97 Oxygen Delivery Method Room Air Oxygen Flow Rate 0 Objective Labs 06/21/24 10:56 06/22/24 11:55 Labs: Laboratory Results - last 24 hr 06/21/24 06/22/24 16:38 11:55 Sodium 133 L Potassium 3.9 Chloride 96 L Carbon Dioxide 26 BUN 49 H Creatinine 2.20 H Estimated GFR 28 L BUN/Creatinine Ratio 22.3 H Glucose 92 Calcium 8.6 Urine RBC None seen Urine WBC None seen Ur Squamous Epith Cells 0-1 /hpf Urine Bacteria None seen Ur Culture Indicated? Cult not indicated Vol Urine Centrifuged 1 PFSH Medical History Uncomplicated opioid dependence Chronic low back pain Peripheral neuropathy Mixed hyperlipidemia Chronic renal failure, stage 3 (moderate) Atrial fibrillation History of elevated PSA BPH w urinary obs/LUTS Hypertension Low back pain Collagenous colitis History of colon polyps Hypertension Social History household members: spouse Smoking Status: Never smoker alcohol intake: former Assessment & Plan Assessment & Plan narrative: #Chronic pain of hips impressive story of pain unable to manage at home anymore will initiate pain control with various PRNs including IV tylenol - ordering XR of hips and PT eval in morning. Not clear what is going on here but he states too much pain to go home. Per labs and urology this is really not a prostatitis issue so will stop antibiotics. He has been requiring IV pain meds. Control this pain. #restless legs will try some ropinirole for this see if that is helpful. #acute kidney injury on CKD 3a notable bump above baseline today over previous will hydrate with IVF and recheck in a.m. #Essential hypertension stable continue home meds #mixed hyperlipidemia stable continue home meds #BPH with obstruction stable continue home flomax #afib stable continue home eliquis Dispo: admit obsv for pain control MDM: [phone] Daughter Regine [phone] Daughter Marleen [phone] Diet: no dairy no nuts Code: DNR Time-Based Coding :: [TOTAL MINUTES] spent with patient and on the chart (including review of chart, obtaining history, exam, reviewing outside data, placing orders, documenting exam and treatment plan, and counseling patient) on [DATE]. Quality VTE Deep Vein Thrombosis/Pulmonary Embolism Present on Admission: No
--- NOTE | 2024-06-22 15:55 | CM.DPNOTE ---
SNF DCP Continued: Reviewed EMR and team rounds for pt?s medical status. Per Provider, RAY improving but pt still experiencing pain/weakness. Per PT/OT, recommending pt for SNF Rehab. DCP sent initial referral to [facility]. Per [facility] Admissions, pt still has Medicare SNF coverage from previous inpatient stay in 05/25/24-05/29/24. Although pt will not be admitted until 06/25/24 due to staffing availability. Pt confirms with this ALUMINUM CONTAINER TESTER that he does not wish to go to any other SNF at this time, would rather wait for acceptance date with [facility]. DCP notified Provider and RN of Tuesday acceptance. Will need PASRR. Plan: Anticipating [facility] on Tuesday, 06/25, time pending. CM Team will continue to follow for coordination of discharge plans. LAUREN Lafleur
[2024-06-22 16:00] VITALS: BP 126/61; PULSE 96; RESP 16; TEMP 36.5; O2SAT 100
[2024-06-22 19:00] VITALS: BP 131/68; PULSE 96; RESP 18; TEMP 36.6; O2SAT 91
[2024-06-22] MEDS: HYDROCODONE/ACET 5/325 TABLET 1 TAB PO (20:05)
[2024-06-22] MEDS: DOCUSATE 100 MG CAPSULE PO (20:43)
[2024-06-22] MEDS: ROPINIROLE 1 MG TABLET PO (20:44)
[2024-06-22] MEDS: ATORVASTATIN 20 MG TABLET 10 MG PO (20:44)
[2024-06-22] MEDS: TRAZODONE 50 MG TABLET 200 MG PO (20:45)
[2024-06-23 03:00] VITALS: BP 139/82; PULSE 111; RESP 20; TEMP 36.6; O2SAT 92
[2024-06-23] MEDS: SODIUM CHLORIDE 0.9% 1,000 ML 84 ML IV ×2 (03:43→15:55)
[2024-06-23] MEDS: HYDROCODONE/ACET 5/325 TABLET 1 TAB PO ×2 (03:48→08:05)
[2024-06-23] MEDS: ACETAMINOPHEN 325 MG TABLET 650 MG PO ×2 (03:48→15:53)
--- NOTE | 2024-06-23 08:08 | PC.NURSE ---
Addendum entered by Jeff Cruz R.N. 06/23/24 11:57: Pt continues restful, Tylenol IV of good effect. Addendum entered by Jeff Cruz R.N. 06/23/24 08:30: see body image file. miss noted friction issues in original rusty score. Original Note: Pt rouses to name , expresses self easily. Parkin given for pain in bilateral lower extremities. Pt did not want MS and asked for Parkin. Per report from glost kiln placer RN the Parkin was beneficial. Pt set up for B'fast.
--- NOTE | 2024-06-23 08:23 | CM.DPC ---
DCP SNF Cont: Per RN, pt awake this morning and eating breakfast and no concerns. [facility] can accept Mon 06/25 when pt Medicare Eligible for SNF as he was changed from OBS to Inpt on 06/22/24. PASRR done. ZE Zhu
[2024-06-23 08:30] VITALS: BP 156/76; PULSE 87; RESP 17; TEMP 36.2; O2SAT 93
[2024-06-23 10:34] VITALS: BP 156/76; PULSE 87
[2024-06-23] MEDS: EZETIMIBE 10 MG TABLET PO (10:34)
[2024-06-23] MEDS: METOPROLOL ER 25 MG TABLET PO (10:34)
[2024-06-23] MEDS: CHLORTHALIDONE 25 MG TABLET PO (10:35)
[2024-06-23] MEDS: APIXABAN 5 MG TABLET 2.5 MG PO ×2 (10:35→20:35)
[2024-06-23] MEDS: TAMSULOSIN 0.4 MG CAPSULE PO (10:35)
[2024-06-23] MEDS: PANTOPRAZOLE DR 20 MG TABLET PO ×2 (10:35→20:35)
[2024-06-23] MEDS: MAGNESIUM OXIDE 400 MG TABLET PO (10:35)
[2024-06-23] MEDS: ACETAMINOPHEN IV 1,000 MG/100 ML VIAL 400 MG IV (10:37)
--- NOTE | 2024-06-23 10:43 | P.PN_ITS ---
Subjective Subjective Date Patient Seen: 06/23/24 Time Patient Seen: 10:44 Interval history: Patient remembers me from his last hospitalization when I saw him as well. Admitted this time with persistent pain really unable/unwilling to attempt walking and minimally able to bear weight for standing etcetera Lots of pain in what he was describes as the area between his tailbone and his hips which I presumed to be more of a sacroiliac kind of pain. Reports pain radiating down both legs constantly including as we speak. Pain medication make some difference but he was completely unable to ambulate or walk he was says. Does not believe there is intrinsic muscle weakness he was not lost control of bowel or bladder function. Had thought this was all related to prostate issues but he was seen by Urology and reassured that there is no evidence of prostate bladder or other urological source for his discomfort. Multiple imaging has been obtained including 5 CT scans of the abdomen and pelvis since mid April, none of them demonstrating any etiology as a possible source of patient's symptoms. None of them demonstrating any abnormality of the bones or other structures in the pelvis. Hip x-ray that is also demonstrates pelvis he was not yet been interpreted by Radiology (least not in the EMR) but my interpretation shows no abnormality of the hip joints maybe some mild arthritis and maybe some very minimal arthritis of the sacroiliac joints bilaterally Patient is unwilling to try and return home feels like his can not care for him in this state which is almost certainly true. Is extremely unhappy with the care he received at his prior SNF. Willing to go to a different SNF here in [facility] which he was the plan currently for probable Tuesday discharge to [facility] Exam Vital Signs (past 8 hours): - 06/23/24 03:00 06/23/24 08:30 06/23/24 10:34 Temperature 97.9 F 97.1 F L Pulse Rate 111 H 87 87 Respiratory Rate 20 17 Blood Pressure 139/82 156/76 H 156/76 H Pulse Oximetry 92 93 Oxygen Flow Rate 0 Oxygen Delivery Method Room Air Oxygen Flow Rate 0 Objective Labs 06/21/24 10:56 06/22/24 11:55 Labs: Laboratory Results - last 24 hr 06/22/24 11:55 Sodium 133 L Potassium 3.9 Chloride 96 L Carbon Dioxide 26 BUN 49 H Creatinine 2.20 H Estimated GFR 28 L BUN/Creatinine Ratio 22.3 H Glucose 92 Calcium 8.6 [facility] Medical History Uncomplicated opioid dependence Chronic low back pain Peripheral neuropathy Mixed hyperlipidemia Chronic renal failure, stage 3 (moderate) Atrial fibrillation History of elevated PSA BPH w urinary obs/LUTS Hypertension Low back pain Collagenous colitis History of colon polyps Hypertension Social History household members: spouse Smoking Status: Never smoker alcohol intake: former Assessment & Plan Assessment & Plan narrative: 1. 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 Does have the ability to stand. He was not seem like a muscle weakness issue more of a chronic pain issue. So far no real anatomic or physiologic findings to explain his pain. Does seem like this maybe more psychological than anything else as patient does continue to report pain and yet does not really seem to demonstrate any outward signs However I think getting an MRI of the pelvis to be sure there is not some other structure within the bony sacrum or sacroiliac joints verses elsewhere in the pelvis makes sense. I think we can stop looking for etiologies if his MRI does not reveal any evidence of abnormality to explain his ongoing symptoms. Clearly he will need to be cared for an care setting probably long-term. Continue current medication for pain which he reports as helpful. Even with the parental morphine he was unwilling to try to walk so I am not sure what our end goal is with pain control and pain medication. 2. Restless leg syndrome-patient really unable to tell me if this is any different with the ropinirole, no side effects so ever so will continue 3. Acute kidney injury-creatinine has improved this morning. Continue with some degree of hydration with IV fluids and recheck tomorrow 4. Hypertension-borderline elevated so far this morning. Continue to monitor without change in medication for now. 5. Disposition-plan for discharge to care home when bed available as above. Time-Based Coding :: [TOTAL MINUTES] spent with patient and on the chart (including review of chart, obtaining history, exam, reviewing outside data, placing orders, documenting exam and treatment plan, and counseling patient) on [DATE]. Quality VTE Deep Vein Thrombosis/Pulmonary Embolism Present on Admission: No PROFEE Cadastral Engineer Document charge(s): Yes Charge Codes Subsequent inpatient/observation care: [id number]
[2024-06-23] MEDS: DOCUSATE 100 MG CAPSULE PO ×2 (10:49→20:34)
[2024-06-23 12:00] VITALS: BP 133/74; PULSE 90; RESP 17; TEMP 36.9; O2SAT 94
[2024-06-23 12:02] VITALS: BP 152/77; PULSE 91
--- NOTE | 2024-06-23 12:29 | PT-IP ANOTE ---
checked on pt this morning and refused PT. stated that he has so much pain and just not getting comfortable and does not want to do PT and does not want to move. agreed for PT to check back later.
[2024-06-23] MEDS: OXYCODONE IR 10 MG TABLET PO ×3 (13:17→20:32)
--- NOTE | 2024-06-23 14:00 | PT-IP ANOTE ---
checked on pt again this afternoon and pt continues to refuse PT.
[2024-06-23 20:04] VITALS: BP 127/74; PULSE 91; RESP 14; TEMP 36.7; O2SAT 97
[2024-06-23] MEDS: ATORVASTATIN 20 MG TABLET 10 MG PO (20:34)
[2024-06-23] MEDS: TRAZODONE 50 MG TABLET 200 MG PO (20:36)
[2024-06-23] MEDS: MORPHINE 4 MG/ML INJ 3 MG IV (23:27)
[2024-06-24] MEDS: ACETAMINOPHEN 325 MG TABLET 650 MG PO (00:40)
[2024-06-24] MEDS: OXYCODONE IR 10 MG TABLET PO ×6 (00:40→22:10)
[2024-06-24] MEDS: SODIUM CHLORIDE 0.9% 1,000 ML 84 ML IV ×2 (02:59→14:53)
[2024-06-24 05:03] VITALS: BP 168/73; PULSE 107; RESP 20; TEMP 36.2; O2SAT 90
[2024-06-24] MEDS: METOPROLOL ER 25 MG TABLET PO (09:09)
[2024-06-24] MEDS: DOCUSATE 100 MG CAPSULE PO ×2 (09:11→20:23)
[2024-06-24] MEDS: MAGNESIUM OXIDE 400 MG TABLET PO (09:11)
[2024-06-24] MEDS: TAMSULOSIN 0.4 MG CAPSULE PO (09:11)
[2024-06-24] MEDS: PANTOPRAZOLE DR 20 MG TABLET PO ×2 (09:11→20:23)
[2024-06-24] MEDS: EZETIMIBE 10 MG TABLET PO (09:12)
[2024-06-24] MEDS: CHLORTHALIDONE 25 MG TABLET PO (09:12)
[2024-06-24] MEDS: APIXABAN 5 MG TABLET 2.5 MG PO ×2 (09:12→20:23)
--- NOTE | 2024-06-24 09:28 | PT.IPTN ---
Current Diagnoses Pelvic and perineal pain (06/22/24) Physical Therapy Treatment Note M2 PT-IP Current Condition Start: 06/22/24 11:55 Freq: NEEDED Status: Active Protocol: Document 06/22/24 10:15 AB (Rec: 06/22/24 12:08 AB [id number]) Physical Therapy Current Condition Current Condition Evaluation Date 06/22/24 Treatment Diagnosis RLS; RAY; difficulty in walking Onset Date 06/21/24 M3 PT-IP Subjective Start: 06/22/24 11:55 Freq: NEEDED Status: Active Protocol: Document 06/24/24 09:22 MB (Rec: 06/24/24 09:28 MB [id number]) Subjective Physical Therapy Visit Type Type Treatment Note Visit Start Time 09:11 Visit Stop Time 09:21 Number of HOSPITAL COOK Visits 0 Physical Therapy Visit Comments Patient Comments Pt states that he only wants to get up to use the urinal, LINOTYPE MECHANIC, nearby, and PT must provide extensive encouragement for him to gait to the sink, wash hands, and sit up in the chair. M4 PT-IP Mobility and Gait Start: 06/22/24 11:55 Freq: NEEDED Status: Active Protocol: Document 06/24/24 09:22 MB (Rec: 06/24/24 09:28 MB [id number]) PT-Transfer Assessment Sit to and From Stand Sit to and from Stand Contact Guard Assistance,1 Person Assistance,Use of Upper Extremities Equipment Transfer Assistive Device Gait Belt,Front Wheeled Walker Orthotic/Prosthetic Devices or Brace: No Transfers Transfer Destination Chair Transfer Technique Ambulation Transfer Ability Level of Assist Contact Guard Assistance,1 Person Assistance,Use of Upper Extremities Comments Mobility Comments Pt with frequent B knee buckling that he states is baseline for him with standing , using urinal with RW support , standing at sink and holding onto sink counter and stepping to the chair with RW. CGA Gait Assessment Gait Gait Assistance Required: Contact Guard Assist,1 Person Assist Distance (Feet) 7 Assistive Devices Assistive Device Gait Belt,Front Wheeled Walker Gait Deviations General Gait Pattern Decreased Stride Length, Decreased Feet Clearance, Festinating,Step-to Gait,Wide Based Gait Factors Limiting Gait Function Factors Limiting Gait Function Decreased Activity Tolerance, Decreased Strength,Difficulty Following Directions,Poor Balance,Poor Safety Awareness Comments Gait Comments 5'x1, 7'x1 PT-Balance Assessment Sitting Balance and Reactions Static Sitting Balance Ability Normal Dynamic Sitting Balance Ability Good Standing Balance and Reactions Static Standing Balance Ability Fair Dynamic Standing Balance Ability Fair Device Used FWW M5 PT-IP Objective Assessments Start: 06/22/24 11:55 Freq: NEEDED Status: Active Protocol: Document 06/22/24 10:15 AB (Rec: 06/22/24 12:08 AB [id number]) Orientation Orientation/Cognition Level of Alertness Alert Orientation Name,Place,Situation Language Function Ability Hard of Hearing Safety Awareness Decreased Safety Awareness Memory Description No Deficits Noted Gross Range of Motion Lower Extremity ROM Assessment Within Functional Limits Strength Lower Extremity Strength Assessment Within Functional Limits Coordination Assessment Gross Coordination Gross Coordination WNL Sensation Assessment Sensation Sensation Description Tingling Comments Sensation Comments c/o tingling on BLE Muscle Tone Muscle Tone WNL Yes M6 PT-IP Treatment Start: 06/22/24 11:55 Freq: NEEDED Status: Active Protocol: Document 06/24/24 09:22 MB (Rec: 06/24/24 09:28 MB [id number]) Physical Therapy Treatment Education Education Provided Safety M7 PT-IP Assessment and Plan Start: 06/22/24 11:55 Freq: NEEDED Status: Active Protocol: Document 06/24/24 09:22 MB (Rec: 06/24/24 09:28 MB [id number]) PT Summary Assessment and Plan Potential Rehabilitation Potential Fair Status of Condition at Evaluation Evolving Summary Impairments Pain,ROM,Strength,Balance, Coordination,Bed Mobility, Transfers,Gait,Activity Tolerance Progress Towards Goals Slow Progress - Other Assessment Summary Pt con't to be resistant to mobility/therapy. He is up sitting on EOB with LINOTYPE MECHANIC nearby upon PT arrival. He reluctantly participates with short gait to sink to wash hands after using urinal and with ambulation to the recliner. He has frequent cord -like knee buckling episodes that are self-corrected using UE support through walker. He states this is his baseline. He is at increased risk for falls. Goals Bed Mobility Goal Independent Transfer Goal Independent,Front Wheeled Walker Gait Goal Independent,Front Wheel Walker Gait Distance 50 Days to Meet Goals 10 Frequency of Treatment Frequency Of Treatment Once a Day Treatment Plan Physical Therapy Treatment Plan Bed Mobility Training,Transfer Training,Gait Training, Therapeutic Exercise,Post Op Education,Discharge Planning, Hot or Cold Pack,Neuromuscular Re-ed,Coordination Retraining ,Manual Therapy Recommendations To Nursing Amount of Assist Needed 1 Person Assist Discharge Recommendations PT Discharge Recommendations SNF Rehab Transportation Needs at Discharge Wheelchair/Cabulance - PT assist 1
--- NOTE | 2024-06-24 10:38 | P.PN_ITS ---
Subjective Subjective Date Patient Seen: 06/24/24 Time Patient Seen: 10:39 Interval history: Patient is sitting up in the bedside chair he says somewhat reluctantly. His medications have been simplified he was now just using oxycodone and occasional parental morphine for pain management. I discontinued the hydrocodone and IV acetaminophen yesterday I did order an MRI of his pelvis yesterday but did not realize he has a pacemaker in place since that was not in his medical record here at the hospital (and obviously I did not ask patient about pacemaker). Obviously that was not performed. Patient declined to participate with physical therapy most of the day yesterday and declined to allow his blood to be drawn for repeat lab testing this morning. Current plan is discharge to custodial as early as tomorrow Exam Vital Signs (past 8 hours): - 06/24/24 05:03 Temperature 97.1 F L Pulse Rate 107 H Respiratory Rate 20 Blood Pressure 168/73 H Pulse Oximetry 90 L Oxygen Flow Rate 0 Oxygen Delivery Method Room Air Oxygen Flow Rate 0 Objective Labs 06/21/24 10:56 06/22/24 11:55 [facility] Medical History (Updated 06/21/24 @ 19:02 by Kortney Mccormack MD) Uncomplicated opioid dependence Chronic low back pain Peripheral neuropathy Mixed hyperlipidemia Hypertension History of colon polyps Collagenous colitis Chronic renal failure, stage 3 (moderate) Atrial fibrillation History of elevated PSA BPH w urinary obs/LUTS Hypertension Low back pain Surgical History (Updated 06/24/24 @ 10:38 by Eros Zacarias MD) Status post cardiac pacemaker procedure Social History household members: spouse Smoking Status: Never smoker alcohol intake: former Assessment & Plan Assessment & Plan narrative: 1. 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 Does have the ability to stand. He was not seem like a muscle weakness issue more of a chronic pain issue. So far no real anatomic or physiologic findings to explain his pain. Does seem like this maybe more psychological than anything else as patient does continue to report pain and yet does not really seem to demonstrate any outward signs Clearly he will need to be cared for an care setting probably long-term. Continue current medication for pain which he reports as helpful. Even with the parental morphine he was unwilling to try to walk so I am not sure what our end goal is with pain control and pain medication. I did simplify his medication options yesterday in so far he is doing okay, at least about the same 2. Restless leg syndrome-patient declining the ropinirole. Essentially unchanged 3. Acute kidney injury-when last checked creatinine was improve. Try and recheck again tomorrow. Continue IV fluids for now 4. Hypertension-borderline elevated so far this morning. Continue to monitor without change in medication for now. 5. Disposition-plan for discharge to custodial when bed available as above. Overall very difficult to determine how much of patient's symptoms are due to physiologic/pathologic changes verses psychological issues etcetera. I believe there is a large degree of both present. So far, we have been unable to find any clear physical or pathologic etiology for his ongoing pain syndrome. Time-Based Coding :: [TOTAL MINUTES] spent with patient and on the chart (including review of chart, obtaining history, exam, reviewing outside data, placing orders, documenting exam and treatment plan, and counseling patient) on [DATE]. Quality VTE Deep Vein Thrombosis/Pulmonary Embolism Present on Admission: No PROFEE Rn Travel Document charge(s): Yes Charge Codes Subsequent inpatient/observation care: [id number]
--- NOTE | 2024-06-24 11:24 | PC.NURSE ---
Patient pleasant with this RN this morning. He was able to take all of his morning meds, given po oxycodone for discomfort to hips and legs. This has been helpuful to patient. He also worked with physical therapy after voiding in the urina. He ambulated to the chair. Resting and waiting for lunch.
[2024-06-24 13:00] VITALS: BP 132/67; PULSE 94; RESP 18; TEMP 36.2; O2SAT 94
[2024-06-24 20:04] VITALS: BP 135/77; PULSE 96; RESP 20; TEMP 36.2; O2SAT 95
[2024-06-24] MEDS: TRAZODONE 50 MG TABLET 200 MG PO (20:23)
[2024-06-24] MEDS: ATORVASTATIN 20 MG TABLET 10 MG PO (20:23)
[2024-06-25] MEDS: ACETAMINOPHEN 325 MG TABLET 650 MG PO (00:33)
[2024-06-25] MEDS: OXYCODONE IR 10 MG TABLET PO ×3 (01:40→10:25)
[2024-06-25 06:48] LABS: Blood Urea Nitrogen 29 mg/dL (9-20); Calcium 8.4 mg/dL (8.4-10.2); Carbon Dioxide 27 mmol/L (22-32); Chloride 105 mmol/L (98-107); Estimated Glomerular Filt Rate 43 mL/min (>60); Glucose 88 mg/dL (70-99); HEMOLYSIS < 15 (0-50); Potassium 4.4 mmol/L (3.4-5.1); Sodium 137 mmol/L (137-145)
--- NOTE | 2024-06-25 09:31 | CM.DPC ---
DCP Discharge SNF Per MD, pt's symptoms improving but not resolved and stable for discharge to SNF today and will write orders. NATASHA called [facility] and confirmed they can still accept today but pt likely will not be covered by Medicare at [facility] for long since his skillable need is improving. They can provide transport at 1130 via facility van. NATASHA called pt's spouse Ananya and updated her on d/c to [facility] today and she remains agreeable and appreciative and discussed pt likely will not be covered by insurance at [facility] for very long and encouraged her and Dtrs to begin making LTC plans of hiring [facility] if pt continues to need more assist (which likely might be his baseline now) and she is agreeable to look into this and very open to [facility] again at d/c from SNF. Updated continuous process machine operator, INSURANCE INVESTIGATOR, and RN and provided number to call report. Plan: Patient to d/c to [facility] today via facility van at 1130 before safe return home with spouse and supportive local Dtrs. ZE Zhu
[2024-06-25] MEDS: METOPROLOL ER 25 MG TABLET PO (10:23)
[2024-06-25] MEDS: EZETIMIBE 10 MG TABLET PO (10:25)
[2024-06-25] MEDS: PANTOPRAZOLE DR 20 MG TABLET PO (10:25)
[2024-06-25] MEDS: APIXABAN 5 MG TABLET 2.5 MG PO (10:25)
[2024-06-25] MEDS: CHLORTHALIDONE 25 MG TABLET PO (10:25)
[2024-06-25] MEDS: MAGNESIUM OXIDE 400 MG TABLET PO (10:25)
[2024-06-25] MEDS: DOCUSATE 100 MG CAPSULE PO (10:25)
--- NOTE | 2024-06-25 12:04 | OT.IPNOTE ---
Pt is preparing for discharge in a few minutes. Will hold OT services at this time.
--- NOTE | 2024-06-25 12:07 | P.DS_ITS ---
History of Present Illness History of Present Illness Date Patient Seen: 06/25/24 Time Patient Seen: 09:20 Chief complaint: groin pain Narrative: chief complaint buttock/hip pain Feeling a bit better today still not needing pain meds kidneys are improving able to ambulate short distances to chair and commode but still does not like to bear weight. exam today revealed blanchable sacral erythema will treat as incipient pressure sore and unload. Plan today to d/c to rehab - encourage hydration and monitor BMP. Discharge Providers Provider Date of admission: 06/22/24 14:13 Discharge Date: 06/25/24 Primary care physician: Desi Frausto MD Consults: 06/21/24 10:26 Consult to BOARDING SPECIALIST - Bleaching Supervisor Stat Comment: Bleaching Supervisor Consult needed for:: Other reason (Comment) Comment: Pt having mobility issues at home. Difficulty getting to appointments due to mobility and socioeconomic barriers. 06/21/24 17:21 Consult to Occupational Therapy Evaluate & Treat Comment: Physician Instructions: Evaluate and treat Consult to Physical Therapy Evaluate & Treat Comment: Physician Instructions: Evaluate and Treat Discharge provider: Shaun Marshall MD Summary Hospital Course Discharge Diagnosis: #Chronic pelvic pain with bilateral leg pain #sacral blanchable erythema #Acute kidney failure on chronic renal failure stage 3 #essential hypertension #restless leg #constipation Hospital Course: Pleasant gentleman with history lately of major pain in buttocks/perineal area unable to walk with multiple ER presentations from home came in via ER with this complaint. He was able to be evaluated by Dr. Pang for urology at intake who opined that prostatitis did not seem to be an issue based on normal exam. Although he takes hydrocodone 5mg bid prn at home this has been inadequate lately to manage his pain which did require IV meds to manage initially. He was found to have a notable increase in creatinine indicative of acute renal failure so was admitted for IVF and pain management. His kidney function was improving by DoD and he was able to ambulate short distances with RW and 1 assist. Recommendationsf rom therapy were for SNF rehab so he will discharge to [facility]. No specific cause for his pain in the perineal area was evident beyond a tender blanching erythema like an early sacral pressure ulcer that will be treated with offloading and cushioning. Multiple imaging with radiographs and CT of the area have been unrevleaing and were unable to get MRI due to pacemaker presence. Will f/up with PCP after rehab. Encouraged PO hydration. Status at Discharge Cognitive/behavioral status at discharge: at baseline, oriented Functional status at discharge: uses cane/walker Overall status at discharge: patient is progressing back to baseline Exam Vital Signs (past 8 hours): Oxygen Delivery Method Room Air Oxygen Flow Rate 0 Narrative Exam Narrative: alert elder resting in hospital bed Resp Other: speaking clearly in full sentences on room air Cardio Other: regular rate, good distal pulses, 1/2+ pedal edema if that GI Other: soft nontender Skin Other: large area of blanchable erythema across sacrum and upper buttocks, tender to palpation Extrem Other: alert, moving all extremities Objective Labs 06/21/24 10:56 06/25/24 06:12 Labs: Laboratory Results - last 24 hr 06/25/24 06:12 Sodium 137 Potassium 4.4 Chloride 105 Carbon Dioxide 27 BUN 29 H Creatinine 1.53 H Estimated GFR 43 L BUN/Creatinine Ratio 19.0 Glucose 88 Calcium 8.4 PFSH Medical History (Updated 06/21/24 @ 19:02 by Kortney Mccormack MD) Uncomplicated opioid dependence Chronic low back pain Peripheral neuropathy Mixed hyperlipidemia Chronic renal failure, stage 3 (moderate) Atrial fibrillation History of elevated PSA BPH w urinary obs/LUTS Hypertension Low back pain Collagenous colitis History of colon polyps Hypertension Surgical History (Updated 06/24/24 @ 10:38 by Eros Zacarias MD) Status post cardiac pacemaker procedure Social History household members: spouse Smoking Status: Never smoker alcohol intake: former Discharge Assessment & Plan Assessment and Plan Assessment: #Chronic pelvic pain with bilateral leg pain #sacral blanchable erythema continue to work with PT - no cause apart from erythema found - CT wnl unable to get MRI d/t pacemaker. Chronic pain now doing ok with oral pain meds. May need placement half-way #constipation 2/2 oral fisher meds, docusate ordered #Acute kidney failure on chronic renal failure stage 3 He is improving back to baseline admits his hydration at home was not great - encourage PO intake #essential hypertension controlled continue home meds #restless leg improved with hydration, ropinerole did not help Dispo: to [facility] rehab Code: DNR PCP: Smitha Frausto Discharge Plan Discharge Plan Patient Disposition: Xfer Inpatient Rehab Transfer to: [facility] Discharge orders & Medications Discharge Orders: Discharge (Order); Ordered 06/25/24 Ordered By: Shaun Marshall Prescriptions: New acetaminophen 325 mg Tablet 650 mg PO Q6H PRN (Reason: Fever/Mild Pain (1-3)) Qty: 30 0RF docusate sodium 100 mg Capsule 100 mg PO BID Qty: 60 0RF oxycodone 10 mg Tablet 10 mg PO Q3H PRN (Reason: Pain, Severe (7-10)) Qty: 20 0RF Continued multivitamin [Multiple Vitamins] 1 EACH tablet 1 tab PO DAILY Qty: 0 hydrocodone-acetaminophen 5-325 mg tablet 1 tab PO Q6H PRN (Reason: pain) Qty: 14 0RF tamsulosin 0.4 mg capsule 0.4 mg PO DAILY acetaminophen 325 mg Tablet 650 mg PO Q8HR chlorthalidone 25 mg Tablet 25 mg PO DAILY trazodone 100 mg Tablet 200 mg PO DAILY PRN (Reason: Sleep) Rx Instructions: daily at bedtime as needed for sleep diphenhydramine HCl [Allergy (diphenhydramine)] 25 mg Capsule 50 mg PO BEDTIME PRN (Reason: Allergy Symptoms) metoprolol succinate 25 mg Tablet Extended Release 24 Hr 25 mg PO DAILY cholecalciferol (vitamin D3) 25 mcg (1,000 unit) Capsule 25 mcg PO DAILY ezetimibe-simvastatin [Vytorin 10-10] 10-10 mg Tablet 1 tab PO DAILY Eliquis 2.5 mg Tablet 2.5 mg PO BID ciprofloxacin HCl [Cipro] 500 mg tablet 500 mg PO BID Qty: 28 0RF omega-3 fatty acids 1,000 mg capsule 2,000 mg PO DAILY omeprazole 20 mg capsule,delayed release(DR/EC) 20 mg PO BID magnesium 250 mg tablet 500 mg PO DAILY Follow up/Referrals: Desi Frausto MD [Primary Care Provider] - Discharge Data Primary Care Provider: Desi Frausto Quality VTE Deep Vein Thrombosis/Pulmonary Embolism Present on Admission: No
== END 2024-06-25 12:22 | DRG 683 ==
LOC: ED 16:28 → AC 17:00
PROVIDERS: Internal Medicine; Admitting Provider Family Medicine; Emergency Provider Emergency Medicine; PCP Family Medicine; Referring Provider Emergency Medicine; Visit Provider Family Medicine
DX: N17.9 Acute kidney failure, unspecified (principal); N13.8 Other obstructive and reflux uropathy; R10.2 Pelvic and perineal pain; G25.81 Restless legs syndrome; M25.552 Pain in left hip; M25.551 Pain in right hip; I12.9 Hypertensive chronic kidney disease with stage 1 through stage 4 chronic kidney disease, or unspecified chronic kidney disease; N18.31 Chronic kidney disease, stage 3a; L89.159 Pressure ulcer of sacral region, unspecified stage; Z95.0 Presence of cardiac pacemaker; G89.29 Other chronic pain; M79.605 Pain in left leg; M79.604 Pain in right leg; K59.00 Constipation, unspecified; G62.9 Polyneuropathy, unspecified; I48.91 Unspecified atrial fibrillation; Z79.01 Long term (current) use of anticoagulants; Z88.4 Allergy status to anesthetic agent; Z88.8 Allergy status to other drugs, medicaments and biological substances; E78.2 Mixed hyperlipidemia; N40.1 Benign prostatic hyperplasia with lower urinary tract symptoms
CPT/HCPCS: 36415; 71045; 73522; 74176; 80048; 80053; 81001; 81003; 81015; 82962; 83605; 83690; 85025; 96374; 96375; 97162; 97166; 97530; 99232; 99233; 99283; 99284; G0378; J0131; J1171; J2270; J2405; Q9967

== ENCOUNTER → 2025-01-15 13:00 | Outpatient (CLI) | payer MEDICARE, SELFPAY ==
[2024-08-27 13:27] VITALS: BMI 28.8
== END ==
LOC: WC 13:10
PROVIDERS: Family Provider Family Medicine; PCP Family Medicine; Referring Provider Family Medicine; Visit Provider Surgery
DX: I70.235 Atherosclerosis of native arteries of right leg with ulceration of other part of foot (principal); I70.245 Atherosclerosis of native arteries of left leg with ulceration of other part of foot; L97.511 Non-pressure chronic ulcer of other part of right foot limited to breakdown of skin; L97.521 Non-pressure chronic ulcer of other part of left foot limited to breakdown of skin; Z79.01 Long term (current) use of anticoagulants
CPT/HCPCS: 99203; 99214

== ENCOUNTER → 2025-01-16 13:11 | Outpatient (CLI) | payer MEDICARE, SELFPAY ==
[2024-08-27 13:27] VITALS: BMI 28.8
--- NOTE | 2025-01-16 13:13 | DI.US.S_ITS ---
PROCEDURE: US ARTERIAL DUPLEX LE INDICATIONS: Peripheral artery disease TECHNIQUE: Color and pulse Doppler interrogation was performed of both lower extremity arterial systems, with image documentation. COMPARISON: [facility], US, ARTERIAL LOW.EXTREM.BILATERAL, 04/18/2017, 9:20. FINDINGS: Right lower extremity: Monophasic waveforms distal to the popliteal artery Common femoral artery: 138 cm/sec Deep femoral artery: 78 cm/sec Proximal superficial femoral artery: 71 cm/sec Mid superficial femoral artery: 58 cm/sec Distal superficial femoral artery: 67 cm/sec Popliteal artery: 24 cm/sec Posterior tibial artery: 68 cm/sec Anterior tibial artery/dorsalis pedis: 34 cm/sec Hampton-scale imaging description: Atherosclerotic plaque Left lower extremity: Monophasic waveforms distal to the popliteal artery Common femoral artery: 121 cm/sec Deep femoral artery: 107 cm/sec Proximal superficial femoral artery: 66 cm/sec Mid superficial femoral artery: 80 cm/sec Distal superficial femoral artery: 112 cm/sec Popliteal artery: 45 cm/sec Posterior tibial artery: 66 cm/sec Anterior tibial artery/dorsalis pedis: 129 cm/sec [place]-scale imaging description: Atherosclerotic plaque IMPRESSION: Elevated velocity in the left calf well as monophasic waveforms in both calfs reflects in atherosclerotic stenosis and bilateral peripheral vascular disease. No ultrasound evidence of occlusion Approved by: Sky Babcock M.D. on 01/16/2025 at 15:38
== END ==
LOC: US 13:12
PROVIDERS: Family Provider Family Medicine; PCP Family Medicine; Referring Provider Internal Medicine; Visit Provider Internal Medicine
DX: I73.9 Peripheral vascular disease, unspecified (principal)
CPT/HCPCS: 93925